=== PATIENT | male | born 1960 | race Two or more races ===

== ENCOUNTER → 2022-12-21 | Outpatient (CLI) | payer BC ==
[2022-12-21 07:12] LABS: Urine Bacteria NONE SEEN /hpf (None Seen); Urine Blood Negative /uL (Negative); Urine Clarity Clear (Clear); Urine Protein, UAD Negative (Negative); Urine Specific Gravity 1.013 (1.001-1.035); Urine Urobilinogen Normal (Negative); Urine WBC <1 /hpf (0 - 3); Urine pH 6.5 (5.0-8.0)
[2022-12-21 07:14] LABS: Urine Color Straw (Yellow)
[2022-12-21 07:32] LABS: Basophils # (auto) 0.1 10 ^3/uL (0-0.2); Eosinophils # (auto) 0.3 10 ^3/uL (0-0.8); Eosinophils % (auto) 3.9 % (0.0-7.0); Hematocrit 46.1 % (41.0-53.0); Hemoglobin 15.9 g/dL (13.5-17.5); Lymphocytes # (auto) 3.2 10 ^3/uL (0.4-5.4); Lymphocytes % (auto) 46.9 % (10.0-50.0); Mean Corpuscular Hemoglobin 30.9 pg (28.0-32.0); Mean Corpuscular Hgb Conc. 34.6 g/dL (32.0-36.0); Mean Corpuscular Volume 89.3 fL (80.0-100.0); Monocytes # (auto) 0.7 10 ^3/uL (0-1.3); Monocytes % (auto) 9.7 % (0.0-12.0); Neutrophils # (auto) 2.6 10 ^3/uL (1.6-8.6); Neutrophils % (auto) 38.5 % (37.0-80.0); Nucleated Red Blood Cells % 0.1 %; Red Blood Cells 5.16 10^6/uL (4.5-5.90); Red Cell Distribution Width 14.7 % (11.8-14.3); White Blood Cell 6.8 10^3/uL (4.4-10.8)
[2022-12-21 07:54] LABS: Alanine Aminotransferase 23 U/L (7-40); Alkaline Phosphatase 41 U/L (46-116); Anion Gap 7 (5-15); BUN/Creatinine Ratio 13.6 (10.0-20.0); Blood Urea Nitrogen 14 mg/dL (9-23); Calcium 9.3 mg/dL (8.5-10.1); Carbon Dioxide 24 mmol/L (20-30); Chloride 110 mmol/L (98-107); Glucose 103 mg/dL (74-106); Potassium 4.2 mmol/L (3.5-5.1); Sodium 141 mmol/L (136-145); Triglycerides 160 mg/dL (< 150)
[2022-12-21 07:55] LABS: Albumin 4.1 g/dL (3.2-4.8); Aspartate Aminotransferase 20 U/L (13-40); LDL Cholesterol 82 mg/dL (< 100)
[2022-12-21 07:57] LABS: Cholesterol 143 mg/dL (< 200); HDL Cholesterol 31 mg/dL (40-59)
[2022-12-21 07:58] LABS: Bilirubin, Total 0.8 mg/dL (0.2-1.0)
[2022-12-21 08:14] LABS: Platelet Estimate Adequate
== END | disposition home or self-care (01) ==
LOC: LAB 06:29
PROVIDERS: ATTEND Internal Medicine
DX: E11.9 Type 2 diabetes mellitus without complications (principal); E78.00 Pure hypercholesterolemia, unspecified
CPT/HCPCS: 36415; 80053; 80061; 81001; 83036; 85025

== ENCOUNTER → 2023-05-15 | Outpatient (CLI) | payer BC ==
[2023-05-15 07:05] LABS: Basophils # (auto) 0 10 ^3/uL (0-0.2); Basophils % (auto) 0.8 % (0.0-2.0); Eosinophils # (auto) 0.2 10 ^3/uL (0-0.8); Eosinophils % (auto) 3.1 % (0.0-7.0); Hematocrit 47.1 % (41.0-53.0); Hemoglobin 15.4 g/dL (13.5-17.5); Lymphocytes # (auto) 2.4 10 ^3/uL (0.4-5.4); Lymphocytes % (auto) 44.8 % (10.0-50.0); Mean Corpuscular Hemoglobin 29.3 pg (28.0-32.0); Mean Corpuscular Hgb Conc. 32.8 g/dL (32.0-36.0); Mean Corpuscular Volume 89.3 fL (80.0-100.0); Monocytes # (auto) 0.6 10 ^3/uL (0-1.3); Monocytes % (auto) 11.2 % (0.0-12.0); Neutrophils # (auto) 2.2 10 ^3/uL (1.6-8.6); Neutrophils % (auto) 40.1 % (37.0-80.0); Nucleated Red Blood Cells % 0.2 %; Red Blood Cells 5.27 10^6/uL (4.5-5.90); Red Cell Distribution Width 14.5 % (11.8-14.3); White Blood Cell 5.4 10^3/uL (4.4-10.8)
[2023-05-15 07:17] LABS: Urine Bacteria NONE SEEN /hpf (None Seen); Urine Blood Negative /uL (Negative); Urine Clarity Clear (Clear); Urine Color Colorless (Yellow); Urine Protein, UAD Negative (Negative); Urine Specific Gravity 1.011 (1.001-1.035); Urine Urobilinogen Normal (Negative); Urine WBC 1 /hpf (0 - 3)
[2023-05-15 07:48] LABS: Alanine Aminotransferase 26 U/L (7-40); Albumin 3.9 g/dL (3.2-4.8); Alkaline Phosphatase 47 U/L (46-116); Anion Gap 6 (5-15); Aspartate Aminotransferase 28 U/L (13-40); Calcium 9.2 mg/dL (8.5-10.1); Carbon Dioxide 23 mmol/L (20-30); Chloride 107 mmol/L (98-107); Glucose 94 mg/dL (74-106); LDL Cholesterol 85 mg/dL (< 100); Potassium 4.1 mmol/L (3.5-5.1); Sodium 136 mmol/L (136-145)
[2023-05-15 07:49] LABS: Bilirubin, Total 0.8 mg/dL (0.2-1.0); Cholesterol 146 mg/dL (< 200); HDL Cholesterol 34 mg/dL (40-59); Triglycerides 120 mg/dL (< 150)
[2023-05-15 07:50] LABS: BUN/Creatinine Ratio 9.9 (10.0-20.0); Blood Urea Nitrogen 11 mg/dL (9-23); Total Protein 6.7 g/dL (5.7-8.2)
[2023-05-16 10:06] LABS: PSA Free 0.74 ng/mL; Prostate Specific Antigen 2.9 ng/mL (0.0-4.0)
== END | disposition home or self-care (01) ==
LOC: LAB 06:27
PROVIDERS: ATTEND Internal Medicine
DX: Z12.11 Encounter for screening for malignant neoplasm of colon (principal); E78.5 Hyperlipidemia, unspecified; R68.89 Other general symptoms and signs; E11.69 Type 2 diabetes mellitus with other specified complication; N42.9 Disorder of prostate, unspecified
CPT/HCPCS: 36415; 80053; 80061; 81001; 82270; 83036; 84154; 85025

== ENCOUNTER → 2023-06-22 | Outpatient (CLI) | payer BC ==
[2023-06-22 07:25] LABS: Basophils # (auto) 0 10 ^3/uL (0-0.2); Basophils % (auto) 0.8 % (0.0-2.0); Eosinophils # (auto) 0.3 10 ^3/uL (0-0.8); Eosinophils % (auto) 3.9 % (0.0-7.0); Hematocrit 47.8 % (41.0-53.0); Hemoglobin 15.7 g/dL (13.5-17.5); Lymphocytes # (auto) 3.1 10 ^3/uL (0.4-5.4); Lymphocytes % (auto) 46.9 % (10.0-50.0); Mean Corpuscular Hemoglobin 28.7 pg (28.0-32.0); Mean Corpuscular Hgb Conc. 32.8 g/dL (32.0-36.0); Mean Corpuscular Volume 87.4 fL (80.0-100.0); Monocytes # (auto) 0.7 10 ^3/uL (0-1.3); Monocytes % (auto) 10.1 % (0.0-12.0); Neutrophils # (auto) 2.5 10 ^3/uL (1.6-8.6); Neutrophils % (auto) 38.3 % (37.0-80.0); Nucleated Red Blood Cells % 0.1 %; Red Blood Cells 5.47 10^6/uL (4.5-5.90); Red Cell Distribution Width 14.8 % (11.8-14.3); White Blood Cell 6.5 10^3/uL (4.4-10.8)
[2023-06-22 08:04] LABS: Alanine Aminotransferase 41 U/L (7-40); Alkaline Phosphatase 48 U/L (46-116); Anion Gap 7 (5-15); Aspartate Aminotransferase 31 U/L (13-40); Blood Urea Nitrogen 13 mg/dL (9-23); Calcium 9.3 mg/dL (8.5-10.1); Carbon Dioxide 27 mmol/L (20-30); Chloride 106 mmol/L (98-107); Glucose 86 mg/dL (74-106); LDL Cholesterol 97 mg/dL (< 100); Potassium 4.1 mmol/L (3.5-5.1); Sodium 140 mmol/L (136-145); Triglycerides 127 mg/dL (< 150)
[2023-06-22 08:05] LABS: Bilirubin, Total 0.8 mg/dL (0.2-1.0); Cholesterol 151 mg/dL (< 200); HDL Cholesterol 34 mg/dL (40-59); Total Protein 6.4 g/dL (5.7-8.2)
[2023-06-23 08:06] LABS: Free Thyroxine Index 2.2 (1.2-4.9); Thyroxine (T4) 7.2 ug/dL (4.5-12.0)
== END | disposition home or self-care (01) ==
LOC: LAB 06:17
PROVIDERS: ATTEND Psychiatry & Neurology Psychiatry
DX: F20.5 Residual schizophrenia (principal)
CPT/HCPCS: 36415; 80053; 80061; 80164; 82306; 82607; 84443; 85025; 86256

== ENCOUNTER → 2023-09-10 | Outpatient (CLI) | payer BC ==
[2023-09-10 07:41] LABS: Basophils # (auto) 0.1 10 ^3/uL (0-0.2); Eosinophils # (auto) 0.5 10 ^3/uL (0-0.8); Eosinophils % (auto) 7.4 % (0.0-7.0); Hematocrit 47.3 % (41.0-53.0); Hemoglobin 15.7 g/dL (13.5-17.5); Lymphocytes % (auto) 42.2 % (10.0-50.0); Mean Corpuscular Hemoglobin 29.4 pg (28.0-32.0); Mean Corpuscular Hgb Conc. 33.2 g/dL (32.0-36.0); Mean Corpuscular Volume 88.4 fL (80.0-100.0); Monocytes # (auto) 0.7 10 ^3/uL (0-1.3); Neutrophils # (auto) 2.8 10 ^3/uL (1.6-8.6); Neutrophils % (auto) 39.4 % (37.0-80.0); Nucleated Red Blood Cells % 0.2 %; Red Blood Cells 5.36 10^6/uL (4.5-5.90); Red Cell Distribution Width 15.1 % (11.8-14.3); White Blood Cell 7.2 10^3/uL (4.4-10.8)
[2023-09-10 07:42] LABS: Urine Bacteria None Seen /hpf (None Seen); Urine Blood Negative /uL (Negative); Urine Clarity Clear (Clear); Urine Color Yellow (Yellow); Urine Mucus FEW (None Seen); Urine Protein, UAD Negative (Negative); Urine Specific Gravity 1.025 (1.001-1.035); Urine Urobilinogen 4 mg/dL (Negative); Urine WBC <1 /hpf (0 - 3)
[2023-09-10 08:01] LABS: Alanine Aminotransferase 38 U/L (7-40); Albumin 3.9 g/dL (3.2-4.8); Alkaline Phosphatase 49 U/L (46-116); Anion Gap 4 (5-15); Aspartate Aminotransferase 27 U/L (13-40); BUN/Creatinine Ratio 9.9 (10.0-20.0); Blood Urea Nitrogen 11 mg/dL (9-23); Calcium 9.5 mg/dL (8.5-10.1); Carbon Dioxide 29 mmol/L (20-30); Chloride 107 mmol/L (98-107); Cholesterol 155 mg/dL (< 200); Glucose 88 mg/dL (74-106); LDL Cholesterol 92 mg/dL (< 100); Potassium 4.2 mmol/L (3.5-5.1); Sodium 140 mmol/L (136-145); Triglycerides 162 mg/dL (< 150)
[2023-09-10 08:02] LABS: Bilirubin, Total 0.9 mg/dL (0.2-1.0); Total Protein 6.7 g/dL (5.7-8.2)
[2023-09-10 08:49] LABS: HDL Cholesterol 33 mg/dL (40-59)
== END | disposition home or self-care (01) ==
LOC: LAB 06:50
PROVIDERS: ATTEND Internal Medicine
DX: E11.9 Type 2 diabetes mellitus without complications (principal); E78.00 Pure hypercholesterolemia, unspecified; R68.89 Other general symptoms and signs
CPT/HCPCS: 36415; 80053; 80061; 81001; 83036; 85025

== ENCOUNTER → 2023-11-29 | Outpatient (CLI) | payer BC ==
[2023-11-29 13:30] LABS: Folate (Folic Acid) 13.98 ng/mL (>5.38)
== END | disposition home or self-care (01) ==
LOC: LAB 12:47
PROVIDERS: ATTEND Internal Medicine
DX: F03.90 Unspecified dementia, unspecified severity, without behavioral disturbance, psychotic disturbance, mood disturbance, and anxiety (principal)
CPT/HCPCS: 36415; 82607; 82746; 84436; 84443

== ENCOUNTER 2023-12-01 06:10 | Inpatient (IN) | payer BC ==
[2023-11-30] MEDS: BUDESONIDE (INHALATION) 180 MCG IH IN SCH (18:20)
[~2023-12-01] VITALS: Ht 177.8 cm; Wt 120.0 kg
[~2023-12-01 06:10] MED LIST: ATOR10TA PO; DIVA500T13 PO; DONE1TAB88 PO; GLIP-110 PO; LORA-655 PO; LOSA-534 PO; METF-370 PO; OMEG-86 PO; OMEP1CAP70 PO
[2023-12-01 06:33] VITALS: PULSE 70; RESP 18; O2SAT 96
[2023-12-01 07:00] LABS: Basophils # (auto) 0 10 ^3/uL (0-0.2); Basophils % (auto) 0.5 % (0.0-2.0); Chloride 106 mmol/L (98-107); Eosinophils # (auto) 0 10 ^3/uL (0-0.8); Eosinophils % (auto) 0.1 % (0.0-7.0); Hematocrit 42.7 % (41.0-53.0); Hemoglobin 14.5 g/dL (13.5-17.5); Lymphocytes # (auto) 0.7 10 ^3/uL (0.4-5.4); Lymphocytes % (auto) 10.5 % (10.0-50.0); Mean Corpuscular Hemoglobin 30.1 pg (28.0-32.0); Mean Corpuscular Volume 88.6 fL (80.0-100.0); Monocytes # (auto) 1.1 10 ^3/uL (0-1.3); Monocytes % (auto) 17.9 % (0.0-12.0); Neutrophils # (auto) 4.5 10 ^3/uL (1.6-8.6); Nucleated Red Blood Cells % 0.1 %; Platelet Count (auto) 130 10^3/uL (140-450); Potassium 3.8 mmol/L (3.5-5.1); Red Blood Cells 4.82 10^6/uL (4.5-5.90); Red Cell Distribution Width 15.8 % (11.8-14.3); Sodium 137 mmol/L (136-145); White Blood Cell 6.3 10^3/uL (4.4-10.8)
[2023-12-01 07:01] LABS: Anion Gap 6 (5-15); Carbon Dioxide 25 mmol/L (20-30)
[2023-12-01 07:02] LABS: Calcium 9.4 mg/dL (8.7-10.4)
[2023-12-01 07:06] LABS: Glucose 90 mg/dL (74-106)
[2023-12-01 07:36] LABS: BUN/Creatinine Ratio 13.1 (10.0-20.0); Blood Urea Nitrogen 14 mg/dL (9-23)
[2023-12-01 07:56] LABS: COVID19 ANTIGEN SOFIA FIA POSITIVE (NEGATIVE)
[2023-12-01] MEDS: AZITHROMYCIN 500MG/ 250ML 250 ML IV ONE (08:30)
[2023-12-01] MEDS: cefTRIAXone 1GM/50ML D5W 50 ML IV ONE (09:02)
[2023-12-01] MEDS: IOHEXOL 350 MG/ML 100ML IJ ONE (09:17)
[2023-12-01 09:27] VITALS: PULSE 100; RESP 22; O2SAT 95
[2023-12-01] MEDS ORDERED: DEXTROSE (50%) 50ML SYRG IV PRN (10:00)
[2023-12-01] MEDS: DexAMETHasone 4 MG TAB PO SCH (10:00)
[2023-12-01] MEDS ORDERED: DOCUSATE SOD 100 MG CAP PO PRN (10:00)
[2023-12-01] MEDS ORDERED: REMDESIVIR PER PHARMACY 0 ML IV SCH (10:00)
[2023-12-01] MEDS: ZINC SULFATE 220mg CAP or TAB PO SCH (10:00)
[2023-12-01] MEDS ORDERED: HYDROcodone-ACET 5/325MG TAB PO PRN (10:00)
[2023-12-01 10:09] VITALS: PULSE 100; RESP 22; O2SAT 95
[2023-12-01 10:14] LABS: Magnesium 1.5 mg/dL (1.6-2.6)
[2023-12-01 10:23] LABS: CRP High Sensitivity 2.77 mg/dL (<1.0)
[2023-12-01] MEDS: ENOXAPARIN SOD 120 MG/0.8 ML SYRINGE SC ONE (10:29)
[2023-12-01 10:53] LABS: Thyroid Stimulating Hormone 1.96 uIU/mL (0.55-4.78)
[2023-12-01] MEDS: HYDROmorphone HCL 2 MG/ML VL/or syr IV PRN (11:17)
[2023-12-01] MEDS: InsuLIN REG 1unit/0.01ml Soln (100units/ml) SC SCH (11:30)
[2023-12-01] MEDS: ACCU-CHEK COMFORT CURVE STRIP VI SCH (11:43)
[2023-12-01] MEDS: REMDESIVIR 200 MG in NS 210ml LOADING DOSE ADULT IV ONE (11:44)
[2023-12-01] MEDS: SODIUM CHLOR 0.9% PF (SALINE LOCK) 10ML VIAL/SYR IV SCH (14:23)
[2023-12-01] MEDS: ACETAMINOPHEN 325 MG TAB PO PRN (17:08)
[2023-12-01] MEDS: ONDANSETRON HCL 4 MG/2 ML VIAL IV PRN (18:00)
[2023-12-01 18:20] VITALS: PULSE 90; RESP 19; O2SAT 93
[2023-12-01 18:27] VITALS: PULSE 92; RESP 18; O2SAT 94
[2023-12-01 20:21] VITALS: PULSE 77; RESP 13; O2SAT 95
[2023-12-01] MEDS: ENOXAPARIN SOD 120 MG/0.8 ML SYRINGE SC SCH (22:00)
[2023-12-02 06:09] LABS: Hematocrit 43.6 % (41.0-53.0); Hemoglobin 14.8 g/dL (13.5-17.5); Mean Corpuscular Hemoglobin 30.6 pg (28.0-32.0); Mean Corpuscular Hgb Conc. 34.1 g/dL (32.0-36.0); Mean Corpuscular Volume 89.7 fL (80.0-100.0); Platelet Count (auto) 107 10^3/uL (140-450); Red Blood Cells 4.85 10^6/uL (4.5-5.90); Red Cell Distribution Width 15.9 % (11.8-14.3)
[2023-12-02 06:15] LABS: Basophils % (manual) 0 (0.0-2.0); Blast Cells 0; Eosinophils % (manual) 0 (0-7); Metamyelocytes % 0; Myelocytes % 0; Promyelocytes % 0
[2023-12-02 06:33] LABS: Alanine Aminotransferase 88 U/L (7-40); Alkaline Phosphatase 43 U/L (46-116); Anion Gap 4 (5-15); BUN/Creatinine Ratio 13.9 (10.0-20.0); Blood Urea Nitrogen 14 mg/dL (9-23); Carbon Dioxide 28 mmol/L (20-30); Chloride 103 mmol/L (98-107); Glucose 89 mg/dL (74-106); Potassium 4.3 mmol/L (3.5-5.1); Sodium 135 mmol/L (136-145)
[2023-12-02 06:34] LABS: Aspartate Aminotransferase 312 U/L (13-40)
[2023-12-02 06:35] LABS: Albumin 3.6 g/dL (3.2-4.8); Bilirubin, Total 0.7 mg/dL (0.2-1.0); Total Protein 6.4 g/dL (5.7-8.2)
[2023-12-02 07:21] VITALS: PULSE 73; RESP 20; O2SAT 95
[2023-12-02] MEDS: ALBUTEROL SULF HFA 90MCG INH 200DOSE IN PRN (07:21)
[2023-12-02 07:23] VITALS: O2SAT 95
[2023-12-02 07:24] VITALS: O2SAT 95
[2023-12-02 07:50] VITALS: PULSE 80; RESP 18; O2SAT 93
[2023-12-02 08:26] LABS: Band Neutrophils % (manual) 5; Lymphocytes % (manual) 22 (10.0-50.0); Monocytes % (manual) 26 (0-12); Reactive Lymphocytes 2
[2023-12-02 08:27] LABS: Anisocytosis Slight; Platelet Estimate Decreased
[2023-12-02] MEDS: cefTRIAXone 1GM/50ML D5W 50 ML IV SCH (09:42)
[2023-12-02] MEDS: AZITHROMYCIN 500MG/ 250ML 250 ML IV SCH (11:18)
[2023-12-02] MEDS: REMDESIVIR 100mg 100 MG in SODIUM CHL 0.9% 230 ML IV SCH (15:54)
[2023-12-02] MEDS ORDERED: RIS1T PO (16:16)
[2023-12-02] MEDS: IOHEXOL 350 MG/ML 100ML IJ ONE (20:46)
[2023-12-02] MEDS ORDERED: risperiDONE 1 MG TAB PO ONE (22:00)
[2023-12-02 22:24] VITALS: O2SAT 97
[2023-12-03] MEDS: risperiDONE 1 MG TAB PO SCH (00:25)
[2023-12-03] MEDS: ENOXAPARIN SOD 40 MG/0.4 ML SYRINGE SC ONE (00:26)
[2023-12-03 07:38] LABS: Basophils # (auto) 0 10 ^3/uL (0-0.2); Basophils % (auto) 0.3 % (0.0-2.0); Eosinophils # (auto) 0 10 ^3/uL (0-0.8); Hematocrit 44.6 % (41.0-53.0); Hemoglobin 15.2 g/dL (13.5-17.5); Lymphocytes # (auto) 2.6 10 ^3/uL (0.4-5.4); Mean Corpuscular Hemoglobin 30.8 pg (28.0-32.0); Mean Corpuscular Hgb Conc. 34.1 g/dL (32.0-36.0); Mean Corpuscular Volume 90.5 fL (80.0-100.0); Monocytes # (auto) 1.6 10 ^3/uL (0-1.3); Monocytes % (auto) 18.8 % (0.0-12.0); Neutrophils # (auto) 4.5 10 ^3/uL (1.6-8.6); Neutrophils % (auto) 50.9 % (37.0-80.0); Platelet Count (auto) 112 10^3/uL (140-450); Red Blood Cells 4.93 10^6/uL (4.5-5.90); White Blood Cell 8.8 10^3/uL (4.4-10.8)
[2023-12-03 07:52] LABS: Alanine Aminotransferase 80 U/L (7-40); Albumin 3.7 g/dL (3.2-4.8); Alkaline Phosphatase 39 U/L (46-116); Anion Gap 4 (5-15); Aspartate Aminotransferase 216 U/L (13-40); BUN/Creatinine Ratio 14.6 (10.0-20.0); Bilirubin, Total 0.6 mg/dL (0.2-1.0); Blood Urea Nitrogen 14 mg/dL (9-23); Calcium 9.1 mg/dL (8.7-10.4); Carbon Dioxide 31 mmol/L (20-30); Chloride 104 mmol/L (98-107); Glucose 102 mg/dL (74-106); Potassium 4.4 mmol/L (3.5-5.1); Sodium 139 mmol/L (136-145); Total Protein 6.4 g/dL (5.7-8.2)
[2023-12-03 07:56] VITALS: PULSE 82; RESP 17; O2SAT 98
[2023-12-03 11:30] VITALS: PULSE 86; RESP 18; O2SAT 98
[2023-12-03 11:37] VITALS: PULSE 87; RESP 18; O2SAT 98
[2023-12-03] MEDS: FUROSEMIDE 20 MG/2 ML VIAL IV ONE (14:45)
[2023-12-03] MEDS ORDERED: RISP2TAB62 PO (15:35)
[2023-12-03 17:00] VITALS: BP 117/70; PULSE 75; RESP 19; O2SAT 94
== END 2023-12-03 17:08 | disposition home or self-care (01) | DRG 871 ==
LOC: ER 06:10 → EDBD 06:10 → EDUNIT# 06:10 → TELE 09:52
PROVIDERS: ADMIT Internal Medicine; ATTEND Emergency Medicine
PROC: XW033E5 Introduction of Remdesivir Anti-infective into Peripheral Vein, Percutaneous Approach, New Technology Group 5 (ICD-10-PCS; principal; 2023-12-01)
DX: A41.89 Other specified sepsis (principal); J12.82 Pneumonia due to coronavirus disease 2019; U07.1 COVID-19; J96.01 Acute respiratory failure with hypoxia; D69.6 Thrombocytopenia, unspecified; E11.9 Type 2 diabetes mellitus without complications; F20.9 Schizophrenia, unspecified; I10 Essential (primary) hypertension; R79.89 Other specified abnormal findings of blood chemistry; R74.01 Elevation of levels of liver transaminase levels; Z86.16 Personal history of COVID-19
CPT/HCPCS: 36415; 71045; 71275; 76705; 80048; 80053; 82306; 82607; 82746; 82962; 83615; 83735; 84436; 84443; 85007; 85025; 85027; 85379; 86141; 87040; 87426; 93005; 94640; 96365; 99291; G0378; J2405

== ENCOUNTER 2023-12-07 08:54 | Emergency (ER) | payer BC ==
[~2023-12-07] VITALS: Ht 167.6 cm; Wt 99.8 kg
[~2023-12-07 08:54] MED LIST changes: +RISP2TAB62 PO
[2023-12-07] MEDS ORDERED: BENZ200C64 PO (09:51)
[2023-12-07] MEDS ORDERED: AZIT500T66 PO (09:51)
[2023-12-07 10:00] VITALS: BP 141/87; PULSE 87; RESP 16; TEMP 98.6; O2SAT 94
== END 2023-12-07 10:03 | disposition home or self-care (01) ==
LOC: ER 08:54
DX: J20.9 Acute bronchitis, unspecified (principal); E11.9 Type 2 diabetes mellitus without complications; I10 Essential (primary) hypertension; F20.9 Schizophrenia, unspecified
CPT/HCPCS: 71046

== ENCOUNTER 2024-01-11 12:06 | Inpatient (IN) | payer BC ==
[~2024-01-11] VITALS: Ht 165.1 cm; Wt 99.7 kg
[~2024-01-11 12:06] MED LIST changes: +AZIT500T66 PO; +BENZ200C64 PO
[2024-01-11 13:43] LABS: Basophils # (auto) 0 10 ^3/uL (0-0.2); Basophils % (auto) 0.3 % (0.0-2.0); Eosinophils # (auto) 0.1 10 ^3/uL (0-0.8); Hematocrit 44.9 % (41.0-53.0); Hemoglobin 15.4 g/dL (13.5-17.5); Lymphocytes # (auto) 1.4 10 ^3/uL (0.4-5.4); Lymphocytes % (auto) 21.9 % (10.0-50.0); Mean Corpuscular Hemoglobin 31.1 pg (28.0-32.0); Mean Corpuscular Hgb Conc. 34.4 g/dL (32.0-36.0); Mean Corpuscular Volume 90.4 fL (80.0-100.0); Monocytes # (auto) 0.5 10 ^3/uL (0-1.3); Neutrophils # (auto) 4.4 10 ^3/uL (1.6-8.6); Neutrophils % (auto) 68.8 % (37.0-80.0); Nucleated Red Blood Cells % 0.1 %; Platelet Count (auto) 156 10^3/uL (140-450); Red Blood Cells 4.96 10^6/uL (4.5-5.90); Red Cell Distribution Width 15.1 % (11.8-14.3); White Blood Cell 6.4 10^3/uL (4.4-10.8)
[2024-01-11 13:48] LABS: Anion Gap 9 (5-15); Carbon Dioxide 23 mmol/L (20-31); Chloride 109 mmol/L (98-107); Potassium 4.4 mmol/L (3.5-5.1); Sodium 141 mmol/L (136-145)
[2024-01-11 13:49] LABS: Calcium 9.1 mg/dL (8.7-10.4)
[2024-01-11 13:54] LABS: Blood Urea Nitrogen 14 mg/dL (9-23); Glucose 88 mg/dL (74-106)
[2024-01-11] MEDS: ENOXAPARIN SOD 100 MG/1 ML SYRINGE SC ONE (16:13)
[2024-01-11 16:18] VITALS: PULSE 155; RESP 24; O2SAT 93
[2024-01-11] MEDS: dilTIAZem 25 MG/5 ML VIAL IV ONE (16:24)
[2024-01-11] MEDS ORDERED: MORPHINE SULFATE INJ 2 MG/ml SYRG IV PRN (18:15)
[2024-01-11] MEDS ORDERED: ONDANSETRON HCL 4 MG/2 ML VIAL IV PRN (18:15)
[2024-01-11] MEDS ORDERED: DEXTROSE (50%) 50ML SYRG IV PRN (18:15)
[2024-01-11] MEDS ORDERED: NITROGLYCERIN 0.4 MG SL TAB SL PRN (18:15)
[2024-01-11] MEDS: DIGOXIN (250MCG/ML) 2 ML AMPULE IV ONE (18:27)
[2024-01-11] MEDS: levoFLOXacin 500MG 100 ML IV ONE (18:27)
[2024-01-11 19:00] LABS: Magnesium 1.6 mg/dL (1.6-2.6)
[2024-01-11 19:50] LABS: Rapid Influenza A Negative (Negative); Rapid Influenza B Negative (Negative)
[2024-01-11 19:51] LABS: COVID19 ANTIGEN SOFIA FIA NEGATIVE (NEGATIVE)
[2024-01-11 20:45] LABS: Lactic Acid w/Reflex 2.1 mmol/L (0.4-2.0)
[2024-01-11] MEDS: AMIODARONE 450mg/250ml AE 250 ML IV SCH (21:10)
[2024-01-11] MEDS: InsuLIN REG 1unit/0.01ml Soln (100units/ml) SC SCH (22:00)
[2024-01-11] MEDS: DONEPEZIL HYDROCHLORIDE 5 MG TAB PO SCH (22:24)
[2024-01-11] MEDS: ATORVASTATIN 20 MG TAB PO SCH (22:25)
[2024-01-11 22:34] VITALS: BP 96/54; PULSE 83; RESP 18; TEMP 98.2; O2SAT 92
[2024-01-11 22:45] VITALS: BP 96/54; PULSE 83; RESP 16; RESP 18; TEMP 98.2; O2SAT 92
[2024-01-12] VITALS (8 sets, daily range): BP systolic 97–126; BP diastolic 50–80; PULSE 54–81; RESP 16–18; TEMP 97.4–98.2; O2SAT 92–96
[2024-01-12] MEDS: ACCU-CHEK COMFORT CURVE STRIP VI SCH (00:14)
[2024-01-12] MEDS: AMIODARONE 450mg/250ml AE 250 ML IV SCH (03:00)
[2024-01-12 08:57] LABS: Basophils # (auto) 0 10 ^3/uL (0-0.2); Basophils % (auto) 0.2 % (0.0-2.0); Eosinophils # (auto) 0.1 10 ^3/uL (0-0.8); Eosinophils % (auto) 2.9 % (0.0-7.0); Hemoglobin 14.6 g/dL (13.5-17.5); Mean Corpuscular Hemoglobin 30.6 pg (28.0-32.0); Mean Corpuscular Hgb Conc. 33.8 g/dL (32.0-36.0); Mean Corpuscular Volume 90.4 fL (80.0-100.0); Monocytes # (auto) 0.7 10 ^3/uL (0-1.3); Monocytes % (auto) 14.7 % (0.0-12.0); Neutrophils # (auto) 2.2 10 ^3/uL (1.6-8.6); Neutrophils % (auto) 43.2 % (37.0-80.0); Nucleated Red Blood Cells % 0.4 %; Platelet Count (auto) 147 10^3/uL (140-450); Red Blood Cells 4.76 10^6/uL (4.5-5.90); Red Cell Distribution Width 15.2 % (11.8-14.3)
[2024-01-12 09:48] LABS: Alanine Aminotransferase 23 U/L (7-40); Albumin 3.7 g/dL (3.2-4.8); Alkaline Phosphatase 46 U/L (46-116); Anion Gap 8 (5-15); Aspartate Aminotransferase 20 U/L (13-40); BUN/Creatinine Ratio 11.1 (10.0-20.0); Bilirubin, Total 0.6 mg/dL (0.2-1.0); Blood Urea Nitrogen 12 mg/dL (9-23); Calcium 8.6 mg/dL (8.7-10.4); Carbon Dioxide 23 mmol/L (20-31); Chloride 109 mmol/L (98-107); Cholesterol 134 mg/dL (< 200); Glucose 110 mg/dL (74-106); HDL Cholesterol 35 mg/dL (40-59); LDL Cholesterol 77 mg/dL (< 100); Magnesium 1.8 mg/dL (1.6-2.6); Potassium 3.7 mmol/L (3.5-5.1); Sodium 140 mmol/L (136-145); Total Protein 6.2 g/dL (5.7-8.2); Triglycerides 139 mg/dL (< 150)
[2024-01-12] MEDS ORDERED: ENOXAPARIN SOD 40 MG/0.4 ML SYRINGE SC SCH (10:00)
[2024-01-12] MEDS ORDERED: RISP2TAB62 PO (11:35)
[2024-01-12] MEDS: LOSARTAN POTASSIUM 50 MG TAB PO SCH (12:31)
[2024-01-12] MEDS: POTASSIUM CHL 20 Meq TABLET PO ONE (12:31)
[2024-01-12] MEDS: METOPROLOL TARTRATE 25 MG TAB PO ONE (12:33)
[2024-01-12] MEDS: AMIODARONE HCL 200 MG TAB PO ONE (12:36)
[2024-01-12] MEDS: ENOXAPARIN SOD 80 MG/0.8ML SYRINGE SC SCH (12:37)
[2024-01-12] MEDS ORDERED: LORazepam 0.5 MG TAB PO PRN (14:45)
[2024-01-12] MEDS: levoFLOXacin 500MG 100 ML IV SCH (17:11)
[2024-01-12 17:33] LABS: Urine Bacteria FEW /hpf (None Seen); Urine Blood TRACE /uL (Negative); Urine Clarity Clear (Clear); Urine Color Light-Yellow (Yellow); Urine Protein, UAD Negative (Negative); Urine Specific Gravity 1.008 (1.001-1.035); Urine Urobilinogen Normal (Negative); Urine WBC 1 /hpf (0 - 3)
[2024-01-12 17:42] LABS: Amphetamine Screen, Urine Neg (NEGATIVE); Barbiturate Scree,Urine Neg (NEGATIVE); Benzodiazephine Screen, Urine Neg (NEGATIVE); Cannabinoid Screen, Urine Neg (NEGATIVE); Cocaine Screen, Urine Neg (NEGATIVE); Opiate Scree,Urine Neg (NEGATIVE); Phencyclidine Screen, Urine Neg (NEGATIVE)
[2024-01-12] MEDS: MAGNESIUM SULFATE 1GM/100ML 100 ML IV ONE (18:25)
[2024-01-12] MEDS: METOPROLOL TARTRATE 25 MG TAB PO SCH (21:59)
[2024-01-12] MEDS: AMIODARONE HCL 200 MG TAB PO SCH (22:02)
[2024-01-13 01:00] VITALS: BP_SYST 113; BP_SYST 141; BP_DIAS 67; BP_DIAS 93; PULSE 62; PULSE 96; RESP 18; RESP 19; TEMP 97.6; TEMP 98.3; O2SAT 100
[2024-01-13 05:00] VITALS: BP 121/54; PULSE 52; RESP 20; TEMP 97.6; O2SAT 94
[2024-01-13 06:12] LABS: Basophils # (auto) 0 10 ^3/uL (0-0.2); Basophils % (auto) 0.4 % (0.0-2.0); Eosinophils # (auto) 0.2 10 ^3/uL (0-0.8); Eosinophils % (auto) 2.5 % (0.0-7.0); Hematocrit 46.5 % (41.0-53.0); Hemoglobin 15.7 g/dL (13.5-17.5); Lymphocytes # (auto) 3.3 10 ^3/uL (0.4-5.4); Lymphocytes % (auto) 46.1 % (10.0-50.0); Mean Corpuscular Hemoglobin 30.8 pg (28.0-32.0); Mean Corpuscular Hgb Conc. 33.7 g/dL (32.0-36.0); Mean Corpuscular Volume 91.4 fL (80.0-100.0); Monocytes % (auto) 13.5 % (0.0-12.0); Neutrophils # (auto) 2.7 10 ^3/uL (1.6-8.6); Neutrophils % (auto) 37.5 % (37.0-80.0); Nucleated Red Blood Cells % 0.1 %; Platelet Count (auto) 165 10^3/uL (140-450); Red Blood Cells 5.09 10^6/uL (4.5-5.90); Red Cell Distribution Width 15.3 % (11.8-14.3); White Blood Cell 7.2 10^3/uL (4.4-10.8)
[2024-01-13 06:35] LABS: Alanine Aminotransferase 24 U/L (7-40); Albumin 4.1 g/dL (3.2-4.8); Alkaline Phosphatase 49 U/L (46-116); Anion Gap 6 (5-15); Aspartate Aminotransferase 23 U/L (13-40); BUN/Creatinine Ratio 12.1 (10.0-20.0); Bilirubin, Total 0.6 mg/dL (0.2-1.0); Blood Urea Nitrogen 13 mg/dL (9-23); Calcium 9.6 mg/dL (8.7-10.4); Carbon Dioxide 28 mmol/L (20-31); Chloride 104 mmol/L (98-107); Glucose 91 mg/dL (74-106); Potassium 4.7 mmol/L (3.5-5.1); Sodium 138 mmol/L (136-145); Total Protein 6.9 g/dL (5.7-8.2)
[2024-01-13 08:00] VITALS: PULSE 52; O2SAT 95
[2024-01-13 09:00] VITALS: BP 139/74; PULSE 61; RESP 19; TEMP 97.7; O2SAT 95
[2024-01-13] MEDS: risperiDONE 1 MG TAB PO SCH (10:01)
[2024-01-13] MEDS ORDERED: LEVO750T40 PO (10:41)
[2024-01-13] MEDS ORDERED: AMIO200T13 PO (10:41)
[2024-01-13] MEDS ORDERED: MET25T PO (10:41)
[2024-01-13] MEDS ORDERED: APIX5TAB PO (11:06)
[2024-01-13 11:07] VITALS: BP 139/74; PULSE 61; RESP 19; TEMP 97.7; O2SAT 95
[2024-01-13 13:00] VITALS: BP 129/82; PULSE 60; RESP 20; TEMP 98; O2SAT 94
[2024-01-13] MEDS ORDERED: APIXABAN 5 MG TAB PO SCH (22:00)
[2024-01-14 08:50] LABS: Hepatitis B Surface Antigen Negative (Negative)
[2024-01-14 09:14] LABS: Hepatitis C Antibody Negative (Negative)
== END 2024-01-13 15:20 | disposition home or self-care (01) | DRG 371 ==
LOC: ER 12:06 → TELE-E-ADS 18:08 → TELE 18:08 → TELE-E-ADS 22:34
PROVIDERS: ADMIT Internal Medicine; ATTEND Ophthalmology
DX: A04.9 Bacterial intestinal infection, unspecified (principal); I21.A1 Myocardial infarction type 2; J15.69 Pneumonia due to other Gram-negative bacteria; J15.9 Unspecified bacterial pneumonia; I48.20 Chronic atrial fibrillation, unspecified; E11.9 Type 2 diabetes mellitus without complications; E78.5 Hyperlipidemia, unspecified; E66.9 Obesity, unspecified; F20.9 Schizophrenia, unspecified; I10 Essential (primary) hypertension; Z68.36 Body mass index [BMI] 36.0-36.9, adult; E83.42 Hypomagnesemia; Z20.822 Contact with and (suspected) exposure to COVID-19; F03.90 Unspecified dementia, unspecified severity, without behavioral disturbance, psychotic disturbance, mood disturbance, and anxiety; Z79.899 Other long term (current) drug therapy; Z79.4 Long term (current) use of insulin; R62.50 Unspecified lack of expected normal physiological development in childhood
CPT/HCPCS: 36415; 71045; 80048; 80053; 80061; 80307; 81001; 82962; 83036; 83605; 83690; 83735; 84443; 84484; 85025; 86803; 87045; 87081; 87340; 87426; 87427; 87493; 87804; 93005; 93306; 99291; G0378; J1815; J1956

== ENCOUNTER 2024-01-30 18:27 | Inpatient (IN) | payer BC ==
[~2024-01-30] VITALS: Ht 167.6 cm; Wt 102.0 kg
[~2024-01-30 18:27] MED LIST changes: +AMIO200T13 PO; +APIX5TAB PO; -AZIT500T66 PO; +LEVO750T40 PO; +MET25T PO
[2024-01-30 20:19] LABS: Basophils # (auto) 0 10 ^3/uL (0-0.2); Basophils % (auto) 0.6 % (0.0-2.0); Eosinophils # (auto) 0.2 10 ^3/uL (0-0.8); Hematocrit 42.8 % (41.0-53.0); Hemoglobin 14.3 g/dL (13.5-17.5); Lymphocytes # (auto) 3.4 10 ^3/uL (0.4-5.4); Lymphocytes % (auto) 44.2 % (10.0-50.0); Mean Corpuscular Hemoglobin 30.4 pg (28.0-32.0); Mean Corpuscular Hgb Conc. 33.4 g/dL (32.0-36.0); Mean Corpuscular Volume 91.1 fL (80.0-100.0); Monocytes # (auto) 0.8 10 ^3/uL (0-1.3); Monocytes % (auto) 10.1 % (0.0-12.0); Neutrophils # (auto) 3.3 10 ^3/uL (1.6-8.6); Neutrophils % (auto) 43.1 % (37.0-80.0); Nucleated Red Blood Cells % 0.1 %; Platelet Count (auto) 170 10^3/uL (140-450); Red Cell Distribution Width 15.2 % (11.8-14.3); White Blood Cell 7.7 10^3/uL (4.4-10.8)
[2024-01-30 20:33] LABS: Alanine Aminotransferase 30 U/L (7-40); Albumin 4.1 g/dL (3.2-4.8); Alkaline Phosphatase 48 U/L (46-116); Anion Gap 7 (5-15); Aspartate Aminotransferase 27 U/L (13-40); BUN/Creatinine Ratio 10.1 (10.0-20.0); Bilirubin, Total 0.4 mg/dL (0.2-1.0); Blood Urea Nitrogen 11 mg/dL (9-23); Calcium 9.3 mg/dL (8.7-10.4); Carbon Dioxide 25 mmol/L (20-31); Chloride 106 mmol/L (98-107); Glucose 75 mg/dL (74-106); Potassium 3.9 mmol/L (3.5-5.1); Sodium 138 mmol/L (136-145); Total Protein 6.5 g/dL (5.7-8.2)
[2024-01-30] MEDS ORDERED: MORPHINE SULFATE INJ 2 MG/ml SYRG IV PRN (21:30)
[2024-01-30] MEDS ORDERED: NITROGLYCERIN 0.4 MG SL TAB SL PRN (21:30)
[2024-01-30] MEDS ORDERED: DEXTROSE (50%) 50ML SYRG IV PRN (21:30)
[2024-01-30] MEDS ORDERED: ONDANSETRON HCL 4 MG/2 ML VIAL IV PRN (21:30)
[2024-01-30] MEDS ORDERED: ACETAMINOPHEN 325 MG TAB PO PRN (21:30)
[2024-01-30] MEDS ORDERED: ALBUTEROL SULF 2.5 MG/0.5ML(0.5%) NEB SOLN NEB PRN (21:30)
[2024-01-30 21:38] VITALS: BP 144/84; PULSE 74; RESP 20; O2SAT 95
[2024-01-30 22:25] VITALS: O2SAT 96
[2024-01-30] MEDS: InsuLIN REG 1unit/0.01ml Soln (100units/ml) SC SCH (22:48)
[2024-01-30] MEDS: ACCU-CHEK COMFORT CURVE STRIP VI SCH (22:57)
[2024-01-30] MEDS: DONEPEZIL HYDROCHLORIDE 5 MG TAB PO SCH (23:11)
[2024-01-30] MEDS: ATORVASTATIN 20 MG TAB PO SCH (23:12)
[2024-01-30] MEDS: AMIODARONE HCL 200 MG TAB PO SCH (23:12)
[2024-01-30] MEDS: APIXABAN 5 MG TAB PO SCH (23:12)
[2024-01-30 23:39] LABS: Urine Bacteria None Seen /hpf (None Seen); Urine WBC None Seen /hpf (0 - 3)
[2024-01-30 23:53] LABS: Urine Blood Negative /uL (Negative); Urine Clarity Clear (Clear); Urine Color Colorless (Yellow); Urine Protein, UAD Negative (Negative); Urine Specific Gravity 1.003 (1.001-1.035); Urine Urobilinogen Normal (Negative); Urine pH 6.5 (5.0-9.0)
[2024-01-31] VITALS (11 sets, daily range): BP systolic 95–150; BP diastolic 52–97; PULSE 55–78; RESP 16–18; TEMP 97.3–98; O2SAT 91–100
[2024-01-31 05:25] LABS: Chloride 109 mmol/L (98-107); Potassium 3.6 mmol/L (3.5-5.1); Sodium 144 mmol/L (136-145)
[2024-01-31 05:26] LABS: Anion Gap 6 (5-15); Calcium 9.1 mg/dL (8.7-10.4); Carbon Dioxide 29 mmol/L (20-31)
[2024-01-31 05:31] LABS: BUN/Creatinine Ratio 9.2 (10.0-20.0); Blood Urea Nitrogen 10 mg/dL (9-23); Glucose 93 mg/dL (74-106)
[2024-01-31 08:55] LABS: Amphetamine Screen, Urine Neg (NEGATIVE); Barbiturate Scree,Urine Neg (NEGATIVE); Benzodiazephine Screen, Urine Neg (NEGATIVE); Cannabinoid Screen, Urine Neg (NEGATIVE); Cocaine Screen, Urine Neg (NEGATIVE); Opiate Scree,Urine Neg (NEGATIVE); Phencyclidine Screen, Urine Neg (NEGATIVE)
[2024-01-31] MEDS: ASPirin 81 mg TAB PO SCH (10:28)
[2024-01-31] MEDS: FUROSEMIDE 40 MG/4 ML VIAL IV ONE (14:20)
[2024-01-31] MEDS: ATORVASTATIN 20 MG TAB PO SCH (21:30)
[2024-01-31] MEDS: LOSARTAN POTASSIUM 50 MG TAB PO SCH (22:14)
[2024-01-31] MEDS: PANTOPRAZOLE 40 MG TAB PO SCH (22:14)
[2024-01-31] MEDS: risperiDONE 1 MG TAB PO SCH (22:14)
[2024-02-01] VITALS (10 sets, daily range): BP systolic 107–145; BP diastolic 59–89; PULSE 57–84; RESP 16–18; TEMP 97.4–98; O2SAT 90–97
[2024-02-01] MEDS ORDERED: FUROSEMIDE 40 MG/4 ML VIAL IV SCH (10:00)
[2024-02-01] MEDS: ASPirin 81 mg TAB PO SCH (10:41)
[2024-02-01] MEDS: EMPAGLIFLOZIN 10 MG TAB PO SCH (10:42)
[2024-02-01 10:46] LABS: Basophils # (auto) 0 10 ^3/uL (0-0.2); Basophils % (auto) 0.7 % (0.0-2.0); Eosinophils # (auto) 0.1 10 ^3/uL (0-0.8); Eosinophils % (auto) 2.1 % (0.0-7.0); Lymphocytes # (auto) 2.3 10 ^3/uL (0.4-5.4); Lymphocytes % (auto) 41.4 % (10.0-50.0); Mean Corpuscular Hemoglobin 30.4 pg (28.0-32.0); Mean Corpuscular Hgb Conc. 33.2 g/dL (32.0-36.0); Mean Corpuscular Volume 91.7 fL (80.0-100.0); Monocytes # (auto) 0.6 10 ^3/uL (0-1.3); Monocytes % (auto) 10.9 % (0.0-12.0); Neutrophils # (auto) 2.5 10 ^3/uL (1.6-8.6); Neutrophils % (auto) 44.9 % (37.0-80.0); Nucleated Red Blood Cells % 0.5 %; Platelet Count (auto) 213 10^3/uL (140-450); Red Blood Cells 4.91 10^6/uL (4.5-5.90); Red Cell Distribution Width 15.4 % (11.8-14.3); White Blood Cell 5.5 10^3/uL (4.4-10.8)
[2024-02-01 11:06] LABS: Alanine Aminotransferase 35 U/L (7-40); Albumin 4.2 g/dL (3.2-4.8); Alkaline Phosphatase 46 U/L (46-116); Anion Gap 8 (5-15); Aspartate Aminotransferase 35 U/L (13-40); BUN/Creatinine Ratio 8.7 (10.0-20.0); Blood Urea Nitrogen 9 mg/dL (9-23); Calcium 9.9 mg/dL (8.7-10.4); Carbon Dioxide 27 mmol/L (20-31); Chloride 108 mmol/L (98-107); Cholesterol 123 mg/dL (< 200); Glucose 86 mg/dL (74-106); HDL Cholesterol 38 mg/dL (40-59); LDL Cholesterol 63 mg/dL (< 100); Magnesium 1.8 mg/dL (1.6-2.6); Potassium 4.2 mmol/L (3.5-5.1); Sodium 143 mmol/L (136-145); Triglycerides 109 mg/dL (< 150)
[2024-02-01 11:07] LABS: Bilirubin, Total 0.5 mg/dL (0.2-1.0); Phosphorus 2.5 mg/dL (2.4-5.1); Total Protein 7.1 g/dL (5.7-8.2)
[2024-02-01 11:29] LABS: INR 1.08 (0.9-1.15); Partial Thromboplastin Time 26.9 SEC (24.5-34.5); Prothrombin Time 11.4 sec (9.3-11.8)
[2024-02-01] MEDS: FUROSEMIDE 40 MG TAB PO SCH (12:23)
== END 2024-02-01 19:25 | disposition home or self-care (01) | DRG 280 ==
LOC: ER 18:27 → TELE 21:22 → TELE-WESTW 21:28
PROVIDERS: ADMIT Internal Medicine; ATTEND Internal Medicine
DX: I11.0 Hypertensive heart disease with heart failure (principal); I50.33 Acute on chronic diastolic (congestive) heart failure; I21.A1 Myocardial infarction type 2; J96.00 Acute respiratory failure, unspecified whether with hypoxia or hypercapnia; D68.59 Other primary thrombophilia; E11.9 Type 2 diabetes mellitus without complications; F20.9 Schizophrenia, unspecified; I48.0 Paroxysmal atrial fibrillation; E78.5 Hyperlipidemia, unspecified; E66.9 Obesity, unspecified; K21.9 Gastro-esophageal reflux disease without esophagitis; G40.909 Epilepsy, unspecified, not intractable, without status epilepticus; F41.9 Anxiety disorder, unspecified; Z68.36 Body mass index [BMI] 36.0-36.9, adult; F03.90 Unspecified dementia, unspecified severity, without behavioral disturbance, psychotic disturbance, mood disturbance, and anxiety; I25.2 Old myocardial infarction; Z79.899 Other long term (current) drug therapy; Z87.01 Personal history of pneumonia (recurrent)
CPT/HCPCS: 36415; 71045; 80048; 80053; 80061; 80307; 81001; 82306; 82607; 82962; 83605; 83735; 83880; 84100; 84443; 84484; 85025; 85610; 85730; 93005; 99291; G0378; J1815

== ENCOUNTER → 2024-02-13 | Outpatient (CLI) | payer BC ==
[2024-02-13 08:07] LABS: Basophils # (auto) 0 10 ^3/uL (0-0.2); Basophils % (auto) 0.8 % (0.0-2.0); Eosinophils # (auto) 0 10 ^3/uL (0-0.8); Eosinophils % (auto) 0.3 % (0.0-7.0); Hematocrit 43.5 % (41.0-53.0); Hemoglobin 14.3 g/dL (13.5-17.5); Lymphocytes # (auto) 1.2 10 ^3/uL (0.4-5.4); Lymphocytes % (auto) 30.6 % (10.0-50.0); Mean Corpuscular Hemoglobin 30.4 pg (28.0-32.0); Mean Corpuscular Volume 92.2 fL (80.0-100.0); Monocytes # (auto) 0.2 10 ^3/uL (0-1.3); Neutrophils # (auto) 2.4 10 ^3/uL (1.6-8.6); Neutrophils % (auto) 62.3 % (37.0-80.0); Nucleated Red Blood Cells % 0.1 %; Platelet Count (auto) 136 10^3/uL (140-450); Red Blood Cells 4.71 10^6/uL (4.5-5.90); Red Cell Distribution Width 15.8 % (11.8-14.3); White Blood Cell 3.8 10^3/uL (4.4-10.8)
[2024-02-13 08:32] LABS: Alanine Aminotransferase 25 U/L (7-40); Alkaline Phosphatase 42 U/L (46-116); Anion Gap 6 (5-15); Aspartate Aminotransferase 17 U/L (13-40); BUN/Creatinine Ratio 12.3 (10.0-20.0); Bilirubin, Total 0.6 mg/dL (0.2-1.0); Blood Urea Nitrogen 15 mg/dL (9-23); Calcium 9.6 mg/dL (8.7-10.4); Carbon Dioxide 27 mmol/L (20-31); Chloride 110 mmol/L (98-107); Cholesterol 155 mg/dL (< 200); Glucose 127 mg/dL (74-106); HDL Cholesterol 43 mg/dL (40-59); LDL Cholesterol 87 mg/dL (< 100); Potassium 4.5 mmol/L (3.5-5.1); Sodium 143 mmol/L (136-145); Total Protein 6.7 g/dL (5.7-8.2); Triglycerides 69 mg/dL (< 150)
== END | disposition home or self-care (01) ==
LOC: LAB 07:48
PROVIDERS: ATTEND Internal Medicine
DX: E78.00 Pure hypercholesterolemia, unspecified (principal); E24.9 Cushing's syndrome, unspecified; R68.89 Other general symptoms and signs
CPT/HCPCS: 36415; 80053; 80061; 82024; 82088; 82533; 85025

== ENCOUNTER 2024-03-24 15:55 | Emergency (ER) | payer BC ==
[~2024-03-24] VITALS: Ht 170.2 cm; Wt 109.0 kg
--- NOTE | 2024-03-24 16:19 | ED.PDOC ---
History of Present Illness HPI Comments 63 y.o male with PMH of intellectual delay, schizophrenia, DM and HTN, presents to the ED via EMS for an evaluation of generalized weakness that started 2 days ago. EMS reports patient was at an adult daycare facility, staff called 911 s/p observing patient ambulate to the left side with his walker. Caregiver initially reported for the past 3 months, patient has grown weak intermittent, worsening with the leaning to the left x 2 days. Upon ED arrival, patient denies any symptoms or pain. Chief Complaint: General Weakness Time Seen by MD: 16:07 Primary Care Provider: UNKNOWN Reviewed Notes: Nurses Notes, Industrial Plant Custodian Notes, Medications, Allergies Allergies: Coded Allergies: NO KNOWN ALLERGIES (Unverified , 12/01/23) Home Meds Active Scripts Apixaban Base (ELIQUIS) 5 Mg Tab, 5 MG PO BID for 60 Days, #120 TAB 0 Refills Prov:VALENCIA GALVIN RESIDENT 01/13/24 Levofloxacin Hemihydrate (LEVOFLOXACIN) 750 Mg Tab, 1 TAB PO DAILY for 7 Days, #7 TAB Prov:VALENCIA GALVIN RESIDENT 01/13/24 Metoprolol Tartrate (Lopressor) 25 Mg Tb, 12.5 MG PO BID for 90 Days, #90 TAB Prov:VALENCIA GALVIN RESIDENT 01/13/24 Amiodarone HCl (Amiodarone HCl) 200 Mg Tab, 200 MG PO Q12HR for 90 Days, #180 TAB Prov:VALENCIA GALVIN RESIDENT 01/13/24 Benzonatate (Benzonatate) 200 Mg Cap, 1 CAP PO TIDP, #30 CAP Prov:RHONDA SIMPSON 12/07/23 Reported Medications Risperidone (Risperidone) 2 Mg Tab, 1 TAB PO QPM, #30 TAB 1 Refill 01/12/24 Risperidone (Risperidone) 2 Mg Tab, 1 TAB PO HS for 30 Days, #30 1 Refill 12/03/23 Omeprazole (Omeprazole Dr) 20 Mg Cap, 1 CAP PO DAILY for 90 Days, #90 12/03/23 Dzbdr-8-Lkab Ethyl Esters (Alsdu-0-Hddq Ethyl Esters) 1 Gm Cap, 2 CAP PO BID for 90 Days, #360 12/03/23 Glipizide (Glipizide Er) 5 Mg Tab, 1 TAB PO DAILY for 90 Days, #90 12/03/23 Donepezil Hydrochloride (DONEPEZIL HCL) 10 Mg Tab, 1 TAB PO HS for 90 Days, #90 12/03/23 Lorazepam (Ativan) 0.5 Mg Tab, 1 TAB PO QAM for 30 Days, #30 12/03/23 Atorvastatin Calcium (Lipitor) 10 Mg Tab, 1 TAB PO DAILY for 90 Days, #90 5 Refills 12/03/23 Losartan Potassium (Losartan Potassium) 50 Mg Tab, 1 TAB PO DAILY for 90 Days, #90 12/03/23 Metformin Hydrochloride (Metformin Hcl) 500 Mg Tab, 1 TAB PO BID for 90 Days, #180 12/03/23 Divalproex Sodium (Divalproex Sodium) 500 Mg Tab, 500 MG PO DAILY for 90 Days, #270 12/02/23 Divalproex Sodium (Divalproex Sodium) 500 Mg Tab, 1000 MG PO HS for 90 Days, #270 12/02/23 Information Source: Emergency Med Personnel Mode of Arrival: EMS Timing: Days (2) Duration: Since onset Past Medical History PAST MEDICAL HISTORY: DM, HTN, Schizophrenia Past Medical History (Other): intellectually delayed Surgical History: Denies all surgeries Family History Family History: Reviewed,noncontributory to illness Social History Smoker: Non-Smoker Alcohol: Denies ETOH Use Drugs: Denies Drug Use 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, Correction Unable to Obtain due to: Other (History of intellectual delayment ) Physical Exam General Appearance: No Apparent Distress HEENT: Normal ENT Inspection, Pharynx Normal, TMs Normal Neck: Full Range of Motion, Non-Tender, Normal, Normal Inspection Respiratory: Chest Non-Tender, Lungs Clear, No Accessory Muscle Use, No Respiratory Distress, Normal Breath Sounds Cardiovascular: No Edema, No JVD, No Murmur, No Gallop, Normal Peripheral Pulses, Regular Rate/Rhythm Breast Exam: Deferred Gastrointestinal: No Organomegaly, Non Tender, No Pulsatile Mass, Normal Bowel Sounds, Soft Genitalia: Deferred Pelvic: Deferred Rectal: Deferred Extremities: No calf tenderness, Normal capillary refill, Normal inspection, Normal range of motion, Non-tender, No pedal edema Musculoskeletal : Apperance: Normal Neurologic: Alert, hackler doll wigs II-XII nml as Tested, No Motor Deficits, No Sensory De ficits, Other (The patient was somewhat mentally delayed) Cerebellar Function: Normal Reflexes: Normal Skin: Dry, Normal Color, Warm Lymphatic: No Adenopathy Was a procedure done? Was a procedure done?: No Differential Dx Considerations may include: Dehydration, Electrolyte imbalance, CVA, TIA, Spinal cord compression, Multiple sclerosis, Guillain-[place] syndrome X-Ray, Labs, Meds, VS Vital Signs Date Time Temp Pulse Resp B/P (MAP) Pulse Ox O2 Delivery O2 Flow Rate FiO2 03/24/24 16:24 55 03/24/24 16:00 98.0 58 16 162/91 (114) 96 Lab Test 03/24/24 17:40 03/24/24 16:40 Range/Units Urine Color Colorless Yellow Urine Clarity Clear Clear Urine pH 6.0 5.0-9.0 Urine Specific [place] 1.005 1.001-1.035 Urine Protein Negative Negative Urine Ketones Negative Negative Urine Blood Trace H Negative /uL Urine Nitrite Negative Negative Urine Bilirubin Negative Negative Urine Urobilinogen Normal Negative mg/dL Urine Leukocyte Esterase Negative Negative /uL Urine RBC 1 0 - 3 /hpf Urine WBC None seen 0 - 3 /hpf Urine Squamous Epithelial Cells None seen <5 /hpf Urine Bacteria None seen None Seen /hpf Urine Sperm Present None Seen /hpf Urine Glucose Normal Normal mg/dL White Blood Count 7.0 4.4-10.8 10^3/uL Red Blood Count 4.72 4.5-5.90 10^6/uL Hemoglobin 14.4 13.5-17.5 g/dL Hematocrit 43.5 41.0-53.0 % Mean Corpuscular Volume 92.1 80.0-100.0 fL Mean Corpuscular Hemoglobin 30.5 28.0-32.0 pg Mean Corpuscular Hemoglobin Concent 33.1 32.0-36.0 g/dL Red Cell Distribution Width 15.5 H 11.8-14.3 % Platelet Count 139 L 140-450 10^3/uL Mean Platelet Volume 8.6 6.9-10.8 fL Neutrophils (%) (Auto) 44.4 37.0-80.0 % Lymphocytes (%) (Auto) 41.1 10.0-50.0 % Monocytes (%) (Auto) 10.1 0.0-12.0 % Eosinophils (%) (Auto) 4.0 0.0-7.0 % Basophils (%) (Auto) 0.4 0.0-2.0 % Neutrophils # (Auto) 3.1 1.6-8.6 10 ^3/uL Lymphocytes # (Auto) 2.9 0.4-5.4 10 ^3/uL Monocytes # (Auto) 0.7 0-1.3 10 ^3/uL Eosinophils # (Auto) 0.3 0-0.8 10 ^3/uL Basophils # (Auto) 0 0-0.2 10 ^3/uL Nucleated Red Blood Cells 0.1 % Sodium Level 139 136-145 mmol/L Potassium Level 3.9 3.5-5.1 mmol/L Chloride Level 105 98-107 mmol/L Carbon Dioxide Level 27 20-31 mmol/L Anion Gap 7 5-15 Blood Urea Nitrogen 13 9-23 mg/dL Creatinine 1.16 0.700-1.30 mg/dL Glomerular Filtration Rate Calc 70 >90 mL/min BUN/Creatinine Ratio 11.2 10.0-20.0 Serum Glucose 87 74-106 mg/dL Calcium Level 9.6 8.7-10.4 mg/dL EXAM: CT HEAD WITHOUT CONTRAST IMPRESSION: 1. Findings which could represent normal pressure hydrocephalus in the correct clinical setting. 2. Left weems radiata region of chronic encephalomalacia. The CBC and chemistry panel are within normal limits The patient was being discharged The patient will follow up with the primary care doctor The patient will return to the emergency department's condition worsens. Images Reviewed?: Images reviewed and evaluated by me Time of 1ST Reevaluation: 16:14 Reevaluation 1ST: Unchanged Patient Education/Counseling: Other (History of intellectual delayment ) Family Education/Counseling: No Family Present Departure 1 Departure Time of Disposition: 20:59 Impression: Primary Impression: Behavioral disorder Disposition: 01 HOME / SELF CARE / HOMELESS Condition: Fair Discharged With: Self Critical Care Note Critical Care Time?: No Stability Stability form required: No I personally scribed for THAI OLIVER MD ([email or web address]) on 03/24/24 at 16:19. Electronically submitted by Caryn Herrera ([facility]). I personally scribed for THAI OLIVER MD (ЕЛЕНАPASEVARISTO) on 03/24/24 at 18:33. Electronically submitted by Caryn Herrera ([email or web address] THAI OLIVER MD Mar 24, 2024 16:19
--- NOTE | 2024-03-24 16:32 | ECG ---
[facility] Test Date: 2024-03-24 Test Time: 16:24:00 Pat Name: OMID REIS Department: ER Room: Gender: M Apple Picking Supervisor: MIRA : 1960 Requested By: THAI OLIVER Order Number: [id number] Reading MD: Measurements Intervals [place] Rate: 55 P: 39 IN: 153 QRS: 75 QRSD: 102 T: 53 QT: 447 QTc: 428 Interpretive Statements Sinus rhythm Left ventricular hypertrophy Please click the below link to view image of tracing.
[2024-03-24 16:58] LABS: Basophils # (auto) 0 10 ^3/uL (0-0.2); Basophils % (auto) 0.4 % (0.0-2.0); Eosinophils # (auto) 0.3 10 ^3/uL (0-0.8); Hematocrit 43.5 % (41.0-53.0); Hemoglobin 14.4 g/dL (13.5-17.5); Lymphocytes # (auto) 2.9 10 ^3/uL (0.4-5.4); Lymphocytes % (auto) 41.1 % (10.0-50.0); Mean Corpuscular Hemoglobin 30.5 pg (28.0-32.0); Mean Corpuscular Hgb Conc. 33.1 g/dL (32.0-36.0); Mean Corpuscular Volume 92.1 fL (80.0-100.0); Monocytes # (auto) 0.7 10 ^3/uL (0-1.3); Monocytes % (auto) 10.1 % (0.0-12.0); Neutrophils # (auto) 3.1 10 ^3/uL (1.6-8.6); Neutrophils % (auto) 44.4 % (37.0-80.0); Nucleated Red Blood Cells % 0.1 %; Platelet Count (auto) 139 10^3/uL (140-450); Red Blood Cells 4.72 10^6/uL (4.5-5.90); Red Cell Distribution Width 15.5 % (11.8-14.3)
[2024-03-24 17:22] LABS: Chloride 105 mmol/L (98-107); Potassium 3.9 mmol/L (3.5-5.1); Sodium 139 mmol/L (136-145)
[2024-03-24 17:23] LABS: Anion Gap 7 (5-15); Calcium 9.6 mg/dL (8.7-10.4); Carbon Dioxide 27 mmol/L (20-31)
[2024-03-24 17:28] LABS: BUN/Creatinine Ratio 11.2 (10.0-20.0); Blood Urea Nitrogen 13 mg/dL (9-23); Glucose 87 mg/dL (74-106)
--- NOTE | 2024-03-24 17:46 | DVH ---
EXAM: CT HEAD WITHOUT CONTRAST INDICATION: weakness TECHNIQUE: CT of the head without intravenous contrast. Radiation Dose Information: CT Dose: CTDI volume is 59.81 mGy. Dose-length product is 1078.21 mGy*cm The dose indicators for CT are the volume Computed Tomography (CT) Dose Index (CTDIvol) and the Dose Length Product (DLP), and are measured in units of mGy and mGy-cm, respectively. These indicators are not patient dose, but values generated from the CT scanner acquisition factors. The report includes radiation exposure data for exposures received during this examination. COMPARISON: None FINDINGS: There is no evidence of acute intracranial hemorrhage. Left weems radiata region of chronic encephal omalacia. There is disproportionate prominence of the lateral and the 3rd ventricles compared to the degree of sulcal and cisternal effacement. There is an acute callosal angle posteriorly. The ferrari-white differentiation is intact. Patchy periventricular and subcortical white matter hypoattenuation is nonspecific but may be related to small vessel ischemic disease. The visualized paranasal sinuses and mastoid air cells are clear. The surrounding soft tissues and osseous structures are unremarkable. IMPRESSION: 1. Findings which could represent normal pressure hydrocephalus in the correct clinical setting. 2. Left weems radiata region of chronic encephalomalacia. HS:Y
[2024-03-24 19:54] LABS: Urine Bacteria None Seen /hpf (None Seen); Urine WBC None Seen /hpf (0 - 3)
[2024-03-24 20:00] LABS: Urine Blood TRACE /uL (Negative); Urine Clarity Clear (Clear); Urine Color Colorless (Yellow); Urine Protein, UAD Negative (Negative); Urine Specific Gravity 1.005 (1.001-1.035); Urine Sperm PRESENT /hpf (None Seen); Urine Urobilinogen Normal (Negative)
[2024-03-24 23:36] VITALS: BP 155/80; PULSE 60; RESP 18; TEMP 97.3; O2SAT 94
== END 2024-03-24 23:41 | disposition home or self-care (01) ==
LOC: ER 15:55 → EDBD 15:55 → ER 23:41
DX: F20.9 Schizophrenia, unspecified (principal); R51.9 Headache, unspecified; E11.9 Type 2 diabetes mellitus without complications; I10 Essential (primary) hypertension; Z79.899 Other long term (current) drug therapy
CPT/HCPCS: 36415; 70450; 80048; 81001; 85025; 93005

== ENCOUNTER 2024-04-26 13:59 | Emergency (ER) | payer BC ==
[~2024-04-26] VITALS: Ht 172.7 cm; Wt 100.0 kg
--- NOTE | 2024-04-26 14:10 | ED.PDOC ---
History of Present Illness HPI Comments 63Y M with PMHx DM, HTN, and schizophrenia presents to ED via EMS for chief complaint fall injury. Per EMS, pt fell from standing height and caretakers called 911. Pt denies LOC. Pt states he landed on his legs but denies all pain. Pt denies hitting his head. Pt is on blood thinners. Per EMS, pt is acting ap propriately with his baseline. No bruises, abrasions, or tenderness upon ED evaluation. Pt normally ambulates with assistance. Pt states he feels well. however, facility staff was concerned about head injury Chief Complaint: Fall Injury Time Seen by MD: 14:00 Primary Care Provider: UNKNOWN Reviewed Notes: Nurses Notes, Soccer Player Notes, Medications, Allergies Allergies: Coded Allergies: NO KNOWN ALLERGIES (Unverified , 12/01/23) Home Meds Active Scripts Apixaban Base (ELIQUIS) 5 Mg Tab, 5 MG PO BID for 60 Days, #120 TAB 0 Refills Prov:VALENCIA GALVIN RESIDENT 01/13/24 Levofloxacin Hemihydrate (LEVOFLOXACIN) 750 Mg Tab, 1 TAB PO DAILY for 7 Days, #7 TAB Prov:VALENCIA GALVIN RESIDENT 01/13/24 Metoprolol Tartrate (Lopressor) 25 Mg Tb, 12.5 MG PO BID for 90 Days, #90 TAB Prov:VALENCIA GALVIN RESIDENT 01/13/24 Amiodarone HCl (Amiodarone HCl) 200 Mg Tab, 200 MG PO Q12HR for 90 Days, #180 TAB Prov:VALENCIA GALVIN RESIDENT 01/13/24 Benzonatate (Benzonatate) 200 Mg Cap, 1 CAP PO TIDP, #30 CAP Prov:RHONDA SIMPSON 12/07/23 Reported Medications Risperidone (Risperidone) 2 Mg Tab, 1 TAB PO QPM, #30 TAB 1 Refill 01/12/24 Risperidone (Risperidone) 2 Mg Tab, 1 TAB PO HS for 30 Days, #30 1 Refill 12/03/23 Omeprazole (Omeprazole Dr) 20 Mg Cap, 1 CAP PO DAILY for 90 Days, #90 12/03/23 Lqobx-2-Gfur Ethyl Esters (Iehvv-1-Sros Ethyl Esters) 1 Gm Cap, 2 CAP PO BID for 90 Days, #360 12/03/23 Glipizide (Glipizide Er) 5 Mg Tab, 1 TAB PO DAILY for 90 Days, #90 12/03/23 Donepezil Hydrochloride (DONEPEZIL HCL) 10 Mg Tab, 1 TAB PO HS for 90 Days, #90 12/03/23 Lorazepam (Ativan) 0.5 Mg Tab, 1 TAB PO QAM for 30 Days, #30 12/03/23 Atorvastatin Calcium (Lipitor) 10 Mg Tab, 1 TAB PO DAILY for 90 Days, #90 5 Refills 12/03/23 Losartan Potassium (Losartan Potassium) 50 Mg Tab, 1 TAB PO DAILY for 90 Days, #90 12/03/23 Metformin Hydrochloride (Metformin Hcl) 500 Mg Tab, 1 TAB PO BID for 90 Days, #180 12/03/23 Divalproex Sodium (Divalproex Sodium) 500 Mg Tab, 500 MG PO DAILY for 90 Days, #270 12/02/23 Divalproex Sodium (Divalproex Sodium) 500 Mg Tab, 1000 MG PO HS for 90 Days, #270 12/02/23 Information Source: Patient, Emergency Med Personnel Mode of Arrival: EMS Severity: None Timing: Minutes Duration: Minutes Prehospital treatment: None Past Medical History PAST MEDICAL HISTORY: DM, HTN, Schizophrenia Surgical History: Denies all surgeries Family History Family History: Reviewed,noncontributory to illness Social History Smoker: Non-Smoker Alcohol: Denies ETOH Use Drugs: Denies Drug Use 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, 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 Constitutional: denies: chills, diaphoresis, fatigue, fever, malaise, sweats, weakness, others EENTM: denies: blurred vision, double vision, ear bleeding, ear discharge, ear drainage, ear pain, ear ringing, eye pain, eye redness, hearing loss, mouth pain, mouth swelling, nasal discharge, nose bleeding, nose congestion, nose pain, photophobia, tearing, throat pain, throat swelling, voice changes, others Respiratory: denies: cough, hemoptysis, orthopnea, SOB at rest, shortness of breath, SOB with excertion, stridor, wheezing, others Cardiovascular: denies: chest pain, dizzy spells, diaphoresis, Dyspnea on exertion, edema, irregular heart beat, left arm pain, lightheadedness, palpit ations, PND, syncope, others Gastrointestinal: denies: abdomen distended, abdominal pain, blood streaked b owels, constipated, diarrhea, dysphagia, difficulty swallowing, hematemesis, melena, nausea, poor appetite, poor fluid intake, rectal bleeding, rectal pain, vomiting, others Genitourinary: denies: burning, dysuria, flank pain, frequency, hematuria, incontinence, penile discharge, penile sore, pain, testicle pain, testicle swelling, urgency, others Neurological: denies: dizziness, fainting, headache, left sided numbness, left sided weakness, numbness, paresthesia, pre-existing deficit, right sided numbness, right sided weakness, seizure, speech problems, tingling, tremors, weakness, others Musculoskeletal: denies: back pain, gout, joint pain, joint swelling, muscle pain, muscle stiffness, neck pain, others Integumetry: denies: bruises, change in color, change in hair/nails, dryness, laceration, lesions, lumps, rash, wounds, others Allergic/Immunocompromised: denies: Difficulty Healing, Frequent Infections, Hives, Itching, others Hematologic/Lymphatic: denies: anemia, blood clots, easy bleeding, easy bruisi ng, swollen glands, others Endocrine: denies: excessive hunger, excessive sweating, excessive thirst, exce ssive urination, flushing, intolerance to cold, intolerance to heat, unexplained weight gain, unexplained weight loss, others Psychiatric: denies: anxiety, bipolar disorder, depression, hopeless, panic disorder, schizophrenia, sleepless, suicidal, others All Other Systems: Reviewed and Negative Physical Exam General Appearance: No Apparent Distress, Normal HEENT: Normal ENT Inspection, Pharynx Normal, TMs Normal Neck: Full Range of Motion, Non-Tender, Normal, Normal Inspection Respiratory: Chest Non-Tender, Lungs Clear, No Accessory Muscle Use, No Respiratory Distress, Normal Breath Sounds Cardiovascular: No Edema, No JVD, No Murmur, No Gallop, Normal Peripheral Pulses, Regular Rate/Rhythm Breast Exam: Deferred Gastrointestinal: No Organomegaly, Non Tender, No Pulsatile Mass, Normal Bowel Sounds, Soft Genitalia: Deferred Pelvic: Deferred Rectal: Deferred Extremities: No calf tenderness, Normal capillary refill, Normal inspection, Normal range of motion, Non-tender, No pedal edema Musculoskeletal : Apperance: Normal Neurologic: Alert, electromechanical technologist II-XII nml as Tested, No Motor Deficits, Normal Affect, Normal Mood, No Sensory Deficits Cerebellar Function: Normal Reflexes: Normal Skin: Dry, Normal Color, Warm Lymphatic: No Adenopathy Was a procedure done? Was a procedure done?: No Differential Dx Considerations may include: intracranial bleed, cerebral contusion, concussion, skull fracture, minor closed head injuries X-Ray, Labs, Meds, VS Vital Signs Date Time Temp Pulse Resp B/P (MAP) Pulse Ox O2 Delivery O2 Flow Rate FiO2 04/26/24 14:33 58 12 156/82 (106) 95 04/26/24 14:02 98.6 58 12 142/81 (101) 95 Time of 1ST Reevaluation: 14:30 Reevaluation 1ST: Unchanged Time of 2ND Reevaluation: 16:17 Reevaluation 2ND: Unchanged (pt remains alert, denies any discomfort) Patient Education/Counseling: Diagnosis, Treatment Family Education/Counseling: No Family Present Additional Information I reviewed the following notes from patient's past medical encounters: [facility] discharge 02/01/2024, 01/13/2024, 12/03/2023; [facility] ER 03/24/2024, 12/07/2023 The following tests were ordered, and results were reviewed by me: None Additional Information was gathered from interviewing the following independent historians: EMS I reviewed and agreed with the following test results read by other providers: None I discussed treatment and results with medical personnel. due to pt's disability, he is not a reliable historian. because, he is on eliquis, and suffered a fall, at 63 years old, per [place] head ct rule, he is excluded from using the scoring to decide on CT. therefore, a ct is ordered to rule out possible severe head injuries, including bleeding ct is unremarkable, with pt's clinical findings, he is stable for discharge Departure 1 Departure Time of Disposition: 16:22 Impression: Primary Impression: Falling Additional Impression: Closed head injury Disposition: HOME / SELF CARE / HOMELESS Condition: Stable Discharged With: Self Critical Care Note Critical Care Time?: Yes (55 min-critical care time only) Critical care comment: Due to concerns for patients condition deteriorating, the care required my highest level of attention and readiness to intervene. I assessed the patient, reviewed the medical records, ordered the appropriate tests and treatments, then reassessed for results and responsiveness. I communicated with medical personnel and consultants and formulated a plan of care. Total critical care time excludes any procedures Stability Stability form required: No Heart Score Heart Score: Heart Score Response (Comments) Value History N/A 0 EKG N/A 0 Age N/A 0 Risk Factors N/A 0 Troponin N/A 0 Total 0 I personally scribed for TREVOR BOWENS MD ([email or web address]) on 04/26/24 at 14:10. Electronically submitted by Jael Ruiz ([email or web address]). TREVOR BOWENS MD Apr 26, 2024 14:10
[2024-04-26 14:33] VITALS: BP 156/82; PULSE 58; RESP 12; O2SAT 95
--- NOTE | 2024-04-26 16:05 | DVH ---
EXAM: CT HEAD WITHOUT CONTRAST HISTORY: fall, on eliquis COMPARISON: CT HEAD WITHOUT CONTRAST on DOS: 03/24/24 TECHNIQUE: Axial images were obtained and reformatted in coronal and sagittal planes. All CT scans at this medical facility are performed using dose modulation techniques as appropriate t o a performed exam including the following: Automated exposure control was utilized; adjustment of th e MA and/or KV according to patient size; and use of iterative reconstruction technique. CT Dose: CTDI volume is 56 mGy. Dose-length product is 899 mGy*cm FINDINGS: Supratentorial Region: No evidence for large acute territorial ischemia. 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 Posterior Fossa: No acute abnormality. Brainstem: Unremarkable. Sellar/Suprasellar Region: Unremarkable. Ventricles, Cisterns, Sulci: Moderate dilatation of the bilateral lateral and 3rd ventricles. Orbits: Unremarkable. Paranasal Sinuses: Unremarkable. Mastoid Air Cells: Unremarkable. Vasculature: Unremarkable. Bones/Soft Tissues: No acute abnormality. Other: None. IMPRESSION: 1. No acute intracranial process. 2. Stable moderate communicating hydrocephalus. 3. 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
== END 2024-04-26 17:00 | disposition home or self-care (01) ==
LOC: EDBD 13:59 → ER 13:59
DX: S00.80XA Unspecified superficial injury of other part of head, initial encounter (principal); E11.9 Type 2 diabetes mellitus without complications; I10 Essential (primary) hypertension; Z79.899 Other long term (current) drug therapy; W18.39XA Other fall on same level, initial encounter; Y93.89 Activity, other specified; Y92.89 Other specified places as the place of occurrence of the external cause; Y99.8 Other external cause status
CPT/HCPCS: 70450

== ENCOUNTER 2024-07-30 18:44 | Inpatient (IN) | payer BC, MEDICAID ==
[~2024-07-30] VITALS: Ht 152.4 cm; Wt 88.1 kg
[~2024-07-30 18:44] MED LIST changes: +BENZ1TAB6 PO; +METO25TA93 PO
[2024-07-30 23:22] VITALS: PULSE 70; RESP 18; O2SAT 96
[2024-07-30 23:40] VITALS: BP 122/78; PULSE 70; RESP 19; TEMP 99.4; O2SAT 96
[2024-07-31] VITALS (17 sets, daily range): BP systolic 112–136; BP diastolic 77–91; PULSE 66–74; RESP 16–19; TEMP 98.3–98.7; O2SAT 91–99
--- NOTE | 2024-07-31 00:56 | DVHHPRES ---
History of Present Illness Resident Creating Document: JOON WEBER RESIDENT History of Present Illness Mr Osorio is a 63-year-old male with past medical history of paroxysmal atrial fibrillation on Eliquis, diabetes mellitus, coronary artery disease, hypertension, developmental delay, schizophrenia, dementia who was transferred from [facility] for the evaluation of altered mental status and elevated troponins. [facility] very was found unconscious by the staff and only responding to painful stimuli. Routinely patient is typically only able to answer his name and is typically aggressive with baseline. Per amaz[facility] risks, patient recently started new med on medication. At [place], patient was saturating at 88% on room air therefore he was requiring 4 L oxygen supplementation. Chest x-ray was completed which showed atelectasis less likely infection, pulmonary vascular congestion. Troponin were elevated 239, later 201. Head CT without contrast showed no evidence of acute intracranial injury. Cerebral atrophy. Hold frontal lobe infarct left side. Findings suggestive of NPH. Upon my examination, patient is responding to calling his name out verbally. Patient is not opening his eyes and appears confused. He is restless in his moving around in bed. Heart sounds are regular. Telemetry shows NSR. History history taking was completed from chart review of records from [place]. Home medications: Atorvastatin, Depakote 500 mg, glipizide 5 mg, lisinopril 20 mg, metformin 500 mg, risperidone 2 mg, valproic acid 250 mg Caregiver Ms. Lamar Yoon ([phone]) Patient seen in the ER. Smoke: No ALCOHOL: none Drugs: None Lives: Shelter Review of Systems Respiratory: Cough Allergies: Coded Allergies: NO KNOWN ALLERGIES (Unverified , 12/01/23) Exam Vital Signs Vital Signs Date Time Temp Pulse Resp B/P (MAP) Pulse Ox O2 Delivery O2 Flow Rate FiO2 07/30/24 23:40 99.4 70 19 122/78 (93 96 99.4 Exam Patient lying in bed, restless and moving around, A&O x0, responding to name but not appropriately General: Afebrile, palor, mucosae are moist Cardiovascular: Regular S1 and S2. No murmurs, gallops or rubs. No JVD elevation. No pedal edema Respiratory: Normal B/L air entry on room air. Clear lung sounds on auscultation Abdomen: Soft, nontender, nondistended, normoactive bowel sounds, no rebound tenderness, no organomegaly, no masses Genitourinary: Deferred MSK/skin: Mobilizes 4 limbs. Skin is dry and warm Neurological: No motor, no sensitive deficits, normal speech. Pupils are isocoric and reactive. Psych/Mental Status: A/Ox3 Assessment/Plan Assessment/Plan Acute hypoxic respiratory failure ? Secondary to probable pneumonia, ?aspiration Acute metabolic encephalopathy NSTEMI likely type 2 Paroxysmal AFib chads Vasc score 2/has bled score of 1 Essential hypertension Diabetes type 2-A1c pending History of CVA Schizophrenia Developmental delay History of seizure disorder Dementia History of meth use per chart review [facility]: Chest x-ray was completed which showed atelectasis less likely infection, pulmonary vascular congestion. Head CT without contrast showed no evidence of acute intracranial injury. Cerebral atrophy. 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 Findings suggestive of NPH. Plan: IV zosyn and IV vancomycin daily, IV fluids At [place]-patient was saturating at 88% on room air therefore he was requiring 4 L oxygen supplementation. Troponin downtrending to 239, 201, 117 EKG shows NSR Continue Eliquis 5 mg b.i.d. Ammonia WNL, follow up with chest x-ray, UA pending, ESR, CRP, carotid duplex NPO SWALLOW EVAL Lovenox 40 mg sc daily Plan discussed with nurse in which all questions have been answered Case discussed with Dr. Fair Plan discussed with: Patient, Other (nurse) My Orders Orders - JOON WEBER RESIDENT Procedure Category Date Status Time Admit ADMIT 07/31/24 Verified 00:55 Nitroglycerin [facility] 07/31/24 Verified Sublingual (Ntrostat 01:00 Morphine Sulfate [facility] 07/31/24 Verified Injection 01:00 Oxygen By Nasal RT 07/31/24 Verified Cannula 00:55 Stat Ekg For Chest [facility] 07/31/24 Verified Pain 00:55 Notify Of Changes [facility] 07/31/24 Verified From Base 00:55 Fabric Worker Foreman For [facility] 07/31/24 Verified 24 Hours 00:55 Emergency Dysrhythmia [facility] 07/31/24 Verified Protocol 00:55 Rhythm Strips Once [facility] 07/31/24 Verified Every Shift 00:55 Date of Service: Jul 30, 2024 Billing Provider: CK FAIR MD Common Visit Codes: [id number] INP/OBS CARE (HIGH) JOON WEBER RESIDENT Jul 31, 2024 00:56 CK FAIR MD Aug 01, 2024 11:40
[2024-07-31] MEDS ORDERED: MORPHINE SULFATE INJ 2 MG/ml SYRG IV PRN (01:00)
[2024-07-31] MEDS ORDERED: NITROGLYCERIN 0.4 MG SL TAB SL PRN (01:00)
--- NOTE | 2024-07-31 01:39 | ECG ---
[facility] Test Date: 2024-07-31 Test Time: 01:37:48 Pat Name: OMID REIS Department: Room: 0294T Gender: M It Instructor: et : 1960 Requested By: JOON WEBER Order Number: [id number] Reading MD: Raheem Bermudez Measurements Intervals [place] Rate: 76 P: 18 TN: 145 QRS: 42 QRSD: 105 T: -11 QT: 382 QTc: 430 Interpretive Statements Sinus rhythm Ventricular premature complex Borderline T abnormalities, diffuse leads Baseline wander in lead(s) V5,V6 Electronically Signed On 08-03-2024 20:03:03 PDT by Raheem Bermudez Please click the below link to view image of tracing.
[2024-07-31 02:17] LABS: Hemoglobin 15.9 g/dL (13.5-17.5); Mean Corpuscular Hemoglobin 30.3 pg (28.0-32.0); Mean Corpuscular Hgb Conc. 33.9 g/dL (32.0-36.0); Mean Corpuscular Volume 89.6 fL (80.0-100.0); Platelet Count (auto) 139 10^3/uL (140-450); Red Blood Cells 5.25 10^6/uL (4.5-5.90); White Blood Cell 8.9 10^3/uL (4.4-10.8)
[2024-07-31 02:24] LABS: Band Neutrophils % (manual) 0; Basophils % (manual) 0 (0.0-2.0); Blast Cells 0; Eosinophils % (manual) 0 (0-7); Metamyelocytes % 0; Myelocytes % 0; Promyelocytes % 0; Reactive Lymphocytes 0
[2024-07-31 02:34] LABS: INR 1.08 (0.9-1.15); Partial Thromboplastin Time 26.3 SEC (24.5-34.5); Prothrombin Time 11.4 sec (9.3-11.8)
[2024-07-31 03:12] LABS: Alanine Aminotransferase 21 U/L (7-40); Albumin 3.6 g/dL (3.2-4.8); Alkaline Phosphatase 53 U/L (46-116); Anion Gap 10 (5-15); Aspartate Aminotransferase 27 U/L (13-40); BUN/Creatinine Ratio 14.3 (10.0-20.0); Bilirubin, Total 0.8 mg/dL (0.2-1.0); Blood Urea Nitrogen 12 mg/dL (9-23); Calcium 9.7 mg/dL (8.7-10.4); Carbon Dioxide 26 mmol/L (20-31); Chloride 101 mmol/L (98-107); Glucose 103 mg/dL (74-106); Magnesium 1.9 mg/dL (1.6-2.6); Potassium 4.4 mmol/L (3.5-5.1); Sodium 137 mmol/L (136-145); Total Protein 6.6 g/dL (5.7-8.2)
[2024-07-31 03:37] LABS: Lymphocytes % (manual) 23 (10.0-50.0); Monocytes % (manual) 17 (0-12); Platelet Estimate Decreased
[2024-07-31] MEDS ORDERED: cefTRIAXone 1GM/50ML D5W 50 ML IV SCH ×2 (04:15→09:00)
[2024-07-31] MEDS ORDERED: ARIP20TA4 PO (04:59)
[2024-07-31] MEDS ORDERED: DONE1TAB88 PO (04:59)
[2024-07-31] MEDS ORDERED: METO25TA5 PO (04:59)
[2024-07-31] MEDS: SODIUM CHLORIDE 0.9% 1,000 ML IV ONE (05:33)
[2024-07-31] MEDS: AZITHROMYCIN 500MG/ 250ML 250 ML IV SCH (05:33)
[2024-07-31 05:53] LABS: T3 Total 1.22 ng/mL (0.60-1.81)
[2024-07-31] MEDS: ALBUTEROL SULF 2.5 MG/0.5ML(0.5%) NEB SOLN NEB SCH (06:11)
[2024-07-31] MEDS: IPRATROPIUM BROM 0.5 MG/2.5ML INH SOL NEB SCH (06:11)
--- NOTE | 2024-07-31 06:39 | DVH ---
EXAM: XR Chest, 1 View CLINICAL INDICATION: cough, hypoxemia TECHNIQUE: Frontal view of the chest. COMPARISON: XY CHEST PORTABLE on DOS: 01/30/24, XY CHEST XRAY 1 VIEW on DOS: 01/11/24, XY CHEST PORT ABLE on DOS: 12/01/23 FINDINGS: LUNGS AND PLEURAL SPACES: Interstitial opacity. No pneumothorax. HEART: Unremarkable. No cardiomegaly. MEDIASTINUM: Unremarkable. Normal mediastinal contour. BONES/JOINTS: Unremarkable. No acute fracture. OTHER FINDINGS: . . . IMPRESSION: Interstitial opacity.
[2024-07-31] MEDS ORDERED: VANCOMYCIN PER PHARMACY 0 MG IV SCH (07:00)
[2024-07-31 07:14] LABS: Erythrocyte Sedimentation Rate 4 mm/hr (0-20)
[2024-07-31] MEDS: PIPERACILLIN-TAZOB 3.375GM 100 ML IV ONE (08:01)
[2024-07-31] MEDS: APIXABAN 5 MG TAB PO SCH (09:03)
[2024-07-31] MEDS: VANCOMYCIN 1.25GM/250ML 250 ML IV ONE (09:03)
[2024-07-31] MEDS: LISINOPRIL 20 MG TAB PO SCH (09:04)
[2024-07-31] MEDS: ERGOCALCIFEROL 50,000 UNIT(1.25MG) CAP PO SCH (09:04)
--- NOTE | 2024-07-31 09:40 | DVHPNRES ---
Progress Note Date Seen: Jul 31, 2024 Resident Creating Document: RAJIV MARINELLI RESIDENT Medical Necessity Reason Pt with a Central, PICC or Fol: No Subjective Review of Systems Mr Osorio is a 63-year-old male with past medical history of paroxysmal atrial fibrillation on Eliquis, diabetes mellitus, coronary artery disease, hypertension, developmental delay, schizophrenia, dementia who was transferred from [facility] for the evaluation of altered mental status and elevated troponins. [facility] lives in [facility] very was found unconscious by the staff and only responding to painful stimuli. Routinely patient is typically only able to answer his name and is typically aggressive with baseline. Per [facility] risks, patient recently started new med on medication. Home medications: Atorvastatin, Depakote 500 mg, glipizide 5 mg, lisinopril 20 mg, metformin 500 mg, risperidone 2 mg, valproic acid 250 mg Caregiver Ms. Lamar Yoon ([phone]) Patient was seen and examined on the bedside. He is alert, oriented times X 1 and on 2 L oxygen saturating 94%. Patient is not responding calling his name out verbally and sleeping. Review of system could not be assessed as patient is alert and oriented x1. Objective vital signs Vital Sign Date Time Temp Pulse Resp B/P (MAP) Pulse Ox O2 Delivery O2 Flow Rate FiO2 07/31/24 06:29 70 16 96 07/31/24 06:11 Nasal Cannula* 2 28 07/31/24 05:00 98.5 131/77 (95) 98.5 Total Intake and Output 07/30/24 07/30/24 07/31/24 15:00 23:00 07:00 Intake Total 0 ml Balance 0 ml medications Current Medications Medications Dose Ordered Sig/David Route Start Time Stop Time Status Last Admin Dose Admin Nitroglycerin 0.4 mg Q5MINP PRN SL 07/31/24 01:00 Morphine Sulfate 2 mg Q30M PRN IV 07/31/24 01:00 Ergocalciferol 50,000 unit Q7D PO 07/31/24 10:00 Apixaban 5 mg BID PO 07/31/24 10:00 Atorvastatin Calcium 40 mg HS PO 07/31/24 22:00 Divalproex Sodium 500 mg BID PO 07/31/24 10:00 Future Hold Lisinopril 20 mg DAILY PO 07/31/24 10:00 Ipratropium [place] 0.5 mg Q6HR NEB 07/31/24 06:00 07/31/24 06:11 0.5 MG Albuterol 2.5 mg Q6HR NEB 07/31/24 06:00 07/31/24 06:11 2.5 MG Piperacillin Sod/ Tazobactam Sod 100 ml @ 25 mls/hr Q8HR IV 07/31/24 14:00 Vancomycin HCl 0 ml @ 0 mls/hr UD IV 07/31/24 07:00 Examination Physical examination: General Appearance: Alert, Oriented X3, Cooperative, No acute distress HEENT: Atraumatic, PERRLA, EOMI, Mucous membrane moist/pink Respiratory: Clear to auscultation, Normal air movement Cardiovascular: Regular rate, Normal S1, Normal S2, No murmurs, no chest wall tenderness Abdominal: Normal bowel sounds, Soft, No tenderness, No hepatospenomegaly, No masses Extremities: No clubbing, No cyanosis, No edema, Normal pulses, No tenderness/swelling Skin: No rashes, No breakdown, No significant lesion Neuro: Normal gait, Normal speech, Strength at 5/5 X4 ext, Normal tone, Sensation intact, Cranial nerves 3-12 NL, Reflexes 2+ Psych/Mental Status: Mental status NL, Mood NL laboratory and microbiology Laboratory Tests 07/31/24 02:00 Test 07/31/24 02:00 Range/Units Serum Glucose 103 74-106 mg/dL Labs and/or images reviewed: Labs reviewed by me, Image(s) reviewed by me Problem List/Assessment/Plan Problem List/Assessment/Plan Assessment and plan: # Acute hypoxic respiratory failure likely due to possible aspiration pneumonia # Acute metabolic encephalopathy likely due to above # Possible subclinical hypothyroidism # Normal pressure hydrocephalus - Head CT without contrast showed no evidence of acute intracranial injury. Cerebral atrophy. 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 Findings suggestive of NPH ( [facility]) - CXR demonstrated interstitial opacity - CRP is high - Patient is on 2 L oxygen saturating 94% - Medneb neb with albuterol and ipratropium q.6 hours - Ordered swallow evaluation by speech therapist - Aspiration precaution - NPO - IV normal saline at 150 mL/hour - BNP is normal - Ammonia is normal , mildly elevated possible subclinical hypothyroidism and ordered free T3 and T4 - IV vancomycin as per pharmacy and IV Zosyn 3.375 g Q 8 hours # Paroxysmal atrial fibrillation with secondary hypercoagulable state # NSTEMI type 2 # Hypertensive heart disease with possible chronic diastolic heart failure # History of CVA - [id number] score 2 and has bleed score 1 - EKG showed normal sinus rhythm and troponin trends were 239>201>117 - Echo on 01/30 demonstrated EF 55% with grade 1 diastolic dysfunction and RVSP 34 mm Hg - Continue lisinopril 20 mg daily, atorvastatin 40 mg at HS and Eliquis 5 mg b.i.d. # History of schizophrenia and developmental delay # History of seizure disorder # History of dementia - Continue divalproex sodium 500 mg b.i.d., aripiprazole 15 mg daily and Donepezil 10 mg p.o. at HS # Type 2 mellitus, hemoglobin A1c 5.3 # Vitamin D deficiency - Vitamin-D 53193 units Q 7D # DVT prophylaxis - Patient is on eloquis. Goal care could not be discussed as patient is not fully oriented Plan discussed with Dr. Skinner Plan discussed with: Patient, Other My Orders My Orders Orders - RAJIV MARINELLI Procedure Category Date Status Time Communication Order ORDERS 07/31/24 Transmitted 08:30 Date of Service: Jul 31, 2024 Billing Provider: TRINIDAD SKINNER DO Common Visit Codes: [id number] INP/OBS CARE(HIGH) RAJIV MARINELLI Jul 31, 2024 09:40 TRINIDAD SKINNER DO Aug 02, 2024 22:39
[2024-07-31] MEDS ORDERED: VALPROIC ACID 250 MG/5 ML ORAL SOLN PO SCH (10:00)
--- NOTE | 2024-07-31 10:06 | DVH ---
PROCEDURE: US CAROTID DUPLX W COLOR DOP 07/31/2024 09:19 AM INDICATION: hx of loc COMPARISON: None TECHNIQUE: Real-time grayscale and color Doppler images of the neck arteries were obtained with spect ral analysis performed. FINDINGS: RIGHT: Minimal soft plaque formation seen at the carotid bulb. Normal spectral waveforms are seen. ICA peak systolic velocity: 59 cm/s ICA end-diastolic velocity: 9 cm/s ICA/CCA ratios: 0.7 LEFT: No significant atherosclerotic plaque identified in the carotid. Normal spectral waveforms are seen. ICA peak systolic velocity: 88 cm/s ICA end-diastolic velocity: 17 cm/s ICA/CCA ratios: 1.2 VERTEBRAL ARTERIES: Normal antegrade flow is seen bilaterally. Normal spectral waveforms. IMPRESSION: 1. No hemodynamically significant carotid artery stenosis identified bilaterally. Reference: Radiology 2003; 229:340-346 Normal ICA PSV is <125 cm/sec and no plaque or intimal thickening is visible sonographically addition al criteria include ICA/CCA PSV ratio <2.0 and ICA EDV <40 cm/sec <50% ICA stenosis ICA PSV is <125 cm/sec and plaque or intimal thickening is visible sonographically additional criteria include ICA/CCA PSV ratio <2.0 and ICA EDV <40 cm/sec 50-69% ICA stenosis ICA PSV is 125-230 cm/sec and plaque is visible sonographically additional criter ia include ICA/CCA PSV ratio of 2.0-4.0 and ICA EDV of 40-100 cm/sec 70% ICA stenosis but less than near occlusion ICA PSV is >230 cm/sec and visible plaque and luminal narrowing are seen at ferrari-scale and color Doppler ultrasound (the higher the Doppler parameters lie above the threshold of 230 cm/sec, the greater the likelihood of severe disease) additional criteria include ICA/CCA PSV ratio >4 and ICA EDV >100 cm/sec
[2024-07-31] MEDS: PIPERACILLIN-TAZOB 3.375GM 100 ML IV SCH (13:10)
[2024-07-31] MEDS: LORazepam 2MG/ML-1ML VIAL IV ONE (16:38)
[2024-07-31 18:39] LABS: Free T4 (Free Thyroxine) 1.79 ng/dL (0.89-1.76)
[2024-07-31] MEDS: VANCOMYCIN 1GM/200ML PM 200 ML IV SCH (20:00)
[2024-07-31] MEDS: ATORVASTATIN 20 MG TAB PO SCH (21:42)
[2024-08-01] VITALS (17 sets, daily range): BP systolic 103–147; BP diastolic 61–85; PULSE 59–92; RESP 18–20; TEMP 97.7–99.2; O2SAT 93–100
[2024-08-01 07:29] LABS: Hematocrit 42.6 % (41.0-53.0); Hemoglobin 14.3 g/dL (13.5-17.5); Mean Corpuscular Hemoglobin 30.3 pg (28.0-32.0); Mean Corpuscular Hgb Conc. 33.7 g/dL (32.0-36.0); Platelet Count (auto) 130 10^3/uL (140-450); Red Blood Cells 4.73 10^6/uL (4.5-5.90); Red Cell Distribution Width 15.3 % (11.8-14.3); White Blood Cell 6.4 10^3/uL (4.4-10.8)
[2024-08-01 07:51] LABS: Band Neutrophils % (manual) 0; Basophils % (manual) 0 (0.0-2.0); Blast Cells 0; Metamyelocytes % 0; Myelocytes % 0; Promyelocytes % 0; Reactive Lymphocytes 0
[2024-08-01] MEDS ORDERED: PPN PER PHARMACY 0 ML IV SCH (08:30)
[2024-08-01 08:50] LABS: Alanine Aminotransferase 21 U/L (7-40); Albumin 3.5 g/dL (3.2-4.8); Alkaline Phosphatase 49 U/L (46-116); Anion Gap 8 (5-15); Aspartate Aminotransferase 23 U/L (13-40); BUN/Creatinine Ratio 14.7 (10.0-20.0); Blood Urea Nitrogen 15 mg/dL (9-23); Calcium 9.1 mg/dL (8.7-10.4); Carbon Dioxide 25 mmol/L (20-31); Chloride 105 mmol/L (98-107); Glucose 87 mg/dL (74-106); Magnesium 1.8 mg/dL (1.6-2.6); Sodium 138 mmol/L (136-145); Total Protein 6.1 g/dL (5.7-8.2); Triglycerides 102 mg/dL (< 150)
[2024-08-01 08:51] LABS: Bilirubin, Total 0.8 mg/dL (0.2-1.0); Phosphorus 4.1 mg/dL (2.4-5.1)
[2024-08-01] MEDS: ENOXAPARIN SOD 100 MG/1 ML SYRINGE SC SCH (09:15)
[2024-08-01 10:41] LABS: Eosinophils % (manual) 2 (0-7); Lymphocytes % (manual) 25 (10.0-50.0); Monocytes % (manual) 13 (0-12); Platelet Estimate Decreased
--- NOTE | 2024-08-01 11:34 | DVHPNRES ---
Progress Note Date Seen: Aug 01, 2024 Resident Creating Document: RAJIV MARINELLI RESIDENT Medical Necessity Reason Pt with a Central, PICC or Fol: No Subjective Review of Systems Patient was seen and examined on the bedside. He is alert, oriented times X 1 and on 2 L oxygen saturating 94%. Patient is not responding calling his name out verbally and sleeping. Review of system could not be assessed as patient is alert and oriented x1. Objective vital signs Vital Sign Date Time Temp Pulse Resp B/P (MAP) Pulse Ox O2 Delivery O2 Flow Rate FiO2 08/01/24 09:14 132/80 08/01/24 08:30 68 19 95 Nasal Cannula* 2 28 08/01/24 05:00 97.7 97.7 Total Intake and Output 07/31/24 07/31/24 08/01/24 15:00 23:00 07:00 Intake Total 350 ml 300 ml 0 ml Balance 350 ml 300 ml 0 ml medications Current Medications Medications Dose Ordered Sig/David Route Start Time Stop Time Status Last Admin Dose Admin Nitroglycerin 0.4 mg Q5MINP PRN SL 07/31/24 01:00 Morphine Sulfate 2 mg Q30M PRN IV 07/31/24 01:00 Ergocalciferol 50,000 unit Q7D PO 07/31/24 10:00 Atorvastatin Calcium 40 mg HS PO 07/31/24 22:00 Divalproex Sodium 500 mg BID PO 07/31/24 10:00 Lisinopril 20 mg DAILY PO 07/31/24 10:00 Ipratropium [place] 0.5 mg Q6HR NEB 07/31/24 06:00 08/01/24 07:49 0.5 MG Albuterol 2.5 mg Q6HR NEB 07/31/24 06:00 08/01/24 07:46 2.5 MG Piperacillin Sod/ Tazobactam Sod 100 ml @ 25 mls/hr Q8HR IV 07/31/24 14:00 08/01/24 06:00 25 MLS/HR Vancomycin HCl 0 ml @ 0 mls/hr UD IV 07/31/24 07:00 Vancomycin HCl 200 ml @ 160 mls/hr Q16H IV 07/31/24 20:00 07/31/24 20:00 160 MLS/HR Enoxaparin Sodium 90 mg Q12HR SC 08/01/24 10:00 08/01/24 09:15 90 MG Amino Acids 0 ml @ 0 mls/hr PER PHARMACY IV 08/01/24 08:30 Sodium Chloride 10 meq/Calcium Gluconate 2.3 meq/ Magnesium Sulfate 4 meq/ Multivitamins 10 ml/Chromium/ Copper/Manganese/ Zinc 1 ml/Fat Emulsion Intravenous 50 ml/ Amino Acids/ Dextrose/Purified Water 1,269.4462 ml @ 53 mls/hr [id number] IV 08/01/24 22:00 08/02/24 21:59 Diagnostic Test (Pha) 1 strip Q6HR 08/02/24 00:00 Insulin Human Regular FOLLOW SLIDING SCALE Q6HR SC 08/02/24 00:00 Dextrose 50 ml UD IV 08/01/24 22:00 Examination Physical examination: General Appearance: Alert, Oriented X1 and on 2L O2 HEENT: Atraumatic, PERRLA, EOMI, Mucous membrane moist/pink Respiratory: Clear to auscultation, Normal air movement Cardiovascular: Regular rate, Normal S1, Normal S2, No murmurs, no chest wall tenderness Abdominal: Normal bowel sounds, Soft, No tenderness, No hepatospenomegaly, No masses Extremities: No clubbing, No cyanosis, No edema, Normal pulses, No tenderness/swelling Skin: No rashes, No breakdown, No significant lesion Neuro: Strength at 5/5 X4 ext, Normal tone, Sensation intact, grossly intact cranial nerves. Psych/Mental Status: Could not be assessed. laboratory and microbiology Laboratory Tests 08/01/24 06:35 Test 08/01/24 06:35 Range/Units Serum Glucose 87 74-106 mg/dL Microbiology Date/Time Source Procedure Growth Status 07/31/24 05:45 Nose MRSA Screen - Final Complete Labs and/or images reviewed: Labs reviewed by me, Image(s) reviewed by me Problem List/Assessment/Plan Problem List/Assessment/Plan Assessment and plan: # Acute hypoxic respiratory failure likely due to possible aspiration pneumonia # Acute metabolic encephalopathy likely due to above # Possible subclinical hypothyroidism # Normal pressure hydrocephalus - Head CT without contrast showed no evidence of acute intracranial injury. Cerebral atrophy. 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 Findings suggestive of NPH ( [facility]) - CXR demonstrated interstitial opacity - CRP is high - Patient is on 2 L oxygen saturating 94% - Medneb neb with albuterol and ipratropium q.6 hours - Patient failed swallow evaluation - IV PPN as per pharmacy - Aspiration precaution - NPO - IV normal saline at 150 mL/hour - BNP is normal - Ammonia is normal , mildly elevated possible subclinical hypothyroidism and ordered free T3 and T4 - IV vancomycin as per pharmacy and IV Zosyn 3.375 g Q 8 hours # Paroxysmal atrial fibrillation with secondary hypercoagulable state # NSTEMI type 2 # Hypertensive heart disease with possible chronic diastolic heart failure # History of CVA - [id number] score 2 and has bleed score 1 - EKG showed normal sinus rhythm and troponin trends were 239>201>117 - Echo on 01/30 demonstrated EF 55% with grade 1 diastolic dysfunction and RVSP 34 mm Hg - Continue lisinopril 20 mg daily, atorvastatin 40 mg at HS and Eliquis 5 mg b.i.d. # History of schizophrenia and developmental delay # History of seizure disorder # History of dementia - Continue divalproex sodium 500 mg b.i.d., aripiprazole 15 mg daily and Donepezil 10 mg p.o. at HS # Type 2 mellitus, hemoglobin A1c 5.3 # Vitamin D deficiency - Vitamin-D 34225 units Q 7D # DVT prophylaxis - Patient is on eloquis. Goal care could not be discussed as patient is not fully oriented Plan discussed with Dr. Skinner Plan discussed with: Patient, Other My Orders My Orders Orders - RAJIV MARINELLI RESIDENT Procedure Category Date Status Time Ppn Per Pharmacy [facility] 08/01/24 In Process 06:27 Enoxaparin Sodium PHA 08/01/24 In Process (Lovenox) 10:00 Ppn Per Pharmacy PHA 08/01/24 In Process 08:30 * Dietary Consult CONS 08/01/24 Transmitted 08:32 Amino Acid PHA 08/01/24 In Process Infusion... W/Sodium 22:00 Glucose Blood PHA 08/02/24 In Process (Accu-Chek Comfort 00:00 Insulin R (Human) PHA 08/02/24 In Process (Insulin R) 00:00 Dextrose 50% Syringe PHA 08/01/24 In Process 22:00 Comprehensive LAB 08/02/24 Verified Metabolic Panel 05:00 Magnesium LAB 08/02/24 Verified 05:00 Phosphorus LAB 08/02/24 Verified 05:00 Ppn Per Pharmacy [facility] 08/01/24 In Process 22:00 Date of Service: Aug 01, 2024 Billing Provider: TRINIDAD SKINNER DO Common Visit Codes: [id number] INP/OBS CARE(HIGH) RAJIV MARINELLI RESIDENT Aug 01, 2024 11:34 TRINIDAD SKINNER DO Aug 02, 2024 22:40
[2024-08-01] MEDS ORDERED: DEXTROSE (50%) 50ML SYRG IV SCH (22:00)
[2024-08-01] MEDS ORDERED: SODIUM CHLORIDE IV NR (22:00)
[2024-08-01] MEDS ORDERED: CALCIUM GLUC IV NR (22:00)
[2024-08-01] MEDS ORDERED: [UNRECOGNIZED DRUG - OTHER] IV NR (22:00)
[2024-08-01] MEDS: [UNRECOGNIZED DRUG - OTHER] IV NR (22:24)
[2024-08-01] MEDS: CALCIUM GLUC IV NR (22:24)
[2024-08-01] MEDS: SODIUM CHLORIDE IV NR (22:24)
[2024-08-02] VITALS (16 sets, daily range): BP systolic 115–135; BP diastolic 64–87; PULSE 62–89; RESP 16–20; TEMP 98–100.8; O2SAT 91–99
[2024-08-02] MEDS: ACCU-CHEK COMFORT CURVE STRIP VI SCH
[2024-08-02] MEDS: InsuLIN REG 1unit/0.01ml Soln (100units/ml) SC SCH
[2024-08-02 08:35] LABS: Alanine Aminotransferase 23 U/L (7-40); Albumin 3.6 g/dL (3.2-4.8); Alkaline Phosphatase 47 U/L (46-116); Anion Gap 10 (5-15); Aspartate Aminotransferase 29 U/L (13-40); BUN/Creatinine Ratio 13.3 (10.0-20.0); Blood Urea Nitrogen 14 mg/dL (9-23); Calcium 9.2 mg/dL (8.7-10.4); Carbon Dioxide 24 mmol/L (20-31); Chloride 107 mmol/L (98-107); Glucose 99 mg/dL (74-106); Magnesium 1.8 mg/dL (1.6-2.6); Phosphorus 3.9 mg/dL (2.4-5.1); Potassium 4.1 mmol/L (3.5-5.1); Sodium 141 mmol/L (136-145); Total Protein 6.1 g/dL (5.7-8.2)
[2024-08-02 09:33] LABS: Basophils # (auto) 0 10 ^3/uL (0-0.2); Basophils % (auto) 0.7 % (0.0-2.0); Eosinophils # (auto) 0.2 10 ^3/uL (0-0.8); Eosinophils % (auto) 3.1 % (0.0-7.0); Hematocrit 40.9 % (41.0-53.0); Hemoglobin 13.7 g/dL (13.5-17.5); Lymphocytes # (auto) 2.2 10 ^3/uL (0.4-5.4); Lymphocytes % (auto) 37.3 % (10.0-50.0); Mean Corpuscular Hemoglobin 30.3 pg (28.0-32.0); Mean Corpuscular Hgb Conc. 33.5 g/dL (32.0-36.0); Mean Corpuscular Volume 90.4 fL (80.0-100.0); Monocytes # (auto) 1.1 10 ^3/uL (0-1.3); Neutrophils # (auto) 2.4 10 ^3/uL (1.6-8.6); Neutrophils % (auto) 40.3 % (37.0-80.0); Nucleated Red Blood Cells % 0.1 %; Platelet Count (auto) 153 10^3/uL (140-450); Red Blood Cells 4.53 10^6/uL (4.5-5.90); Red Cell Distribution Width 15.3 % (11.8-14.3)
[2024-08-02 09:36] LABS: Monocytes % (auto) 18.6 % (0.0-12.0)
--- NOTE | 2024-08-02 14:12 | DVHPNRES ---
Progress Note Date Seen: Aug 02, 2024 Resident Creating Document: RAJIV MARINELLI RESIDENT Medical Necessity Reason Pt with a Central, PICC or Fol: No Subjective Review of Systems Patient was seen and examined on the bedside. He is alert, oriented times X 1 and on 2 L/min oxygen saturating 94%. Patient is responding to calling his name out verbally and aggressive. Objective vital signs Vital Sign Date Time Temp Pulse Resp B/P (MAP) Pulse Ox O2 Delivery O2 Flow Rate FiO2 08/02/24 13:03 77 20 08/02/24 13:01 98 08/02/24 13:00 Nasal Cannula 1.0 08/02/24 13:00 24 08/02/24 12:38 100.8 119/83 (95) 100.8 Total Intake and Output 08/01/24 08/01/24 08/02/24 15:00 23:00 07:00 Intake Total 300 ml 350 ml Balance 300 ml 350 ml medications Current Medications Medications Dose Ordered Sig/David Route Start Time Stop Time Status Last Admin Dose Admin Nitroglycerin 0.4 mg Q5MINP PRN SL 07/31/24 01:00 Morphine Sulfate 2 mg Q30M PRN IV 07/31/24 01:00 Ergocalciferol 50,000 unit Q7D PO 07/31/24 10:00 Atorvastatin Calcium 40 mg HS PO 07/31/24 22:00 Divalproex Sodium 500 mg BID PO 07/31/24 10:00 Lisinopril 20 mg DAILY PO 07/31/24 10:00 Ipratropium [place] 0.5 mg Q6HR NEB 07/31/24 06:00 08/02/24 12:58 0.5 MG Albuterol 2.5 mg Q6HR NEB 07/31/24 06:00 08/02/24 12:59 2.5 MG Piperacillin Sod/ Tazobactam Sod 100 ml @ 25 mls/hr Q8HR IV 07/31/24 14:00 08/02/24 05:27 25 MLS/HR Vancomycin HCl 0 ml @ 0 mls/hr UD IV 07/31/24 07:00 Vancomycin HCl 200 ml @ 160 mls/hr Q16H IV 07/31/24 20:00 08/02/24 04:00 160 MLS/HR Enoxaparin Sodium 90 mg Q12HR SC 08/01/24 10:00 08/02/24 10:11 90 MG Amino Acids 0 ml @ 0 mls/hr PER PHARMACY IV 08/01/24 08:30 Sodium Chloride 10 meq/Calcium Gluconate 2.3 meq/ Magnesium Sulfate 4 meq/ Multivitamins 10 ml/Chromium/ Copper/Manganese/ Zinc 1 ml/Fat Emulsion Intravenous 50 ml/ Amino Acids/ Dextrose/Purified Water 1,269.4462 ml @ 53 mls/hr [id number] IV 08/01/24 22:00 08/02/24 21:59 Cancel Diagnostic Test (Pha) 1 strip Q6HR 08/02/24 00:00 08/02/24 11:55 1 STRIP Insulin Human Regular FOLLOW SLIDING SCALE Q6HR SC 08/02/24 00:00 Dextrose 50 ml UD IV 08/01/24 22:00 Sodium Chloride 10 meq/Calcium Gluconate 2.3 meq/ Magnesium Sulfate 4 meq/ Multivitamins 10 ml/Chromium/ Copper/Manganese/ Zinc 1 ml/Amino Acids/Dextrose/ Purified Water/ Fat Emulsion Intravenous 1,269.4462 ml @ 53 mls/hr [id number] IV 08/01/24 22:00 08/02/24 21:59 08/01/24 22:24 53 MLS/HR Fat Emulsion Intravenous 100 ml/Magnesium Sulfate 12 meq/ Multivitamins 10 ml/Chromium/ Copper/Manganese/ Zinc 1 ml/Amino Acids/Dextrose/ Purified Water 1,564 ml @ 65 mls/hr Q24H4M IV 08/02/24 22:00 08/03/24 21:59 Lorazepam 1 mg Q8H PRN IV 08/02/24 12:45 Examination Physical examination: General Appearance: Alert, Oriented X1 and on 2L/min O2 HEENT: Atraumatic, PERRLA, EOMI, Mucous membrane moist/pink Respiratory: Clear to auscultation, Normal air movement Cardiovascular: Regular rate, Normal S1, Normal S2, No murmurs, no chest wall tenderness Abdominal: Normal bowel sounds, Soft, No tenderness, No hepatosplenomegaly, No masses Extremities: No clubbing, No cyanosis, No edema, Normal pulses, No tenderness/swelling Skin: No rashes, No breakdown, No significant lesion Neuro: Strength at 5/5 X4 ext, Normal tone, Sensation intact, grossly intact cranial nerves. Psych/Mental Status: Could not be assessed. laboratory and microbiology Laboratory Tests 08/02/24 09:06 08/02/24 02:47 Test 08/02/24 02:47 Range/Units Serum Glucose 99 74-106 mg/dL Microbiology Date/Time Source Procedure Growth Status 07/31/24 05:45 Nose MRSA Screen - Final Complete Labs and/or images reviewed: Labs reviewed by me, Image(s) reviewed by me Problem List/Assessment/Plan Problem List/Assessment/Plan Assessment and plan: # Acute hypoxic respiratory failure likely due to possible aspiration pneumonia # Acute metabolic/toxic encephalopathy most likely due to delirium in the setting of dementia # Possible subclinical hypothyroidism # Normal pressure hydrocephalus - Head CT without contrast showed no evidence of acute intracranial injury. Cerebral atrophy. 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 Findings suggestive of NPH ( [facility]) - CXR demonstrated interstitial opacity - CRP is high - Patient is on 2 L oxygen saturating 94% - nebulizers with albuterol and ipratropium q.6 hours - Patient failed swallow evaluation - IV PPN as per pharmacy - Aspiration precaution - NPO - IV normal saline at 150 mL/hour - BNP is normal - Ammonia is normal , mildly elevated possible subclinical hypothyroidism and ordered free T3 and T4 - IV vancomycin as per pharmacy and IV Zosyn 3.375 g Q 8 hours - One-to-one sitter # Paroxysmal atrial fibrillation with secondary hypercoagulable state # NSTEMI type 2 # Hypertensive heart disease with possible chronic diastolic heart failure # History of CVA - [id number] score 2 and has bleed score 1 - EKG showed normal sinus rhythm and troponin trends were 239>201>117 - Echo on 01/30 demonstrated EF 55% with grade 1 diastolic dysfunction and RVSP 34 mm Hg - Continue lisinopril 20 mg daily, atorvastatin 40 mg at HS and therapeutic Lovenox 1 mg/kg body wt 12hrly. # Schizophrenia and developmental delay # Seizures disorder # Dementia - Continue divalproex sodium 500 mg b.i.d., aripiprazole 15 mg daily and Donepezil 10 mg p.o. at HS # Type 2 mellitus, hemoglobin A1c 5.3% # Vitamin D deficiency - Vitamin-D 68647 units Q 7D # DVT prophylaxis - Patient is on therapeutic Lovenox Goal care could not be discussed as patient is not fully oriented Plan discussed with Dr. Russ Plan discussed with: Patient, Other (Nurse) My Orders My Orders Orders - RAJIV MARINELLI RESIDENT Procedure Category Date Status Time * Swallow Request ST 08/02/24 Transmitted 10:53 Amino Acid PHA 08/02/24 In Process Infusion... W/Fat 22:00 Comprehensive LAB 08/03/24 Verified Metabolic Panel 04:00 Phosphorus LAB 08/03/24 Verified 04:00 Magnesium LAB 08/03/24 Verified 04:00 Ppn Per Pharmacy [facility] 08/02/24 In Process 22:00 Dietary Evaluation Review Comments: 1) TPN if NPO > 5 days 2) Advance diet as medically feasible 3) Continue current POC Expected Outcomes/Goals: To meet >75% estimated needs Fu 2-3 days Addendum Addendum Addendum I was physically present for the olivas portions of the service provided to patient by THE RESIDENT. I have reviewed the documentation, discussed the case with resident and agree with the resident's documentation except as noted. Also the patient's clinical case was discussed with the patient's nurse. This medical document was created using an electronic medical record system with computerized dictation system. Although this document has been carefully reviewed, there might still be some phonetic and typographical errors. These areas are purely typographical due to imperfections of the software programs, and do not reflect any compromise in the patient's medical care. Late signature. Date of Service: Aug 02, 2024 Billing Provider: GUY RUSS MD Common Visit Codes: [id number] INP/OBS CARE(HIGH) RAJIV MARINELLI RESIDENT Aug 02, 2024 14:12 GUY RUSS MD Aug 04, 2024 09:39
[2024-08-02] MEDS ORDERED: VANCOMYCIN 750MG KIT 100 ML IV SCH (18:00)
[2024-08-02] MEDS: LORazepam 2MG/ML-1ML VIAL IV PRN (18:03)
[2024-08-02] MEDS: VANCOMYCIN 750MG KIT 100 ML IV SCH (21:43)
[2024-08-02] MEDS: PPN PER PHARMACY IV NR (22:00)
[2024-08-03] VITALS (17 sets, daily range): BP systolic 97–148; BP diastolic 60–88; PULSE 56–93; RESP 16–20; TEMP 97.4–99.9; O2SAT 92–97
[2024-08-03] MEDS: VANCOMYCIN HCL 1000 MG VL ONE (07:44)
[2024-08-03 10:13] LABS: Alanine Aminotransferase 28 U/L (7-40); Albumin 3.4 g/dL (3.2-4.8); Anion Gap 10 (5-15); Aspartate Aminotransferase 29 U/L (13-40); BUN/Creatinine Ratio 18.8 (10.0-20.0); Blood Urea Nitrogen 19 mg/dL (9-23); Carbon Dioxide 24 mmol/L (20-31); Glucose 90 mg/dL (74-106); Magnesium 1.9 mg/dL (1.6-2.6); Potassium 4.2 mmol/L (3.5-5.1); Sodium 142 mmol/L (136-145); Total Protein 5.8 g/dL (5.7-8.2)
[2024-08-03 10:14] LABS: Bilirubin, Total 0.9 mg/dL (0.2-1.0); Phosphorus 3.6 mg/dL (2.4-5.1)
[2024-08-03 10:24] LABS: Alkaline Phosphatase 44 U/L (46-116); Chloride 108 mmol/L (98-107)
--- NOTE | 2024-08-03 12:58 | DVHPN2 ---
Subjective Continues to be confused and agitated Reviewed: Care Plan, H&P, Labs, Medications, Previous Orders, Radiology Changes from previous H/P or p: No Changes Objective Vitals Vital Signs Date Time Temp Pulse Resp B/P (MAP) Pulse Ox O2 Delivery O2 Flow Rate FiO2 08/03/24 08:39 97.4 62 18 127/60 (82) 95 97.4 08/03/24 08:03 Nasal Cannula* 1 24 Intake/Output Intake and Output 08/03/24 06:59 Intake Total 300 ml Balance 300 ml Intake Oral 0 ml IV Total 300 ml # Voids 3 General Appearance: Other (Confused and agitated) HEENT: Atraumatic Lungs: Other (Decreased air entry bilaterally) Cardiovascular: Regular rate, Normal S1, Normal S2 Abdomen: Normal bowel sounds, Soft, No tenderness Neuro: Normal speech, Cranial nerves 3-12 NL, Other (Confused and agitated; moves all extremities; no facial asymmetry) Psych/Mental Status: Other (Confused and agitated) Medications Current Medications Medications Dose Ordered Sig/David Route Start Time Stop Time Status Last Admin Dose Admin Nitroglycerin 0.4 mg Q5MINP PRN SL 07/31/24 01:00 Morphine Sulfate 2 mg Q30M PRN IV 07/31/24 01:00 Ergocalciferol 50,000 unit Q7D PO 07/31/24 10:00 Atorvastatin Calcium 40 mg HS PO 07/31/24 22:00 Divalproex Sodium 500 mg BID PO 07/31/24 10:00 Lisinopril 20 mg DAILY PO 07/31/24 10:00 Ipratropium [place] 0.5 mg Q6HR NEB 07/31/24 06:00 08/03/24 11:51 0.5 MG Albuterol 2.5 mg Q6HR NEB 07/31/24 06:00 08/03/24 11:51 2.5 MG Piperacillin Sod/ Tazobactam Sod 100 ml @ 25 mls/hr Q8HR IV 07/31/24 14:00 08/03/24 06:59 25 MLS/HR Vancomycin HCl 0 ml @ 0 mls/hr UD IV 07/31/24 07:00 Enoxaparin Sodium 90 mg Q12HR SC 08/01/24 10:00 08/03/24 09:24 90 MG Amino Acids 0 ml @ 0 mls/hr PER PHARMACY IV 08/01/24 08:30 Sodium Chloride 10 meq/Calcium Gluconate 2.3 meq/ Magnesium Sulfate 4 meq/ Multivitamins 10 ml/Chromium/ Copper/Manganese/ Zinc 1 ml/Fat Emulsion Intravenous 50 ml/ Amino Acids/ Dextrose/Purified Water 1,269.4462 ml @ 53 mls/hr [id number] IV 08/01/24 22:00 08/02/24 21:59 Cancel Diagnostic Test (Pha) 1 strip Q6HR 08/02/24 00:00 08/03/24 12:17 1 STRIP Insulin Human Regular FOLLOW SLIDING SCALE Q6HR SC 08/02/24 00:00 Dextrose 50 ml UD IV 08/01/24 22:00 Fat Emulsion Intravenous 100 ml/Magnesium Sulfate 12 meq/ Multivitamins 10 ml/Chromium/ Copper/Manganese/ Zinc 1 ml/Amino Acids/Dextrose/ Purified Water 1,564 ml @ 65 mls/hr Q24H4M IV 08/02/24 22:00 08/03/24 21:59 08/03/24 08:27 65 MLS/HR Lorazepam 1 mg Q8H PRN IV 08/02/24 12:45 08/03/24 09:24 1 MG Vancomycin HCl 100 ml @ 100 mls/hr Q12H IV 08/02/24 21:45 08/03/24 08:21 100 MLS/HR Fat Emulsion Intravenous 150 ml/Magnesium Sulfate 16 meq/ Multivitamins 10 ml/Chromium/ Copper/Manganese/ Zinc 1 ml/Amino Acids/Dextrose/ Purified Water 1,765 ml @ 73 mls/hr [id number] IV 08/03/24 22:00 08/04/24 21:59 Laboratory Results Laboratory Tests 08/02/24 09:06 08/03/24 06:44 Chemistry Test 08/03/24 06:44 Albumin 3.4 g/dL (3.2-4.8) Calcium Level 9.0 mg/dL (8.7-10.4) Magnesium Level 1.9 mg/dL (1.6-2.6) Phosphorus Level 3.6 mg/dL (2.4-5.1) Total Protein 5.8 g/dL (5.7-8.2) LFT Test 08/03/24 06:44 Alanine Aminotransferase (ALT) 28 U/L (7-40) Alkaline Phosphatase 44 U/L (46-116) L Aspartate Amino Transferase (AST) 29 U/L (13-40) Total Bilirubin 0.9 mg/dL (0.2-1.0) Microbiology Microbiology Date/Time Source Procedure Growth Status 07/31/24 05:45 Nose MRSA Screen - Final Complete Labs and/or images reviewed: Labs reviewed by me, Image(s) reviewed by me Assessment/Plan Assessment/Plan Covering: Acute metabolic/toxic encephalopathy most likely due to delirium in the setting of dementia Acute hypoxic respiratory failure likely due to possible aspiration pneumonia Suspected sepsis sepsis due to possible aspiration pneumonia Subclinical hypothyroidism Normal pressure hydrocephalus Paroxysmal atrial fibrillation with secondary hypercoagulable state NSTEMI; demand ischemia; type 2 SD Hypertensive heart disease with chronic diastolic heart failure; not in exacerbation History of CVA Schizophrenia with developmental delay Seizures disorder Dementia Diabetes mellitus type 2 Vitamin D deficiency Morbid obesity One-to-one sitter Continue psychiatric medications Continue IV antibiotics Continue anticoagulation Continue statin Continue oxygen therapy as indicated Continue antihypertensive medications and adjust accordingly Continue insulin therapy with hypoglycemia protocol Continue monitoring Late Entry. This medical document was created using an electronic medical record system with computerized dictation system. Although this document has been carefully reviewed, there might still be some phonetic and typographical errors. These areas are purely typographical due to imperfections of the software programs, and do not reflect any compromise in the patient's medical care. Plan discussed with: Other (Nurse) Date of Service: Aug 03, 2024 Billing Provider: GUY RUSS MD Common Visit Codes: [id number] INP/OBS CARE(HIGH) GUY RUSS MD Aug 03, 2024 12:58
[2024-08-03] MEDS: VANCOMYCIN 750MG KIT 100 ML IV SCH (20:59)
[2024-08-03] MEDS: PPN PER PHARMACY IV NR (22:49)
[2024-08-04] VITALS (8 sets, daily range): BP systolic 129–140; BP diastolic 62–87; PULSE 55–79; RESP 16–19; TEMP 97.1–98.8; O2SAT 92–97
[2024-08-04 07:45] LABS: Hematocrit 41.2 % (41.0-53.0); Hemoglobin 13.7 g/dL (13.5-17.5); Mean Corpuscular Hemoglobin 30.2 pg (28.0-32.0); Mean Corpuscular Hgb Conc. 33.2 g/dL (32.0-36.0); Mean Corpuscular Volume 91.1 fL (80.0-100.0); Platelet Count (auto) 171 10^3/uL (140-450); Red Blood Cells 4.53 10^6/uL (4.5-5.90); Red Cell Distribution Width 15.1 % (11.8-14.3); White Blood Cell 6.1 10^3/uL (4.4-10.8)
[2024-08-04 07:52] LABS: Band Neutrophils % (manual) 0; Basophils % (manual) 0 (0.0-2.0); Blast Cells 0; Metamyelocytes % 0; Myelocytes % 0; Promyelocytes % 0; Reactive Lymphocytes 0
[2024-08-04 08:13] LABS: Alanine Aminotransferase 37 U/L (7-40); Albumin 3.3 g/dL (3.2-4.8); Anion Gap 10 (5-15); Aspartate Aminotransferase 36 U/L (13-40); BUN/Creatinine Ratio 20.2 (10.0-20.0); Bilirubin, Total 0.6 mg/dL (0.2-1.0); Blood Urea Nitrogen 19 mg/dL (9-23); Calcium 8.7 mg/dL (8.7-10.4); Carbon Dioxide 24 mmol/L (20-31); Magnesium 2.1 mg/dL (1.6-2.6); Phosphorus 3.7 mg/dL (2.4-5.1); Potassium 4.2 mmol/L (3.5-5.1); Sodium 141 mmol/L (136-145)
[2024-08-04 08:16] LABS: Alkaline Phosphatase 43 U/L (46-116); Chloride 107 mmol/L (98-107); Glucose 111 mg/dL (74-106); Total Protein 5.6 g/dL (5.7-8.2)
[2024-08-04 09:07] LABS: Eosinophils % (manual) 7 (0-7); Lymphocytes % (manual) 35 (10.0-50.0); Monocytes % (manual) 18 (0-12); Platelet Estimate Adequate
--- NOTE | 2024-08-04 10:44 | ECG ---
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
[2024-08-04] MEDS ORDERED: LEVO750T40 PO (13:39)
[2024-08-04] MEDS ORDERED: ERGO1CAP23 PO (13:41)
[2024-08-04] MEDS: VANCOMYCIN 750MG KIT 100 ML IV SCH (16:00)
--- NOTE | 2024-08-04 17:20 | DVHDSRES ---
Discharge Summary Date of Admission Resident Creating Document: RAJIV MARINELLI RESIDENT Jul 30, 2024 at 23:05 Date of Discharge: Aug 04, 2024 Admitting Diagnosis Altered mental status and was found to have pneumonia Wounds: No wound was present. Labs/Diagnostic Data: Laboratory Results Test 08/04/24 11:15 08/04/24 07:26 08/02/24 09:06 08/01/24 06:35 POC Glucose 93 mg/dl (70-106) White Blood Count 6.1 10^3/uL (4.4-10.8) Red Blood Count 4.53 10^6/uL (4.5-5.90) Hemoglobin 13.7 g/dL (13.5-17.5) Hematocrit 41.2 % (41.0-53.0) Mean Corpuscular Volume 91.1 fL (80.0-100.0) Mean Corpuscular Hemoglobin 30.2 pg (28.0-32.0) Mean Corpuscular Hemoglobin Concent 33.2 g/dL (32.0-36.0) Red Cell Distribution Width 15.1 % (11.8-14.3) Platelet Count 171 10^3/uL (140-450) Mean Platelet Volume 6.7 fL (6.9-10.8) Neutrophils (%) (Auto) % (37.0-80.0) Lymphocytes (%) (Auto) % (10.0-50.0) Monocytes (%) (Auto) % (0.0-12.0) Basophils (%) (Auto) % (0.0-2.0) Neutrophils # (Auto) 10 ^3/uL (1.6-8.6) Lymphocytes # (Auto) 10 ^3/uL (0.4-5.4) Monocytes # (Auto) 10 ^3/uL (0-1.3) Differential Total Cells Counted 100.0 (100) Neutrophils % (Manual) 40 (37.0-80.0) Band Neutrophils % (Manual) 0 Lymphocytes % (Manual) 35 (10.0-50.0) Monocytes % (Manual) 18 (0-12) Eosinophils % (Manual) 7 (0-7) Basophils % (Manual) 0 (0.0-2.0) Metamyelocytes % (manual) 0 Myelocytes % (Manual) 0 Promyelocytes % (Manual) 0 Blast Cells % (Manual) 0 Reactive Lymphocytes 0 Platelet Estimate Adequate Sodium Level 141 mmol/L (136-145) Potassium Level 4.2 mmol/L (3.5-5.1) Chloride Level 107 mmol/L (98-107) Carbon Dioxide Level 24 mmol/L (20-31) Anion Gap 10 (5-15) Blood Urea Nitrogen 19 mg/dL (9-23) Creatinine 0.94 mg/dL (0.700-1.30) Glomerular Filtration Rate Calc 91 mL/min (>90) BUN/Creatinine Ratio 20.2 (10.0-20.0) Serum Glucose 111 mg/dL (74-106) Calcium Level 8.7 mg/dL (8.7-10.4) Phosphorus Level 3.7 mg/dL (2.4-5.1) Magnesium Level 2.1 mg/dL (1.6-2.6) Total Bilirubin 0.6 mg/dL (0.2-1.0) Aspartate Amino Transferase (AST) 36 U/L (13-40) Alanine Aminotransferase (ALT) 37 U/L (7-40) Alkaline Phosphatase 43 U/L (46-116) Total Protein 5.6 g/dL (5.7-8.2) Albumin 3.3 g/dL (3.2-4.8) Vancomycin Level Trough 11.6 ug/mL (5-10) Eosinophils (%) (Auto) 3.1 % (0.0-7.0) Eosinophils # (Auto) 0.2 10 ^3/uL (0-0.8) Basophils # (Auto) 0 10 ^3/uL (0-0.2) Nucleated Red Blood Cells 0.1 % Triglycerides Level 102 mg/dL (< 150) Test 07/31/24 05:58 07/31/24 02:00 Erythrocyte Sedimentation Rate 4 mm/hr (0-20) Prothrombin Time 11.4 sec (9.3-11.8) Prothrombin Time INR 1.08 (0.9-1.15) Activated Partial Thromboplast Time 26.3 SEC (24.5-34.5) Hemoglobin A1c 5.3 % A1C (<5.7) Ammonia 29 umol/L (11-32) Troponin I High Sensitivity 117 ng/L (</=54) C-Reactive Protein High Sensitivity 4.01 mg/dL (<1.0) B-Type Natriuretic Peptide 81.49 pg/mL (0-100) Vitamin B12 Level 537 pg/mL (211-911) Vitamin D 25-Hydroxy 23.1 ng/mL (30.0-100) Thyroid Stimulating Hormone (TSH) 6.55 uIU/mL (0.55-4.78) Free Thyroxine (T4) Calculated 1.79 ng/dL (0.89-1.76) Total Triiodothyronine (TT3) 1.22 ng/mL (0.60-1.81) Other Laboratory Tests 08/04/24 07:26 Brief Hx & Hospital Course: Mr Osorio is a 63-year-old male with past medical history of paroxysmal atrial fibrillation on Eliquis, diabetes mellitus, coronary artery disease, hypertension, developmental delay, schizophrenia, dementia who was transferred from [facility] for the evaluation of altered mental status and elevated troponins. [facility] in [facility] very was found unconscious by the staff and only responding to painful stimuli. Routinely patient is typically only able to answer his name and is typically aggressive with baseline. Per [facility], patient recently started new med on medication list. Hospital course: Head CT without contrast showed no evidence of acute intracranial injury. Cerebral atrophy. 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 Findings suggestive of NPH ( [facility]). Chest x-ray demonstrated interstitial opacity, CRP was high. acute hypoxic respiratory failure the patient was put on 2 L oxygen saturation 94%, treated with med neb albuterol and ipratropium q.6 hours, aspiration precaution, NPO, IV vancomycin as per pharmacy and IV Zosyn 3.375 g Q 8 hours. Initially patient failed swallow evaluation and treated with NPO, IV PPN as per pharmacy and later he passed the swallow evaluation and started on pureed diet. Patient was typically aggressive with baseline which was managed with bedside sitter, IV Ativan 1 mg as p.r.n. patient has history of paroxysmal atrial fibrillation with secondary hypercoagulable state which is treated with IV therapeutic Lovenox 1 milligram/kg body weight 12 hourly and resumed home medications. Patient is being discharged to home with levofloxacin 750 mg p.o. daily for 7 days and vitamin-D 08023 units Q 7D for 10 weeks and continue home medications. Patient was advised to follow up with DC clinic in 1 week. Physical examination on the day of discharge: General Appearance: Alert, Oriented X1 and on room air HEENT: Atraumatic, PERRLA, EOMI, Mucous membrane moist/pink Respiratory: Clear to auscultation, Normal air movement Cardiovascular: Regular rate, Normal S1, Normal S2, No murmurs, no chest wall tenderness Abdominal: Normal bowel sounds, Soft, No tenderness, No hepatosplenomegaly, No masses Extremities: No clubbing, No cyanosis, No edema, Normal pulses, No tenderness/swelling Skin: No rashes, No breakdown, No significant lesion Neuro: Strength at 5/5 X4 ext, Normal tone, Sensation intact, grossly intact cranial nerves. Psych/Mental Status: Could not be assessed. Discussed with Dr. Russ Consults/Reason for consult No consultation was done Operations or Procedures EXAM: XR Chest, 1 View CLINICAL INDICATION: cough, hypoxemia TECHNIQUE: Frontal view of the chest. COMPARISON: XY CHEST PORTABLE on DOS: 01/30/24, XY CHEST XRAY 1 VIEW on DOS: 01/11/24, XY CHEST PORTABLE on DOS: 12/01/23 FINDINGS: LUNGS AND PLEURAL SPACES: Interstitial opacity. No pneumothorax. HEART: Unremarkable. No cardiomegaly. MEDIASTINUM: Unremarkable. Normal mediastinal contour. BONES/JOINTS: Unremarkable. No acute fracture. OTHER FINDINGS: . . . IMPRESSION: Interstitial opacity. PROCEDURE: US CAROTID DUPLX W COLOR DOP 07/31/2024 09:19 AM INDICATION: hx of loc COMPARISON: None TECHNIQUE: Real-time grayscale and color Doppler images of the neck arteries were obtained with spectral analysis performed. FINDINGS: RIGHT: Minimal soft plaque formation seen at the carotid bulb. Normal spectral waveforms are seen. ICA peak systolic velocity: 59 cm/s ICA end-diastolic velocity: 9 cm/s ICA/CCA ratios: 0.7 LEFT: No significant atherosclerotic plaque identified in the carotid. Normal spectral waveforms are seen. ICA peak systolic velocity: 88 cm/s ICA end-diastolic velocity: 17 cm/s ICA/CCA ratios: 1.2 VERTEBRAL ARTERIES: Normal antegrade flow is seen bilaterally. Normal spectral waveforms. IMPRESSION: 1. No hemodynamically significant carotid artery stenosis identified bilaterally Condition at Discharge: Guarded Final Diagnosis/Problems List # Acute hypoxic respiratory failure likely due to possible aspiration pneumonia # Acute metabolic encephalopathy most likely due to delirium in the setting of dementia # Possible subclinical hypothyroidism # Normal pressure hydrocephalus # Paroxysmal atrial fibrillation with secondary hypercoagulable state # NSTEMI type 2 secondary to above # Hypertensive heart disease with possible chronic diastolic heart failure # History of CVA # Schizophrenia and developmental delay # Seizures disorder # Dementia # Type 2 mellitus, hemoglobin A1c 5.3% # Vitamin D deficiency Discharge Disposition: Home Discharge Instruct/Medications Diet: Cardiac 2g Na,low cholest Activity: No Restrictions, As Tolerated Follow Up/Referral: Follow up with PCP in 1 week. Medications: Levofloxacin 750 mg po daily for 7 days. Continue home medications. Discharge Statement: "Patient was advised to return to the ER or call 911 if any headaches, dizziness, shortness of breath, chest pain, abdominal pain, bleeding, fevers, or worsening of medical condition. Patient was counseled about treatment plan, medications, possible side effects, patientverbalized understanding. All questions were answered to the best of my ability. This discharge took greater then 30 minutes in planning, reviewing documentation, counseling the patient, and discussing with other team members." ASSESSMENT ASSESSMENT Assessment # Acute hypoxic respiratory failure likely due to possible aspiration pneumonia # Acute metabolic encephalopathy most likely due to delirium in the setting of dementia # Possible subclinical hypothyroidism # Normal pressure hydrocephalus # Paroxysmal atrial fibrillation with secondary hypercoagulable state # NSTEMI type 2 secondary to above # Hypertensive heart disease with possible chronic diastolic heart failure # History of CVA # Schizophrenia and developmental delay # Seizures disorder # Dementia # Type 2 mellitus, hemoglobin A1c 5.3% # Vitamin D deficiency Addendum Addendum Addendum I was physically present for the olivas portions of the service provided to patient by THE RESIDENT. I have reviewed the documentation, discussed the case with resident and agree with the resident's documentation except as noted. Also the patient's clinical case was discussed with the patient's nurse. This medical document was created using an electronic medical record system with computerized dictation system. Although this document has been carefully reviewed, there might still be some phonetic and typographical errors. These areas are purely typographical due to imperfections of the software programs, and do not reflect any compromise in the patient's medical care. Late signature. Date of Service: Aug 04, 2024 Billing Provider: GUY RUSS MD Common Visit Codes: 55650-XIN/OBS DISCH DAY >30min FARDOUS,RAJIV WAN Aug 04, 2024 17:19 GUY RUSS MD Aug 06, 2024 09:01
== END 2024-08-04 17:55 | disposition home or self-care (01) | DRG 91 ==
LOC: WEST WING 23:05 → TELE-WESTW 23:14
PROVIDERS: ADMIT Student in an Organized Health Care Education/Training Program; ATTEND Internal Medicine
DX: G92.8 Other toxic encephalopathy (principal); I21.A1 Myocardial infarction type 2; J96.01 Acute respiratory failure with hypoxia; J69.0 Pneumonitis due to inhalation of food and vomit; G91.2 (Idiopathic) normal pressure hydrocephalus; D68.69 Other thrombophilia; I50.32 Chronic diastolic (congestive) heart failure; I11.0 Hypertensive heart disease with heart failure; I48.0 Paroxysmal atrial fibrillation; R62.50 Unspecified lack of expected normal physiological development in childhood; E11.9 Type 2 diabetes mellitus without complications; F20.9 Schizophrenia, unspecified; G40.909 Epilepsy, unspecified, not intractable, without status epilepticus; F15.90 Other stimulant use, unspecified, uncomplicated; E55.9 Vitamin D deficiency, unspecified; F03.90 Unspecified dementia, unspecified severity, without behavioral disturbance, psychotic disturbance, mood disturbance, and anxiety; E66.01 Morbid (severe) obesity due to excess calories; E03.8 Other specified hypothyroidism; I25.10 Atherosclerotic heart disease of native coronary artery without angina pectoris; Z86.73 Personal history of transient ischemic attack (TIA), and cerebral infarction without residual deficits; Z79.01 Long term (current) use of anticoagulants; Z68.33 Body mass index [BMI] 33.0-33.9, adult
CPT/HCPCS: 36415; 71045; 80053; 80202; 82140; 82306; 82565; 82607; 82962; 83036; 83735; 83880; 84100; 84439; 84443; 84478; 84480; 84484; 85007; 85025; 85027; 85610; 85652; 85730; 86141; 87081; 92507; 92610; 93005; 93886; 94640; 97163; G0378; J2543; J7131

== ENCOUNTER 2024-08-15 11:04 | Inpatient (IN) | payer BC, MEDICAID ==
[~2024-08-15] VITALS: Ht 177.8 cm; Wt 77.3 kg
[~2024-08-15 11:04] MED LIST changes: -AMIO200T13 PO; +ARIP20TA4 PO; -BENZ200C64 PO; +ERGO1CAP23 PO; -GLIP-110 PO; -LORA-655 PO; -LOSA-534 PO; -MET25T PO; -METF-370 PO; -OMEG-86 PO; -OMEP1CAP70 PO; -RISP2TAB62 PO
[2024-08-15 11:55] LABS: Basophils # (auto) 0 10 ^3/uL (0-0.2); Basophils % (auto) 0.5 % (0.0-2.0); Eosinophils # (auto) 0.1 10 ^3/uL (0-0.8); Eosinophils % (auto) 1.6 % (0.0-7.0); Hematocrit 43.8 % (41.0-53.0); Hemoglobin 14.8 g/dL (13.5-17.5); Lymphocytes # (auto) 1.1 10 ^3/uL (0.4-5.4); Mean Corpuscular Hemoglobin 30.7 pg (28.0-32.0); Mean Corpuscular Hgb Conc. 33.7 g/dL (32.0-36.0); Monocytes # (auto) 0.5 10 ^3/uL (0-1.3); Monocytes % (auto) 7.6 % (0.0-12.0); Neutrophils # (auto) 5.1 10 ^3/uL (1.6-8.6); Neutrophils % (auto) 74.3 % (37.0-80.0); Nucleated Red Blood Cells % 0.1 %; Platelet Count (auto) 149 10^3/uL (140-450); Red Blood Cells 4.81 10^6/uL (4.5-5.90); Red Cell Distribution Width 15.6 % (11.8-14.3); White Blood Cell 6.9 10^3/uL (4.4-10.8)
[2024-08-15 12:00] LABS: Potassium 4.4 mmol/L (3.5-5.1)
[2024-08-15 12:01] LABS: Anion Gap 11 (5-15); Carbon Dioxide 25 mmol/L (20-31)
[2024-08-15 12:02] LABS: Calcium 8.9 mg/dL (8.7-10.4); Chloride 110 mmol/L (98-107); Sodium 146 mmol/L (136-145)
[2024-08-15 12:06] LABS: Glucose 98 mg/dL (74-106)
[2024-08-15 12:07] LABS: BUN/Creatinine Ratio 10.3 (10.0-20.0); Blood Urea Nitrogen 9 mg/dL (9-23)
[2024-08-15] MEDS: SODIUM CHLORIDE 0.9% 500 ML IV ONE (12:33)
[2024-08-15 14:32] VITALS: PULSE 68; RESP 22; O2SAT 93
--- NOTE | 2024-08-15 14:41 | ED.PDOC ---
History of Present Illness HPI Comments This is a 63-year-old male who comes in with chief complaint of altered mental status. The patient was seen at the hospital in the past couple of weeks with a similar complaint. At the facility, they are stating that the patient is screaming and somewhat altered. The patient is asked questions but is somewhat confused when he verbalizes anything. The patient denies any chest pain or shortness for breath Chief Complaint: ALOC Time Seen by MD: 11:10 Primary Care Provider: unknown Reviewed Notes: Nurses Notes, Chief Airline Radio Operator Notes, Medications, Allergies (No allergies to medications) Allergies: Coded Allergies: NO KNOWN ALLERGIES (Unverified , 12/01/23) Home Meds Active Scripts Ergocalciferol (VITAMIN D 83317 UNIT) 50,000 [place], [address] UNIT PO weekly for 10 Days, #10 CAP Prov:RAJIV MARINELLI RESIDENT 08/04/24 Levofloxacin Hemihydrate (LEVOFLOXACIN) 750 Mg Tab, 1 TAB PO DAILY for 7 Days, #7 TAB Prov:RAJIV MARINELLI RESIDENT 08/04/24 Apixaban Base (ELIQUIS) 5 Mg Tab, 5 MG PO BID for 60 Days, #120 TAB 0 Refills Prov:VALENCIA GALVIN RESIDENT 01/13/24 Reported Medications Benztropine Mesylate (Benztropine Mesylate) 1 Mg Tab, 1 TAB PO BID for 18 Days, #36 08/01/24 Metoprolol Succinate (Metoprolol Succinate Er) 25 Mg Tab, 12.5 MG PO DAILY for 18 Days, #9 08/01/24 Donepezil Hydrochloride (DONEPEZIL HCL) 10 Mg Tab, 10 MG PO HS for 30 Days, MG 07/31/24 Aripiprazole (Abilify) 20 Mg Tab, 15 MG PO DAILY, TAB 07/31/24 Atorvastatin Calcium (Lipitor) 10 Mg Tab, 1 TAB PO DAILY for 90 Days, #90 5 Refills 12/03/23 Divalproex Sodium (Divalproex Sodium) 500 Mg Tab, 500 MG PO TID for 90 Days, #270 12/02/23 Information Source: Emergency Med Personnel Mode of Arrival: EMS Severity: Moderate Timing: Days Duration: Since onset Prehospital treatment: IVF Associated signs and symptoms Altered mental status with confusion Past Medical History PAST MEDICAL HISTORY: Dementia, DM, High Lipids, HTN, Schizophrenia, Seizures Past Medical History (Other): Tremors Surgical History: Denies all surgeries Family History Family History: Reviewed,noncontributory to illness Social History Smoker: Non-Smoker Alcohol: Denies ETOH Use Drugs: Denies Drug Use 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, Shelter Constitutional: denies: chills, diaphoresis, fatigue, fever, malaise, sweats, weakness, others EENTM: denies: blurred vision, double vision, ear bleeding, ear discharge, ear drainage, ear pain, ear ringing, eye pain, eye redness, hearing loss, mouth pain, mouth swelling, nasal discharge, nose bleeding, nose congestion, nose pain, photophobia, tearing, throat pain, throat swelling, voice changes, others Respiratory: denies: cough, hemoptysis, orthopnea, SOB at rest, shortness of breath, SOB with excertion, stridor, wheezing, others Cardiovascular: denies: chest pain, dizzy spells, diaphoresis, Dyspnea on exertion, edema, irregular heart beat, left arm pain, lightheadedness, palpitations, PND, syncope, others Gastrointestinal: denies: abdomen distended, abdominal pain, blood streaked bowels, constipated, diarrhea, dysphagia, difficulty swallowing, hematemesis, melena, nausea, poor appetite, poor fluid intake, rectal bleeding, rectal pain, vomiting, others Genitourinary: denies: burning, dysuria, flank pain, frequency, hematuria, incontinence, penile discharge, penile sore, pain, testicle pain, testicle swelling, urgency, others Neurological: reports: others (Altered mental status); denies: dizziness, fainting, headache, left sided numbness, left sided weakness, numbness, paresthesia, pre-existing deficit, right sided numbness, right sided weakness, seizure, speech problems, tingling, tremors, weakness Musculoskeletal: denies: back pain, gout, joint pain, joint swelling, muscle pain, muscle stiffness, neck pain, others Integumetry: denies: bruises, change in color, change in hair/nails, dryness, laceration, lesions, lumps, rash, wounds, others Allergic/Immunocompromised: denies: Difficulty Healing, Frequent Infections, Hives, Itching, others Hematologic/Lymphatic: denies: anemia, blood clots, easy bleeding, easy bruising, swollen glands, others Endocrine: denies: excessive hunger, excessive sweating, excessive thirst, excessive urination, flushing, intolerance to cold, intolerance to heat, unexplained weight gain, unexplained weight loss, others Psychiatric: denies: anxiety, bipolar disorder, depression, hopeless, panic disorder, schizophrenia, sleepless, suicidal, others Physical Exam General Appearance: Moderate Distress HEENT: Normal ENT Inspection, Pharynx Normal, TMs Normal Neck: Full Range of Motion, Non-Tender, Normal, Normal Inspection Respiratory: Chest Non-Tender, Lungs Clear, No Accessory Muscle Use, No Respiratory Distress, Normal Breath Sounds Cardiovascular: No Edema, No JVD, No Murmur, No Gallop, Normal Peripheral Pulses, Regular Rate/Rhythm Breast Exam: Deferred Gastrointestinal: No Organomegaly, Non Tender, No Pulsatile Mass, Normal Bowel Sounds, Soft Genitalia: Deferred Pelvic: Deferred Rectal: Deferred Extremities: No calf tenderness, Normal capillary refill, Normal inspection, Normal range of motion, Non-tender, No pedal edema Musculoskeletal : Apperance: Normal Neurologic: Alert, machined parts quality inspector II-XII nml as Tested, No Motor Deficits, No Sensory Deficits, Other (The patient is just screaming and is somewhat nonverbal) Cerebellar Function: Normal Reflexes: Normal Skin: Dry, Normal Color, Warm Lymphatic: No Adenopathy Was a procedure done? Was a procedure done?: No EKG EKG : Pulse Rate (adult): 68 [place]: Normal Cardiac Rhythm: NSR Block: RBBB ST: Nonsp Differential Dx Considerations may include: Autonomic dysfunction, hepatic encephalopathy, electrolyte imbalance, dehydration X-Ray, Labs, Meds, VS Vital Signs Date Time Temp Pulse Resp B/P (MAP) Pulse Ox O2 Delivery O2 Flow Rate FiO2 08/15/24 13:29 97.8 73 25 91 97.8 08/15/24 11:21 98.6 71 20 130/82 (98) 94 98.6 08/15/24 11:10 68 Lab Test 08/15/24 11:55 08/15/24 11:33 Range/Units Ammonia < 10 L 11-32 umol/L Plasma/Serum Blood Alcohol < 3.0 <10 mg/dL White Blood Count 6.9 4.4-10.8 10^3/uL Red Blood Count 4.81 4.5-5.90 10^6/uL Hemoglobin 14.8 13.5-17.5 g/dL Hematocrit 43.8 41.0-53.0 % Mean Corpuscular Volume 91.0 80.0-100.0 fL Mean Corpuscular Hemoglobin 30.7 28.0-32.0 pg Mean Corpuscular Hemoglobin Concent 33.7 32.0-36.0 g/dL Red Cell Distribution Width 15.6 H 11.8-14.3 % Platelet Count 149 140-450 10^3/uL Mean Platelet Volume 8.1 6.9-10.8 fL Neutrophils (%) (Auto) 74.3 37.0-80.0 % Lymphocytes (%) (Auto) 16.0 10.0-50.0 % Monocytes (%) (Auto) 7.6 0.0-12.0 % Eosinophils (%) (Auto) 1.6 0.0-7.0 % Basophils (%) (Auto) 0.5 0.0-2.0 % Neutrophils # (Auto) 5.1 1.6-8.6 10 ^3/uL Lymphocytes # (Auto) 1.1 0.4-5.4 10 ^3/uL Monocytes # (Auto) 0.5 0-1.3 10 ^3/uL Eosinophils # (Auto) 0.1 0-0.8 10 ^3/uL Basophils # (Auto) 0 0-0.2 10 ^3/uL Nucleated Red Blood Cells 0.1 % Sodium Level 146 H 136-145 mmol/L Potassium Level 4.4 3.5-5.1 mmol/L Chloride Level 110 H 98-107 mmol/L Carbon Dioxide Level 25 20-31 mmol/L Anion Gap 11 5-15 Blood Urea Nitrogen 9 9-23 mg/dL Creatinine 0.87 0.700-1.30 mg/dL Glomerular Filtration Rate Calc 96 >90 mL/min BUN/Creatinine Ratio 10.3 10.0-20.0 Serum Glucose 98 74-106 mg/dL Calcium Level 8.9 8.7-10.4 mg/dL Current Medications Medications (Trade) Dose Ordered Sig/David Route Start Time Stop Time Status Last Admin Sodium Chloride 500 ml @ 500 mls/hr Q1H ONCE IV 08/15/24 11:15 08/15/24 12:14 DC 5/9/25 12:33 Ammonia level is negative The alcohol level is negative The CBC and chemistry panel is within normal limits At this time the patient remained somewhat altered. The patient is being admitted with a diagnosis of autonomic dysfunction The patient was also being admitted with a diagnosis of failure to thrive Time of 1ST Reevaluation: 14:36 Reevaluation 1ST: Unchanged Patient Education/Counseling: Diagnosis, Treatment, Prognosis Family Education/Counseling: No Family Present Departure 1 Departure Time of Disposition: 14:36 Impression: Primary Impression: Metabolic encephalopathy Additional Impression: Failure to thrive Qualified Codes: R62.7 - Adult failure to thrive Disposition: 09 ADMITTED INPATIENT Admit to: Tele Condition: Fair Critical Care Note Critical Care Time?: Yes (35 min-critical care time only) Stability Stability form required: Yes Unstable for transfer: Telemetry monitoring (Telemetry monitoring required), ED Physician Assesment (Clinical assesment) Heart Score Heart Score: Heart Score Response (Comments) Value History N/A 0 EKG N/A 0 Age N/A 0 Risk Factors N/A 0 Troponin N/A 0 Total 0 THAI OLIVER MD August 15, 2024 14:41
[2024-08-15 20:00] VITALS: PULSE 67; RESP 22; O2SAT 92
[2024-08-15] MEDS ORDERED: ONDANSETRON HCL 4 MG/2 ML VIAL IV PRN (20:15)
[2024-08-15] MEDS ORDERED: DOCUSATE SOD 100 MG CAP PO PRN (20:15)
[2024-08-15] MEDS ORDERED: HYDROcodone-ACET 5/325MG TAB PO PRN (20:15)
[2024-08-15] MEDS ORDERED: DEXTROSE (50%) 50ML SYRG IV PRN (20:15)
[2024-08-15] MEDS: SODIUM CHLOR 0.9% PF (SALINE LOCK) 10ML VIAL/SYR IV SCH (21:43)
[2024-08-15] MEDS: DONEPEZIL HYDROCHLORIDE 5 MG TAB PO SCH (21:43)
[2024-08-15] MEDS: ATORVASTATIN 20 MG TAB PO SCH (21:44)
[2024-08-15] MEDS: ACETAMINOPHEN 325 MG TAB PO PRN (21:44)
[2024-08-15] MEDS: METOPROLOL TARTRATE 25 MG TAB PO SCH (21:44)
[2024-08-15] MEDS: APIXABAN 5 MG TAB PO SCH (21:52)
[2024-08-15] MEDS: InsuLIN REG 1unit/0.01ml Soln (100units/ml) SC SCH (22:00)
[2024-08-15] MEDS: ACCU-CHEK COMFORT CURVE STRIP VI SCH (22:13)
[2024-08-15] MEDS: LORazepam 2MG/ML-1ML VIAL IV PRN (22:47)
--- NOTE | 2024-08-15 22:49 | DVHHP2 ---
History of Present Illness Reason for Visit: Metabolic encephalopathy History of Present Illness The patient is a 63-year-old male with past medical history of dementia, DM, hypertension, hyperlipidemia, seizures, and schizophrenia who presented to [facility] ED for evaluation of altered mental status. Patient is re siding at half-way, seen at this hospital in the past couple of weeks with similar symptoms screaming and somewhat altered. Patient was seen and evaluated in the ED, laboratory data shows WBC 6.9, platelets 149, sodium 146, potassium 4.4, BUN 9, creatinine 0.87, glucose 98, ammonia < 10, blood pressure 110/77, heart rate 64, temperature 97.8 F, O2 saturation 93% on oxygen. Please see medication orders section in the computer. On my assessment, patient remains altered, no diaphoresis, no shortness of breath, no nausea, no vomiting, no fever, no chills. Patient was admitted for further evaluation and medical management. Past Medical History Dementia, DM, High Lipids, HTN, Schizophrenia, Seizures Tremors Past Surgical History Denies all surgeries Family History Reviewed, noncontributory to the management of this case. Past Social History The patient lives at home, denies smoking, alcohol or illicit drugs abuse. Review of Systems Constitutional: Yes: Weakness; No: Fever, Chills, Sweats, Malaise, Other Eyes: No: Pain, Vision change, Conjunctivae inflammation, Eyelid inflammation, Other, Redness ENT: No: Ear pain, Ear discharge, Nose pain, Nose discharge, Nose congestion, Mouth pain, Mouth swelling, Throat pain, Throat swelling, Other Respiratory: No: Cough, Dry, Shortness of breath, SOB with excertion, Wheezing, Hemoptysis, Pleuritic Pain, Sputum, Wheezing, Other Cardiovascular: No: Chest Pain, Palpitations, Orthopnea, Paroxysmal Noc. Dyspnea, Edema, Lt Headedness, Other Gastrointestinal: No: Nausea, Vomiting, Abdominal Pain, Diarrhea, Constipation, Melena, Hematochezia, Other Genitourinary: No Dysuria, No Frequency, No Incontinence, No Hematuria, No Retention, No Other Musculoskeletal: No: other, neck pain, shoulder pain, arm pain, back pain, hand pain, leg pain, foot pain Skin: No: Rash, Lesions, Jaundice, Bruising, Other Neurological: Other (Altered mental status); No: Weakness, Numbness, Incoordination, Change in speech, Confusion, Seizures Allergies: Coded Allergies: NO KNOWN ALLERGIES (Unverified , 12/01/23) Medications Current Medications Medications Dose Ordered Sig/David Route Start Time Stop Time Status Last Admin Dose Admin Atorvastatin Calcium 10 mg HS PO 08/15/24 22:00 08/15/24 21:44 10 MG Donepezil HCl 10 mg HS PO 08/15/24 22:00 08/15/24 21:43 10 MG Divalproex Sodium 500 mg TID PO 08/15/24 22:00 08/15/24 21:44 500 MG Metoprolol Tartrate 12.5 mg BID PO 08/15/24 22:00 08/15/24 21:52 12.5 MG Apixaban 5 mg BID PO 08/15/24 22:00 08/15/24 21:52 5 MG Diagnostic Test (Pha) 1 strip ACHS 08/15/24 22:00 08/15/24 22:13 1 STRIP Insulin Human Regular ACHS SC 08/15/24 22:00 Dextrose 50 ml UD PRN IV 08/15/24 20:15 Sodium Chloride 10 ml Q8HR IV 08/15/24 22:00 08/15/24 21:43 10 ML Acetaminophen/ Hydrocodone Bitart 1 tab Q4HP PRN PO 08/15/24 20:15 Ondansetron HCl 4 mg Q4HP PRN IV 08/15/24 20:15 Docusate Sodium 100 mg BIDPRN PRN PO 08/15/24 20:15 Acetaminophen 650 mg Q6HP PRN PO 08/15/24 20:15 08/15/24 21:44 650 MG Lorazepam 1 mg Q8HPRN PRN IV 08/15/24 22:30 08/15/24 22:47 1 MG Nitroglycerin 0.4 mg Q5MINP PRN SL 08/15/24 23:00 UNV Morphine Sulfate 2 mg Q30M PRN IV 08/15/24 23:00 UNV Exam Vital Signs Vital Signs Date Time Temp Pulse Resp B/P (MAP) Pulse Ox O2 Delivery O2 Flow Rate FiO2 08/15/24 21:52 67 126/68 08/15/24 19:18 19 08/15/24 14:32 93 Room Air* 0 21 08/15/24 13:29 97.8 97.8 General Appearance: Alert, Cooperative, No acute distress, Other (Oriented x2) HEENT: Atraumatic, PERRLA, EOMI, Mucous membr. moist/pink Respiratory: Clear to auscultation, Normal air movement Cardiovascular: Regular rate, Normal S1, Normal S2, No murmurs Abdominal: Normal bowel sounds, Soft, No tenderness, No hepatospenomegaly, No masses Skin: No rashes, No breakdown, No significant lesion Neuro: Normal tone, Sensation intact, Cranial nerves 3-12 NL, Reflexes 2+, Other (Generalized weakness) Psych/Mental Status: Mood NL, Other (Altered mental status) Labs/Xrays Labs Test 08/15/24 21:55 08/15/24 11:55 08/15/24 11:33 Range/Units POC Glucose 82 70-106 mg/dl Ammonia < 10 L 11-32 umol/L Plasma/Serum Blood Alcohol < 3.0 <10 mg/dL White Blood Count 6.9 4.4-10.8 10^3/uL Red Blood Count 4.81 4.5-5.90 10^6/uL Hemoglobin 14.8 13.5-17.5 g/dL Hematocrit 43.8 41.0-53.0 % Mean Corpuscular Volume 91.0 80.0-100.0 fL Mean Corpuscular Hemoglobin 30.7 28.0-32.0 pg Mean Corpuscular Hemoglobin Concent 33.7 32.0-36.0 g/dL Red Cell Distribution Width 15.6 H 11.8-14.3 % Platelet Count 149 140-450 10^3/uL Mean Platelet Volume 8.1 6.9-10.8 fL Neutrophils (%) (Auto) 74.3 37.0-80.0 % Lymphocytes (%) (Auto) 16.0 10.0-50.0 % Monocytes (%) (Auto) 7.6 0.0-12.0 % Eosinophils (%) (Auto) 1.6 0.0-7.0 % Basophils (%) (Auto) 0.5 0.0-2.0 % Neutrophils # (Auto) 5.1 1.6-8.6 10 ^3/uL Lymphocytes # (Auto) 1.1 0.4-5.4 10 ^3/uL Monocytes # (Auto) 0.5 0-1.3 10 ^3/uL Eosinophils # (Auto) 0.1 0-0.8 10 ^3/uL Basophils # (Auto) 0 0-0.2 10 ^3/uL Nucleated Red Blood Cells 0.1 % Sodium Level 146 H 136-145 mmol/L Potassium Level 4.4 3.5-5.1 mmol/L Chloride Level 110 H 98-107 mmol/L Carbon Dioxide Level 25 20-31 mmol/L Anion Gap 11 5-15 Blood Urea Nitrogen 9 9-23 mg/dL Creatinine 0.87 0.700-1.30 mg/dL Glomerular Filtration Rate Calc 96 >90 mL/min BUN/Creatinine Ratio 10.3 10.0-20.0 Serum Glucose 98 74-106 mg/dL Calcium Level 8.9 8.7-10.4 mg/dL Assessment/Plan Assessment/Plan Metabolic encephalopathy Failure to thrive Adult failure to thrive Altered mental status Plan 1. Admit to telemetry unit 2. Breathing treatment 3. Pain control management 4. Management of fluids and electrolytes 5. Consultation for hospitalist 6. Diagnostic tests chest x-ray 7. DVT prophylaxis on Eliquis 8. Repeat labs CBC, CMP in a.m. 9. Continue with current medical management 10. Treatment plan discussed with patient and RN. Patient is altered mental status. Plan discussed with: Patient, Other (RN) My Orders Orders - RYLAND DOZIER DNP Procedure Category Date Status Time Atorvastatin (Lipitor) PHA 08/15/24 In Process 22:00 Donepezil Tablet PHA 08/15/24 In Process (Aricept Tablet) 22:[address] Tablet PHA 08/15/24 In Process (Depakote "Dr" Tabl 22:00 Metoprolol Tartrate PHA 08/15/24 In Process Tablet (Lopressor Ta 22:00 Apixaban (Eliquis) PHA 08/15/24 In Process 22:00 Glucose Blood PHA 08/15/24 In Process (Accu-Chek Comfort 22:00 Insulin R (Human) PHA 08/15/24 In Process (Insulin R) 22:00 Dextrose 50% Syringe PHA 08/15/24 In Process 20:15 Allergies KELSEA 08/15/24 In Process 20:08 Code Status CODE 08/15/24 Transmitted 20:08 Sodium Chloride Lock PHA 08/15/24 In Process (Saline Lock Ns) 22:00 Oxygen Per Hour RT 08/15/24 Transmitted 20:08 Hydrocodone-Acet PHA 08/15/24 In Process 5/325mg Tab ([place] 20:15 Ondansetron Hcl PHA 08/15/24 In Process (Zofran) 20:15 Docusate Sodium PHA 08/15/24 In Process Capsule (Colace 20:15 Fall Risk Precautions KELSEA 08/15/[address] 20:08 Complete Blood Count LAB 08/16/24 Verified 04:00 Comprehensive LAB 08/16/24 Verified Metabolic Panel 04:00 Cardiac DIET 08/16/24 Transmitted Diet-2gna,Lofat,Lochol Breakfast Condition: Serious KELSEA 08/15/24 In Process 20:08 Acetaminophen Tablet PHA 08/15/24 In Process (Tylenol Tablet) 20:15 Maintain Bed Rest KELSEA 08/15/24 In Process 20:08 Sequential KELSEA 08/15/24 In Process Compression Device Lorazepam 2mg/Ml Inj PHA 08/15/24 In Process (Ativan Inj) 22:30 Admit ADMIT 08/15/24 Transmitted 22:46 Nitroglycerin [facility] 08/15/24 Logged Sublingual (Ntrostat 23:00 Morphine Sulfate PHA 08/15/24 Logged Injection 23:00 Notify Of Changes [facility] 08/15/24 In Process From Base 22:46 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
[2024-08-15] MEDS ORDERED: MORPHINE SULFATE INJ 2 MG/ml SYRG IV PRN (23:00)
[2024-08-15] MEDS ORDERED: NITROGLYCERIN 0.4 MG SL TAB SL PRN (23:00)
[2024-08-16 05:22] LABS: Basophils # (auto) 0 10 ^3/uL (0-0.2); Basophils % (auto) 0.5 % (0.0-2.0); Eosinophils # (auto) 0 10 ^3/uL (0-0.8); Eosinophils % (auto) 0.5 % (0.0-7.0); Hematocrit 46.3 % (41.0-53.0); Hemoglobin 15.4 g/dL (13.5-17.5); Lymphocytes # (auto) 1.4 10 ^3/uL (0.4-5.4); Lymphocytes % (auto) 14.8 % (10.0-50.0); Mean Corpuscular Hemoglobin 30.3 pg (28.0-32.0); Mean Corpuscular Hgb Conc. 33.2 g/dL (32.0-36.0); Mean Corpuscular Volume 91.2 fL (80.0-100.0); Monocytes # (auto) 1.2 10 ^3/uL (0-1.3); Monocytes % (auto) 12.4 % (0.0-12.0); Neutrophils # (auto) 6.9 10 ^3/uL (1.6-8.6); Neutrophils % (auto) 71.8 % (37.0-80.0); Platelet Count (auto) 159 10^3/uL (140-450); Red Blood Cells 5.08 10^6/uL (4.5-5.90); Red Cell Distribution Width 15.2 % (11.8-14.3); White Blood Cell 9.6 10^3/uL (4.4-10.8)
[2024-08-16 05:36] LABS: Alanine Aminotransferase 21 U/L (7-40); Albumin 3.7 g/dL (3.2-4.8); Alkaline Phosphatase 58 U/L (46-116); Anion Gap 9 (5-15); Aspartate Aminotransferase 28 U/L (13-40); BUN/Creatinine Ratio 9.4 (10.0-20.0); Calcium 9.8 mg/dL (8.7-10.4); Carbon Dioxide 26 mmol/L (20-31); Glucose 88 mg/dL (74-106); Potassium 4.5 mmol/L (3.5-5.1); Sodium 142 mmol/L (136-145); Total Protein 6.7 g/dL (5.7-8.2)
[2024-08-16 05:43] LABS: Blood Urea Nitrogen 9 mg/dL (9-23); Chloride 107 mmol/L (98-107)
--- NOTE | 2024-08-16 07:13 | ECG ---
[facility] Test Date: 2024-08-15 Test Time: 11:10:36 Pat Name: OMID REIS Department: ED Room: 0250T Gender: M Public Health Assistant: PABLO : 1960 Requested By: THAI OLIVER Order Number: [id number] Reading MD: Raheem Bermudez Measurements Intervals [place] Rate: 68 P: 52 [place]: 135 QRS: 50 QRSD: 115 T: -1 QT: 400 QTc: 426 Interpretive Statements Sinus rhythm Incomplete right bundle branch block Electronically Signed On 08-20-2024 12:08:00 PDT by Raheem Bermudez Please click the below link to view image of tracing.
[2024-08-16 07:45] VITALS: PULSE 64; RESP 20; O2SAT 93
[2024-08-16] MEDS: SODIUM CHLORIDE 0.9% 1,000 ML IV SCH (13:50)
[2024-08-16 19:14] VITALS: PULSE 55; RESP 18; O2SAT 96
[2024-08-16] MEDS ORDERED: ATOR10TA52 PO (19:33)
[2024-08-16] MEDS ORDERED: LOSA-534 PO (19:33)
[2024-08-16] MEDS ORDERED: OMEP1CAP70 PO (19:33)
[2024-08-16] MEDS ORDERED: MET25T PO (19:33)
[2024-08-16] MEDS ORDERED: DOCU-94 PO (19:33)
[2024-08-16] MEDS ORDERED: OMEG-86 PO (19:33)
[2024-08-16 19:35] VITALS: BP 120/73; PULSE 77; RESP 16; TEMP 98.2; O2SAT 92
[2024-08-16 20:00] VITALS: PULSE 56; PULSE 58; RESP 18; O2SAT 96
[2024-08-16 21:00] VITALS: BP 111/68; PULSE 69; RESP 18; TEMP 98.5; O2SAT 18; O2SAT 94
--- NOTE | 2024-08-16 23:08 | DVHPN2 ---
Subjective The patient is seen and examined at bedside. Remained very sleepy and not answer question Reviewed: Care Plan, H&P, Labs, Medications, Previous Orders, Radiology Changes from previous H/P or p: No Changes Eyes: No Pain, No Vision change, No Conjunctivae inflammation, No Eyelid inflammation, No Other, No Redness ENT: No Ear pain, No Ear discharge, No Nose pain, No Nose discharge, No Nose congestion, No Mouth pain, No Mouth swelling, No Throat pain, No Throat swelling, No Other Cardiovascular: No Chest Pain, No Palpitations, No Orthopnea, No Paroxysmal Noc. Dyspnea, No Edema, No Lt Headedness, No Other Respiratory: No Cough, No Dry, No Shortness of breath, No SOB with excertion, No Wheezing, No Hemoptysis, No Pleuritic Pain, No Sputum, No Other Gastrointestinal: No Nausea, No Vomiting, No Abdominal Pain, No Diarrhea, No Constipation, No Melena, No Hematochezia, No Other Genitourinary: No Dysuria, No Frequency, No Incontinence, No Hematuria, No Retention, No Other Musculoskeletal: No other, No neck pain, No shoulder pain, No arm pain, No back pain, No hand pain, No leg pain, No foot pain Skin: No Rash, No Lesions, No Jaundice, No Bruising, No Other Objective Vitals Vital Signs Date Time Temp Pulse Resp B/P (MAP) Pulse Ox O2 Delivery O2 Flow Rate FiO2 08/16/24 21:00 98.5 69 18 111/68 (82) 18 98.5 08/16/24 20:00 Nasal Cannula* 2 28 Intake/Output Intake and Output 08/16/24 07:00 Intake Total 500 ml Balance 500 ml Intake IV Total 500 ml General Appearance: Alert HEENT: Atraumatic, PERRLA, EOMI, Mucous membr. moist/pink Neck: Supple Lungs: Clear to auscultation, Normal air movement Cardiovascular: Regular rate, Normal S1, Normal S2, No murmurs, Gallops, Rubs Abdomen: Normal bowel sounds, Soft, No tenderness Neuro: Other (Altered mental status, confused) Medications Current Medications Medications Dose Ordered Sig/David Route Start Time Stop Time Status Last Admin Dose Admin Atorvastatin Calcium 10 mg HS PO 08/15/24 22:00 08/15/24 21:44 10 MG Donepezil HCl 10 mg HS PO 08/15/24 22:00 08/15/24 21:43 10 MG Divalproex Sodium 500 mg TID PO 08/15/24 22:00 08/16/24 07:04 500 MG Metoprolol Tartrate 12.5 mg BID PO 08/15/24 22:00 08/15/24 21:52 12.5 MG Apixaban 5 mg BID PO 08/15/24 22:00 08/15/24 21:52 5 MG Diagnostic Test (Pha) 1 strip ACHS 08/15/24 22:00 08/16/24 21:59 1 STRIP Insulin Human Regular ACHS SC 08/15/24 22:00 Dextrose 50 ml UD PRN IV 08/15/24 20:15 Sodium Chloride 10 ml Q8HR IV 08/15/24 22:00 08/16/24 22:08 10 ML Acetaminophen/ Hydrocodone Bitart 1 tab Q4HP PRN PO 08/15/24 20:15 Ondansetron HCl 4 mg Q4HP PRN IV 08/15/24 20:15 Docusate Sodium 100 mg BIDPRN PRN PO 08/15/24 20:15 Acetaminophen 650 mg Q6HP PRN PO 08/15/24 20:15 08/15/24 21:44 650 MG Lorazepam 1 mg Q8HPRN PRN IV 08/15/24 22:30 08/15/24 22:47 1 MG Nitroglycerin 0.4 mg Q5MINP PRN SL 08/15/24 23:00 Morphine Sulfate 2 mg Q30M PRN IV 08/15/24 23:00 Sodium Chloride 1,000 ml @ 80 mls/hr [id number] IV 08/16/24 13:30 08/16/24 13:50 80 MLS/HR Laboratory Results Laboratory Tests 08/16/24 04:54 Chemistry Test 08/16/24 04:54 Albumin 3.7 g/dL (3.2-4.8) Calcium Level 9.8 mg/dL (8.7-10.4) Total Protein 6.7 g/dL (5.7-8.2) LFT Test 08/16/24 04:54 Alanine Aminotransferase (ALT) 21 U/L (7-40) Alkaline Phosphatase 58 U/L (46-116) Aspartate Amino Transferase (AST) 28 U/L (13-40) Total Bilirubin 1.0 mg/dL (0.2-1.0) Labs and/or images reviewed: Labs reviewed by me Assessment/Plan Assessment/Plan Adult failure to thrive Metabolic encephalopathy Plan Continuing current management. We will empirically put the patient on Rocephin 1 g IV q.day I will order a CT scan of the head to rule out acute CVA I will order chest x-ray I will start the patient on IV fluid normal saline at 75 mL/hr We will keep NPO until the patient is more alert awake for swallow evaluation Plan discussed with: Patient My Orders Orders - JENNIFER WELDON MD Procedure Category Date Status Time Sodium Chloride 0.9% PHA 08/16/24 In Process 13:30 Date of Service: August 17, 2024 Billing Provider: JENNIFER WELDON MD Common Visit Codes: [id number] INP/OBS CARE(HIGH) JENNIFER WELDON MD August 16, 2024 23:08
[2024-08-17] VITALS (8 sets, daily range): BP systolic 84–113; BP diastolic 50–61; PULSE 52–74; RESP 17–19; TEMP 98.1–99.5; O2SAT 92–95
--- NOTE | 2024-08-17 09:39 | DVH ---
CT HEAD WITHOUT CONTRAST INDICATION: ALOC EXAM DATE: 08/17/2024 09:03 AM COMPARISON: CT HEAD WITHOUT CONTRAST on DOS: 04/26/24, CT HEAD WITHOUT CONTRAST on DOS: 03/24/24 RADIATION DOSE: CTDIvol: 57 mGy, DLP: 926 mGy*cm PROCEDURE: CT scans of the head were obtained from the vertex to the skull base. Sagittal and coronal reconstructions were provided. All CT scans at this medical facility are performed using dose modulation techniques as appropriate t o a performed exam including the following: Automated exposure control was utilized; adjustment of th e MA and/or KV according to patient size; and use of iterative reconstruction technique. FINDINGS: There is sulcal and ventricular prominence. The brain otherwise shows normal morphology a nd ferrari-white matter differentiation, without intracranial hemorrhage, extra-axial fluid collection, mass effect or acute large vessel infarct. Moderate dilatation of the bilateral lateral and 3rd ventr icles.The basal cisterns are patent. The skull and visible facial bones are intact. The paranasal sin uses, mastoid air cells and middle ear cavities are well-aerated. The soft tissues of the scalp are u nremarkable. IMPRESSION: Essentially unchanged appearance of the head CT compared to prior. No acute intracranial abnormality.
--- NOTE | 2024-08-17 11:43 | DVH ---
XY CHEST PORTABLE, HISTORY: Admission COMPARISON: XY CHEST XRAY 1 VIEW on DOS: 07/31/24, XY CHEST PORTABLE on DOS: 01/30/24, XY CHEST XRAY 1 VIEW on DOS: 01/11/24 XY CHEST XRAY 1 VIEW on DOS: 07/31/24, XY CHEST PORTABLE on DOS: 01/30/24, XY CHEST XRAY 1 VIEW on DOS : 01/11/24 TECHNICAL DATA: 1 view of the chest was obtained. FINDINGS: Lines and tubes: None Cardiomediastinal silhouette: normal Pulmonary vasculature: normal Lung expansion: low Lung airspace: normal Lung interstitium: normal Pleura: normal Pneumothorax: no Bones: Unremarkable Other: no IMPRESSION: No acute intrathoracic abnormality.
[2024-08-17] MEDS: SODIUM CHLORIDE 0.9% 1,000 ML IV ONE (13:45)
--- NOTE | 2024-08-17 23:08 | DVHPN2 ---
Subjective The patient is seen and examined at bedside. Still remained alter mental status Reviewed: Care Plan, H&P, Labs, Medications, Previous Orders Changes from previous H/P or p: No Changes Eyes: No Pain, No Vision change, No Conjunctivae inflammation, No Eyelid inflammation, No Other, No Redness ENT: No Ear pain, No Ear discharge, No Nose pain, No Nose discharge, No Nose congestion, No Mouth pain, No Mouth swelling, No Throat pain, No Throat swelling, No Other Cardiovascular: No Chest Pain, No Palpitations, No Orthopnea, No Paroxysmal Noc. Dyspnea, No Edema, No Lt Headedness, No Other Respiratory: No Cough, No Dry, No Shortness of breath, No SOB with excertion, No Wheezing, No Hemoptysis, No Pleuritic Pain, No Sputum, No Other Gastrointestinal: No Nausea, No Vomiting, No Abdominal Pain, No Diarrhea, No Constipation, No Melena, No Hematochezia, No Other Genitourinary: No Dysuria, No Frequency, No Incontinence, No Hematuria, No Retention, No Other Musculoskeletal: No other, No neck pain, No shoulder pain, No arm pain, No back pain, No hand pain, No leg pain, No foot pain Skin: No Rash, No Lesions, No Jaundice, No Bruising, No Other Objective Vitals Vital Signs Date Time Temp Pulse Resp B/P (MAP) Pulse Ox O2 Delivery O2 Flow Rate FiO2 08/17/24 21:00 99.5 61 18 102/50 (67) 95 99.5 08/17/24 20:00 Nasal Cannula* 2 28 Intake/Output Intake and Output 08/17/24 07:00 Intake Total 1000 ml Balance 1000 ml Intake Oral 0 ml IV Total 1000 ml General Appearance: Alert, No acute distress HEENT: Atraumatic, PERRLA, EOMI, Mucous membr. moist/pink Neck: Supple Cardiovascular: Regular rate, Normal S1, Normal S2, No murmurs, Gallops, Rubs Abdomen: Normal bowel sounds, Soft, No tenderness, No hepatospenomegaly Neuro: Other (Altered mental status) Medications Current Medications Medications Dose Ordered Sig/David Route Start Time Stop Time Status Last Admin Dose Admin Atorvastatin Calcium 10 mg HS PO 08/15/24 22:00 08/15/24 21:44 10 MG Donepezil HCl 10 mg HS PO 08/15/24 22:00 08/15/24 21:43 10 MG Divalproex Sodium 500 mg TID PO 08/15/24 22:00 08/16/24 07:04 500 MG Metoprolol Tartrate 12.5 mg BID PO 08/15/24 22:00 08/15/24 21:52 12.5 MG Apixaban 5 mg BID PO 08/15/24 22:00 08/15/24 21:52 5 MG Diagnostic Test (Pha) 1 strip ACHS 08/15/24 22:00 08/17/24 21:03 1 STRIP Insulin Human Regular ACHS SC 08/15/24 22:00 Dextrose 50 ml UD PRN IV 08/15/24 20:15 Sodium Chloride 10 ml Q8HR IV 08/15/24 22:00 08/17/24 21:02 10 ML Acetaminophen/ Hydrocodone Bitart 1 tab Q4HP PRN PO 08/15/24 20:15 Ondansetron HCl 4 mg Q4HP PRN IV 08/15/24 20:15 Docusate Sodium 100 mg BIDPRN PRN PO 08/15/24 20:15 Acetaminophen 650 mg Q6HP PRN PO 08/15/24 20:15 08/15/24 21:44 650 MG Lorazepam 1 mg Q8HPRN PRN IV 08/15/24 22:30 08/15/24 22:47 1 MG Nitroglycerin 0.4 mg Q5MINP PRN SL 08/15/24 23:00 Morphine Sulfate 2 mg Q30M PRN IV 08/15/24 23:00 Sodium Chloride 1,000 ml @ 80 mls/hr [id number] IV 08/16/24 13:30 08/17/24 15:48 80 MLS/HR Ceftriaxone Sodium 50 ml @ 100 mls/hr DAILY@09 IV 08/18/24 09:00 Laboratory Results Laboratory Tests 08/16/24 04:54 Microbiology Microbiology Date/Time Source Procedure Growth Status 08/16/24 20:00 Nose MRSA Screen - Final Complete Labs and/or images reviewed: Labs reviewed by me Assessment/Plan Assessment/Plan Adult failure to thrive Metabolic encephalopathy Plan Continuing current management. We will empirically put the patient on Rocephin 1 g IV q.day I review CT head showed no acute process. Chest x-ray showed no acute process also. Continuing on IV fluid normal saline at 75 mL/hr. We will keep NPO until the patient is more alert awake for swallow evaluation Consider nutrition support if the patient unable to eat for couple day. This medical document was created using an electronic medical record system with [employer] direct computerized dictation system. Although this document has been carefully reviewed, there may still be some phonetic and typographical errors. These areas are purely typographical due to imperfections of the software programs, and do not reflect any compromise in the patient's medical care. Plan discussed with: Other (RN) My Orders Orders - JENNIFER WELDON MD Procedure Category Date Status Time Ceftriaxone 1gm/50ml PHA 08/18/24 In Process D5w (Rocephin) 09:00 Brain Head Wo Contrast MRI 08/17/24 Logged 14:33 * Neurology Consult CONS 08/17/24 Transmitted 14:33 Date of Service: August 17, 2024 Billing Provider: JENNIFER WELDON MD Common Visit Codes: [id number] INP/OBS CARE(HIGH) JENNIFER WELDON MD August 17, 2024 23:08
[2024-08-18] VITALS (8 sets, daily range): BP systolic 93–144; BP diastolic 48–94; PULSE 45–92; RESP 16–18; TEMP 97.9–99; O2SAT 90–96
[2024-08-18] MEDS: cefTRIAXone 1GM/50ML D5W 50 ML IV SCH (09:41)
[2024-08-18] MEDS ORDERED: D5W 5% 1,000 ML IV SCH (12:30)
[2024-08-18] MEDS: D5W/SOD CHLO 0.9% 1,000 ML IV ONE (14:00)
--- NOTE | 2024-08-18 18:52 | DVHPN2 ---
Subjective still confused and not eating had some hypoglicemia Reviewed: Care Plan, H&P, Labs, Medications, Previous Orders Changes from previous H/P or p: No Changes Eyes: No Pain, No Vision change, No Conjunctivae inflammation, No Eyelid inflammation, No Other, No Redness ENT: No Ear pain, No Ear discharge, No Nose pain, No Nose discharge, No Nose congestion, No Mouth pain, No Mouth swelling, No Throat pain, No Throat swelling, No Other Cardiovascular: No Chest Pain, No Palpitations, No Orthopnea, No Paroxysmal Noc. Dyspnea, No Edema, No Lt Headedness, No Other Respiratory: No Cough, No Dry, No Shortness of breath, No SOB with excertion, No Wheezing, No Hemoptysis, No Pleuritic Pain, No Sputum, No Other Gastrointestinal: No Nausea, No Vomiting, No Abdominal Pain, No Diarrhea, No Constipation, No Melena, No Hematochezia, No Other Genitourinary: No Dysuria, No Frequency, No Incontinence, No Hematuria, No Retention, No Other Musculoskeletal: No other, No neck pain, No shoulder pain, No arm pain, No back pain, No hand pain, No leg pain, No foot pain Skin: No Rash, No Lesions, No Jaundice, No Bruising, No Other Objective Vitals Vital Signs Date Time Temp Pulse Resp B/P (MAP) Pulse Ox O2 Delivery O2 Flow Rate FiO2 08/18/24 17:17 98.1 86 16 92 98.1 08/18/24 12:57 144/94 (111) 08/18/24 08:00 Nasal Cannula* 2 28 Intake/Output Intake and Output 08/18/24 07:00 Intake Total 2720 ml Balance 2720 ml Intake Oral 200 ml IV Total 2520 ml # Voids 3 General Appearance: Other (confused and non verbal) HEENT: Atraumatic, PERRLA, EOMI, Mucous membr. moist/pink Neck: Supple Lungs: Clear to auscultation, Normal air movement Cardiovascular: Regular rate, Normal S1, Normal S2, No murmurs, Gallops, Rubs Abdomen: Normal bowel sounds, Soft, No tenderness, No hepatospenomegaly Neuro: Other (Altered mental status) Medications Current Medications Medications Dose Ordered Sig/David Route Start Time Stop Time Status Last Admin Dose Admin Atorvastatin Calcium 10 mg HS PO 08/15/24 22:00 08/15/24 21:44 10 MG Donepezil HCl 10 mg HS PO 08/15/24 22:00 08/15/24 21:43 10 MG Divalproex Sodium 500 mg TID PO 08/15/24 22:00 08/16/24 07:04 500 MG Metoprolol Tartrate 12.5 mg BID PO 08/15/24 22:00 08/18/24 09:41 12.5 MG Apixaban 5 mg BID PO 08/15/24 22:00 08/18/24 09:42 5 MG Diagnostic Test (Pha) 1 strip ACHS 08/15/24 22:00 08/18/24 17:00 1 STRIP Insulin Human Regular ACHS SC 08/15/24 22:00 Dextrose 50 ml UD PRN IV 08/15/24 20:15 Sodium Chloride 10 ml Q8HR IV 08/15/24 22:00 08/18/24 14:01 10 ML Acetaminophen/ Hydrocodone Bitart 1 tab Q4HP PRN PO 08/15/24 20:15 Ondansetron HCl 4 mg Q4HP PRN IV 08/15/24 20:15 Docusate Sodium 100 mg BIDPRN PRN PO 08/15/24 20:15 Acetaminophen 650 mg Q6HP PRN PO 08/15/24 20:15 08/15/24 21:44 650 MG Lorazepam 1 mg Q8HPRN PRN IV 08/15/24 22:30 08/15/24 22:47 1 MG Nitroglycerin 0.4 mg Q5MINP PRN SL 08/15/24 23:00 Morphine Sulfate 2 mg Q30M PRN IV 08/15/24 23:00 Ceftriaxone Sodium 50 ml @ 100 mls/hr DAILY@09 IV 08/18/24 09:00 08/18/24 09:41 100 MLS/HR Laboratory Results Laboratory Tests 08/16/24 04:54 Microbiology Microbiology Date/Time Source Procedure Growth Status 08/16/24 20:00 Nose MRSA Screen - Final Complete Assessment/Plan Assessment/Plan Adult failure to thrive Metabolic encephalopathy Plan Continuing current management. We will empirically put the patient on Rocephin 1 g IV q.day I review CT head showed no acute process. Chest x-ray showed no acute process also. Continuing on IV fluid normal saline at 75 mL/hr. We will keep NPO until the patient is more alert awake for swallow evaluation Consider nutrition support if the patient unable to eat for couple day. Plan discussed with: Other (nurse) My Orders Orders - ZARA NICHOLS MD Procedure Category Date Status Time D5w/Sod Chlo 0.9% PHA 08/18/24 In Process (D5w Ns 0.9%) 13:30 Date of Service: August 18, 2024 Billing Provider: ZARA NICHOLS MD Common Visit Codes: [id number] INP/OBS CARE(HIGH) ZARA NICHOLS MD August 18, 2024 18:52
--- NOTE | 2024-08-18 21:54 | DVHINCON2 ---
Date of service: August 18, [address] Barrett Reason for Consultation ALOC History of Present Illness Mr. Osorio is a 64 years old gentleman with a history of hypertension, diabetes, dyslipidemia, dementia, schizophrenia, tremors, seizure, mental retardation, the patient was was brought to the [facility] on 08/15[facility]2024 with a chief company of altered mental status. At this time, he is only oriented to himself, the history is obtained from Lamar Yoon, he was his nine years' care provider until May 2024 Lamar Yoon not good historian, she claimed the patient was had history of mental retardation but she was claimed before 05/2024, the patient was did not have memory problems or dementia. At the beginning, she did not confirm a history of stroke, but later she remembered patient was had one-sided weakness but in the hospital, no stroke was found. She does not confirm a history of seizure disorder She was relates she was stopped taking care of him in 05/2024 because he deteriorated, not able to put clothes on, became aggressive On physical examination, I did not see tremors Plasma alcohol, 08/15/2024: Normal CBC, 08/16/2024: Unremarkable CMP, 08/16/2024: Unremarkable TG/HDL/LDL/HDL, 06/13/24: 102/113/66/29 Vitamin B12, 07/31/2024: 537 Folic acid, 11/29/23: 3498 TSH, 07/31/2024: 6.55 FT4, 07/31/24: 1.79 CT head, 04/26/2024, comparison, 03/24/2024: 1. No acute intracranial process. 2. Stable moderate communicating hydrocephalus.3. 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 Past Medical History Hypertension, diabetes, dyslipidemia, dementia, schizophrenia, tremors, seizure Past Surgical History Unobtainable Family History: Patient reports no known family medical history. Family History Unobtainable Social History Smoker: Non-Smoker Alcohol: Denies ETOH Use Drugs: Denies Drug Use Allergies: Coded Allergies: NO KNOWN ALLERGIES (Unverified , 12/01/23) Home Meds Active Scripts Ergocalciferol (VITAMIN D 52509 UNIT) 50,000 [place], [address] UNIT PO weekly for 10 Days, #10 CAP Prov:RAJIV MARINELLI RESIDENT 08/04/24 Levofloxacin Hemihydrate (LEVOFLOXACIN) 750 Mg Tab, 1 TAB PO DAILY for 7 Days, #7 TAB Prov:RAJIV MRAINELLI RESIDENT 08/04/24 Apixaban Base (ELIQUIS) 5 Mg Tab, 5 MG PO BID for 60 Days, #120 TAB 0 Refills Prov:VALENCIA GALVIN RESIDENT 01/13/24 Reported Medications Metoprolol Tartrate (Lopressor) 25 Mg Tb, 0.5 TAB PO BID 08/16/24 Omeprazole (Omeprazole Dr) 20 Mg Cap, 1 CAP PO DAILY 08/16/24 Losartan Potassium (Losartan Potassium) 50 Mg Tab, 1 TAB PO DAILY 08/16/24 Dmjcx-3-Criw Ethyl Esters (Umljh-0-Ljhn Ethyl Esters) 1 Gm Cap, 2 CAP PO BID 08/16/24 Atorvastatin Calcium (ATORVASTATIN CALCIUM) 10 Mg Tab, 1 TAB PO DAILY 08/16/24 Docusate Sodium (Colace) 100 Mg Cap, 1 CAP PO, #30 CAP 08/16/24 Benztropine Mesylate (Benztropine Mesylate) 1 Mg Tab, 1 TAB PO BID for 18 Days, #36 08/01/24 Metoprolol Succinate (Metoprolol Succinate Er) 25 Mg Tab, 12.5 MG PO DAILY for 18 Days, #9 08/01/24 Donepezil Hydrochloride (DONEPEZIL HCL) 10 Mg Tab, 10 MG PO HS for 30 Days, MG 07/31/24 Aripiprazole (Abilify) 20 Mg Tab, 15 MG PO DAILY, TAB 07/31/24 Atorvastatin Calcium (Lipitor) 10 Mg Tab, 1 TAB PO DAILY for 90 Days, #90 5 Refills 12/03/23 Divalproex Sodium (Divalproex Sodium) 500 Mg Tab, 500 MG PO TID for 90 Days, #270 12/02/23 Current Medications Current Medications Medications (Trade) Dose Ordered Sig/David Route PRN Reason Start Time Stop Time Status Last Admin Ceftriaxone Sodium 50 ml @ 100 mls/hr DAILY@09 IV 08/18/24 09:00 08/18/24 09:41 Dextrose 1,000 ml @ 150 mls/hr Q6H40M IV 08/18/24 12:30 08/18/24 13:26 DC Review of Systems Unobtainable Vital Signs Vital Signs Date Time Temp Pulse Resp B/P (MAP) Pulse Ox O2 Delivery O2 Flow Rate FiO2 08/18/24 17:17 98.1 86 16 92 98.1 08/18/24 12:57 144/94 (111) 08/18/24 08:00 Nasal Cannula* 2 28 Physical Exam GENERAL EXAM: General: the patient is well developed and nourished. No acute distress. HEENT: Normocephalic, neck is supple, no carotid bruits. No mass. RESPIRATORY: Normal respiratory effort with symmetrical lung expansion. Lungs clear to auscultation. CARDIOVASCULAR: Regular rate and rhythm with no murmurs. S1, S2. ABDOMEN: Soft, nontender, normal bowel sound Mucosa looks dry NEUROLOGICAL: MENTAL STATUS: Awake, only oriented to himself, not cooperative SPEECH, LANGUAGE, HIGHER CORTICAL FUNCTION: no aphasia or dysathria. CRANIAL NERVES: #2: Visual field maybe fine to confrontation #3,4,6: Pupils are round and reactive. EOMs full and conjugate. #5: Facial sensation intact in all three divisions bilaterally. Mandibular strength intact. #7: Facial muscles symmetrical and strength intact. #8: Hearing grossly normal to voice. #9,10: Deferred #11: Trapezius and sternomastoid strength intact bilaterally. #12: Deferred SENSATION: Sensation to touch and pinprick is ok MOTOR: Normal tone in the upper and lower extremity. Normal muscle bulk. No fasciculations. No abnormal movements or posturing. He moves the arms REFLEXES: Deep tendon reflexes are symmetrical. No pathological reflexes. CEREBELLAR/COORDINATION: Deferred GAIT/STATION: deferred. Labs/Diagnostic Data Labs Test 08/18/24 05:10 08/16/24 04:54 08/15/24 11:55 Range/Units POC Glucose 76 70-106 mg/dl White Blood Count 9.6 # 4.4-10.8 10^3/uL Red Blood Count 5.08 4.5-5.90 10^6/uL Hemoglobin 15.4 13.5-17.5 g/dL Hematocrit 46.3 41.0-53.0 % Mean Corpuscular Volume 91.2 80.0-100.0 fL Mean Corpuscular Hemoglobin 30.3 28.0-32.0 pg Mean Corpuscular Hemoglobin Concent 33.2 32.0-36.0 g/dL Red Cell Distribution Width 15.2 H 11.8-14.3 % Platelet Count 159 140-450 10^3/uL Mean Platelet Volume 8.2 6.9-10.8 fL Neutrophils (%) (Auto) 71.8 37.0-80.0 % Lymphocytes (%) (Auto) 14.8 10.0-50.0 % Monocytes (%) (Auto) 12.4 H 0.0-12.0 % Eosinophils (%) (Auto) 0.5 0.0-7.0 % Basophils (%) (Auto) 0.5 0.0-2.0 % Neutrophils # (Auto) 6.9 1.6-8.6 10 ^3/uL Lymphocytes # (Auto) 1.4 0.4-5.4 10 ^3/uL Monocytes # (Auto) 1.2 0-1.3 10 ^3/uL Eosinophils # (Auto) 0 0-0.8 10 ^3/uL Basophils # (Auto) 0 0-0.2 10 ^3/uL Nucleated Red Blood Cells 0.0 % Sodium Level 142 136-145 mmol/L Potassium Level 4.5 3.5-5.1 mmol/L Chloride Level 107 98-107 mmol/L Carbon Dioxide Level 26 20-31 mmol/L Anion Gap 9 5-15 Blood Urea Nitrogen 9 9-23 mg/dL Creatinine 0.96 0.700-1.30 mg/dL Glomerular Filtration Rate Calc 88 >90 mL/min BUN/Creatinine Ratio 9.4 L 10.0-20.0 Serum Glucose 88 74-106 mg/dL Calcium Level 9.8 8.7-10.4 mg/dL Total Bilirubin 1.0 0.2-1.0 mg/dL Aspartate Amino Transferase (AST) 28 13-40 U/L Alanine Aminotransferase (ALT) 21 7-40 U/L Alkaline Phosphatase 58 46-116 U/L Total Protein 6.7 5.7-8.2 g/dL Albumin 3.7 3.2-4.8 g/dL Ammonia < 10 L 11-32 umol/L Plasma/Serum Blood Alcohol < 3.0 <10 mg/dL Microbiology Date/Time Source Procedure Growth Status 08/16/24 20:00 Nose MRSA Screen - Final Complete Assessment Altered mental status Metabolic encephalopathy ? Status epileptics/subclinical seizure Reports seizure disorder Stroke, evident in CT head Hydrocephalus Rule out infection Mental retardation On Eliquis 5 mg b.i.d. Plan/Recommendation Monitoring Supportive treatment Telemetry UDS EEG Follow-up labs IVF IV antibiotics Depakote 500 mg IV t.i.d. Ativan for seizure breakthrough Haldol 2.5 mg IM Q 8 hours p.r.n. for agitation Eliquis 5 mg b.i.d. Lipitor 10 mg daily Aricept 10 mg daily Given his current mental/neurologic condition, addressing hydrocephalus is not indicated Progress: Poor This medical document was created using an electronic medical record system with [employer] dictation system. Although this document has been carefully reviewed, there may still be some phonetic and typographical errors. These areas are purely typographical due to imperfections of the software programs, and do not reflect any compromise in the patient's medical care. Plan discussed with: Other DE LOPEZ MD August 18, 2024 21:54
[2024-08-18] MEDS ORDERED: LORazepam 2MG/ML-1ML VIAL IV PRN (22:30)
[2024-08-18] MEDS: VALPROATE INJ 500 MG in SODIUM CHL 0.9% 100 ML IV ONE (22:45)
[2024-08-18] MEDS: SODIUM CHLORIDE 0.9% 1,000 ML IV SCH (22:53)
[2024-08-18] MEDS: VALPROATE INJ 500 MG in SODIUM CHL 0.9% 100 ML IV SCH (23:45)
[2024-08-19] VITALS (7 sets, daily range): BP systolic 99–143; BP diastolic 63–91; PULSE 40–93; RESP 18; TEMP 98.1–99.8; O2SAT 92–96
--- NOTE | 2024-08-19 08:38 | DVHCONRES ---
Date Seen: August 19, 2024 Resident Creating Document: ADOLFO NASH Reason for Consultation bradycardia History of Present Illness This is a 64-year-old male patient with past medical history of paroxysmal atrial fibrillation, dementia, diabetes mellitus, hypertension, hyperlipidemia, seizures, schizophrenia, history of methamphetamine use presented complaints of altered level of consciousness and failure to thrive for last 2 weeks. Patient was in long term and he was noticed to be confused and was brought to the ER. Cardiology was consulted for bradycardia. Patient is currently confused and not giving any history. History was taken from daughter at bedside. She mentioned patient had atrial fibrillation that started after COVID-19 infection in 2019. She also mentioned patient had low cortisol level as it was told to them by the primary care physician since patient is not living with the daughter, she is only able to give limited history. Family History: Patient reports no known family medical history. Allergies: Coded Allergies: NO KNOWN ALLERGIES (Unverified , 12/01/23) Home Meds Active Scripts Ergocalciferol (VITAMIN D 55424 UNIT) 50,[place], [address] UNIT PO weekly for 10 Days, #10 CAP Prov:RAJIV MARINELLI RESIDENT 08/04/24 Levofloxacin Hemihydrate (LEVOFLOXACIN) 750 Mg Tab, 1 TAB PO DAILY for 7 Days, #7 TAB Prov:RAJIV MARINELLI RESIDENT 08/04/24 Apixaban Base (ELIQUIS) 5 Mg Tab, 5 MG PO BID for 60 Days, #120 TAB 0 Refills Prov:VALENCIA GALVIN RESIDENT 01/13/24 Reported Medications Metoprolol Tartrate (Lopressor) 25 Mg Tb, 0.5 TAB PO BID 08/16/24 Omeprazole (Omeprazole Dr) 20 Mg Cap, 1 CAP PO DAILY 08/16/24 Losartan Potassium (Losartan Potassium) 50 Mg Tab, 1 TAB PO DAILY 08/16/24 Bozli-3-Cfsp Ethyl Esters (Ywavd-0-Oiuf Ethyl Esters) 1 Gm Cap, 2 CAP PO BID 08/16/24 Atorvastatin Calcium (ATORVASTATIN CALCIUM) 10 Mg Tab, 1 TAB PO DAILY 08/16/24 Docusate Sodium (Colace) 100 Mg Cap, 1 CAP PO, #30 CAP 08/16/24 Benztropine Mesylate (Benztropine Mesylate) 1 Mg Tab, 1 TAB PO BID for 18 Days, #36 08/01/24 Metoprolol Succinate (Metoprolol Succinate Er) 25 Mg Tab, 12.5 MG PO DAILY for 18 Days, #9 08/01/24 Donepezil Hydrochloride (DONEPEZIL HCL) 10 Mg Tab, 10 MG PO HS for 30 Days, MG 07/31/24 Aripiprazole (Abilify) 20 Mg Tab, 15 MG PO DAILY, TAB 07/31/24 Atorvastatin Calcium (Lipitor) 10 Mg Tab, 1 TAB PO DAILY for 90 Days, #90 5 Refills 12/03/23 Divalproex Sodium (Divalproex Sodium) 500 Mg Tab, 500 MG PO TID for 90 Days, #270 12/02/23 Current Medications Current Medications Medications (Trade) Dose Ordered Sig/David Route PRN Reason Start Time Stop Time Status Last Admin Ceftriaxone Sodium 50 ml @ 100 mls/hr DAILY@09 IV 08/18/24 09:00 08/18/24 09:41 Dextrose 1,000 ml @ 150 mls/hr Q6H40M IV 08/18/24 12:30 08/18/24 13:26 DC Valproate Sodium 500 mg/Sodium Chloride 105 ml @ 105 mls/hr TID IV 08/18/24 22:32 08/19/24 06:07 Lorazepam (Ativan Inj) 1 mg Q5MINP PRN IV SEIZURES 08/18/24 22:30 Haloperidol Lactate (Haldol) 2.5 mg Q8HP PRN IM AGITATION 08/18/24 22:30 Sodium Chloride 1,000 ml @ 75 mls/hr [id number] IV 08/18/24 22:30 08/18/24 22:53 Review of Systems Patient is confused and review of system could not be done. Vital Signs Vital Signs Date Time Temp Pulse Resp B/P (MAP) Pulse Ox O2 Delivery O2 Flow Rate FiO2 08/19/24 07:30 Nasal Cannula* 2 28 08/19/24 01:00 98.6 93 18 128/91 (103 93 98.6 Physical Exam General Appearance: Confused HEENT: Atraumatic, PERRLA, EOMI, Mucous membrane moist/pink Respiratory: Clear to auscultation, Normal air movement Cardiovascular: Regular rate, Normal S1, Normal S2, No murmurs, no chest wall tenderness Abdominal: Normal bowel sounds, Soft, No tenderness, No hepatospenomegaly, No masses Extremities: No clubbing, No cyanosis, No edema, Normal pulses, No t enderness/swelling Skin: No rashes, No breakdown, No significant lesion Neuro: Confused Labs/Diagnostic Data Labs Test 08/19/24 06:12 08/16/24 04:54 08/15/24 11:55 Range/Units POC Glucose 69 L 70-106 mg/dl White Blood Count 9.6 # 4.4-10.8 10^3/uL Red Blood Count 5.08 4.5-5.90 10^6/uL Hemoglobin 15.4 13.5-17.5 g/dL Hematocrit 46.3 41.0-53.0 % Mean Corpuscular Volume 91.2 80.0-100.0 fL Mean Corpuscular Hemoglobin 30.3 28.0-32.0 pg Mean Corpuscular Hemoglobin Concent 33.2 32.0-36.0 g/dL Red Cell Distribution Width 15.2 H 11.8-14.3 % Platelet Count 159 140-450 10^3/uL Mean Platelet Volume 8.2 6.9-10.8 fL Neutrophils (%) (Auto) 71.8 37.0-80.0 % Lymphocytes (%) (Auto) 14.8 10.0-50.0 % Monocytes (%) (Auto) 12.4 H 0.0-12.0 % Eosinophils (%) (Auto) 0.5 0.0-7.0 % Basophils (%) (Auto) 0.5 0.0-2.0 % Neutrophils # (Auto) 6.9 1.6-8.6 10 ^3/uL Lymphocytes # (Auto) 1.4 0.4-5.4 10 ^3/uL Monocytes # (Auto) 1.2 0-1.3 10 ^3/uL Eosinophils # (Auto) 0 0-0.8 10 ^3/uL Basophils # (Auto) 0 0-0.2 10 ^3/uL Nucleated Red Blood Cells 0.0 % Sodium Level 142 136-145 mmol/L Potassium Level 4.5 3.5-5.1 mmol/L Chloride Level 107 98-107 mmol/L Carbon Dioxide Level 26 20-31 mmol/L Anion Gap 9 5-15 Blood Urea Nitrogen 9 9-23 mg/dL Creatinine 0.96 0.700-1.30 mg/dL Glomerular Filtration Rate Calc 88 >90 mL/min BUN/Creatinine Ratio 9.4 L 10.0-20.0 Serum Glucose 88 74-106 mg/dL Calcium Level 9.8 8.7-10.4 mg/dL Total Bilirubin 1.0 0.2-1.0 mg/dL Aspartate Amino Transferase (AST) 28 13-40 U/L Alanine Aminotransferase (ALT) 21 7-40 U/L Alkaline Phosphatase 58 46-116 U/L Total Protein 6.7 5.7-8.2 g/dL Albumin 3.7 3.2-4.8 g/dL Ammonia < 10 L 11-32 umol/L Plasma/Serum Blood Alcohol < 3.0 <10 mg/dL Microbiology Date/Time Source Procedure Growth Status 08/16/24 20:00 Nose MRSA Screen - Final Complete Assessment Assessment and Plan #Bradycardia, currently sinus bradycardia, hemodynamically stable - likely due to hypoglycemia and malnutrition, other causes not ruled out yet ?Adrenal insufficiency, ?beta larry use, ?Tachycardia-bradycardia syndome #?adrenal insufficiency #History of Paroxysmal A-fib, was on eliquis, currently sinus clarissa [id number] Score 6 HASBLED 3 points #Hypertension #Hyperlipidemia #History of methamphetamine use disorder #?HFpEF ##ALOC #Failure to thrive Plan -ordered TSH, Cortisol levels -hold beta blockers -correct hypoglycemia per primary team -consider full dose therapeutic lovenox for Afib stroke prevention as pt is currently not able to take PO tablets because of failure to swallow -continue telemetry monitoring, and monitor for hemodynamics Thank you for consulting We will sign off from this case as of now, kindly reconsult again if needed Case discussion with dr Cortez Plan/Recommendation ATTENDING ATTESTATION BRADYCARDIA SECONDARY TO FAILURE TO THRIVE RECOMMEND MEDICAL OPTIMIZATION CHECK CMP, REPLETE ELECTROLYTES PRN LOVENOX BID REFRAIN USE OF BB/CCB OUTPATIENT EVENT MONITOR THANK YOU FOR THIS CONSULTATION WE WILL BE AVAILABLE NEEDED Plan discussed with: Daughter, Other ERICA NASHIL RESIDENT August 19, 2024 08:38 LATOSHA CORETZ MD August 19, 2024 18:52
--- NOTE | 2024-08-19 11:25 | DVHPN2 ---
Progress Note - Dictate Date Seen: August 19, 2024 Medical Necessity Reason Pt with a Central, PICC or Fol: No Subjective Mr. Osorio is a 64 years old gentleman with a history of hypertension, diabetes, dyslipidemia, dementia, schizophrenia, tremors, seizure, mental retardation, the patient was was brought to the [facility] on 08/15/2024 with a chief company of altered mental status. I have seen and examined the patient, I discussed with his nurse and sitter. His nurse had him previously and he reported the patient was mentally the same He still very confused, he may only oriented to himself, not cooperative Plasma alcohol, 08/15/2024: Normal CBC, 08/16/2024: Unremarkable CMP, 08/16/2024: Unremarkable TG/HDL/LDL/HDL, 06/13/24: 102/113/66/29 Vitamin B12, 07/31/2024: 537 Folic acid, 11/29/23: 3498 TSH, 07/31/2024: 6.55 FT4, 07/31/24: 1.79 CT head, 04/26/2024, comparison, 03/24/2024: 1. No acute intracranial process. 2. Stable moderate communicating hydrocephalus.3. 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 CT head, 08/17/2024, comparison: 03/24/2024: Essentially unchanged appearance of the head CT compared to pr vital signs Vital Sign Date Time Temp Pulse Resp B/P (MAP) Pulse Ox O2 Delivery O2 Flow Rate FiO2 08/19/24 10:00 35 143/68 08/19/24 08:29 99.8 18 93 99.8 08/19/24 07:30 Nasal Cannula* 2 28 Total Intake and Output 08/18/24 08/18/24 08/19/24 15:00 23:00 07:00 Intake Total 50 ml 600 ml 0 ml Balance 50 ml 600 ml 0 ml medications Current Medications Medications Dose Ordered Sig/David Route Start Time Stop Time Status Last Admin Dose Admin Atorvastatin Calcium 10 mg HS PO 08/15/24 22:00 08/15/24 21:44 10 MG Donepezil HCl 10 mg HS PO 08/15/24 22:00 08/15/24 21:43 10 MG Metoprolol Tartrate 12.5 mg BID PO 08/15/24 22:00 08/18/24 09:41 12.5 MG Apixaban 5 mg BID PO 08/15/24 22:00 08/18/24 09:42 5 MG Diagnostic Test (Pha) 1 strip ACHS 08/15/24 22:00 08/19/24 06:13 1 STRIP Insulin Human Regular ACHS SC 08/15/24 22:00 Dextrose 50 ml UD PRN IV 08/15/24 20:15 Sodium Chloride 10 ml Q8HR IV 08/15/24 22:00 08/19/24 06:08 10 ML Acetaminophen/ Hydrocodone Bitart 1 tab Q4HP PRN PO 08/15/24 20:15 Ondansetron HCl 4 mg Q4HP PRN IV 08/15/24 20:15 Docusate Sodium 100 mg BIDPRN PRN PO 08/15/24 20:15 Acetaminophen 650 mg Q6HP PRN PO 08/15/24 20:15 08/15/24 21:44 650 MG Nitroglycerin 0.4 mg Q5MINP PRN SL 08/15/24 23:00 Morphine Sulfate 2 mg Q30M PRN IV 08/15/24 23:00 Ceftriaxone Sodium 50 ml @ 100 mls/hr DAILY@09 IV 08/18/24 09:00 08/19/24 10:12 100 MLS/HR Valproate Sodium 500 mg/Sodium Chloride 105 ml @ 105 mls/hr TID IV 08/18/24 22:32 08/19/24 06:07 105 MLS/HR Lorazepam 1 mg Q5MINP PRN IV 08/18/24 22:30 Haloperidol Lactate 2.5 mg Q8HP PRN IM 08/18/24 22:30 Sodium Chloride 1,000 ml @ 75 mls/hr [id number] IV 08/18/24 22:30 08/18/24 22:53 75 MLS/HR objective General: the patient is well developed and nourished. No acute distress. MENTAL STATUS: Subjective SPEECH, LANGUAGE, HIGHER CORTICAL FUNCTION: no aphasia or dysathria. CRANIAL NERVES: Pupils are round and reactive. EOMs full and conjugate. Facial sensation intact in all three divisions bilaterally. Mandibular strength intact. Facial muscles symmetrical and strength intact. SENSATION: Sensation to touch and pinprick is ok MOTOR: Normal tone in the upper and lower extremity. Normal muscle bulk. No fasciculations. No abnormal movements or posturing. He moves the arms REFLEXES: Deep tendon reflexes are symmetrical. No pathological reflexes. CEREBELLAR/COORDINATION: Deferred GAIT/STATION: deferred laboratory and microbiology Laboratory Tests 08/16/24 04:54 Test 08/16/24 04:54 Range/Units Serum Glucose 88 74-106 mg/dL Problem List Altered mental status Metabolic encephalopathy ? Status epileptics/subclinical seizure Reports seizure disorder Stroke, evident in CT head Hydrocephalus Rule out infection Mental retardation On Eliquis 5 mg b.i.d. Assessment/Plan Monitoring Supportive treatment Telemetry UDS EEG Follow-up labs IVF IV antibiotics Depakote 500 mg IV t.i.d. Ativan for seizure breakthrough Haldol 2.5 mg IM Q 8 hours p.r.n. for agitation Eliquis 5 mg b.i.d. Lipitor 10 mg daily Aricept 10 mg daily Given his current mental/neurologic condition, addressing NPH is not change his prognosis This medical document was created using an electronic medical record system with [employer] dictation system. Although this document has been carefully reviewed, there may still be some phonetic and typographical errors. These areas are purely typographical due to imperfections of the software programs, and do not reflect any compromise in the patient's medical care. Prognosis poor Dietary Evaluation Review Comments: 1) If patient remains NPO for > 7 days, consider EN/TPN to meet at least 75% estimated energy needs 2) Refer to speech therapy for swallow study 3) Advance to 60g CCHO cardiac diet when medically feasible, pending MANAGER NICU approval. Encourage optimal PO intake. If <50%, initiate Glucerna bid 4) Collect HbA1c 5) Follow-up with psychiatry, neurology, and cardiology 6) Continue to monitor I&O, labs, and skin integrity Expected Outcomes/Goals: 1) patient to receive nutritional support within 7 days 2) labs to improve 3) diet to advance 4) follow-up in 2-3 days Plan discussed with: Other Total Time (mins): 40 DE LOPEZ MD August 19, 2024 11:25
[2024-08-19] MEDS: D5W 5% 1,000 ML IV SCH (12:59)
--- NOTE | 2024-08-19 16:39 | DVHPN2 ---
Subjective still confused and not eating had some hypoglicemia Reviewed: Care Plan, H&P, Labs, Medications, Previous Orders Changes from previous H/P or p: No Changes Eyes: No Pain, No Vision change, No Conjunctivae inflammation, No Eyelid inflammation, No Other, No Redness ENT: No Ear pain, No Ear discharge, No Nose pain, No Nose discharge, No Nose congestion, No Mouth pain, No Mouth swelling, No Throat pain, No Throat swelling, No Other Cardiovascular: No Chest Pain, No Palpitations, No Orthopnea, No Paroxysmal Noc. Dyspnea, No Edema, No Lt Headedness, No Other Respiratory: No Cough, No Dry, No Shortness of breath, No SOB with excertion, No Wheezing, No Hemoptysis, No Pleuritic Pain, No Sputum, No Other Gastrointestinal: No Nausea, No Vomiting, No Abdominal Pain, No Diarrhea, No Constipation, No Melena, No Hematochezia, No Other Genitourinary: No Dysuria, No Frequency, No Incontinence, No Hematuria, No Retention, No Other Musculoskeletal: No other, No neck pain, No shoulder pain, No arm pain, No back pain, No hand pain, No leg pain, No foot pain Skin: No Rash, No Lesions, No Jaundice, No Bruising, No Other Objective Vitals Vital Signs Date Time Temp Pulse Resp B/P (MAP) Pulse Ox O2 Delivery O2 Flow Rate FiO2 08/19/24 12:50 98.8 45 18 111/69 (83) 96 98.8 08/19/24 07:30 Nasal Cannula* 2 28 Intake/Output Intake and Output 08/19/24 07:00 Intake Total 650 ml Balance 650 ml Intake Oral 0 ml IV Total 650 ml # Voids 9 General Appearance: Other (confused and non verbal) HEENT: Atraumatic, PERRLA, EOMI, Mucous membr. moist/pink Neck: Supple Lungs: Clear to auscultation, Normal air movement Cardiovascular: Regular rate, Normal S1, Normal S2, No murmurs, Gallops, Rubs Abdomen: Normal bowel sounds, Soft, No tenderness, No hepatospenomegaly Neuro: Other (Altered mental status) Medications Current Medications Medications Dose Ordered Sig/David Route Start Time Stop Time Status Last Admin Dose Admin Atorvastatin Calcium 10 mg HS PO 08/15/24 22:00 08/15/24 21:44 10 MG Donepezil HCl 10 mg HS PO 08/15/24 22:00 08/15/24 21:43 10 MG Metoprolol Tartrate 12.5 mg BID PO 08/15/24 22:00 08/18/24 09:41 12.5 MG Apixaban 5 mg BID PO 08/15/24 22:00 08/18/24 09:42 5 MG Diagnostic Test (Pha) 1 strip ACHS 08/15/24 22:00 08/19/24 11:30 1 STRIP Insulin Human Regular ACHS SC 08/15/24 22:00 Dextrose 50 ml UD PRN IV 08/15/24 20:15 Sodium Chloride 10 ml Q8HR IV 08/15/24 22:00 08/19/24 14:08 10 ML Acetaminophen/ Hydrocodone Bitart 1 tab Q4HP PRN PO 08/15/24 20:15 Ondansetron HCl 4 mg Q4HP PRN IV 08/15/24 20:15 Docusate Sodium 100 mg BIDPRN PRN PO 08/15/24 20:15 Acetaminophen 650 mg Q6HP PRN PO 08/15/24 20:15 08/15/24 21:44 650 MG Nitroglycerin 0.4 mg Q5MINP PRN SL 08/15/24 23:00 Morphine Sulfate 2 mg Q30M PRN IV 08/15/24 23:00 Ceftriaxone Sodium 50 ml @ 100 mls/hr DAILY@09 IV 08/18/24 09:00 08/19/24 10:12 100 MLS/HR Valproate Sodium 500 mg/Sodium Chloride 105 ml @ 105 mls/hr TID IV 08/18/24 22:32 08/19/24 16:10 105 MLS/HR Lorazepam 1 mg Q5MINP PRN IV 08/18/24 22:30 Haloperidol Lactate 2.5 mg Q8HP PRN IM 08/18/24 22:30 Dextrose 1,000 ml @ 150 mls/hr Q6H40M IV 08/19/24 12:30 08/19/24 12:59 150 MLS/HR Laboratory Results Laboratory Tests 08/16/24 04:54 HgA1c, TSH Test 08/19/24 15:40 Thyroid Stimulating Hormone (TSH) 2.00 uIU/mL (0.55-4.78) Microbiology Microbiology Date/Time Source Procedure Growth Status 08/16/24 20:00 Nose MRSA Screen - Final Complete Assessment/Plan Assessment/Plan Adult failure to thrive Metabolic encephalopathy Plan Continuing current management. We will empirically put the patient on Rocephin 1 g IV q.day I review CT head showed no acute process. Chest x-ray showed no acute process also. Continuing on IV fluid normal saline at 75 mL/hr. We will keep NPO until the patient is more alert awake for swallow evaluation Consider nutrition support if the patient unable to eat for couple day. Plan discussed with: Other (nurse) My Orders Orders - ZARA NICHOLS MD Procedure Category Date Status Time D5w 5% (Dextrose 5%) PHA 08/19/24 In Process 12:30 Date of Service: August 19, 2024 Billing Provider: ZARA NICHOLS MD Common Visit Codes: [id number] INP/OBS CARE(HIGH) ZARA NICHOLS MD August 19, 2024 16:39
[2024-08-20] VITALS (8 sets, daily range): BP systolic 94–163; BP diastolic 56–90; PULSE 46–75; RESP 16–18; TEMP 97.3–98.6; O2SAT 97–100
--- NOTE | 2024-08-20 10:54 | DVHPN2 ---
Progress Note - Dictate Date Seen: August 20, 2024 Medical Necessity Reason Pt with a Central, PICC or Fol: No Subjective Mr. Osorio is a 64 years old gentleman with a history of hypertension, diabetes, dyslipidemia, dementia, schizophrenia, tremors, seizure, mental retardation, the patient was was brought to the [facility] on 08/15/2024 with a chief company of altered mental status. I have seen and examined the patient, I discussed with his nurse and sitter. He is more respond to his surroundings, he may only oriented to himself, he mumble words, not able to answer questions He moves the arms and the legs, the muscle power in the lower extremity is no less than 1-2/5 Plasma alcohol, 08/15/2024: Normal CBC, 08/16/2024: Unremarkable CMP, 08/16/2024: Unremarkable TG/HDL/LDL/HDL, 06/13/24: 102/113/66/29 Vitamin B12, 07/31/2024: 537 Folic acid, 11/29/23: 3498 TSH, 07/31/2024: 6.55 FT4, 07/31/24: 1.79 CT head, 04/26/2024, comparison, 03/24/2024: 1. No acute intracranial process. 2. Stable moderate communicating hydrocephalus.3. 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 CT head, 08/17/2024, comparison: 03/24/2024: Essentially unchanged appearance of the head CT compared to pr vital signs Vital Sign Date Time Temp Pulse Resp B/P (MAP) Pulse Ox O2 Delivery O2 Flow Rate FiO2 08/20/24 08:46 97.9 49 18 163/80 (107) 97 97.9 08/20/24 08:00 Nasal Cannula* 2 28 Total Intake and Output 08/19/24 08/19/24 08/20/24 15:00 23:00 07:00 Intake Total 1155 ml 605 ml Balance 1155 ml 605 ml medications Current Medications Medications Dose Ordered Sig/David Route Start Time Stop Time Status Last Admin Dose Admin Atorvastatin Calcium 10 mg HS PO 08/15/24 22:00 08/15/24 21:44 10 MG Donepezil HCl 10 mg HS PO 08/15/24 22:00 08/15/24 21:43 10 MG Metoprolol Tartrate 12.5 mg BID PO 08/15/24 22:00 08/18/24 09:41 12.5 MG Apixaban 5 mg BID PO 08/15/24 22:00 08/18/24 09:42 5 MG Diagnostic Test (Pha) 1 strip ACHS 08/15/24 22:00 08/20/24 06:09 1 STRIP Insulin Human Regular ACHS SC 08/15/24 22:00 Dextrose 50 ml UD PRN IV 08/15/24 20:15 Sodium Chloride 10 ml Q8HR IV 08/15/24 22:00 08/20/24 06:09 10 ML Acetaminophen/ Hydrocodone Bitart 1 tab Q4HP PRN PO 08/15/24 20:15 Ondansetron HCl 4 mg Q4HP PRN IV 08/15/24 20:15 Docusate Sodium 100 mg BIDPRN PRN PO 08/15/24 20:15 Acetaminophen 650 mg Q6HP PRN PO 08/15/24 20:15 08/15/24 21:44 650 MG Nitroglycerin 0.4 mg Q5MINP PRN SL 08/15/24 23:00 Morphine Sulfate 2 mg Q30M PRN IV 08/15/24 23:00 Ceftriaxone Sodium 50 ml @ 100 mls/hr DAILY@09 IV 08/18/24 09:00 08/20/24 08:39 100 MLS/HR Valproate Sodium 500 mg/Sodium Chloride 105 ml @ 105 mls/hr TID IV 08/18/24 22:32 08/20/24 06:08 105 MLS/HR Lorazepam 1 mg Q5MINP PRN IV 08/18/24 22:30 Haloperidol Lactate 2.5 mg Q8HP PRN IM 08/18/24 22:30 Dextrose 1,000 ml @ 150 mls/hr Q6H40M IV 08/19/24 12:30 08/19/24 19:10 150 MLS/HR Hydralazine HCl 10 mg Q4HP PRN IV 08/20/24 10:15 objective General: the patient is well developed and nourished. No acute distress. MENTAL STATUS: Subjective SPEECH, LANGUAGE, HIGHER CORTICAL FUNCTION: no aphasia or dysathria. CRANIAL NERVES: Pupils are round and reactive. EOMs full and conjugate. Facial sensation intact in all three divisions bilaterally. Mandibular strength intact. Facial muscles symmetrical and strength intact. SENSATION: Sensation to touch and pinprick is ok MOTOR: Normal tone in the upper and lower extremity. Normal muscle bulk. No fasciculations. No abnormal movements or posturing. Muscle power: Arms: Three-4/5. Legs: No less than 1-2/5 REFLEXES: Deep tendon reflexes are symmetrical. No pathological reflexes. CEREBELLAR/COORDINATION: Deferred GAIT/STATION: deferred laboratory and microbiology Laboratory Tests 08/16/24 04:54 Test 08/16/24 04:54 Range/Units Serum Glucose 88 74-106 mg/dL Problem List Altered mental status Metabolic encephalopathy ? Status epileptics/subclinical seizure Reports seizure disorder Stroke, evident in CT head Hydrocephalus Rule out infection Mental retardation On Eliquis 5 mg b.i.d. Assessment/Plan Monitoring Supportive treatment Telemetry UDS EEG Follow-up labs IVF IV antibiotics Depakote 500 mg IV t.i.d. Ativan for seizure breakthrough Haldol 2.5 mg IM Q 8 hours p.r.n. for agitation Eliquis 5 mg b.i.d. Lipitor 10 mg daily Aricept 10 mg daily Given his current mental/neurologic condition, addressing NPH will not change his prognosis or improve his symptoms This medical document was created using an electronic medical record system with [employer] dictation system. Although this document has been carefully reviewed, there may still be some phonetic and typographical errors. These areas are purely typographical due to imperfections of the software programs, and do not reflect any compromise in the patient's medical care. Prognosis poor Dietary Evaluation Review Comments: 1) If patient remains NPO for > 7 days, consider EN/TPN to meet at least 75% estimated energy needs 2) Refer to speech therapy for swallow study 3) Advance to 60g CCHO cardiac diet when medically feasible, pending DEVELOPMENT DIRECTOR approval. Encourage optimal PO intake. If <50%, initiate Glucerna bid 4) Collect HbA1c 5) Follow-up with psychiatry, neurology, and cardiology 6) Continue to monitor I&O, labs, and skin integrity Expected Outcomes/Goals: 1) patient to receive nutritional support within 7 days 2) labs to improve 3) diet to advance 4) follow-up in 2-3 days Plan discussed with: Other DE LOPEZ MD August 20, 2024 10:54
[2024-08-20] MEDS: hydrALAZINE HCL 20 MG/ML VL IV PRN (11:08)
[2024-08-20] MEDS: HALOPERIDOL LACTATE 5 MG/ML INJ VIAL IM PRN (13:36)
--- NOTE | 2024-08-20 18:44 | DVHPN2 ---
Subjective still confused and not eating had some hypoglicemia Reviewed: Care Plan, H&P, Labs, Medications, Previous Orders Changes from previous H/P or p: No Changes Eyes: No Pain, No Vision change, No Conjunctivae inflammation, No Eyelid inflammation, No Other, No Redness ENT: No Ear pain, No Ear discharge, No Nose pain, No Nose discharge, No Nose congestion, No Mouth pain, No Mouth swelling, No Throat pain, No Throat swelling, No Other Cardiovascular: No Chest Pain, No Palpitations, No Orthopnea, No Paroxysmal Noc. Dyspnea, No Edema, No Lt Headedness, No Other Respiratory: No Cough, No Dry, No Shortness of breath, No SOB with excertion, No Wheezing, No Hemoptysis, No Pleuritic Pain, No Sputum, No Other Gastrointestinal: No Nausea, No Vomiting, No Abdominal Pain, No Diarrhea, No Constipation, No Melena, No Hematochezia, No Other Genitourinary: No Dysuria, No Frequency, No Incontinence, No Hematuria, No Retention, No Other Musculoskeletal: No other, No neck pain, No shoulder pain, No arm pain, No back pain, No hand pain, No leg pain, No foot pain Skin: No Rash, No Lesions, No Jaundice, No Bruising, No Other Objective Vitals Vital Signs Date Time Temp Pulse Resp B/P (MAP) Pulse Ox O2 Delivery O2 Flow Rate FiO2 08/20/24 17:00 98.6 72 18 138/79 (98) 97 98.6 08/20/24 08:00 Nasal Cannula* 2 28 Intake/Output Intake and Output 08/20/24 07:00 Intake Total 1760 ml Balance 1760 ml Intake Oral 0 ml IV Total 1760 ml # Voids 8 General Appearance: Other (confused and non verbal) HEENT: Atraumatic, PERRLA, EOMI, Mucous membr. moist/pink Neck: Supple Lungs: Clear to auscultation, Normal air movement Cardiovascular: Regular rate, Normal S1, Normal S2, No murmurs, Gallops, Rubs Abdomen: Normal bowel sounds, Soft, No tenderness, No hepatospenomegaly Neuro: Other (Altered mental status) Medications Current Medications Medications Dose Ordered Sig/David Route Start Time Stop Time Status Last Admin Dose Admin Atorvastatin Calcium 10 mg HS PO 08/15/24 22:00 08/15/24 21:44 10 MG Donepezil HCl 10 mg HS PO 08/15/24 22:00 08/15/24 21:43 10 MG Metoprolol Tartrate 12.5 mg BID PO 08/15/24 22:00 08/18/24 09:41 12.5 MG Diagnostic Test (Pha) 1 strip ACHS 08/15/24 22:00 08/20/24 17:18 1 STRIP Insulin Human Regular ACHS SC 08/15/24 22:00 Dextrose 50 ml UD PRN IV 08/15/24 20:15 Sodium Chloride 10 ml Q8HR IV 08/15/24 22:00 08/20/24 06:09 10 ML Acetaminophen/ Hydrocodone Bitart 1 tab Q4HP PRN PO 08/15/24 20:15 Ondansetron HCl 4 mg Q4HP PRN IV 08/15/24 20:15 Docusate Sodium 100 mg BIDPRN PRN PO 08/15/24 20:15 Acetaminophen 650 mg Q6HP PRN PO 08/15/24 20:15 08/15/24 21:44 650 MG Nitroglycerin 0.4 mg Q5MINP PRN SL 08/15/24 23:00 Morphine Sulfate 2 mg Q30M PRN IV 08/15/24 23:00 Ceftriaxone Sodium 50 ml @ 100 mls/hr DAILY@09 IV 08/18/24 09:00 08/20/24 08:39 100 MLS/HR Valproate Sodium 500 mg/Sodium Chloride 105 ml @ 105 mls/hr TID IV 08/18/24 22:32 08/20/24 13:47 105 MLS/HR Lorazepam 1 mg Q5MINP PRN IV 08/18/24 22:30 Haloperidol Lactate 2.5 mg Q8HP PRN IM 08/18/24 22:30 08/20/24 13:36 2.5 MG Dextrose 1,000 ml @ 150 mls/hr Q6H40M IV 08/19/24 12:30 08/20/24 18:18 150 MLS/HR Hydralazine HCl 10 mg Q4HP PRN IV 08/20/24 10:15 08/20/24 11:08 10 MG Enoxaparin Sodium 80 mg Q12HR SC 08/20/24 22:00 Laboratory Results Laboratory Tests 08/16/24 04:54 Microbiology Microbiology Date/Time Source Procedure Growth Status 08/16/24 20:00 Nose MRSA Screen - Final Complete Assessment/Plan Assessment/Plan Adult failure to thrive Metabolic encephalopathy Plan Continuing current management. We will empirically put the patient on Rocephin 1 g IV q.day I review CT head showed no acute process. Chest x-ray showed no acute process also. Continuing on IV fluid normal saline at 75 mL/hr. We will keep NPO until the patient is more alert awake for swallow evaluation Consider nutrition support if the patient unable to eat for couple day. Plan discussed with: Other (nurse) My Orders Orders - ZARA NICHOLS MD Procedure Category Date Status Time Hydralazine Injection PHA 08/20/24 In Process (Apresoline Inject 10:15 Enoxaparin Sodium PHA 08/20/24 In Process (Lovenox) 22:00 Date of Service: August 20, 2024 Billing Provider: ZARA NICHOLS MD Common Visit Codes: [id number] INP/OBS CARE(HIGH) ZARA NICHOLS MD August 20, 2024 18:44
[2024-08-20] MEDS: ENOXAPARIN SOD 80 MG/0.8ML SYRINGE SC SCH (22:52)
[2024-08-21] VITALS (10 sets, daily range): BP systolic 93–141; BP diastolic 56–94; PULSE 59–86; RESP 16–22; TEMP 97.8–98; O2SAT 91–100
--- NOTE | 2024-08-21 10:52 | DVHPN2 ---
Progress Note - Dictate Date Seen: August 21, 2024 Medical Necessity Reason Pt with a Central, PICC or Fol: No Subjective Mr. Osorio is a 64 years old gentleman with a history of hypertension, diabetes, dyslipidemia, dementia, schizophrenia, tremors, seizure, mental retardation, the patient was was brought to the [facility] on 08/15/2024 with a chief company of altered mental status. I have seen and examined the patient, I discussed with his nurse and sitter. He is awake, he is responsive to verbal stimuli,he mumbles, but he is not able to answer questions, he moves the arms and legs, with good muscle power He becomes agitated from time to time, and Haldol 2.5 mg does not help much Plasma alcohol, 08/15/2024: Normal CBC, 08/16/2024: Unremarkable CMP, 08/16/2024: Unremarkable TG/HDL/LDL/HDL, 06/13/24: 102/113/66/29 Vitamin B12, 07/31/2024: 537 Folic acid, 11/29/23: 3498 TSH, 07/31/2024: 6.55 FT4, 07/31/24: 1.79 CT head, 04/26/2024, comparison, 03/24/2024: 1. No acute intracranial process. 2. Stable moderate communicating hydrocephalus.3. 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 CT head, 08/17/2024, comparison: 03/24/2024: Essentially unchanged appearance of the head CT compared to pr vital signs Vital Sign Date Time Temp Pulse Resp B/P (MAP) Pulse Ox O2 Delivery O2 Flow Rate FiO2 08/21/24 09:28 59 08/21/24 08:15 17 Nasal Cannula* 2 28 08/21/24 05:00 120/70 (87) 98 08/20/24 21:00 97.9 97.9 Total Intake and Output 08/20/24 08/20/24 08/21/24 15:00 23:00 07:00 Intake Total 480 ml 220 ml 1605 ml Balance 480 ml 220 ml 1605 ml medications Current Medications Medications Dose Ordered Sig/David Route Start Time Stop Time Status Last Admin Dose Admin Atorvastatin Calcium 10 mg HS PO 08/15/24 22:00 08/20/24 22:57 10 MG Donepezil HCl 10 mg HS PO 08/15/24 22:00 08/20/24 22:57 10 MG Metoprolol Tartrate 12.5 mg BID PO 08/15/24 22:00 08/18/24 09:41 12.5 MG Diagnostic Test (Pha) 1 strip ACHS 08/15/24 22:00 08/21/24 06:27 1 STRIP Insulin Human Regular ACHS SC 08/15/24 22:00 08/20/24 22:51 2 UNITS Dextrose 50 ml UD PRN IV 08/15/24 20:15 Sodium Chloride 10 ml Q8HR IV 08/15/24 22:00 08/21/24 06:25 10 ML Acetaminophen/ Hydrocodone Bitart 1 tab Q4HP PRN PO 08/15/24 20:15 Ondansetron HCl 4 mg Q4HP PRN IV 08/15/24 20:15 Docusate Sodium 100 mg BIDPRN PRN PO 08/15/24 20:15 Acetaminophen 650 mg Q6HP PRN PO 08/15/24 20:15 08/15/24 21:44 650 MG Nitroglycerin 0.4 mg Q5MINP PRN SL 08/15/24 23:00 Morphine Sulfate 2 mg Q30M PRN IV 08/15/24 23:00 Ceftriaxone Sodium 50 ml @ 100 mls/hr DAILY@09 IV 08/18/24 09:00 08/21/24 09:20 100 MLS/HR Valproate Sodium 500 mg/Sodium Chloride 105 ml @ 105 mls/hr TID IV 08/18/24 22:32 08/21/24 06:26 105 MLS/HR Lorazepam 1 mg Q5MINP PRN IV 08/18/24 22:30 Haloperidol Lactate 2.5 mg Q8HP PRN IM 08/18/24 22:30 08/21/24 08:10 2.5 MG Dextrose 1,000 ml @ 150 mls/hr Q6H40M IV 08/19/24 12:30 08/21/24 04:36 150 MLS/HR Hydralazine HCl 10 mg Q4HP PRN IV 08/20/24 10:15 08/20/24 11:08 10 MG Enoxaparin Sodium 80 mg Q12HR SC 08/20/24 22:00 08/21/24 09:18 80 MG objective General: the patient is well developed and nourished. No acute distress. MENTAL STATUS: Subjective SPEECH, LANGUAGE, HIGHER CORTICAL FUNCTION: no aphasia or dysathria. CRANIAL NERVES: Pupils are round and reactive. EOMs full and conjugate. Facial sensation intact in all three divisions bilaterally. Mandibular strength intact. Facial muscles symmetrical and strength intact. SENSATION: Sensation to touch and pinprick is ok MOTOR: Normal tone in the upper and lower extremity. Normal muscle bulk. No fasciculations. No abnormal movements or posturing. He moves the arms and legs REFLEXES: Deep tendon reflexes are symmetrical. No pathological reflexes. CEREBELLAR/COORDINATION: Deferred GAIT/STATION: deferred laboratory and microbiology Laboratory Tests 08/16/24 04:54 Test 08/16/24 04:54 Range/Units Serum Glucose 88 74-106 mg/dL Problem List Altered mental status Metabolic encephalopathy ? Status epileptics/subclinical seizure Reports seizure disorder Stroke, evident in CT head Hydrocephalus Rule out infection Mental retardation On Eliquis 5 mg b.i.d. Assessment/Plan Monitoring Supportive treatment Telemetry Follow-up labs IV antibiotics Depakote 500 mg IV t.i.d. Ativan for seizure breakthrough Haldol 5 mg IM Q 8 hours p.r.n. for agitation Eliquis 5 mg b.i.d. Lipitor 10 mg daily Aricept 10 mg daily Given his current mental/neurologic condition, addressing NPH will not change his prognosis or improve his symptoms This medical document was created using an electronic medical record system with [employer] dictation system. Although this document has been carefully reviewed, there may still be some phonetic and typographical errors. These areas are purely typographical due to imperfections of the software programs, and do not reflect any compromise in the patient's medical care. Prognosis poor Dietary Evaluation Review Comments: 1) If patient remains NPO for > 7 days, consider EN/TPN to meet at least 75% estimated energy needs 2) Refer to speech therapy for swallow study 3) Advance to 60g CCHO cardiac diet when medically feasible, pending OXYGEN THERAPY TEACHER approval. Encourage optimal PO intake. If <50%, initiate Glucerna bid 4) Collect HbA1c 5) Follow-up with psychiatry, neurology, and cardiology 6) Continue to monitor I&O, labs, and skin integrity Expected Outcomes/Goals: 1) patient to receive nutritional support within 7 days 2) labs to improve 3) diet to advance 4) follow-up in 2-3 days Plan discussed with: Other DE LOPEZ MD August 21, 2024 10:52
[2024-08-21] MEDS: HALOPERIDOL LACTATE 5 MG/ML INJ VIAL IM PRN (14:05)
--- NOTE | 2024-08-21 18:15 | DVHPN2 ---
Subjective still confused and not eating had some hypoglicemia Reviewed: Care Plan, H&P, Labs, Medications, Previous Orders Changes from previous H/P or p: No Changes Eyes: No Pain, No Vision change, No Conjunctivae inflammation, No Eyelid inflammation, No Other, No Redness ENT: No Ear pain, No Ear discharge, No Nose pain, No Nose discharge, No Nose congestion, No Mouth pain, No Mouth swelling, No Throat pain, No Throat swelling, No Other Cardiovascular: No Chest Pain, No Palpitations, No Orthopnea, No Paroxysmal Noc. Dyspnea, No Edema, No Lt Headedness, No Other Respiratory: No Cough, No Dry, No Shortness of breath, No SOB with excertion, No Wheezing, No Hemoptysis, No Pleuritic Pain, No Sputum, No Other Gastrointestinal: No Nausea, No Vomiting, No Abdominal Pain, No Diarrhea, No Constipation, No Melena, No Hematochezia, No Other Genitourinary: No Dysuria, No Frequency, No Incontinence, No Hematuria, No Retention, No Other Musculoskeletal: No other, No neck pain, No shoulder pain, No arm pain, No back pain, No hand pain, No leg pain, No foot pain Skin: No Rash, No Lesions, No Jaundice, No Bruising, No Other Objective Vitals Vital Signs Date Time Temp Pulse Resp B/P (MAP) Pulse Ox O2 Delivery O2 Flow Rate FiO2 08/21/24 17:00 97.8 84 16 93/56 (68) 95 97.8 08/21/24 08:15 Nasal Cannula* 2 28 Intake/Output Intake and Output 08/21/24 07:00 Intake Total 2305 ml Balance 2305 ml Intake Oral 640 ml IV Total 1665 ml # Voids 10 # Bowel Movements 1 General Appearance: Other (confused and non verbal) HEENT: Atraumatic, PERRLA, EOMI, Mucous membr. moist/pink Neck: Supple Lungs: Clear to auscultation, Normal air movement Cardiovascular: Regular rate, Normal S1, Normal S2, No murmurs, Gallops, Rubs Abdomen: Normal bowel sounds, Soft, No tenderness, No hepatospenomegaly Neuro: Other (Altered mental status) Medications Current Medications Medications Dose Ordered Sig/David Route Start Time Stop Time Status Last Admin Dose Admin Atorvastatin Calcium 10 mg HS PO 08/15/24 22:00 08/20/24 22:57 10 MG Donepezil HCl 10 mg HS PO 08/15/24 22:00 08/20/24 22:57 10 MG Diagnostic Test (Pha) 1 strip ACHS 08/15/24 22:00 08/21/24 18:05 1 STRIP Insulin Human Regular ACHS SC 08/15/24 22:00 08/20/24 22:51 2 UNITS Dextrose 50 ml UD PRN IV 08/15/24 20:15 Sodium Chloride 10 ml Q8HR IV 08/15/24 22:00 08/21/24 14:05 10 ML Acetaminophen/ Hydrocodone Bitart 1 tab Q4HP PRN PO 08/15/24 20:15 Ondansetron HCl 4 mg Q4HP PRN IV 08/15/24 20:15 Docusate Sodium 100 mg BIDPRN PRN PO 08/15/24 20:15 Acetaminophen 650 mg Q6HP PRN PO 08/15/24 20:15 08/15/24 21:44 650 MG Nitroglycerin 0.4 mg Q5MINP PRN SL 08/15/24 23:00 Morphine Sulfate 2 mg Q30M PRN IV 08/15/24 23:00 Ceftriaxone Sodium 50 ml @ 100 mls/hr DAILY@09 IV 08/18/24 09:00 08/21/24 09:20 100 MLS/HR Valproate Sodium 500 mg/Sodium Chloride 105 ml @ 105 mls/hr TID IV 08/18/24 22:32 08/21/24 14:01 105 MLS/HR Lorazepam 1 mg Q5MINP PRN IV 08/18/24 22:30 Dextrose 1,000 ml @ 150 mls/hr Q6H40M IV 08/19/24 12:30 08/21/24 04:36 150 MLS/HR Hydralazine HCl 10 mg Q4HP PRN IV 08/20/24 10:15 08/20/24 11:08 10 MG Enoxaparin Sodium 80 mg Q12HR SC 08/20/24 22:00 08/21/24 09:18 80 MG Haloperidol Lactate 5 mg Q8HP PRN IM 08/21/24 11:00 08/21/24 14:05 5 MG Laboratory Results Laboratory Tests 08/16/24 04:54 Microbiology Microbiology Date/Time Source Procedure Growth Status 08/16/24 20:00 Nose MRSA Screen - Final Complete Assessment/Plan Assessment/Plan Adult failure to thrive Metabolic encephalopathy Plan Continuing current management. We will empirically put the patient on Rocephin 1 g IV q.day I review CT head showed no acute process. Chest x-ray showed no acute process also. Continuing on IV fluid normal saline at 75 mL/hr. We will keep NPO until the patient is more alert awake for swallow evaluation Consider nutrition support if the patient unable to eat for couple day. Plan discussed with: Other (nurse) Date of Service: August 21, 2024 Billing Provider: ZARA NICHOLS MD Common Visit Codes: [id number] INP/OBS CARE(HIGH) ZARA NICHOLS MD August 21, 2024 18:15
[2024-08-22] VITALS (8 sets, daily range): BP systolic 111–136; BP diastolic 63–89; PULSE 62–110; RESP 17–20; TEMP 97.8–98.7; O2SAT 92–99
--- NOTE | 2024-08-22 17:15 | DVHPN2 ---
Subjective still confused and not eating had some hypoglicemia Reviewed: Care Plan, H&P, Labs, Medications, Previous Orders Changes from previous H/P or p: No Changes Eyes: No Pain, No Vision change, No Conjunctivae inflammation, No Eyelid inflammation, No Other, No Redness ENT: No Ear pain, No Ear discharge, No Nose pain, No Nose discharge, No Nose congestion, No Mouth pain, No Mouth swelling, No Throat pain, No Throat swelling, No Other Cardiovascular: No Chest Pain, No Palpitations, No Orthopnea, No Paroxysmal Noc. Dyspnea, No Edema, No Lt Headedness, No Other Respiratory: No Cough, No Dry, No Shortness of breath, No SOB with excertion, No Wheezing, No Hemoptysis, No Pleuritic Pain, No Sputum, No Other Gastrointestinal: No Nausea, No Vomiting, No Abdominal Pain, No Diarrhea, No Constipation, No Melena, No Hematochezia, No Other Genitourinary: No Dysuria, No Frequency, No Incontinence, No Hematuria, No Retention, No Other Musculoskeletal: No other, No neck pain, No shoulder pain, No arm pain, No back pain, No hand pain, No leg pain, No foot pain Skin: No Rash, No Lesions, No Jaundice, No Bruising, No Other Objective Vitals Vital Signs Date Time Temp Pulse Resp B/P (MAP) Pulse Ox O2 Delivery O2 Flow Rate FiO2 08/22/24 16:34 98.3 72 18 125/73 (90) 96 98.3 08/22/24 08:00 Nasal Cannula* 2 28 Intake/Output Intake and Output 08/22/24 07:00 Intake Total 1555 ml Output Total 5 ml Balance 1550 ml Intake Oral 240 ml IV Total 1315 ml Output Emesis 5 ml # Voids 5 General Appearance: Other (confused and non verbal) HEENT: Atraumatic, PERRLA, EOMI, Mucous membr. moist/pink Neck: Supple Lungs: Clear to auscultation, Normal air movement Cardiovascular: Regular rate, Normal S1, Normal S2, No murmurs, Gallops, Rubs Abdomen: Normal bowel sounds, Soft, No tenderness, No hepatospenomegaly Neuro: Other (Altered mental status) Medications Current Medications Medications Dose Ordered Sig/David Route Start Time Stop Time Status Last Admin Dose Admin Atorvastatin Calcium 10 mg HS PO 08/15/24 22:00 08/21/24 21:49 10 MG Donepezil HCl 10 mg HS PO 08/15/24 22:00 08/21/24 21:48 10 MG Diagnostic Test (Pha) 1 strip ACHS 08/15/24 22:00 08/22/24 11:30 1 STRIP Insulin Human Regular ACHS SC 08/15/24 22:00 08/20/24 22:51 2 UNITS Dextrose 50 ml UD PRN IV 08/15/24 20:15 Sodium Chloride 10 ml Q8HR IV 08/15/24 22:00 08/22/24 14:00 10 ML Acetaminophen/ Hydrocodone Bitart 1 tab Q4HP PRN PO 08/15/24 20:15 Ondansetron HCl 4 mg Q4HP PRN IV 08/15/24 20:15 Docusate Sodium 100 mg BIDPRN PRN PO 08/15/24 20:15 Acetaminophen 650 mg Q6HP PRN PO 08/15/24 20:15 08/15/24 21:44 650 MG Nitroglycerin 0.4 mg Q5MINP PRN SL 08/15/24 23:00 Morphine Sulfate 2 mg Q30M PRN IV 08/15/24 23:00 Ceftriaxone Sodium 50 ml @ 100 mls/hr DAILY@09 IV 08/18/24 09:00 08/21/24 09:20 100 MLS/HR Valproate Sodium 500 mg/Sodium Chloride 105 ml @ 105 mls/hr TID IV 08/18/24 22:32 08/22/24 05:31 105 MLS/HR Lorazepam 1 mg Q5MINP PRN IV 08/18/24 22:30 Dextrose 1,000 ml @ 150 mls/hr Q6H40M IV 08/19/24 12:30 08/22/24 03:12 150 MLS/HR Hydralazine HCl 10 mg Q4HP PRN IV 08/20/24 10:15 08/20/24 11:08 10 MG Enoxaparin Sodium 80 mg Q12HR SC 08/20/24 22:00 08/21/24 22:16 80 MG Haloperidol Lactate 5 mg Q8HP PRN IM 08/21/24 11:00 08/22/24 08:33 5 MG Laboratory Results Laboratory Tests 08/16/24 04:54 Microbiology Microbiology Date/Time Source Procedure Growth Status 08/16/24 20:00 Nose MRSA Screen - Final Complete Assessment/Plan Assessment/Plan Adult failure to thrive Metabolic encephalopathy Plan Continuing current management. We will empirically put the patient on Rocephin 1 g IV q.day I review CT head showed no acute process. Chest x-ray showed no acute process also. Continuing on IV fluid normal saline at 75 mL/hr. We will keep NPO until the patient is more alert awake for swallow evaluation Consider nutrition support if the patient unable to eat for couple day. Plan discussed with: Patient, Other (nurse) Date of Service: August 22, 2024 Billing Provider: ZARA NICHOLS MD Common Visit Codes: [id number] INP/OBS CARE(HIGH) ZARA NICHOLS MD August 22, 2024 17:15
--- NOTE | 2024-08-22 20:21 | DVHPN2 ---
Progress Note - Dictate Date Seen: August 22, 2024 Medical Necessity Reason Pt with a Central, PICC or Fol: No Subjective Mr. Osorio is a 64 years old gentleman with a history of hypertension, diabetes, dyslipidemia, dementia, schizophrenia, tremors, seizure, mental retardation, the patient was was brought to the [facility] on 08/15/2024 with a chief company of altered mental status. I have seen and examined the patient, I discussed with his nurse and sitter. He is awake, keeps mumbling in the bed, moving the arms and legs According to his nurse and sitter, he has been very difficulty, agitated all day long today, the Haldol 5 mg intramuscular only helped for 1-2 hours Plasma alcohol, 08/15/2024: Normal CBC, 08/16/2024: Unremarkable CMP, 08/16/2024: Unremarkable TG/HDL/LDL/HDL, 06/13/24: 102/113/66/29 Vitamin B12, 07/31/2024: 537 Folic acid, 11/29/23: 3498 TSH, 07/31/2024: 6.55 FT4, 07/31/24: 1.79 CT head, 04/26/2024, comparison, 03/24/2024: 1. No acute intracranial process. 2. Stable moderate communicating hydrocephalus.3. 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 CT head, 08/17/2024, comparison: 03/24/2024: Essentially unchanged appearance of the head CT compared to pr vital signs Vital Sign Date Time Temp Pulse Resp B/P (MAP) Pulse Ox O2 Delivery O2 Flow Rate FiO2 08/22/24 16:34 98.3 72 18 125/73 (90) 96 98.3 08/22/24 08:00 Nasal Cannula* 2 28 Total Intake and Output 08/21/24 08/21/24 08/22/24 15:00 23:00 07:00 Intake Total 105 ml 225 ml 1225 ml Output Total 5 ml Balance 105 ml 225 ml 1220 ml medications Current Medications Medications Dose Ordered Sig/David Route Start Time Stop Time Status Last Admin Dose Admin Atorvastatin Calcium 10 mg HS PO 08/15/24 22:00 08/21/24 21:49 10 MG Donepezil HCl 10 mg HS PO 08/15/24 22:00 08/21/24 21:48 10 MG Diagnostic Test (Pha) 1 strip ACHS 08/15/24 22:00 08/22/24 17:00 1 STRIP Insulin Human Regular ACHS SC 08/15/24 22:00 08/20/24 22:51 2 UNITS Dextrose 50 ml UD PRN IV 08/15/24 20:15 Sodium Chloride 10 ml Q8HR IV 08/15/24 22:00 08/22/24 14:00 10 ML Acetaminophen/ Hydrocodone Bitart 1 tab Q4HP PRN PO 08/15/24 20:15 Ondansetron HCl 4 mg Q4HP PRN IV 08/15/24 20:15 Docusate Sodium 100 mg BIDPRN PRN PO 08/15/24 20:15 Acetaminophen 650 mg Q6HP PRN PO 08/15/24 20:15 08/15/24 21:44 650 MG Nitroglycerin 0.4 mg Q5MINP PRN SL 08/15/24 23:00 Morphine Sulfate 2 mg Q30M PRN IV 08/15/24 23:00 Ceftriaxone Sodium 50 ml @ 100 mls/hr DAILY@09 IV 08/18/24 09:00 08/21/24 09:20 100 MLS/HR Valproate Sodium 500 mg/Sodium Chloride 105 ml @ 105 mls/hr TID IV 08/18/24 22:32 08/22/24 05:31 105 MLS/HR Lorazepam 1 mg Q5MINP PRN IV 08/18/24 22:30 Dextrose 1,000 ml @ 150 mls/hr Q6H40M IV 08/19/24 12:30 08/22/24 16:00 150 MLS/HR Hydralazine HCl 10 mg Q4HP PRN IV 08/20/24 10:15 08/20/24 11:08 10 MG Enoxaparin Sodium 80 mg Q12HR SC 08/20/24 22:00 08/21/24 22:16 80 MG Haloperidol Lactate 5 mg Q8HP PRN IM 08/21/24 11:00 08/22/24 08:33 5 MG objective General: the patient is well developed and nourished. No acute distress. MENTAL STATUS: Subjective SPEECH, LANGUAGE, HIGHER CORTICAL FUNCTION: no aphasia or dysathria. CRANIAL NERVES: Pupils are round and reactive. EOMs full and conjugate. Facial sensation intact in all three divisions bilaterally. Mandibular strength intact. Facial muscles symmetrical and strength intact. SENSATION: Sensation to touch and pinprick is ok MOTOR: Normal tone in the upper and lower extremity. Normal muscle bulk. No fasciculations. No abnormal movements or posturing. He moves the arms and legs REFLEXES: Deep tendon reflexes are symmetrical. No pathological reflexes. CEREBELLAR/COORDINATION: Deferred GAIT/STATION: deferred laboratory and microbiology Laboratory Tests 08/16/24 04:54 Test 08/16/24 04:54 Range/Units Serum Glucose 88 74-106 mg/dL Problem List Altered mental status Metabolic encephalopathy ? Status epileptics/subclinical seizure Reports seizure disorder Stroke, evident in CT head Hydrocephalus Rule out infection Mental retardation On Eliquis 5 mg b.i.d. Assessment/Plan Monitoring Supportive treatment Telemetry Follow-up labs IV antibiotics Depakote 500 mg IV t.i.d. Ativan for seizure breakthrough Remeron 30 mg p.o. q.h.s., okay to increase to 45 mg Q HS Haldol 5 mg IM Q 8 hours p.r.n. for agitation Eliquis 5 mg b.i.d. Lipitor 10 mg daily Aricept 10 mg daily Given his current mental/neurologic condition, addressing NPH will not change his prognosis or improve his symptoms This medical document was created using an electronic medical record system with [employer] dictation system. Although this document has been carefully reviewed, there may still be some phonetic and typographical errors. These areas are purely typographical due to imperfections of the software programs, and do not reflect any compromise in the patient's medical care. Prognosis poor Dietary Evaluation Review Comments: 1) If patient remains NPO for > 7 days, consider EN/TPN to meet at least 75% estimated energy needs 2) Refer to speech therapy for swallow study 3) Advance to 60g CCHO cardiac diet when medically feasible, pending ADULT EDUCATION TEACHER approval. Encourage optimal PO intake. If <50%, initiate Glucerna bid 4) Collect HbA1c 5) Follow-up with psychiatry, neurology, and cardiology 6) Continue to monitor I&O, labs, and skin integrity Expected Outcomes/Goals: 1) patient to receive nutritional support within 7 days 2) labs to improve 3) diet to advance 4) follow-up in 2-3 days Plan discussed with: DE Baltazar MD August 22, 2024 20:21
[2024-08-22] MEDS: MIRTAZAPINE 30 MG TAB PO SCH (21:39)
[2024-08-23 05:00] VITALS: BP 140/81; PULSE 70; RESP 19; TEMP 98; O2SAT 93
[2024-08-23 08:00] VITALS: PULSE 72; RESP 18; O2SAT 96
[2024-08-23 13:15] VITALS: BP 103/50; PULSE 52; RESP 18; TEMP 98.3; O2SAT 92
[2024-08-23 13:46] LABS: Basophils # (auto) 0 10 ^3/uL (0-0.2); Basophils % (auto) 0.6 % (0.0-2.0); Eosinophils # (auto) 0.2 10 ^3/uL (0-0.8); Hematocrit 41.8 % (41.0-53.0); Hemoglobin 14.1 g/dL (13.5-17.5); Lymphocytes # (auto) 2.4 10 ^3/uL (0.4-5.4); Lymphocytes % (auto) 40.1 % (10.0-50.0); Mean Corpuscular Hemoglobin 30.4 pg (28.0-32.0); Mean Corpuscular Hgb Conc. 33.6 g/dL (32.0-36.0); Mean Corpuscular Volume 90.4 fL (80.0-100.0); Monocytes # (auto) 0.9 10 ^3/uL (0-1.3); Monocytes % (auto) 15.1 % (0.0-12.0); Neutrophils # (auto) 2.5 10 ^3/uL (1.6-8.6); Neutrophils % (auto) 41.2 % (37.0-80.0); Nucleated Red Blood Cells % 0.3 %; Platelet Count (auto) 188 10^3/uL (140-450); Red Blood Cells 4.62 10^6/uL (4.5-5.90); Red Cell Distribution Width 15.2 % (11.8-14.3); White Blood Cell 6.1 10^3/uL (4.4-10.8)
[2024-08-23 14:09] LABS: Alanine Aminotransferase 38 U/L (7-40); Albumin 3.3 g/dL (3.2-4.8); Alkaline Phosphatase 53 U/L (46-116); Anion Gap 9 (5-15); Aspartate Aminotransferase 50 U/L (13-40); BUN/Creatinine Ratio 7.1 (10.0-20.0); Blood Urea Nitrogen 7 mg/dL (9-23); Calcium 9.5 mg/dL (8.7-10.4); Carbon Dioxide 26 mmol/L (20-31); Chloride 113 mmol/L (98-107); Glucose 69 mg/dL (74-106); Potassium 3.9 mmol/L (3.5-5.1); Sodium 148 mmol/L (136-145)
[2024-08-23 14:10] LABS: Bilirubin, Total 0.5 mg/dL (0.2-1.0)
--- NOTE | 2024-08-23 16:01 | DVHPN2 ---
Subjective still confused and not eating had some hypoglicemia Reviewed: Care Plan, H&P, Labs, Medications, Previous Orders Changes from previous H/P or p: No Changes Eyes: No Pain, No Vision change, No Conjunctivae inflammation, No Eyelid inflammation, No Other, No Redness ENT: No Ear pain, No Ear discharge, No Nose pain, No Nose discharge, No Nose congestion, No Mouth pain, No Mouth swelling, No Throat pain, No Throat swelling, No Other Cardiovascular: No Chest Pain, No Palpitations, No Orthopnea, No Paroxysmal Noc. Dyspnea, No Edema, No Lt Headedness, No Other Respiratory: No Cough, No Dry, No Shortness of breath, No SOB with excertion, No Wheezing, No Hemoptysis, No Pleuritic Pain, No Sputum, No Other Gastrointestinal: No Nausea, No Vomiting, No Abdominal Pain, No Diarrhea, No Constipation, No Melena, No Hematochezia, No Other Genitourinary: No Dysuria, No Frequency, No Incontinence, No Hematuria, No Retention, No Other Musculoskeletal: No other, No neck pain, No shoulder pain, No arm pain, No back pain, No hand pain, No leg pain, No foot pain Skin: No Rash, No Lesions, No Jaundice, No Bruising, No Other Objective Vitals Vital Signs Date Time Temp Pulse Resp B/P (MAP) Pulse Ox O2 Delivery O2 Flow Rate FiO2 08/23/24 13:15 98.3 52 18 103/50 (67) 92 98.3 08/22/24 20:00 Nasal Cannula* 2 28 Intake/Output Intake and Output 08/23/24 07:00 Intake Total 960 ml Balance 960 ml Intake Oral 300 ml IV Total 660 ml # Voids 7 General Appearance: Other (confused and non verbal) HEENT: Atraumatic, PERRLA, EOMI, Mucous membr. moist/pink Neck: Supple Lungs: Clear to auscultation, Normal air movement Cardiovascular: Regular rate, Normal S1, Normal S2, No murmurs, Gallops, Rubs Abdomen: Normal bowel sounds, Soft, No tenderness, No hepatospenomegaly Neuro: Other (Altered mental status) Medications Current Medications Medications Dose Ordered Sig/David Route Start Time Stop Time Status Last Admin Dose Admin Atorvastatin Calcium 10 mg HS PO 08/15/24 22:00 08/22/24 21:29 10 MG Donepezil HCl 10 mg HS PO 08/15/24 22:00 08/22/24 21:29 10 MG Diagnostic Test (Pha) 1 strip ACHS 08/15/24 22:00 08/23/24 11:30 1 STRIP Insulin Human Regular ACHS SC 08/15/24 22:00 08/20/24 22:51 2 UNITS Dextrose 50 ml UD PRN IV 08/15/24 20:15 Sodium Chloride 10 ml Q8HR IV 08/15/24 22:00 08/23/24 06:06 10 ML Acetaminophen/ Hydrocodone Bitart 1 tab Q4HP PRN PO 08/15/24 20:15 Ondansetron HCl 4 mg Q4HP PRN IV 08/15/24 20:15 Docusate Sodium 100 mg BIDPRN PRN PO 08/15/24 20:15 Acetaminophen 650 mg Q6HP PRN PO 08/15/24 20:15 08/15/24 21:44 650 MG Nitroglycerin 0.4 mg Q5MINP PRN SL 08/15/24 23:00 Morphine Sulfate 2 mg Q30M PRN IV 08/15/24 23:00 Ceftriaxone Sodium 50 ml @ 100 mls/hr DAILY@09 IV 08/18/24 09:00 08/23/24 10:22 100 MLS/HR Valproate Sodium 500 mg/Sodium Chloride 105 ml @ 105 mls/hr TID IV 08/18/24 22:32 08/23/24 06:03 105 MLS/HR Lorazepam 1 mg Q5MINP PRN IV 08/18/24 22:30 Dextrose 1,000 ml @ 150 mls/hr Q6H40M IV 08/19/24 12:30 08/23/24 10:23 150 MLS/HR Hydralazine HCl 10 mg Q4HP PRN IV 08/20/24 10:15 08/20/24 11:08 10 MG Enoxaparin Sodium 80 mg Q12HR SC 08/20/24 22:00 08/23/24 10:23 80 MG Haloperidol Lactate 5 mg Q8HP PRN IM 08/21/24 11:00 08/23/24 10:24 5 MG Mirtazapine 30 mg HS PO 08/22/24 22:00 08/22/24 21:39 30 MG Laboratory Results Laboratory Tests 08/23/24 13:23 Chemistry Test 08/23/24 13:23 Albumin 3.3 g/dL (3.2-4.8) Calcium Level 9.5 mg/dL (8.7-10.4) Total Protein 6.0 g/dL (5.7-8.2) LFT Test 08/23/24 13:23 Alanine Aminotransferase (ALT) 38 U/L (7-40) Alkaline Phosphatase 53 U/L (46-116) Aspartate Amino Transferase (AST) 50 U/L (13-40) H Total Bilirubin 0.5 mg/dL (0.2-1.0) Microbiology Microbiology Date/Time Source Procedure Growth Status 08/16/24 20:00 Nose MRSA Screen - Final Complete Assessment/Plan Assessment/Plan Adult failure to thrive Metabolic encephalopathy Plan Continuing current management. We will empirically put the patient on Rocephin 1 g IV q.day I review CT head showed no acute process. Chest x-ray showed no acute process also. Continuing on IV fluid normal saline at 75 mL/hr. We will keep NPO until the patient is more alert awake for swallow evaluation Consider nutrition support if the patient unable to eat for couple day. Plan discussed with: Other (nurse) My Orders Orders - ZARA NICHOLS MD Procedure Category Date Status Time Electrocardigram EKG 08/23/24 Logged 13:14 Electrocardigram EKG 08/23/24 Logged 13:14 Date of Service: August 23, 2024 Billing Provider: ZARA NICHOLS MD Common Visit Codes: [id number] INP/OBS CARE(HIGH) ZARA NICHOLS MD August 23, 2024 16:01
[2024-08-23 17:18] VITALS: BP 136/83; PULSE 72; RESP 18; TEMP 99.2; O2SAT 97
[2024-08-23 20:00] VITALS: RESP 18
[2024-08-23 21:00] VITALS: BP 120/72; PULSE 63; RESP 18; O2SAT 94
[2024-08-24 08:57] VITALS: BP 172/98; RESP 20
[2024-08-24 13:00] VITALS: BP 152/110; RESP 20
--- NOTE | 2024-08-24 13:58 | DVHPN2 ---
Subjective still confused and not eating had some hypoglicemia Reviewed: Care Plan, H&P, Labs, Medications, Previous Orders Changes from previous H/P or p: No Changes Eyes: No Pain, No Vision change, No Conjunctivae inflammation, No Eyelid inflammation, No Other, No Redness ENT: No Ear pain, No Ear discharge, No Nose pain, No Nose discharge, No Nose congestion, No Mouth pain, No Mouth swelling, No Throat pain, No Throat swelling, No Other Cardiovascular: No Chest Pain, No Palpitations, No Orthopnea, No Paroxysmal Noc. Dyspnea, No Edema, No Lt Headedness, No Other Respiratory: No Cough, No Dry, No Shortness of breath, No SOB with excertion, No Wheezing, No Hemoptysis, No Pleuritic Pain, No Sputum, No Other Gastrointestinal: No Nausea, No Vomiting, No Abdominal Pain, No Diarrhea, No Constipation, No Melena, No Hematochezia, No Other Genitourinary: No Dysuria, No Frequency, No Incontinence, No Hematuria, No Retention, No Other Musculoskeletal: No other, No neck pain, No shoulder pain, No arm pain, No back pain, No hand pain, No leg pain, No foot pain Skin: No Rash, No Lesions, No Jaundice, No Bruising, No Other Objective Vitals Vital Signs Date Time Temp Pulse Resp B/P (MAP) Pulse Ox O2 Delivery O2 Flow Rate FiO2 08/24/24 13:00 20 152/110 (124) 08/24/24 08:00 Room Air* 0 21 08/23/24 21:00 63 94 08/23/24 17:18 99.2 99.2 Intake/Output Intake and Output 08/24/24 07:00 Intake Total 1965 ml Balance 1965 ml Intake Oral 100 ml IV Total 1865 ml # Voids 7 General Appearance: Other (confused and non verbal) HEENT: Atraumatic, PERRLA, EOMI, Mucous membr. moist/pink Neck: Supple Lungs: Clear to auscultation, Normal air movement Cardiovascular: Regular rate, Normal S1, Normal S2, No murmurs, Gallops, Rubs Abdomen: Normal bowel sounds, Soft, No tenderness, No hepatospenomegaly Neuro: Other (Altered mental status) Medications Current Medications Medications Dose Ordered Sig/David Route Start Time Stop Time Status Last Admin Dose Admin Atorvastatin Calcium 10 mg HS PO 08/15/24 22:00 08/23/24 21:56 10 MG Donepezil HCl 10 mg HS PO 08/15/24 22:00 08/23/24 21:56 10 MG Diagnostic Test (Pha) 1 strip ACHS 08/15/24 22:00 08/24/24 11:07 1 STRIP Insulin Human Regular ACHS SC 08/15/24 22:00 08/20/24 22:51 2 UNITS Dextrose 50 ml UD PRN IV 08/15/24 20:15 Sodium Chloride 10 ml Q8HR IV 08/15/24 22:00 08/24/24 06:59 10 ML Acetaminophen/ Hydrocodone Bitart 1 tab Q4HP PRN PO 08/15/24 20:15 Ondansetron HCl 4 mg Q4HP PRN IV 08/15/24 20:15 Docusate Sodium 100 mg BIDPRN PRN PO 08/15/24 20:15 Acetaminophen 650 mg Q6HP PRN PO 08/15/24 20:15 08/15/24 21:44 650 MG Nitroglycerin 0.4 mg Q5MINP PRN SL 08/15/24 23:00 Morphine Sulfate 2 mg Q30M PRN IV 08/15/24 23:00 Ceftriaxone Sodium 50 ml @ 100 mls/hr DAILY@09 IV 08/18/24 09:00 08/23/24 10:22 100 MLS/HR Valproate Sodium 500 mg/Sodium Chloride 105 ml @ 105 mls/hr TID IV 08/18/24 22:32 08/24/24 06:52 105 MLS/HR Lorazepam 1 mg Q5MINP PRN IV 08/18/24 22:30 Dextrose 1,000 ml @ 150 mls/hr Q6H40M IV 08/19/24 12:30 08/23/24 16:30 150 MLS/HR Hydralazine HCl 10 mg Q4HP PRN IV 08/20/24 10:15 08/20/24 11:08 10 MG Enoxaparin Sodium 80 mg Q12HR SC 08/20/24 22:00 08/24/24 11:06 80 MG Haloperidol Lactate 5 mg Q8HP PRN IM 08/21/24 11:00 08/24/24 07:50 5 MG Mirtazapine 30 mg HS PO 08/22/24 22:00 08/23/24 21:56 30 MG Laboratory Results Laboratory Tests 08/23/24 13:23 Microbiology Microbiology Date/Time Source Procedure Growth Status 08/16/24 20:00 Nose MRSA Screen - Final Complete Assessment/Plan Assessment/Plan Adult failure to thrive Metabolic encephalopathy Subclinical seizures Plan Continuing current management. We will empirically put the patient on Rocephin 1 g IV q.day I review CT head showed no acute process. Chest x-ray showed no acute process also. Continuing on IV fluid normal saline at 75 mL/hr. Neurology on consult and being treated for subclinical seizures We will keep NPO until the patient is more alert awake for swallow evaluation Consider nutrition support if the patient unable to eat for couple day. Plan discussed with: Other (nurse) Date of Service: August 24, 2024 Billing Provider: ZARA NICHOLS MD Common Visit Codes: [id number] INP/OBS CARE(HIGH) ZARA NICHOLS MD August 24, 2024 13:58
[2024-08-24] MEDS: diphenhdrAMINE HCL 50 MG/1 ML VL IM PRN (15:42)
[2024-08-24 17:00] VITALS: BP_SYST 127; BP_SYST 162; BP_DIAS 71; BP_DIAS 93; PULSE 62; RESP 18; RESP 20; TEMP 97.8; O2SAT 97
[2024-08-24 21:00] VITALS: BP 136/96; PULSE 88; RESP 20; TEMP 97.2; O2SAT 93
[2024-08-25 01:00] VITALS: BP 149/79; PULSE 71; RESP 19; TEMP 96.3; O2SAT 96
[2024-08-25 05:00] VITALS: BP 176/73; PULSE 59; RESP 19; TEMP 96.6; O2SAT 97
[2024-08-25 09:00] VITALS: BP 120/61; PULSE 50; RESP 15; TEMP 98; O2SAT 96
--- NOTE | 2024-08-25 12:13 | DVHPN2 ---
Subjective Very confused and disoriented and yelling with agitation Trying to get out of bed Reviewed: Care Plan, H&P, Labs, Medications, Previous Orders Changes from previous H/P or p: Changes Eyes: No Pain, No Vision change, No Conjunctivae inflammation, No Eyelid inflammation, No Other, No Redness ENT: No Ear pain, No Ear discharge, No Nose pain, No Nose discharge, No Nose congestion, No Mouth pain, No Mouth swelling, No Throat pain, No Throat swelling, No Other Cardiovascular: No Chest Pain, No Palpitations, No Orthopnea, No Paroxysmal Noc. Dyspnea, No Edema, No Lt Headedness, No Other Respiratory: No Cough, No Dry, No Shortness of breath, No SOB with excertion, No Wheezing, No Hemoptysis, No Pleuritic Pain, No Sputum, No Other Gastrointestinal: No Nausea, No Vomiting, No Abdominal Pain, No Diarrhea, No Constipation, No Melena, No Hematochezia, No Other Genitourinary: No Dysuria, No Frequency, No Incontinence, No Hematuria, No Retention, No Other Musculoskeletal: No other, No neck pain, No shoulder pain, No arm pain, No back pain, No hand pain, No leg pain, No foot pain Skin: No Rash, No Lesions, No Jaundice, No Bruising, No Other Objective Vitals Vital Signs Date Time Temp Pulse Resp B/P (MAP) Pulse Ox O2 Delivery O2 Flow Rate FiO2 08/25/24 08:00 Room Air* 0 21 08/25/24 05:00 96.6 59 19 176/73 (107) 97 96.6 Intake/Output Intake and Output 08/25/24 07:00 Intake Total 220 ml Output Total 100 ml Balance 120 ml Intake Oral 10 ml IV Total 210 ml Output Urine Total 100 ml Stool Total 0 ml # Voids 3 # Bowel Movements 1 General Appearance: Other (confused and non verbal) HEENT: Atraumatic, PERRLA, EOMI, Mucous membr. moist/pink Neck: Supple Lungs: Clear to auscultation, Normal air movement Cardiovascular: Regular rate, Normal S1, Normal S2, No murmurs, Gallops, Rubs Abdomen: Normal bowel sounds, Soft, No tenderness, No hepatospenomegaly Neuro: Other (Altered mental status) Medications Current Medications Medications Dose Ordered Sig/David Route Start Time Stop Time Status Last Admin Dose Admin Atorvastatin Calcium 10 mg HS PO 5/9/25 22:00 08/24/24 23:19 10 MG Donepezil HCl 10 mg HS PO 08/15/24 22:00 08/24/24 23:20 10 MG Diagnostic Test (Pha) 1 strip ACHS 08/15/24 22:00 08/25/24 05:57 1 STRIP Insulin Human Regular ACHS SC 08/15/24 22:00 08/20/24 22:51 2 UNITS Dextrose 50 ml UD PRN IV 08/15/24 20:15 Sodium Chloride 10 ml Q8HR IV 08/15/24 22:00 08/25/24 05:51 10 ML Ondansetron HCl 4 mg Q4HP PRN IV 08/15/24 20:15 Docusate Sodium 100 mg BIDPRN PRN PO 08/15/24 20:15 Acetaminophen 650 mg Q6HP PRN PO 08/15/24 20:15 08/15/24 21:44 650 MG Nitroglycerin 0.4 mg Q5MINP PRN SL 08/15/24 23:00 Ceftriaxone Sodium 50 ml @ 100 mls/hr DAILY@09 IV 08/18/24 09:00 08/25/24 11:24 100 MLS/HR Valproate Sodium 500 mg/Sodium Chloride 105 ml @ 105 mls/hr TID IV 08/18/24 22:32 08/25/24 05:51 105 MLS/HR Lorazepam 1 mg Q5MINP PRN IV 08/18/24 22:30 Dextrose 1,000 ml @ 150 mls/hr Q6H40M IV 08/19/24 12:30 08/25/24 11:25 150 MLS/HR Hydralazine HCl 10 mg Q4HP PRN IV 08/20/24 10:15 08/20/24 11:08 10 MG Enoxaparin Sodium 80 mg Q12HR SC 08/20/24 22:00 08/25/24 11:24 80 MG Haloperidol Lactate 5 mg Q8HP PRN IM 08/21/24 11:00 08/24/24 16:40 5 MG Mirtazapine 30 mg HS PO 08/22/24 22:00 08/24/24 23:20 30 MG Diphenhydramine HCl 25 mg Q8HP PRN IM 08/24/24 15:15 08/24/24 15:42 25 MG Laboratory Results Laboratory Tests 08/23/24 13:23 Microbiology Microbiology Date/Time Source Procedure Growth Status 08/16/24 20:00 Nose MRSA Screen - Final Complete Assessment/Plan Assessment/Plan Metabolic encephalopathy Underlying dementia Failure to thrive Seizures Paroxysmal atrial fibrillation Mixed hyperlipidemia Type 2 diabetic Hypertension History of schizophrenia Plan Rocephin IV empirically for possible underlying UTI IV fluids Valproic acid Eliquis Haloperidol p.r.n. Donepezil Discontinue Lovenox Mirtazapine at bedtime Add Seroquel 25 mg twice a day Plan discussed with: Patient My Orders Orders - MAHIN SCHMITT MD Procedure Category Date Status Time Apixaban (Eliquis) PHA 08/25/24 Logged 22:00 Quetiapine Fumarate PHA 08/25/24 Verified Tablet (Seroquel Tab 22:00 Quetiapine Fumarate PHA 08/25/24 Verified Tablet (Seroquel Tab 12:15 Date of Service: August 25, 2024 Billing Provider: MAHIN SCHMITT MD Common Visit Codes: [id number] INP/OBS CARE(HIGH) MAHIN SCHMITT MD August 25, 2024 12:13
[2024-08-25] MEDS: D5W 5% 1,000 ML IV SCH (12:15)
[2024-08-25] MEDS: QUEtiapine FUMARATE 25 MG TAB PO ONE (14:23)
[2024-08-25 17:00] VITALS: BP 121/81; PULSE 67; RESP 17; TEMP 97.6; O2SAT 97
[2024-08-25 20:00] VITALS: PULSE 83
[2024-08-25 21:00] VITALS: BP 108/61; PULSE 65; RESP 17; TEMP 98.2; O2SAT 92
[2024-08-25] MEDS: APIXABAN 5 MG TAB PO SCH (21:31)
[2024-08-25] MEDS: QUEtiapine FUMARATE 25 MG TAB PO SCH (21:31)
[2024-08-26 05:00] VITALS: BP 122/61; PULSE 55; RESP 17; TEMP 97.6; O2SAT 96
[2024-08-26 06:54] LABS: Basophils # (auto) 0 10 ^3/uL (0-0.2); Basophils % (auto) 0.7 % (0.0-2.0); Eosinophils # (auto) 0.2 10 ^3/uL (0-0.8); Eosinophils % (auto) 3.3 % (0.0-7.0); Hematocrit 43.5 % (41.0-53.0); Hemoglobin 14.4 g/dL (13.5-17.5); Lymphocytes # (auto) 2.2 10 ^3/uL (0.4-5.4); Lymphocytes % (auto) 45.8 % (10.0-50.0); Monocytes # (auto) 0.7 10 ^3/uL (0-1.3); Monocytes % (auto) 15.2 % (0.0-12.0); Neutrophils # (auto) 1.6 10 ^3/uL (1.6-8.6); Nucleated Red Blood Cells % 0.1 %; Platelet Count (auto) 154 10^3/uL (140-450); Red Blood Cells 4.78 10^6/uL (4.5-5.90); Red Cell Distribution Width 15.3 % (11.8-14.3); White Blood Cell 4.7 10^3/uL (4.4-10.8)
[2024-08-26 07:13] LABS: Alanine Aminotransferase 34 U/L (7-40); Alkaline Phosphatase 48 U/L (46-116); Anion Gap 9 (5-15); BUN/Creatinine Ratio 7.5 (10.0-20.0); Bilirubin, Total 0.4 mg/dL (0.2-1.0); Carbon Dioxide 28 mmol/L (20-31); Potassium 4.3 mmol/L (3.5-5.1); Total Protein 5.9 g/dL (5.7-8.2)
[2024-08-26 07:14] LABS: Albumin 3.1 g/dL (3.2-4.8); Aspartate Aminotransferase 46 U/L (13-40); Blood Urea Nitrogen 8 mg/dL (9-23); Calcium 8.6 mg/dL (8.7-10.4); Chloride 109 mmol/L (98-107); Glucose 112 mg/dL (74-106); Sodium 146 mmol/L (136-145)
--- NOTE | 2024-08-26 09:01 | ECG ---
[facility] Test Date: 2024-08-21 Test Time: 16:39:47 Pat Name: OMID REIS Department: Room: 0250T A Gender: M Form Setter/Driver: DANGELO : 1960 Requested By: ZARA NICHOLS Order Number: [id number] Reading MD: Measurements Intervals [place] Rate: 45 P: 30 NV: 126 QRS: 15 QRSD: 95 T: -3 QT: 514 QTc: 445 Interpretive Statements Sinus bradycardia Borderline T abnormalities, diffuse leads Please click the below link to view image of tracing.
--- NOTE | 2024-08-26 09:01 | ECG ---
[facility] Test Date: 2024-08-21 Test Time: 16:40:55 Pat Name: OMID REIS Department: Room: 0250T A Gender: M Um Specialist: DANGELO : 1960 Requested By: ZARA NICHOLS Order Number: [id number] Reading MD: Measurements Intervals [place] Rate: 45 P: 35 AK: 132 QRS: 15 QRSD: 99 T: 0 QT: 511 QTc: 443 Interpretive Statements Sinus bradycardia Borderline T abnormalities, diffuse leads Please click the below link to view image of tracing.
--- NOTE | 2024-08-26 12:15 | DVHPN2 ---
Subjective Still confused and agitated Reviewed: Care Plan, H&P, Labs, Medications, Previous Orders Changes from previous H/P or p: Changes Eyes: No Pain, No Vision change, No Conjunctivae inflammation, No Eyelid inflammation, No Other, No Redness ENT: No Ear pain, No Ear discharge, No Nose pain, No Nose discharge, No Nose congestion, No Mouth pain, No Mouth swelling, No Throat pain, No Throat swelling, No Other Cardiovascular: No Chest Pain, No Palpitations, No Orthopnea, No Paroxysmal Noc. Dyspnea, No Edema, No Lt Headedness, No Other Respiratory: No Cough, No Dry, No Shortness of breath, No SOB with excertion, No Wheezing, No Hemoptysis, No Pleuritic Pain, No Sputum, No Other Gastrointestinal: No Nausea, No Vomiting, No Abdominal Pain, No Diarrhea, No Constipation, No Melena, No Hematochezia, No Other Genitourinary: No Dysuria, No Frequency, No Incontinence, No Hematuria, No Retention, No Other Musculoskeletal: No other, No neck pain, No shoulder pain, No arm pain, No back pain, No hand pain, No leg pain, No foot pain Skin: No Rash, No Lesions, No Jaundice, No Bruising, No Other Objective Vitals Vital Signs Date Time Temp Pulse Resp B/P (MAP) Pulse Ox O2 Delivery O2 Flow Rate FiO2 08/26/24 08:00 Room Air* 0 21 08/26/24 05:00 97.6 55 17 122/61 (81) 96 97.6 Intake/Output Intake and Output 08/26/24 07:00 Intake Total 735 ml Balance 735 ml Intake Oral 475 ml IV Total 260 ml # Voids 5 General Appearance: Other (confused and non verbal) HEENT: Atraumatic, PERRLA, EOMI, Mucous membr. moist/pink Neck: Supple Lungs: Clear to auscultation, Normal air movement Cardiovascular: Regular rate, Normal S1, Normal S2, No murmurs, Gallops, Rubs Abdomen: Normal bowel sounds, Soft, No tenderness, No hepatospenomegaly Neuro: Other (Altered mental status) Medications Current Medications Medications Dose Ordered Sig/David Route Start Time Stop Time Status Last Admin Dose Admin Atorvastatin Calcium 10 mg HS PO 08/15/24 22:00 08/25/24 21:31 10 MG Donepezil HCl 10 mg HS PO 08/15/24 22:00 08/25/24 21:31 10 MG Diagnostic Test (Pha) 1 strip ACHS 08/15/24 22:00 08/26/24 05:37 1 STRIP Insulin Human Regular ACHS SC 08/15/24 22:00 08/20/24 22:51 2 UNITS Dextrose 50 ml UD PRN IV 08/15/24 20:15 Sodium Chloride 10 ml Q8HR IV 08/15/24 22:00 08/26/24 05:24 10 ML Ondansetron HCl 4 mg Q4HP PRN IV 08/15/24 20:15 Docusate Sodium 100 mg BIDPRN PRN PO 08/15/24 20:15 Acetaminophen 650 mg Q6HP PRN PO 08/15/24 20:15 08/15/24 21:44 650 MG Nitroglycerin 0.4 mg Q5MINP PRN SL 08/15/24 23:00 Ceftriaxone Sodium 50 ml @ 100 mls/hr DAILY@09 IV 08/18/24 09:00 08/25/24 11:24 100 MLS/HR Valproate Sodium 500 mg/Sodium Chloride 105 ml @ 105 mls/hr TID IV 08/18/24 22:32 08/26/24 05:23 105 MLS/HR Lorazepam 1 mg Q5MINP PRN IV 08/18/24 22:30 Hydralazine HCl 10 mg Q4HP PRN IV 08/20/24 10:15 08/20/24 11:08 10 MG Haloperidol Lactate 5 mg Q8HP PRN IM 08/21/24 11:00 08/25/24 12:15 5 MG Mirtazapine 30 mg HS PO 08/22/24 22:00 08/25/24 21:31 30 MG Diphenhydramine HCl 25 mg Q8HP PRN IM 08/24/24 15:15 08/26/24 08:52 25 MG Apixaban 5 mg BID PO 08/25/24 22:00 08/26/24 10:36 5 MG Quetiapine Fumarate 25 mg BID PO 08/25/24 22:00 08/26/24 10:35 25 MG Dextrose 1,000 ml @ 60 mls/hr [id number] IV 08/25/24 12:15 08/26/24 05:40 60 MLS/HR Laboratory Results Laboratory Tests 08/26/24 05:50 Chemistry Test 08/26/24 05:50 Albumin 3.1 g/dL (3.2-4.8) L Calcium Level 8.6 mg/dL (8.7-10.4) L Magnesium Level 2.0 mg/dL (1.6-2.6) Total Protein 5.9 g/dL (5.7-8.2) LFT Test 08/26/24 05:50 Alanine Aminotransferase (ALT) 34 U/L (7-40) Alkaline Phosphatase 48 U/L (46-116) Aspartate Amino Transferase (AST) 46 U/L (13-40) H Total Bilirubin 0.4 mg/dL (0.2-1.0) Microbiology Microbiology Date/Time Source Procedure Growth Status 08/16/24 20:00 Nose MRSA Screen - Final Complete Assessment/Plan Assessment/Plan Metabolic encephalopathy Underlying dementia Failure to thrive Seizures Paroxysmal atrial fibrillation Mixed hyperlipidemia Type 2 diabetic Hypertension History of schizophrenia Plan Rocephin IV empirically for possible underlying UTI IV fluids Valproic acid Eliquis Haloperidol p.r.n. Donepezil Discontinue Lovenox Mirtazapine at bedtime Add Seroquel 25 mg twice a day 08/26/2024: Continue current management Continue Seroquel 25 mg twice a day and Haldol as needed Sitter at the bedside for safety Discharge planning once the patient is calm and stable on p.o. medications Plan discussed with: Patient Date of Service: August 26, 2024 Billing Provider: MAHIN SCHMITT MD Common Visit Codes: [id number] INP/OBS CARE(HIGH) MAHIN SCHMITT MD August 26, 2024 12:14
[2024-08-26 13:00] VITALS: BP 110/60; PULSE 57; RESP 18; TEMP 98; O2SAT 94
[2024-08-26] MEDS: VALPROIC ACID 250 MG/5 ML ORAL SOLN PO ONE (15:36)
[2024-08-26 17:00] VITALS: BP 121/80; PULSE 68; RESP 19; TEMP 98; O2SAT 96
[2024-08-26 21:00] VITALS: BP 138/94; PULSE 83; RESP 19; TEMP 98.8; O2SAT 96
[2024-08-26] MEDS: VALPROIC ACID 250 MG/5 ML ORAL SOLN PO SCH (21:32)
[2024-08-27] VITALS (7 sets, daily range): BP systolic 106–147; BP diastolic 46–88; PULSE 42–85; RESP 18–20; TEMP 97.5–98; O2SAT 92–99
[2024-08-27 09:22] LABS: Potassium 4.6 mmol/L (3.5-5.1)
[2024-08-27 09:23] LABS: Anion Gap 6 (5-15); Calcium 8.8 mg/dL (8.7-10.4); Carbon Dioxide 28 mmol/L (20-31)
[2024-08-27 09:28] LABS: BUN/Creatinine Ratio 5.9 (10.0-20.0); Glucose 86 mg/dL (74-106)
[2024-08-27 09:32] LABS: Blood Urea Nitrogen 6 mg/dL (9-23); Chloride 112 mmol/L (98-107); Sodium 146 mmol/L (136-145)
--- NOTE | 2024-08-27 21:15 | DVHPN2 ---
Subjective Calmer today Reviewed: Care Plan, H&P, Labs, Medications, Previous Orders Changes from previous H/P or p: Changes Eyes: No Pain, No Vision change, No Conjunctivae inflammation, No Eyelid inflammation, No Other, No Redness ENT: No Ear pain, No Ear discharge, No Nose pain, No Nose discharge, No Nose congestion, No Mouth pain, No Mouth swelling, No Throat pain, No Throat swelling, No Other Cardiovascular: No Chest Pain, No Palpitations, No Orthopnea, No Paroxysmal Noc. Dyspnea, No Edema, No Lt Headedness, No Other Respiratory: No Cough, No Dry, No Shortness of breath, No SOB with excertion, No Wheezing, No Hemoptysis, No Pleuritic Pain, No Sputum, No Other Gastrointestinal: No Nausea, No Vomiting, No Abdominal Pain, No Diarrhea, No Constipation, No Melena, No Hematochezia, No Other Genitourinary: No Dysuria, No Frequency, No Incontinence, No Hematuria, No Retention, No Other Musculoskeletal: No other, No neck pain, No shoulder pain, No arm pain, No back pain, No hand pain, No leg pain, No foot pain Skin: No Rash, No Lesions, No Jaundice, No Bruising, No Other Objective Vitals Vital Signs Date Time Temp Pulse Resp B/P (MAP) Pulse Ox O2 Delivery O2 Flow Rate FiO2 08/27/24 19:49 Room Air* 0 21 08/27/24 17:27 97.7 81 18 135/85 (102) 92 97.7 Intake/Output Intake and Output 08/27/24 07:00 Intake Total 800 ml Balance 800 ml Intake Oral 800 ml # Voids 8 General Appearance: Other (confused and non verbal) HEENT: Atraumatic, PERRLA, EOMI, Mucous membr. moist/pink Neck: Supple Lungs: Clear to auscultation, Normal air movement Cardiovascular: Regular rate, Normal S1, Normal S2, No murmurs, Gallops, Rubs Abdomen: Normal bowel sounds, Soft, No tenderness, No hepatospenomegaly Neuro: Other (Altered mental status) Medications Current Medications Medications Dose Ordered Sig/David Route Start Time Stop Time Status Last Admin Dose Admin Atorvastatin Calcium 10 mg HS PO 08/15/24 22:00 08/27/24 21:07 10 MG Donepezil HCl 10 mg HS PO 08/15/24 22:00 08/27/24 21:08 10 MG Diagnostic Test (Pha) 1 strip ACHS 08/15/24 22:00 08/27/24 21:05 1 STRIP Insulin Human Regular ACHS SC 08/15/24 22:00 08/20/24 22:51 2 UNITS Dextrose 50 ml UD PRN IV 08/15/24 20:15 Sodium Chloride 10 ml Q8HR IV 08/15/24 22:00 08/27/24 16:31 10 ML Ondansetron HCl 4 mg Q4HP PRN IV 08/15/24 20:15 Docusate Sodium 100 mg BIDPRN PRN PO 08/15/24 20:15 Acetaminophen 650 mg Q6HP PRN PO 08/15/24 20:15 08/15/24 21:44 650 MG Nitroglycerin 0.4 mg Q5MINP PRN SL 08/15/24 23:00 Lorazepam 1 mg Q5MINP PRN IV 08/18/24 22:30 Hydralazine HCl 10 mg Q4HP PRN IV 08/20/24 10:15 08/20/24 11:08 10 MG Haloperidol Lactate 5 mg Q8HP PRN IM 08/21/24 11:00 08/26/24 13:26 5 MG Mirtazapine 30 mg HS PO 08/22/24 22:00 08/27/24 21:07 30 MG Diphenhydramine HCl 25 mg Q8HP PRN IM 08/24/24 15:15 08/26/24 08:52 25 MG Apixaban 5 mg BID PO 08/25/24 22:00 08/27/24 21:09 5 MG Quetiapine Fumarate 25 mg BID PO 08/25/24 22:00 08/27/24 21:09 25 MG Valproate Sodium 500 mg BID PO 08/26/24 22:00 08/27/24 21:07 500 MG Laboratory Results Laboratory Tests 08/26/24 05:50 08/27/24 09:03 Chemistry Test 08/27/24 09:03 Calcium Level 8.8 mg/dL (8.7-10.4) Microbiology Microbiology Date/Time Source Procedure Growth Status 08/16/24 20:00 Nose MRSA Screen - Final Complete Assessment/Plan Assessment/Plan Metabolic encephalopathy Underlying dementia Failure to thrive Seizures Paroxysmal atrial fibrillation Mixed hyperlipidemia Type 2 diabetic Hypertension History of schizophrenia Plan Rocephin IV empirically for possible underlying UTI IV fluids Valproic acid Eliquis Haloperidol p.r.n. Donepezil Discontinue Lovenox Mirtazapine at bedtime Add Seroquel 25 mg twice a day 08/26/2024: Continue current management Continue Seroquel 25 mg twice a day and Haldol as needed Sitter at the bedside for safety Discharge planning once the patient is calm and stable on p.o. medications 08/27/24: Continue Seroquel DC Haldol DC planning for tomorrow Plan discussed with: Patient Date of Service: August 27, 2024 Billing Provider: MAHIN SCHMITT MD Common Visit Codes: [id number] INP/OBS CARE(HIGH) MAHIN SCHMITT MD August 27, 2024 21:15
[2024-08-28 05:00] VITALS: BP 146/71; PULSE 56; RESP 19; TEMP 97.9; O2SAT 94
[2024-08-28 09:00] VITALS: BP 144/92; PULSE 68; RESP 18; TEMP 98.1; O2SAT 97
--- NOTE | 2024-08-28 09:41 | DVHDS2 ---
Discharge Summary Date of Admission August 15, 2024 at 22:46 Date of Discharge: August 28, 2024 Labs/Diagnostic Data: Laboratory Results Test 08/27/24 20:46 08/27/24 09:03 08/26/24 05:50 08/20/24 08:39 POC Glucose 81 mg/dl (70-106) Sodium Level 146 mmol/L (136-145) Potassium Level 4.6 mmol/L (3.5-5.1) Chloride Level 112 mmol/L (98-107) Carbon Dioxide Level 28 mmol/L (20-31) Anion Gap 6 (5-15) Blood Urea Nitrogen 6 mg/dL (9-23) Creatinine 1.02 mg/dL (0.700-1.30) Glomerular Filtration Rate Calc 82 mL/min (>90) BUN/Creatinine Ratio 5.9 (10.0-20.0) Serum Glucose 86 mg/dL (74-106) Calcium Level 8.8 mg/dL (8.7-10.4) White Blood Count 4.7 10^3/uL (4.4-10.8) Red Blood Count 4.78 10^6/uL (4.5-5.90) Hemoglobin 14.4 g/dL (13.5-17.5) Hematocrit 43.5 % (41.0-53.0) Mean Corpuscular Volume 91.0 fL (80.0-100.0) Mean Corpuscular Hemoglobin 30.0 pg (28.0-32.0) Mean Corpuscular Hemoglobin Concent 33.0 g/dL (32.0-36.0) Red Cell Distribution Width 15.3 % (11.8-14.3) Platelet Count 154 10^3/uL (140-450) Mean Platelet Volume 7.7 fL (6.9-10.8) Neutrophils (%) (Auto) 35.0 % (37.0-80.0) Lymphocytes (%) (Auto) 45.8 % (10.0-50.0) Monocytes (%) (Auto) 15.2 % (0.0-12.0) Eosinophils (%) (Auto) 3.3 % (0.0-7.0) Basophils (%) (Auto) 0.7 % (0.0-2.0) Neutrophils # (Auto) 1.6 10 ^3/uL (1.6-8.6) Lymphocytes # (Auto) 2.2 10 ^3/uL (0.4-5.4) Monocytes # (Auto) 0.7 10 ^3/uL (0-1.3) Eosinophils # (Auto) 0.2 10 ^3/uL (0-0.8) Basophils # (Auto) 0 10 ^3/uL (0-0.2) Nucleated Red Blood Cells 0.1 % Magnesium Level 2.0 mg/dL (1.6-2.6) Total Bilirubin 0.4 mg/dL (0.2-1.0) Aspartate Amino Transferase (AST) 46 U/L (13-40) Alanine Aminotransferase (ALT) 34 U/L (7-40) Alkaline Phosphatase 48 U/L (46-116) Total Protein 5.9 g/dL (5.7-8.2) Albumin 3.1 g/dL (3.2-4.8) Cortisol AM Sample 16.76 ug/dL (5.27-22.45) Test 08/19/24 15:40 08/15/24 11:55 Thyroid Stimulating Hormone (TSH) 2.00 uIU/mL (0.55-4.78) Cortisol PM Sample 9.64 ug/dL (3.44-16.76) Ammonia < 10 umol/L (11-32) Plasma/Serum Blood Alcohol < 3.0 mg/dL (<10) Other Laboratory Tests 08/27/24 09:03 08/26/24 05:50 Brief Hx & Hospital Course: Final diagnoses: Metabolic encephalopathy Underlying dementia Failure to thrive Seizures Paroxysmal atrial fibrillation Mixed hyperlipidemia Type 2 diabetic Hypertension History of schizophrenia 64-year-old male who was admitted for agitation and altered level of consciousness He was treated with IM Haldol He was given his home medications again He has a sitter at bedside for safety He continued to be agitated and trying to get out of bed so he was given IM Haldol and then he was also given Seroquel which controlled his behavior better At home he takes Abilify and Depakote which was also continued Overall he is stable now for discharge He came in resume the home medications as before Condition at Discharge: Stable Final Diagnosis/Problems List Metabolic encephalopathy Underlying dementia Failure to thrive Seizures Paroxysmal atrial fibrillation Mixed hyperlipidemia Type 2 diabetic Hypertension History of schizophrenia Discharge Disposition: Home SNF Discharge Will this Physician continue t: No Discharge Instruct/Medications Diet: Cardiac 2g Na,low cholest Activity: No Restrictions, As Tolerated Follow Up/Referral: PCP [facility] Medications: Same home meds Discharge Statement: "Patient was advised to return to the ER or call 911 if any headaches, dizziness, shortness of breath, chest pain, abdominal pain, bleeding, fevers, or worsening of medical condition. Patient was counseled about treatment plan, medications, possible side effects, patientverbalized understanding. All questions were answered to the best of my ability. This discharge took greater then 30 minutes in planning, reviewing documentation, counseling the patient, and discussing with other team members." ASSESSMENT ASSESSMENT Assessment Metabolic encephalopathy Underlying dementia Failure to thrive Seizures Paroxysmal atrial fibrillation Mixed hyperlipidemia Type 2 diabetic Hypertension History of schizophrenia Date of Service: August 28, 2024 Billing Provider: MAHIN SCHMITT MD Common Visit Codes: [id number] DISCH DAY >30min MAHIN SCHMITT MD August 28, 2024 09:41
[2024-08-28 13:00] VITALS: BP 156/85; PULSE 102; RESP 20; TEMP 98; O2SAT 95
[2024-08-28 16:46] VITALS: BP 154/66; PULSE 91; RESP 20; TEMP 98.1; O2SAT 96
[2024-08-28 17:18] VITALS: BP 154/66; PULSE 91; RESP 20; TEMP 98.1; O2SAT 96
== END 2024-08-29 01:12 | disposition home or self-care (01) | DRG 640 ==
LOC: EDBD 11:04 → ER 11:04 → OVERFLOW 22:46 → TELE-EAST 08-16 18:49
PROVIDERS: ADMIT Internal Medicine Geriatric Medicine; ATTEND Internal Medicine Geriatric Medicine
DX: R62.7 Adult failure to thrive (principal); G93.41 Metabolic encephalopathy; G40.909 Epilepsy, unspecified, not intractable, without status epilepticus; E11.9 Type 2 diabetes mellitus without complications; I10 Essential (primary) hypertension; F79 Unspecified intellectual disabilities; I48.0 Paroxysmal atrial fibrillation; F03.90 Unspecified dementia, unspecified severity, without behavioral disturbance, psychotic disturbance, mood disturbance, and anxiety; E78.2 Mixed hyperlipidemia; F20.9 Schizophrenia, unspecified; Z79.01 Long term (current) use of anticoagulants; Z79.899 Other long term (current) drug therapy
CPT/HCPCS: 36415; 70450; 71045; 80048; 80053; 80320; 82140; 82533; 82962; 83735; 84443; 85025; 87081; 92610; 93005; 96361; 96374; 99291; G0378; J1815; J7042

== ENCOUNTER 2024-10-14 18:12 | Inpatient (IN) | payer BC, MEDICAID ==
[2024-10-14] VITALS (7 sets, daily range): BP systolic 72–124; BP diastolic 34–75; PULSE 77–109; RESP 18–24; TEMP 99; O2SAT 99–100
[~2024-10-14] VITALS: Ht 177.8 cm; Wt 73.5 kg
[~2024-10-14 18:12] MED LIST changes: +DOCU-94 PO; -LEVO750T40 PO; +LOSA-534 PO; +OMEG-86 PO; +OMEP1CAP70 PO
[2024-10-14] MEDS: SUCCINYLCHOLINE CHLORIDE 20 MG/ML 10ML VIAL IV ONE ×2 (18:18→18:21)
[2024-10-14] MEDS: ETOMIDATE (2MG/ML) 20ML VIAL IV ONE ×2 (18:18→18:21)
[2024-10-14] MEDS: MIDAZOLAM DRIP 50 mg/50mL 50 ML IV SCH (18:30)
[2024-10-14] MEDS ORDERED: VANCOMYCIN PER PHARMACY 0 MG IV SCH (18:30)
[2024-10-14] MEDS: fentaNYL Drip 2500mCg/250mlNS 250 ML IV SCH (18:30)
[2024-10-14] MEDS: MIDAZOLAM DRIP 50 mg/50mL 50 ML IV ONE (18:40)
[2024-10-14] MEDS: fentaNYL Drip 2500mCg/250mlNS 250 ML IV ONE (18:40)
[2024-10-14] MEDS: NOREPINEPHRINE 8 MG/250ML KIT 250 ML IV ONE (18:40)
[2024-10-14] MEDS: SODIUM CHLORIDE 0.9% 1,000 ML IV ONE ×3 (18:40→22:52)
[2024-10-14 18:45] LABS: Hematocrit 39.9 % (41.0-53.0); Hemoglobin 13.2 g/dL (13.5-17.5); Mean Corpuscular Hemoglobin 30.0 pg (28.0-32.0); Mean Corpuscular Volume 90.6 fL (80.0-100.0); Nucleated Red Blood Cells % 0.2 %
[2024-10-14 18:52] LABS: Chloride 103 mmol/L (98-107)
[2024-10-14 18:53] LABS: Anion Gap 8 (5-15); Carbon Dioxide 24 mmol/L (20-31)
[2024-10-14 18:54] LABS: Calcium 9.0 mg/dL (8.7-10.4)
[2024-10-14 18:59] LABS: BUN/Creatinine Ratio 16.7 (10.0-20.0); Blood Urea Nitrogen 15 mg/dL (9-23)
[2024-10-14 19:35] LABS: Urine Protein, UAD TRACE (Negative); Urine WBC Clumps PRESENT /hpf (None Seen)
[2024-10-14 19:40] LABS: Sodium 135 mmol/L (136-145)
[2024-10-14 19:42] LABS: Glucose 122 mg/dL (74-106)
[2024-10-14 19:45] LABS: Lactic Acid w/Reflex 2.7 mmol/L (0.4-2.0); Potassium 5.8 mmol/L (3.5-5.1)
--- NOTE | 2024-10-14 19:45 | DVH ---
CHEST RADIOGRAPH Indication: POST INTUBATION AND CENTRAL LINE PLACEMENT Technique: Single frontal view of the chest was obtained Comparison: XY CHEST PORTABLE on DOS: 08/17/24, XY CHEST XRAY 1 VIEW on DOS: 07/31/24, XY CHEST PORTABL E on DOS: 01/30/24 FINDINGS: Lines and Tubes: Endotracheal tube terminates about 2.3 cm above the mya. Enteric tube is in satis factory position. Right IJ approach central venous catheter is in satisfactory position. Lungs: Bronchovascular crowding due to low lung volumes with mild interstitial prominence. Mild elev ation of the right hemidiaphragm. Pleura: No effusion. No pneumothorax. Cardiomediastinal contours: Unremarkable Bones: No acute osseous abnormality. IMPRESSION: Endotracheal tube, enteric tube and right IJ approach central venous catheter in satisfactory positio n. Bronchovascular crowding due to low lung volumes with possible mild pulmonary vascular congestion. U nderlying infectious process can not be excluded.
[2024-10-14] MEDS: ACETAMINOPHEN 650 MG RECT SUPP PR ONE (19:57)
--- NOTE | 2024-10-14 20:02 | DVH ---
CT HEAD WITHOUT CONTRAST INDICATION: PROTOCOL R/O BRAIN DAMAGE EXAM DATE: 10/14/2024 07:39 PM COMPARISON: CT HEAD WITHOUT CONTRAST on DOS: 08/17/24, CT HEAD WITHOUT CONTRAST on DOS: 04/26/24, CT HE AD WITHOUT CONTRAST on DOS: 03/24/24 RADIATION DOSE: CTDIvol: 61.6 mGy, DLP: 1090.4 mGy*cm PROCEDURE: CT scans of the head were obtained from the vertex to the skull base. Sagittal and coronal reconstructions were provided. All CT scans at this medical facility are performed using dose modulation techniques as appropriate t o a performed exam including the following: Automated exposure control was utilized; adjustment of th e MA and/or KV according to patient size; and use of iterative reconstruction technique. FINDINGS: No significant interval change. Redemonstration of ventriculomegaly with cystic region adjacent to th e left lateral ventricle. No acute territorial infarct, intracranial hemorrhage, or mass effect. Patchy periventricular and subcortical white matter hypoattenuation is nonspecific but may be related to small vessel ischemic disease. The orbits are normal. Small fluid in the left mastoid air cells. Moderate mucosal thickening within the ethmoid air cells. The osseous structures are unremarkable. IMPRESSION: 1. No significant interval change. Unchanged hydrocephalus, further clinical correlation is suggeste d. If clinically indicated, MRI may be beneficial in further evaluation.
[2024-10-14] MEDS: PIPERACILLIN-TAZOB 3.375GM 100 ML IV ONE (20:14)
[2024-10-14] MEDS: ALBUTEROL SULF 2.5 MG/0.5ML(0.5%) NEB SOLN ONE (20:15)
[2024-10-14] MEDS: ALBUTEROL SULF 2.5 MG/0.5ML(0.5%) NEB SOLN NEB ONE (20:15)
[2024-10-14] MEDS: DEXTROSE (50%) 50ML SYRG IV ONE (20:21)
[2024-10-14] MEDS: CALCIUM GLUC 1,000mg/50ml-NS 50 ML IV ONE (20:21)
[2024-10-14 20:25] LABS: Base Excess -4.0 mmol/L (-2.0-3.0)
[2024-10-14] MEDS: InsuLIN REG 1unit/0.01ml Soln (100units/ml) IV ONE (20:27)
[2024-10-14] MEDS: VANCOMYCIN 1.25GM/250ML 250 ML IV ONE (20:34)
--- NOTE | 2024-10-14 21:07 | ED.PDOC ---
History of Present Illness HPI Comments Patient is a 64-year-old male with a past medical history of hypertension, atrial fibrillation, previous GA, epilepsy, diabetes, dementia, anemia was [facility] after having shortness of breaths since the morning. EMS reported that on arrival patient had increased work of breathing and looked pale with reportedly having bilateral basal rhonchi on auscultation and was saturating 82% on room air. Patient was given breathing treatments with continued to be having respiratory distress with respiratory rate 35-40. On arrival to the ED patient had increased work of breathing, altered mental status, temperature of 101.9 F, tachycardia and tachypneic with a respiratory rate around 35 following which he was intubated for airway protection and was put on mechanical ventilation. Chief Complaint: Shortness of Breath Time Seen by MD: 18:25 Primary Care Provider: unknown Allergies: Coded Allergies: NO KNOWN ALLERGIES (Unverified , 12/01/23) Home Meds Active Scripts Ergocalciferol (VITAMIN D 30733 UNIT) 50,[address] [place], [address] UNIT PO weekly for 10 Days, #10 CAP Prov:RAJIV MARINELLI RESIDENT 08/04/24 Apixaban Base (ELIQUIS) 5 Mg Tab, 5 MG PO BID for 60 Days, #120 TAB 0 Refills Prov:VALENCIA GALVIN RESIDENT 01/13/24 Reported Medications Omeprazole (Omeprazole Dr) 20 Mg Cap, 1 CAP PO DAILY 08/16/24 Losartan Potassium (Losartan Potassium) 50 Mg Tab, 1 TAB PO DAILY 08/16/24 Buzbv-8-Azvt Ethyl Esters (Qvpaq-1-Yhmp Ethyl Esters) 1 Gm Cap, 2 CAP PO BID 08/16/24 Docusate Sodium (Colace) 100 Mg Cap, 1 CAP PO, #30 CAP 08/16/24 Benztropine Mesylate (Benztropine Mesylate) 1 Mg Tab, 1 TAB PO BID for 18 Days, #36 08/01/24 Metoprolol Succinate (Metoprolol Succinate Er) 25 Mg Tab, 12.5 MG PO DAILY for 18 Days, #9 08/01/24 Donepezil Hydrochloride (DONEPEZIL HCL) 10 Mg Tab, 10 MG PO HS for 30 Days, MG 07/31/24 Aripiprazole (Abilify) 20 Mg Tab, 15 MG PO DAILY, TAB 07/31/24 Atorvastatin Calcium (Lipitor) 10 Mg Tab, 1 TAB PO DAILY for 90 Days, #90 5 Refills 12/03/23 Divalproex Sodium (Divalproex Sodium) 500 Mg Tab, 500 MG PO TID for 90 Days, #270 12/02/23 Mode of Arrival: EMS Past Medical History PAST MEDICAL HISTORY: Dementia, DM, High Lipids, HTN, Schizophrenia, Seizures Surgical History: Denies all surgeries Family History Family History: Reviewed,noncontributory to illness Social History Smoker: Non-Smoker Alcohol: Denies ETOH Use Drugs: Denies Drug Use 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, Half-Way Constitutional: reports: fever EENTM: reports: others (Not known) Respiratory: reports: SOB at rest Cardiovascular: reports: others (Altered mental status) Gastrointestinal: reports: others (Altered mental status) Genitourinary: reports: others (Altered mental status) Neurological: reports: others (Altered mental status) Musculoskeletal: reports: others (Altered mental status) Integumetry: reports: others (Altered mental status) Allergic/Immunocompromised: reports: others (Altered mental status) Endocrine: reports: others Psychiatric: reports: others Physical Exam General Appearance: Severe Distress HEENT: NOT DONE Neck: Full Range of Motion, Non-Tender, Normal, Normal Inspection Respiratory: Accessory Muscle Use, Decreased Breath Sounds, Respiratory Distress Cardiovascular: No Edema, No JVD, No Murmur, No Gallop, Normal Peripheral Pulses, Regular Rate/Rhythm Breast Exam: Deferred Gastrointestinal: NOT DONE Genitalia: Deferred Pelvic: Deferred Rectal: Deferred Extremities: No calf tenderness, Normal capillary refill, Normal inspection, Normal range of motion, Non-tender, No pedal edema Neurologic: Other (Altered mental status) Cerebellar Function: Unable to Test Reflexes: Normal Skin: Dry, Normal Color, Warm Peripheral Pulses: 2+ carotid (R), 2+ carotid (L), 2+ femoral (R), 2+ femoral (L), 2+ dorsalis pedis (R), 2+ dorsalis pedis (L), 2+ Radial (R), 2+ Radial (L) Lymphatic: No Adenopathy Was a procedure done? 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) Indication: Hypotension, CVP monitoring, Volume resuscitation, Suspected infection Room prepared for procedure: Yes Mud Car Worker performed hand hygien: Yes Maximal sterile barrier precau: Mask/Eye shield, Sterile gown, Cap, Sterlie gloves, Large sterlie drape Skin Preparation: Chlorhexidine gluconate, Providine iodine Skin preparation completely dr: Yes Insertion site: Right, Internal jugular Central line catheter type: [id number] dialysis Number of lumens: 3 Central line exchanged over a: No Antiseptic ointment applied to: Yes Post Assessment: Chest X-Ray, Proper placement UTO Consent Yes Intubation Indication: Respiratory Insufficiency, Altered Mental Status, Airway Protection Prep: Preoxygenation Pretreated with: Sedation (Etomidate) Medicated with: Succinylcholine Intubation Approach: Orotracheal UTO Consent Yes Notes 8.0 ET Tube secured at 24 cm to lip. +color change +lung sounds bilaterally, even chest rise and fall Confirmed with the x-ray EKG EKG : Pulse Rate (adult): 105 Cardiac Rhythm: ST Block: None Hypertrophy: None ST: Normal Differential Dx Considerations may include: Septic shock likely due to aspiration pneumonia, UTI, seizure disorder, bacteremia X-Ray, Labs, Meds, VS Vital Signs Date Time Temp Pulse Resp B/P (MAP) Pulse Ox O2 Delivery O2 Flow Rate FiO2 10/14/24 19:57 103.5 10/14/24 19:00 106 26 111/66 (81) 100 10/14/24 18:57 Mechanical Ventilator+ 80 80 10/14/24 18:55 104 26 108/67 (81) 100 10/14/24 18:45 104 30 111/68 (82) 100 10/14/24 18:30 111 30 124/75 (91) 100 10/14/24 18:30 124/75 10/14/24 18:30 124/75 10/14/24 18:23 112 10/14/24 18:20 109 18 124/75 (91) 100 80 10/14/24 18:19 115 35 112/73 (86) 100 10/14/24 18:16 101.9 116 32 112/73 (86) 99 101.9 Lab Test 10/14/24 20:07 10/14/24 20:04 10/14/24 18:35 10/14/24 18:26 Range/Units Lactic Acid Level 1.8 2.7 *H 0.4-2.0 mmol/L Blood Gas Specimen Type Arterial Blood Gas Sample Site Left radial Blood Gas Patient Temperature 37.0 Arterial Blood Date Drawn [id number] Arterial Blood pH 7.416 7.350-7.450 Arterial Blood Partial Pressure CO2 31.1 L 35.0-48.0 mmHg Arterial Blood Partial Pressure O2 134.3 H 83.0-108.0 mmHg Arterial Blood HCO3 19.5 L 21.0-28.0 mmol/L Arterial Blood Oxygen Saturation 98.6 H 94.0-98.0 % Arterial Blood Base Excess -4.0 L -2.0-3.0 mmol/L Arterial Blood Oxyhemoglobin 97.5 94.0-98.0 % Arterial Blood Carboxyhemoglobin 0.4 L 0.5-1.5 % Arterial Blood Methemoglobin 0.7 0.0-1.5 % Brady Test Yes Blood Gas Total Hemoglobin 12.70 L 13.5-17.5 g/dL Blood Gas Set Respiration Rate 18.0 Blood Gas Modality Vent - ac FiO2 % 80.0 Blood Gas Tidal Volume 500.0 Blood Gas PEEP or CPAP 5.0 POC Glucose 102 70-106 mg/dl Urine Color Yellow Yellow Urine Clarity Ex.turbid Clear Urine pH 5.5 5.0-9.0 Urine Specific [place] 1.026 1.001-1.035 Urine Protein Trace H Negative Urine Ketones Negative Negative Urine Blood 2+ H Negative /uL Urine Nitrite Negative Negative Urine Bilirubin Negative Negative Urine Urobilinogen 6 Negative mg/dL Urine Leukocyte Esterase Negative Negative /uL Urine RBC 480 0 - 3 /hpf Urine WBC Clumps Present None Seen /hpf Urine Microscopic WBC 89 H 0-3 /HPF Urine Squamous Epithelial Cells None seen <5 /hpf Urine Bacteria None seen None Seen /hpf Urine Mucus Few None Seen Urine Glucose Normal Normal mg/dL White Blood Count 3.9 L 4.4-10.8 10^3/uL Red Blood Count 4.40 L 4.5-5.90 10^6/uL Hemoglobin 13.2 L 13.5-17.5 g/dL Hematocrit 39.9 L 41.0-53.0 % Mean Corpuscular Volume 90.6 80.0-100.0 fL Mean Corpuscular Hemoglobin 30.0 28.0-32.0 pg Mean Corpuscular Hemoglobin Concent 33.1 32.0-36.0 g/dL Red Cell Distribution Width 14.9 H 11.8-14.3 % Platelet Count 249 140-450 10^3/uL Mean Platelet Volume 6.9 6.9-10.8 fL Neutrophils (%) (Auto) 66.0 37.0-80.0 % Lymphocytes (%) (Auto) 22.0 10.0-50.0 % Monocytes (%) (Auto) 11.5 0.0-12.0 % Eosinophils (%) (Auto) 0.2 0.0-7.0 % Basophils (%) (Auto) 0.3 0.0-2.0 % Neutrophils # (Auto) 2.6 1.6-8.6 10 ^3/uL Lymphocytes # (Auto) 0.9 0.4-5.4 10 ^3/uL Monocytes # (Auto) 0.4 0-1.3 10 ^3/uL Eosinophils # (Auto) 0 0-0.8 10 ^3/uL Basophils # (Auto) 0 0-0.2 10 ^3/uL Nucleated Red Blood Cells 0.2 % Sodium Level 135 L 136-145 mmol/L Potassium Level 5.8 *H 3.5-5.1 mmol/L Chloride Level 103 98-107 mmol/L Carbon Dioxide Level 24 20-31 mmol/L Anion Gap 8 5-15 Blood Urea Nitrogen 15 9-23 mg/dL Creatinine 0.90 0.700-1.30 mg/dL Glomerular Filtration Rate Calc 95 >90 mL/min BUN/Creatinine Ratio 16.7 10.0-20.0 Serum Glucose 122 H 74-106 mg/dL Calcium Level 9.0 8.7-10.4 mg/dL Current Medications Medications (Trade) Dose Ordered Sig/David Route Start Time Stop Time Status Last Admin Sodium Chloride 1,000 ml @ 1,000 mls/hr Q1H ONCE IV 10/14/24 18:30 10/14/24 19:29 DC 10/14/24 18:40 Piperacillin Sod/ Tazobactam Sod 100 ml @ 100 mls/hr ONCE ONCE IV 10/14/24 18:30 10/14/24 19:29 DC 10/14/24 20:14 Acetaminophen (Tylenol Suppository) 1,000 mg ONCE ONCE AR 10/14/24 18:45 10/14/24 18:46 DC 10/14/24 19:57 Midazolam HCl 50 ml @ 1 mls/hr Q24H IV 10/14/24 18:45 10/14/24 18:30 Fentanyl Citrate 250 ml @ 2.5 mls/hr Q24H IV 10/14/24 18:45 10/14/24 18:30 Etomidate 20 mg ONCE ONCE IV 10/14/24 18:45 10/14/24 18:46 DC 10/14/24 18:21 Succinylcholine Chloride (Quelicin) 100 mg ONCE ONCE IV 10/14/24 18:45 10/14/24 18:46 DC 10/14/24 18:21 Sodium Chloride 1,000 ml @ 500 mls/hr Q2H ONCE IV 10/14/24 19:45 10/14/24 21:44 10/14/24 19:45 Insulin Human Regular (InsuLIN R) 10 units ONCE ONCE IV 10/14/24 20:00 10/14/24 20:13 DC 10/14/24 20:27 Dextrose 50 ml ONCE ONCE IV 10/14/24 20:00 10/14/24 20:13 DC 10/14/24 20:21 Albuterol (Ventolin Medneb) 20 mg ONCE ONCE NEB 10/14/24 20:00 10/14/24 20:13 DC 10/14/24 20:15 Calcium Gluconate/ Sodium Chloride 50 ml @ 120 mls/hr ONCE ONCE IV 10/14/24 20:00 10/14/24 20:24 DC 10/14/24 20:21 Vancomycin HCl 250 ml @ 200 mls/hr ONCE ONCE IV 10/14/24 20:15 10/14/24 21:29 10/14/24 20:34 Patient is 64-year-old male came from [facility] of having shortness of breath since the morning and EMS were called and patient was seen to be in respiratory distress with increased work of breathing and increased respiratory rate. On arrival to the ED patient was altered and had increased work of breathing, temperature was 101.9 F had to be intubated to protect the airway and put on mechanical ventilation. Blood cultures, sputum cultures, urine cultures were ordered, lactic acid was elevated and patient was likely in septic shock started on IV antibiotics with the vancomycin and Zosyn and given IV fluids. Patient was hyperkalemic at 5.8, ECG was done no acute T-wave or AR segment changes were seen, emergent hyperkalemia protocol including insulin, calcium gluconate and albuterol were given. Patient will be admitted further for ICU level of care. Time of 1ST Reevaluation: 20:32 Reevaluation 1ST: Unchanged Patient Education/Counseling: Pt Unresponsive Family Education/Counseling: No Family Present SEPSIS Sepsis Screen Date sepsis recognized/suspect: Oct 14, 2024 Time Sepsis recognized/suspect: 1829 Recent Procedure: No On Antibiotic Therapy: No Respiratory Rate >20: Yes Heart Rate >90: No Temp<36 C (96.8 F) or >38.3 C: No SBP <90 or MAP <65 mmHG: No New Acute Mental Status Change: No Is the patient on CPAP, BIPAP,: Yes Physician Orders Blood Culture (10/14/24 18:23) Urine Bacterial Culture (10/14/24 18:23) Abg W/ Co-Ox (10/14/24 19:23) Heplock Iv (10/14/24 ) Vancomycin Per Pharmacy (10/14/24 18:30) Respiratory Culture W/ Gs (10/14/24 18:28) Electrocardigram (10/14/24 18:30) Advertising Teacher (10/14/24 ) Pulse Oximetry (10/14/24 ) Blood Pressure (10/14/24 ) Hsu Catheters (10/14/24 ) Ngt/Ogt (10/14/24 ) Midazolam Drip 50 Mg/50ml (Versed Drip 5 (10/14/24 18:45) Fentanyl Drip 2500mcg/250mlns (10/14/24 18:45) Rass Sedation Scale Q1HR (10/14/24 18:37) Norepinephrine 8 Mg/250ml Kit (Levophed) (10/14/24 18:45) Communication Order (10/14/24 18:37) Ventilator Orders (10/14/24 19:04) Chest Portable (10/14/24 19:07) Sodium Chloride 0.9% (10/14/24 19:45) Head Without Contrast (10/14/24 19:42) Vancomycin 1.25gm/250ml (10/14/24 20:15) Vital Signs Date Time Temp Pulse Resp B/P (MAP) Pulse Ox O2 Delivery O2 Flow Rate FiO2 10/14/24 19:57 103.5 10/14/24 19:00 106 26 111/66 (81) 100 10/14/24 18:57 Mechanical Ventilator+ 80 80 10/14/24 18:55 104 26 108/67 (81) 100 10/14/24 18:45 104 30 111/68 (82) 100 10/14/24 18:30 111 30 124/75 (91) 100 10/14/24 18:30 124/75 10/14/24 18:30 124/75 10/14/24 18:23 112 10/14/24 18:20 109 18 124/75 (91) 100 80 10/14/24 18:19 115 35 112/73 (86) 100 10/14/24 18:16 101.9 116 32 112/73 (86) 99 101.9 Laboratory Tests Test 10/14/24 18:26 10/14/24 20:07 Lactic Acid Level 2.7 mmol/L (0.4-2.0) *H 1.8 mmol/L (0.4-2.0) White Blood Count 3.9 10^3/uL (4.4-10.8) L Medications Medications Dose Ordered Sig/David Route Start Time Stop Time Status Last Admin Dose Admin Acetaminophen 1,000 mg ONCE ONCE AR 10/14/24 18:45 10/14/24 18:46 DC 10/14/24 19:57 Albuterol 20 mg ONCE ONCE NEB 10/14/24 20:00 10/14/24 20:13 DC 10/14/24 20:15 Calcium Gluconate/ Sodium Chloride 50 ml @ 120 mls/hr ONCE ONCE IV 10/14/24 20:00 10/14/24 20:24 DC 10/14/24 20:21 Dextrose 50 ml ONCE ONCE IV 10/14/24 20:00 10/14/24 20:13 DC 10/14/24 20:21 Etomidate 20 mg ONCE ONCE IV 10/14/24 18:45 10/14/24 18:46 DC 10/14/24 18:21 Fentanyl Citrate 250 ml @ 2.5 mls/hr Q24H IV 10/14/24 18:45 10/14/24 18:30 Insulin Human Regular 10 units ONCE ONCE IV 10/14/24 20:00 10/14/24 20:13 DC 10/14/24 20:27 Midazolam HCl 50 ml @ 1 mls/hr Q24H IV 10/14/24 18:45 10/14/24 18:30 Piperacillin Sod/ Tazobactam Sod 100 ml @ 100 mls/hr ONCE ONCE IV 10/14/24 18:30 10/14/24 19:29 DC 10/14/24 20:14 Sodium Chloride 1,000 ml @ 500 mls/hr Q2H ONCE IV 10/14/24 19:45 10/14/24 21:44 10/14/24 19:45 Sodium Chloride 1,000 ml @ 1,000 mls/hr Q1H ONCE IV 10/14/24 18:30 10/14/24 19:29 DC 10/14/24 18:40 Succinylcholine Chloride 100 mg ONCE ONCE IV 10/14/24 18:45 10/14/24 18:46 DC 10/14/24 18:21 Vancomycin HCl 250 ml @ 200 mls/hr ONCE ONCE IV 10/14/24 20:15 10/14/24 21:29 10/14/24 20:34 Departure 1 Departure Time of Disposition: 21:02 Impression: Primary Impression: Septic shock Additional Impressions: Aspiration pneumonia UTI (urinary tract infection) Acute metabolic encephalopathy Acute hypoxic respiratory failure Hyperkalemia Disposition: ADMITTED INPATIENT Admit to: ICU Condition: Critical Critical Care Note Critical Care Time?: Yes (90 min-critical care time only) Critical care comment: Mechanical ventilation Central line placement Septic shock with IV fluids and IV antibiotics Stability Stability form required: No Heart Score Heart Score: Heart Score Response (Comments) Value History N/A 0 EKG N/A 0 Age N/A 0 Risk Factors N/A 0 Troponin N/A 0 Total 0 [place] BLAS RESIDENT Oct 14, 2024 21:07
[2024-10-14] MEDS: NOREPINEPHRINE 8 MG/250ML KIT 250 ML IV SCH (21:34)
[2024-10-14] MEDS ORDERED: ALBUTEROL SULF 2.5 MG/0.5ML(0.5%) NEB SOLN NEB PRN (22:30)
[2024-10-14] MEDS ORDERED: ACETAMINOPHEN 325 MG TAB PO PRN (22:30)
[2024-10-14] MEDS ORDERED: ONDANSETRON HCL 4 MG/2 ML VIAL IV PRN (22:30)
[2024-10-14] MEDS ORDERED: NITROGLYCERIN 0.4 MG SL TAB SL PRN (22:30)
[2024-10-14] MEDS ORDERED: MORPHINE SULFATE INJ 2 MG/ml SYRG IV PRN (22:30)
--- NOTE | 2024-10-14 22:37 | DVHHP2 ---
History of Present Illness Reason for Visit: Respiratory distress History of Present Illness 64-year-old male initially presented from a [facility] facility with complaints of shortness for breath. On arrival patient was tachypneic with a fever and altered mental status. Patient was emergently intubated for airway protection. 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 Allergies: Coded Allergies: NO KNOWN ALLERGIES (Unverified , 12/01/23) Medications Current Medications Medications Dose Ordered Sig/David Route Start Time Stop Time Status Last Admin Dose Admin Vancomycin HCl 0 ml @ 0 mls/hr UD IV 10/14/24 18:30 Midazolam HCl 50 ml @ 1 mls/hr Q24H IV 10/14/24 18:45 10/14/24 18:30 5 MLS/HR Fentanyl Citrate 250 ml @ 2.5 mls/hr Q24H IV 10/14/24 18:45 10/14/24 18:30 2.5 MLS/HR Norepinephrine Bitartrate 250 ml @ 3.75 mls/hr Q24H IV 10/14/24 18:45 10/14/24 21:34 3.75 MLS/HR Piperacillin Sod/ Tazobactam Sod 100 ml @ 25 mls/hr Q8HR IV 10/15/24 06:00 UNV Pantoprazole Sodium 40 mg DAILY IV 10/15/24 10:00 UNV Ondansetron HCl 4 mg Q4HP PRN IV 10/14/24 22:30 UNV Acetaminophen 650 mg Q6HP PRN PO 10/14/24 22:30 UNV Nitroglycerin 0.4 mg Q5MINP PRN SL 10/14/24 22:30 UNV Morphine Sulfate 2 mg Q30M PRN IV 10/14/24 22:30 UNV Exam Vital Signs Vital Signs Date Time Temp Pulse Resp B/P (MAP) Pulse Ox O2 Delivery O2 Flow Rate FiO2 10/14/24 22:00 100.8 83 19 92/60 (71) 100 100.8 10/14/24 21:23 60 10/14/24 19:30 Mechanical Ventilator+ Exam Gen: 64-year-old male in mild distress Skin: Warm, dry, normal color and texture, no rash. HEENT: Normocephalic atraumatic, mucous membranes moist and pink. Neck: Cervical and supraclavicular nodes normal without enlargement, trachea is midline, thyroid gland is normal without masses. Pulmonary: Clear to auscultation and percussion bilaterally. Cardiac: Regular rate and rhythm. No murmur Abdomen: Soft, nontender, nondistended, bowel sounds present all 4 quadrants, no guarding, no rigidity, no organomegaly. Extremities: No cyanosis, clubbing, no edema Neuro: Cranial nerves II through XII grossly intact, normal affect and speech, no focal motor deficits. Labs/Xrays ORDERING PHYSICIAN: DALLAS BLAS PROCEDURE(s): CXRP - CHEST PORTABLE REASON: POST INTUBATION AND CENTRAL LINE PLACEMENT ORDER NUMBER(s): [id number], ACCESSION NUMBER(s): [id number] CHEST RADIOGRAPH Indication: POST INTUBATION AND CENTRAL LINE PLACEMENT Technique: Single frontal view of the chest was obtained Comparison: XY CHEST PORTABLE on DOS: 08/17/24, XY CHEST XRAY 1 VIEW on DOS: 07/31/24, XY CHEST PORTABLE on DOS: 01/30/24 FINDINGS: Lines and Tubes: Endotracheal tube terminates about 2.3 cm above the mya. Enteric tube is in satisfactory position. Right IJ approach central venous catheter is in satisfactory position. Lungs: Bronchovascular crowding due to low lung volumes with mild interstitial prominence. Mild elevation of the right hemidiaphragm. Pleura: No effusion. No pneumothorax. Cardiomediastinal contours: Unremarkable Bones: No acute osseous abnormality. IMPRESSION: Endotracheal tube, enteric tube and right IJ approach central venous catheter in satisfactory position. Bronchovascular crowding due to low lung volumes with possible mild pulmonary vascular congestion. Underlying infectious process can not be excluded. RING PHYSICIAN: DALLAS BLAS PROCEDURE(s): HWOCT - HEAD WITHOUT CONTRAST REASON: PROTOCOL R/O BRAIN DAMAGE ORDER NUMBER(s): [id number], ACCESSION NUMBER(s): [id number] CT HEAD WITHOUT CONTRAST INDICATION: PROTOCOL R/O BRAIN DAMAGE EXAM DATE: 10/14/2024 07:39 PM COMPARISON: CT HEAD WITHOUT CONTRAST on DOS: 08/17/24, CT HEAD WITHOUT CONTRAST on DOS: 04/26/24, CT HEAD WITHOUT CONTRAST on DOS: 03/24/24 RADIATION DOSE: CTDIvol: 61.6 mGy, DLP: 1090.4 mGy*cm PROCEDURE: CT scans of the head were obtained from the vertex to the skull base. Sagittal and coronal reconstructions were provided. All CT scans at this medical facility are performed using dose modulation techniques as appropriate to a performed exam including the following: Automated exposure control was utilized; adjustment of the MA and/or KV according to patient size; and use of iterative reconstruction technique. FINDINGS: No significant interval change. Redemonstration of ventriculomegaly with cystic region adjacent to the left lateral ventricle. No acute territorial infarct, intracranial hemorrhage, or mass effect. Patchy periventricular and subcortical white matter hypoattenuation is nonspecific but may be related to small vessel ischemic disease. The orbits are normal. Small fluid in the left mastoid air cells. Moderate mucosal thickening within the ethmoid air cells. The osseous structures are unremarkable. IMPRESSION: 1. No significant interval change. Unchanged hydrocephalus, further clinical correlation is suggested. If clinically indicated, MRI may be beneficial in further evaluation. Labs Test 10/14/24 20:07 10/14/24 20:04 10/14/24 18:35 10/14/24 18:26 Range/Units Lactic Acid Level 1.8 0.4-2.0 mmol/L Blood Gas Specimen Type Arterial Blood Gas Sample Site Left radial Blood Gas Patient Temperature 37.0 Arterial Blood Date Drawn [id number] Arterial Blood pH 7.416 7.350-7.450 Arterial Blood Partial Pressure CO2 31.1 L 35.0-48.0 mmHg Arterial Blood Partial Pressure O2 134.3 H 83.0-108.0 mmHg Arterial Blood HCO3 19.5 L 21.0-28.0 mmol/L Arterial Blood Oxygen Saturation 98.6 H 94.0-98.0 % Arterial Blood Base Excess -4.0 L -2.0-3.0 mmol/L Arterial Blood Oxyhemoglobin 97.5 94.0-98.0 % Arterial Blood Carboxyhemoglobin 0.4 L 0.5-1.5 % Arterial Blood Methemoglobin 0.7 0.0-1.5 % Brady Test Yes Blood Gas Total Hemoglobin 12.70 L 13.5-17.5 g/dL Blood Gas Set Respiration Rate 18.0 Blood Gas Modality Vent - ac FiO2 % 80.0 Blood Gas Tidal Volume 500.0 Blood Gas PEEP or CPAP 5.0 POC Glucose 102 70-106 mg/dl Urine Color Yellow Yellow Urine Clarity Ex.turbid Clear Urine pH 5.5 5.0-9.0 Urine Specific [place] 1.026 1.001-1.035 Urine Protein Trace H Negative Urine Ketones Negative Negative Urine Blood 2+ H Negative /uL Urine Nitrite Negative Negative Urine Bilirubin Negative Negative Urine Urobilinogen 6 Negative mg/dL Urine Leukocyte Esterase Negative Negative /uL Urine RBC 480 0 - 3 /hpf Urine WBC Clumps Present None Seen /hpf Urine Microscopic WBC 89 H 0-3 /HPF Urine Squamous Epithelial Cells None seen <5 /hpf Urine Bacteria None seen None Seen /hpf Urine Mucus Few None Seen Urine Glucose Normal Normal mg/dL White Blood Count 3.9 L 4.4-10.8 10^3/uL Red Blood Count 4.40 L 4.5-5.90 10^6/uL Hemoglobin 13.2 L 13.5-17.5 g/dL Hematocrit 39.9 L 41.0-53.0 % Mean Corpuscular Volume 90.6 80.0-100.0 fL Mean Corpuscular Hemoglobin 30.0 28.0-32.0 pg Mean Corpuscular Hemoglobin Concent 33.1 32.0-36.0 g/dL Red Cell Distribution Width 14.9 H 11.8-14.3 % Platelet Count 249 140-450 10^3/uL Mean Platelet Volume 6.9 6.9-10.8 fL Neutrophils (%) (Auto) 66.0 37.0-80.0 % Lymphocytes (%) (Auto) 22.0 10.0-50.0 % Monocytes (%) (Auto) 11.5 0.0-12.0 % Eosinophils (%) (Auto) 0.2 0.0-7.0 % Basophils (%) (Auto) 0.3 0.0-2.0 % Neutrophils # (Auto) 2.6 1.6-8.6 10 ^3/uL Lymphocytes # (Auto) 0.9 0.4-5.4 10 ^3/uL Monocytes # (Auto) 0.4 0-1.3 10 ^3/uL Eosinophils # (Auto) 0 0-0.8 10 ^3/uL Basophils # (Auto) 0 0-0.2 10 ^3/uL Nucleated Red Blood Cells 0.2 % Sodium Level 135 L 136-145 mmol/L Potassium Level 5.8 *H 3.5-5.1 mmol/L Chloride Level 103 98-107 mmol/L Carbon Dioxide Level 24 20-31 mmol/L Anion Gap 8 5-15 Blood Urea Nitrogen 15 9-23 mg/dL Creatinine 0.90 0.700-1.30 mg/dL Glomerular Filtration Rate Calc 95 >90 mL/min BUN/Creatinine Ratio 16.7 10.0-20.0 Serum Glucose 122 H 74-106 mg/dL Calcium Level 9.0 8.7-10.4 mg/dL Assessment/Plan Assessment/Plan Assessment Acute hypoxic respiratory failure Possible pneumonia Septic shock Hypokalemia Plan Admit the patient to ICU to the hospitalist Zosyn/vancomycin Maintenance IV fluids Continue treatment per orders. Total critical care time excluding procedures performed this 50 minutes. Plan discussed with: Patient My Orders Orders - MIHAI BUTLER AGACNP Procedure Category Date Status Time Zosyn Extended PHA 10/15/24 Transmitted Infusion 06:00 NS PHA 10/14/24 Transmitted 22:30 Pantoprazole PHA 10/15/24 Transmitted (Protonix) 10:00 Albuterol Medneb PHA 10/14/24 Transmitted (Ventolin Medneb) 22:30 Admit ADMIT 10/14/24 Transmitted 22:23 Ondansetron Hcl PHA 10/14/24 Transmitted (Zofran) 22:30 Complete Blood Count LAB 10/15/24 Verified 04:00 Comprehensive LAB 10/15/24 Verified Metabolic Panel 04:00 Npo (Nothing By DIET 10/15/24 Transmitted Mouth) Diet Breakfast Condition: Unstable KELSEA 10/14/24 Transmitted 22:23 Acetaminophen Tablet PHA 10/14/24 Transmitted (Tylenol Tablet) 22:30 Bedrest With Bathroom KELSEA 10/14/24 Transmitted Privileg 22:23 Nitroglycerin PHA 10/14/24 Transmitted Sublingual (Ntrostat 22:30 Morphine Sulfate PHA 10/14/24 Transmitted Injection 22:30 Stat Ekg For Chest [facility] 10/14/24 Transmitted Pain 22:23 Notify Md Of Changes [facility] 10/14/24 Transmitted From Base 22:23 Roll Changer For [facility] 10/14/24 Transmitted 24 Hours 22:23 Emergency Dysrhythmia [facility] 10/14/24 Transmitted Protocol 22:23 Rhythm Strips Once [facility] 10/14/24 Transmitted Every Shift 22:23 Oxygen By Nasal 10/14/24 Transmitted Cannula 22:23 Date of Service: Oct 14, 2024 Billing Provider: MIHAI BUTLER Common Visit Codes: [id number] CARE 30-74 MIN MIHAI BUTLER Oct 14, 2024 22:37
[2024-10-15] VITALS (107 sets, daily range): BP systolic 85–125; BP diastolic 51–77; PULSE 56–92; RESP 16–20; TEMP 96.4–99.5; O2SAT 96–100
[2024-10-15 03:32] LABS: Hematocrit 33.2 % (41.0-53.0); Hemoglobin 11.3 g/dL (13.5-17.5); Mean Corpuscular Hemoglobin 30.6 pg (28.0-32.0); Mean Corpuscular Volume 89.8 fL (80.0-100.0); Nucleated Red Blood Cells % 0.0 %
[2024-10-15 03:46] LABS: Anion Gap 8 (5-15); BUN/Creatinine Ratio 17.9 (10.0-20.0); Blood Urea Nitrogen 14 mg/dL (9-23); Carbon Dioxide 23 mmol/L (20-31); Chloride 107 mmol/L (98-107); Potassium 3.8 mmol/L (3.5-5.1); Sodium 138 mmol/L (136-145)
[2024-10-15 03:47] LABS: Bilirubin, Total 0.6 mg/dL (0.2-1.0)
[2024-10-15 03:53] LABS: Alanine Aminotransferase 49 U/L (7-40); Albumin 2.6 g/dL (3.2-4.8); Alkaline Phosphatase 41 U/L (46-116); Calcium 8.1 mg/dL (8.7-10.4); Glucose 124 mg/dL (74-106); Total Protein 5.5 g/dL (5.7-8.2)
--- NOTE | 2024-10-15 05:47 | ECG ---
[facility] Test Date: 2024-10-14 Test Time: 19:58:29 Pat Name: OMID REIS Department: ED Room: [address] [place] [address] A Gender: M Preforms Laminator: IFEANYI : 1960 Requested By: DALLAS SANJJ Order Number: [id number] Reading MD: Raheem Bermudez Measurements Intervals [place] Rate: 99 P: 79 PA: 121 QRS: 74 QRSD: 100 T: 65 QT: 351 QTc: 451 Interpretive Statements Sinus rhythm Electronically Signed On 10-16-2024 19:03:59 PDT by Raheem Bermudez Please click the below link to view image of tracing.
[2024-10-15] MEDS: PIPERACILLIN-TAZOB 3.375GM 100 ML IV SCH (06:07)
[2024-10-15 07:13] LABS: Base Excess -0.8 mmol/L (-2.0-3.0)
[2024-10-15] MEDS: PANTOPRAZOLE 40 MG/10 ML VIAL INJ IV SCH (09:10)
[2024-10-15] MEDS: IPRATROPIUM BROM 0.5 MG/2.5ML INH SOL NEB PRN (12:25)
[2024-10-15] MEDS: LEVALBUTEROL HCL 1.25 MG/3 ML NEB NEB SCH (12:26)
[2024-10-15] MEDS: SODIUM CHLORIDE 0.9% 1,000 ML IV SCH (13:09)
--- NOTE | 2024-10-15 14:37 | DVHPNRES ---
Progress Note Date Seen: Oct 15, 2024 Resident Creating Document: ELAINE ALFREDO RESIDENT Medical Necessity Reason Pt with a Central, PICC or Fol: Yes The following are medically ne: Central Line, Hsu Catheter Subjective Review of Systems Patient is a 64-year-old male with past medical history of CAD, paroxysmal AFib on Eliquis, hypertension, developmental delay, schizophrenia, baseline dementia, normal pressure hydrocephalus, history of CVA, history of seizures, dyslipidemia, who comes in due to shortness of breath. Per pt's contact at the [facility] facility, he spat out his medications and was noted to have cyanotic fingertips, spo02 was noted to be in the 30's% which is what prompted this visit to the hospital, was also noted to have a fever of 99.3 earlier on 10/14/24. According to the ER and admitting notes, patient was brought to the hospital due to increasing shortness of breath with a respiratory rate in the 40s associated with pallor. Patient was noted to have an oxygen saturation of 82% with a fever of 101 and was being bagged on arrival. Patient was subsequently intubated and put on a mechanical ventilator. Past Hospitalization: Discharged from the [facility] on 08/28/2024 after being treated for altered level of consciousness Patient seen and examined at bedside. Review of systems could not be completed as patient is sedated and mechanically ventilated. Objective vital signs Vital Sign Date Time Temp Pulse Resp B/P (MAP) Pulse Ox O2 Delivery O2 Flow Rate FiO2 10/15/24 14:00 18 99 Mechanical Ventilator+ 30 30 10/15/24 14:00 69 10/15/24 14:00 99.0 109/65 (80) 210.2 Total Intake and Output 10/14/24 10/14/24 10/15/24 15:00 23:00 07:00 Intake Total 2478.75 ml 995.00 ml Output Total 2550 ml Balance 2478.75 ml -1555.00 ml medications Current Medications Medications Dose Ordered Sig/David Route Start Time Stop Time Status Last Admin Dose Admin Vancomycin HCl 0 ml @ 0 mls/hr UD IV 10/14/24 18:30 Midazolam HCl 50 ml @ 1 mls/hr Q24H IV 10/14/24 18:45 10/15/24 08:09 5 MLS/HR Fentanyl Citrate 250 ml @ 2.5 mls/hr Q24H IV 10/14/24 18:45 10/14/24 18:30 2.5 MLS/HR Norepinephrine Bitartrate 250 ml @ 3.75 mls/hr Q24H IV 10/14/24 18:45 10/14/24 21:34 3.75 MLS/HR Piperacillin Sod/ Tazobactam Sod 100 ml @ 25 mls/hr Q8HR IV 10/15/24 06:00 10/15/24 13:30 25 MLS/HR Pantoprazole Sodium 40 mg DAILY IV 10/15/24 10:00 10/15/24 09:10 40 MG Ondansetron HCl 4 mg Q4HP PRN IV 10/14/24 22:30 Acetaminophen 650 mg Q6HP PRN PO 10/14/24 22:30 Levalbuterol HCl 1.25 mg Q6HR NEB 10/15/24 12:00 10/15/24 12:26 1.25 MG Ipratropium [place] 0.5 mg Q6HPRN PRN NEB 10/15/24 10:30 10/15/24 12:25 0.5 MG Enoxaparin Sodium 80 mg Q12HR SC 10/15/24 22:00 Sodium Chloride 1,000 ml @ 75 mls/hr [id number] IV 10/15/24 13:00 10/15/24 13:09 75 MLS/HR Examination General Appearance: Sedated and intubated, pupils 3 mm minimally reactive Neck Exam: Normal inspection. Non-tender. Normal alignment Pulmonary/Respiratory: Chest non-tender. Coarse bilateral breath sounds Cardiovascular/Chest: Regular rate and rhythm. No murmurs. No JVD. Peripheral Pulses: 2+ Radial (R). 2+ Radial (L). 2+ Pedal (R). 2+ Pedal (L) Abdominal Exam: Normal bowel sounds. Soft. normal abdomen, no visible veins, Nontender. No hepatospenomegaly. No masses Ankle Exam: Negative ankle edema Lower extremities: Right ankle and heel wound noted. Left heel blanchable redness. laboratory and microbiology Laboratory Tests 10/15/24 03:00 Test 10/15/24 03:00 Range/Units Serum Glucose 124 H 74-106 mg/dL Microbiology Date/Time Source Procedure Growth Status 10/14/24 18:35 Voided Urine Urine Culture - Preliminary Resulted Labs and/or images reviewed: Labs reviewed by me, Image(s) reviewed by me Problem List/Assessment/Plan Problem List/Assessment/Plan Neurology # acute on chronic metabolic encephalopathy # dementia, unspecified type # schizophrenia # normal pressure hydrocephalus - head CT: No significant interval change. Unchanged hydrocephalus, further clinical correlation is suggested. If clinically indicated, MRI may be beneficial in further evaluation. - resumed home medication depakote # Sedated - Versed 5 milligrams/hour - fentanyl 50 micrograms/hours Cardiovascular # septic shock due to pneumonia/uti # coronary artery disease # paroxysmal AFib, CHADS-VASc 5 # hypercoagulable state secondary to above # essential hypertension - Levophed 6 micrograms/hour - IV vancomycin, IV meropenem - therapeutic Lovenox 80 mg subcutaneous b.i.d. Respiratory # Ventilator -intubated 10/14/2024 -on [facility] vent : VCAC Mode RR18, VT 500, FiO2 30, PEEP 5 # Acute hypoxic respiratory failure # aspiration pneumonia - CXR: Bronchovascular crowding due to low lung volumes with possible mild pulmonary vascular congestion. Underlying infectious process can not be excluded. - Levophed 6 micrograms/hour - IV vancomycin, IV meropenem GI # transaminitis # Peptic ulcer prophylaxis -Pantoprazole 40 mg IV daily - monitor /Nephrology # acute complicated UTI # hyperkalemia, now resolved # Hsu catheter - IV meropenem - monitor Infectious disease # aspiration pneumonia # acute complicated UTI # sepsis due to above - IV vancomycin, IV meropenem - Hsu placed on 10/14/2024 - strict aspiration precautions Hem/onc # anemia likely of chronic disease # initial leukopenia - monitor Endocrine # protein calorie malnutrition Nutrition - Jevity 1.2 TF @ 60cc/hr DVT prophylaxis - on therapeutic Lovenox 80 mg sc b.i.d. Lines - right IJ placed on 10/14/2024 - left 20 gauge placed on 10/14/2024 Drips during [facility] ventilation Versed 5 milligrams/hour Levophed 6 micrograms/hour Fentanyl 50 micrograms/hour Critical care time 83 minutes excluding procedure. Full CODE STATUS. Spoke with patient's board and care facility's actuary manager, Ms Mathis for 13 mins. All questions were answered and concerns were addressed. Plan discussed with Dr. Barros Plan discussed with: Other (RN, caregiver) My Orders My Orders Orders - ELAINE ALFREDO RESIDENT Procedure Category Date Status Time Levalbuterol Hcl PHA 10/15/24 In Process (Xopenex Medneb) 12:00 Ipratropium Medneb PHA 10/15/24 In Process (Atrovent Medneb) 10:30 Ng/Orogastric Tube To KELSEA 10/15/24 In Process LIS 10:34 Enoxaparin Sodium PHA 10/15/24 In Process (Lovenox) 22:00 Sodium Chloride 0.9% PHA 10/15/24 In Process 13:00 Covid19 Antigen Carlyn LAB 10/15/24 In Process Rapid Influenza A&B LAB 10/15/24 In Process 13:00 Dietary Evaluation Review Comments: 1) TF Jevity 1.2Cal @ 70ml/hr. Start @ 20ml/hr, increase 10ml/hr Q4H until goal is reached. TF at goal volum provides 100% energy & protein needs (2016 kcal, 93gm protein, 1356ml free water) 2) Water flush 110ml Q4H if allowed, adjust PRN 3) TPN if NPO > 7 days Expected Outcomes/Goals: To meet at least 75% estimated needs within 7 days FU 2-3 days Date of Service: Oct 15, 2024 Billing Provider: MIHAI BARROS MD Common Visit Codes: [id number] CARE 30-74 MIN, [id number] CARE-EACH +30MIN ELAINE ALFREDO Oct 15, 2024 14:37 MIHAI BARROS MD Oct 16, 2024 11:58
[2024-10-15 14:43] LABS: COVID19 ANTIGEN SOFIA FIA NEGATIVE (NEGATIVE)
[2024-10-15] MEDS: VANCOMYCIN 1GM/200ML PM 200 ML IV SCH (20:29)
[2024-10-15] MEDS: MUPIROCIN 2% OINT 15gm or 22gm FOR MRSA NARES TOP SCH (20:29)
[2024-10-15] MEDS: MEROPENEM 1GM IVPB 50 ML IV SCH (20:31)
[2024-10-15] MEDS: ENOXAPARIN SOD 80 MG/0.8ML SYRINGE SC SCH (20:32)
[2024-10-15] MEDS: Jevity 1.2 Cal/Fiber 1 Liter GT SCH (20:52)
[2024-10-15] MEDS ORDERED: PATIENTS OWN MEDICATION (Divalproex Sodium 500 MG) PO SCH (22:00)
[2024-10-15] MEDS ORDERED: MUPIROCIN 2% OINT 15gm or 22gm FOR MRSA NARES EACHNOSTRI SCH (22:00)
[2024-10-16] VITALS (107 sets, daily range): BP systolic 86–138; BP diastolic 45–76; PULSE 52–98; RESP 11–18; TEMP 98.4–99.3; O2SAT 94–100
[2024-10-16 03:59] LABS: Hematocrit 33.7 % (41.0-53.0); Hemoglobin 11.3 g/dL (13.5-17.5); Mean Corpuscular Hemoglobin 30.2 pg (28.0-32.0); Mean Corpuscular Volume 90.4 fL (80.0-100.0); Nucleated Red Blood Cells % 0.0 %
[2024-10-16 04:21] LABS: Alanine Aminotransferase 35 U/L (7-40); Anion Gap 9 (5-15); BUN/Creatinine Ratio 15.5 (10.0-20.0); Bilirubin, Total 0.3 mg/dL (0.2-1.0); Blood Urea Nitrogen 9 mg/dL (9-23); Calcium 9.0 mg/dL (8.7-10.4); Carbon Dioxide 24 mmol/L (20-31); Glucose 97 mg/dL (74-106); Potassium 4.2 mmol/L (3.5-5.1); Sodium 143 mmol/L (136-145)
[2024-10-16 04:31] LABS: Albumin 2.5 g/dL (3.2-4.8); Alkaline Phosphatase 45 U/L (46-116); Chloride 110 mmol/L (98-107); Total Protein 5.5 g/dL (5.7-8.2)
[2024-10-16] MEDS: VALPROIC ACID 250 MG/5 ML ORAL SOLN GT SCH (05:42)
--- NOTE | 2024-10-16 05:42 | DVH ---
CHEST RADIOGRAPH Indication: eval for aspiration pna Technique: Single frontal view of the chest was obtained COMPARISON: XY CHEST PORTABLE on DOS: 10/14/24, XY CHEST PORTABLE on DOS: 08/17/24, XY CHEST XRAY 1 VIEW on DOS: 07/31/24, XY CHEST PORTABLE on DOS: 01/30/24, XY CHEST XRAY 1 VIEW on DOS: 01/11/24 FINDINGS: Lines and Tubes: Endotracheal tube, enteric catheter and right central venous catheter in satisfactor y position. Lungs: Increased left lower lobe airspace disease. Pleura: No effusion. No pneumothorax. Cardiomediastinal contours: Cardiomegaly Bones: Unremarkable IMPRESSION: Increased left lower lobe airspace disease. Lower lung volumes.
[2024-10-16 08:12] LABS: Base Excess -1.5 mmol/L (-2.0-3.0)
--- NOTE | 2024-10-16 12:06 | ECG ---
[facility] Test Date: 2024-10-14 Test Time: 18:23:47 Pat Name: OMID REIS Department: ED Room: [address] [place] [address] A Gender: M Still Operator: quan : 1960 Requested By: DALLAS SANJJ Order Number: [id number] Reading MD: Raheem Bermudez Measurements Intervals [place] Rate: 112 P: 53 NV: 126 QRS: 84 QRSD: 89 T: 38 QT: 299 QTc: 408 Interpretive Statements Sinus tachycardia Borderline right axis deviation Electronically Signed On 10-16-2024 19:03:54 PDT by Raheem Bermudez Please click the below link to view image of tracing.
--- NOTE | 2024-10-16 18:27 | DVHPNRES ---
Progress Note Date Seen: Oct 16, 2024 Resident Creating Document: ELAINE ALFREDO RESIDENT Medical Necessity Reason Pt with a Central, PICC or Fol: Yes The following are medically ne: Central Line, Hsu Catheter Subjective Review of Systems Patient is a 64-year-old male with past medical history of CAD, paroxysmal AFib on Eliquis, hypertension, developmental delay, schizophrenia, baseline dementia, normal pressure hydrocephalus, history of CVA, history of seizures, dyslipidemia, who comes in due to shortness of breath. Per pt's contact at the [facility], he spat out his medications and was noted to have cyanotic fingertips, [id number] was noted to be in the 30's% which is what prompted this visit to the hospital, was also noted to have a fever of 99.3 earlier on 10/14/24. According to the ER and admitting notes, patient was brought to the hospital due to increasing shortness of breath with a respiratory rate in the 40s associated with pallor. Patient was noted to have an oxygen saturation of 82% with a fever of 101 and was being bagged on arrival. Patient was subsequently intubated and put on a mechanical ventilator. Past Hospitalization: Discharged from the [facility] on 08/28/2024 after being treated for altered level of consciousness Patient seen and examined at bedside. Review of systems could not be completed as patient is sedated and mechanically ventilated. 10/16/2024: Patient seen and examined at bedside. Detailed discussions were held with patient's [facility] administrator Ms. Luna, patient's sister Ms. Zavaleta ([phone]), voicemail was also left for patient's current social science professor Ms. Mattie Lemon at [phone]. Increased tube feedings to 40 cc/hour. Discontinued IV fluids. Objective vital signs Vital Sign Date Time Temp Pulse Resp B/P (MAP) Pulse Ox O2 Delivery O2 Flow Rate FiO2 10/16/24 18:15 58 18 120/71 (87) 100 30 10/16/24 18:15 98.4 209.1 10/16/24 18:00 Mechanical Ventilator+ Total Intake and Output 10/15/24 10/15/24 10/16/24 15:00 23:00 07:00 Intake Total 751.00 ml 1071.00 ml 864.00 ml Output Total 475 ml 475 ml Balance 751.00 ml 596.00 ml 389.00 ml medications Current Medications Medications Dose Ordered Sig/David Route Start Time Stop Time Status Last Admin Dose Admin Vancomycin HCl 0 ml @ 0 mls/hr UD IV 10/14/24 18:30 Midazolam HCl 50 ml @ 1 mls/hr Q24H IV 10/14/24 18:45 10/16/24 13:49 5 MLS/HR Fentanyl Citrate 250 ml @ 2.5 mls/hr Q24H IV 10/14/24 18:45 10/16/24 17:23 5 MLS/HR Norepinephrine Bitartrate 250 ml @ 3.75 mls/hr Q24H IV 10/14/24 18:45 10/16/24 17:22 7.5 MLS/HR Pantoprazole Sodium 40 mg DAILY IV 10/15/24 10:00 10/16/24 09:35 40 MG Ondansetron HCl 4 mg Q4HP PRN IV 10/14/24 22:30 Acetaminophen 650 mg Q6HP PRN PO 10/14/24 22:30 Levalbuterol HCl 1.25 mg Q6HR NEB 10/15/24 12:00 10/16/24 18:10 1.25 MG Ipratropium [place] 0.5 mg Q6HPRN PRN NEB 10/15/24 10:30 10/16/24 11:41 0.5 MG Enoxaparin Sodium 80 mg Q12HR SC 10/15/24 22:00 10/16/24 09:35 80 MG Mupirocin 1 applic BID EACHNOSTRI 10/15/24 22:00 10/20/24 21:59 UNV Meropenem 50 ml @ 17 mls/hr Q8HR IV 10/15/24 22:00 10/16/24 13:45 17 MLS/HR Mupirocin 1 applic BID TOP 10/15/24 22:00 10/20/24 21:59 10/16/24 09:40 1 APPLIC Vancomycin HCl 200 ml @ 160 mls/hr Q12H IV 10/15/24 20:00 10/16/24 08:19 160 MLS/HR Enteral Nutritional Formula 1,000 ml 60ML/HR GT 10/15/24 20:15 10/15/24 20:52 1,000 ML Valproate Sodium 500 mg TID GT 10/16/24 06:00 10/16/24 13:45 500 MG Examination General Appearance: Sedated and intubated, pupils 3 mm minimally reactive Neck Exam: Normal inspection. Non-tender. Normal alignment Pulmonary/Respiratory: Chest non-tender. Coarse bilateral breath sounds Cardiovascular/Chest: Regular rate and rhythm. No murmurs. No JVD. Peripheral Pulses: 2+ Radial (R). 2+ Radial (L). 2+ Pedal (R). 2+ Pedal (L) Abdominal Exam: Normal bowel sounds. Soft. normal abdomen, no visible veins, Nontender. No hepatospenomegaly. No masses Ankle Exam: Negative ankle edema Lower extremities: Right ankle and heel wound noted. Left heel blanchable redness. laboratory and microbiology Laboratory Tests 10/16/24 03:00 Test 10/16/24 03:00 Range/Units Serum Glucose 97 74-106 mg/dL Microbiology Date/Time Source Procedure Growth Status 10/15/24 02:59 Nose MRSA Screen - Final Methicillin Resistant S.aureus Complete 10/14/24 18:35 Voided Urine Urine Culture - Preliminary Resulted 10/14/24 18:32 Blood Blood Culture - Preliminary NO GROWTH AFTER 24 HOURS OF INCUBATION. Resulted Labs and/or images reviewed: Labs reviewed by me, Image(s) reviewed by me Problem List/Assessment/Plan Problem List/Assessment/Plan Neurology # acute on chronic metabolic encephalopathy # dementia, unspecified type # schizophrenia # normal pressure hydrocephalus - head CT: No significant interval change. Unchanged hydrocephalus, further clinical correlation is suggested. If clinically indicated, MRI may be beneficial in further evaluation. - resumed home medication depakote # Sedated - Versed 5 milligrams/hour - fentanyl 50 micrograms/hours Cardiovascular # septic shock due to pneumonia vs UTI # coronary artery disease # paroxysmal AFib, CHADS-VASc 5 # hypercoagulable state secondary to above # essential hypertension - Levophed 6 micrograms/hour - IV vancomycin, IV meropenem - therapeutic Lovenox 80 mg subcutaneous b.i.d. Respiratory # Ventilator -intubated 10/14/2024 -on [facility] vent : VCAC Mode RR18, VT 500, FiO2 30, PEEP 5 # Acute hypoxic respiratory failure # aspiration pneumonia - CXR: Bronchovascular crowding due to low lung volumes with possible mild pulmonary vascular congestion. Underlying infectious process can not be excluded. - Levophed 6 micrograms/hour - IV vancomycin, IV meropenem GI # transaminitis # Peptic ulcer prophylaxis -Pantoprazole 40 mg IV daily - monitor /Nephrology # acute complicated UTI # hyperkalemia, now resolved # Hsu catheter 10/14/24 - IV meropenem - monitor Infectious disease # aspiration pneumonia # acute complicated UTI # sepsis due to above - IV vancomycin, IV meropenem - Hsu placed on 10/14/2024 - strict aspiration precautions Hem/onc # anemia likely of chronic disease # initial leukopenia - monitor Endocrine # protein calorie malnutrition Nutrition - Jevity 1.2 TF @ 60cc/hr DVT prophylaxis - on therapeutic Lovenox 80 mg sc b.i.d. Lines - right IJ placed on 10/14/2024 - left 20 gauge placed on 10/14/2024 Drips during mech ventilation Versed 5 milligrams/hour Levophed 6 micrograms/hour Fentanyl 50 micrograms/hour Critical care time 81 minutes excluding procedures. Full CODE STATUS. Spoke with patient's board and care facility's network operations manager, Ms Smallcristofer for 13 mins. Also spoke with patient's sister Ms. Zavaleta and voicemail was left for patient's social science professor Ms. Lemon. All questions were answered and concerns were addressed. Plan discussed with Dr. Burton Plan discussed with: Other (Board and care test administrator, sister, RN) My Orders My Orders Orders - ELAINE ALFREDO RESIDENT Procedure Category Date Status Time Nutritional PHA 10/15/24 In Process Supplements (Jevity 20:15 Chest Portable XY 10/16/24 Resulted 04:00 Abg W/ Co-Ox RT 10/16/24 Logged 04:00 Communication Order ORDERS 10/16/24 Transmitted 12:16 Complete Blood Count LAB 10/17/24 Verified 04:00 Basic Metabolic Panel LAB 10/17/24 Verified 04:00 Dietary Evaluation Review Comments: 1) TF Jevity 1.2Cal @ 70ml/hr. Start @ 20ml/hr, increase 10ml/hr Q4H until goal is reached. TF at goal volum provides 100% energy & protein needs (2016 kcal, 93gm protein, 1356ml free water) 2) Water flush 110ml Q4H if allowed, adjust PRN 3) TPN if NPO > 7 days Expected Outcomes/Goals: To meet at least 75% estimated needs within 7 days FU 2-3 days Date of Service: Oct 16, 2024 Billing Provider: MIHAI BURTON MD Common Visit Codes: 26719-[id number] CARE 30-74 MIN, 51704-[id number] CARE-EACH +30MIN ELAINE ALFREDO Oct 16, 2024 18:27 MIHAI BURTON MD Oct 19, 2024 11:12
[2024-10-17] VITALS (110 sets, daily range): BP systolic 87–144; BP diastolic 43–68; PULSE 52–90; RESP 14–19; TEMP 98.4–99.7; O2SAT 91–100
[2024-10-17 02:58] LABS: Hematocrit 31.7 % (41.0-53.0); Hemoglobin 10.2 g/dL (13.5-17.5); Mean Corpuscular Hemoglobin 29.6 pg (28.0-32.0); Mean Corpuscular Volume 92.0 fL (80.0-100.0); Nucleated Red Blood Cells % 0.0 %; Potassium 4.1 mmol/L (3.5-5.1); Sodium 144 mmol/L (136-145)
[2024-10-17 02:59] LABS: Anion Gap 7 (5-15); Carbon Dioxide 26 mmol/L (20-31)
[2024-10-17 03:04] LABS: BUN/Creatinine Ratio 12.2 (10.0-20.0); Glucose 88 mg/dL (74-106)
[2024-10-17 03:22] LABS: Blood Urea Nitrogen 6 mg/dL (9-23); Calcium 8.2 mg/dL (8.7-10.4); Chloride 111 mmol/L (98-107)
--- NOTE | 2024-10-17 05:54 | DVH ---
CHEST RADIOGRAPH Indication: pna Technique: Single frontal view of the chest was obtained COMPARISON: XY CHEST PORTABLE on DOS: 10/16/24, XY CHEST PORTABLE on DOS: 10/14/24, XY CHEST PORTABLE on DOS: 08/17/24, XY CHEST XRAY 1 VIEW on DOS: 07/31/24, XY CHEST PORTABLE on DOS: 01/30/24 FINDINGS: Lines and Tubes: Endotracheal tube, enteric catheter and right central venous catheter in satisfactor y position Lungs: Multifocal airspace disease Pleura: No effusion. No pneumothorax. Cardiomediastinal contours: Cardiomegaly Bones: Unremarkable IMPRESSION: Lines and tubes in satisfactory position. No significant interval change.
[2024-10-17 06:25] LABS: Base Excess 1.1 mmol/L (-2.0-3.0)
--- NOTE | 2024-10-17 14:20 | DVHPNRES ---
Progress Note Date Seen: Oct 17, 2024 Resident Creating Document: ELAINE ALFREDO RESIDENT Medical Necessity Reason Pt with a Central, PICC or Fol: Yes The following are medically ne: Central Line, Hsu Catheter Subjective Review of Systems Patient is a 64-year-old male with past medical history of CAD, paroxysmal AFib on Eliquis, hypertension, developmental delay, schizophrenia, baseline dementia, normal pressure hydrocephalus, history of CVA, history of seizures, dyslipidemia, who comes in due to shortness of breath. Per pt's contact at the [facility], he spat out his medications and was noted to have cyanotic fingertips, spo02 was noted to be in the 30's% which is what prompted this visit to the hospital, was also noted to have a fever of 99.3 earlier on 10/14/24. According to the ER and admitting notes, patient was brought to the hospital due to increasing shortness of breath with a respiratory rate in the 40s associated with pallor. Patient was noted to have an oxygen saturation of 82% with a fever of 101 and was being bagged on arrival. Patient was subsequently intubated and put on a mechanical ventilator. Past Hospitalization: Discharged from the [facility] on 08/28/2024 after being treated for altered level of consciousness Patient seen and examined at bedside. Review of systems could not be completed as patient is sedated and mechanically ventilated. 10/16/2024: Patient seen and examined at bedside. Detailed discussions were held with patient's [facility] administrator Ms. Luna, patient's sister Ms. Zavaleta ([phone]), voicemail was also left for patient's current older adult social work specialist Ms. Mattie Lemon at [phone]. Increased tube feedings to 40 cc/hour. Discontinued IV fluids. 10/17/2024: Patient seen and examined at bedside. On 2 mcg of Levophed, 50 of fentanyl and 5 of Versed. Chest x-ray showed no significant interval change. Call older adult social work specialist Ms. Mattie Lemon again at [phone], left a message with duty scenic arts supervisor to have her call me back as she is not in the office until 3:00 p.m.. Objective vital signs Vital Sign Date Time Temp Pulse Resp B/P (MAP) Pulse Ox O2 Delivery O2 Flow Rate FiO2 10/17/24 13:37 61 18 103/54 (70) 98 30 10/17/24 13:00 98.6 209.5 10/17/24 12:00 Mechanical Ventilator+ Total Intake and Output 10/16/24 10/16/24 10/17/24 15:00 23:00 07:00 Intake Total 492.25 ml 685.5 ml 516.00 ml Output Total 425 ml 500 ml Balance 492.25 ml 260.5 ml 16.00 ml medications Current Medications Medications Dose Ordered Sig/David Route Start Time Stop Time Status Last Admin Dose Admin Vancomycin HCl 0 ml @ 0 mls/hr UD IV 10/14/24 18:30 Midazolam HCl 50 ml @ 1 mls/hr Q24H IV 10/14/24 18:45 10/17/24 11:13 5 MLS/HR Fentanyl Citrate 250 ml @ 2.5 mls/hr Q24H IV 10/14/24 18:45 10/16/24 17:23 5 MLS/HR Norepinephrine Bitartrate 250 ml @ 3.75 mls/hr Q24H IV 10/14/24 18:45 10/16/24 17:22 7.5 MLS/HR Pantoprazole Sodium 40 mg DAILY IV 10/15/24 10:00 10/17/24 09:00 40 MG Ondansetron HCl 4 mg Q4HP PRN IV 10/14/24 22:30 Acetaminophen 650 mg Q6HP PRN PO 10/14/24 22:30 Levalbuterol HCl 1.25 mg Q6HR NEB 10/15/24 12:00 10/17/24 11:46 1.25 MG Ipratropium [place] 0.5 mg Q6HPRN PRN NEB 10/15/24 10:30 10/17/24 11:46 0.5 MG Enoxaparin Sodium 80 mg Q12HR SC 10/15/24 22:00 10/17/24 09:00 80 MG Mupirocin 1 applic BID EACHNOSTRI 10/15/24 22:00 10/20/24 21:59 UNV Meropenem 50 ml @ 17 mls/hr Q8HR IV 10/15/24 22:00 10/17/24 13:40 17 MLS/HR Mupirocin 1 applic BID TOP 10/15/24 22:00 10/20/24 21:59 10/17/24 09:01 1 APPLIC Vancomycin HCl 200 ml @ 160 mls/hr Q12H IV 10/15/24 20:00 10/17/24 09:00 160 MLS/HR Enteral Nutritional Formula 1,000 ml 60ML/HR GT 10/15/24 20:15 10/15/24 20:52 1,000 ML Valproate Sodium 500 mg TID GT 10/16/24 06:00 10/17/24 13:40 500 MG Examination General Appearance: Sedated and intubated, pupils 3 mm minimally reactive Neck Exam: Normal inspection. Non-tender. Normal alignment Pulmonary/Respiratory: Chest non-tender. Coarse bilateral breath sounds Cardiovascular/Chest: Regular rate and rhythm. No murmurs. No JVD. Peripheral Pulses: 2+ Radial (R). 2+ Radial (L). 2+ Pedal (R). 2+ Pedal (L) Abdominal Exam: Normal bowel sounds. Soft. normal abdomen, no visible veins, Nontender. No hepatospenomegaly. No masses Ankle Exam: Negative ankle edema Lower extremities: Right ankle and heel wound noted. Left heel blanchable redness. laboratory and microbiology Laboratory Tests 10/17/24 02:32 Test 10/17/24 02:32 Range/Units Serum Glucose 88 74-106 mg/dL Microbiology Date/Time Source Procedure Growth Status 10/15/24 02:59 Nose MRSA Screen - Final Methicillin Resistant S.aureus Complete 10/14/24 18:35 Voided Urine Urine Culture - Final Complete 10/14/24 18:32 Blood Blood Culture - Preliminary NO GROWTH AFTER 48 HOURS OF INCUBATION. Resulted Labs and/or images reviewed: Labs reviewed by me, Image(s) reviewed by me Problem List/Assessment/Plan Problem List/Assessment/Plan Neurology # acute on chronic metabolic encephalopathy # dementia, unspecified type # schizophrenia # normal pressure hydrocephalus - head CT: No significant interval change. Unchanged hydrocephalus, further clinical correlation is suggested. If clinically indicated, MRI may be beneficial in further evaluation. - resumed home medication depakote # Sedated - Versed 5 milligrams/hour - fentanyl 50 micrograms/hours Cardiovascular # septic shock due to pneumonia vs UTI # coronary artery disease # paroxysmal AFib, CHADS-VASc 5 # hypercoagulable state secondary to above # essential hypertension - Levophed 6 micrograms/hour - IV vancomycin, IV meropenem - therapeutic Lovenox 80 mg subcutaneous b.i.d. Respiratory # Ventilator -intubated 10/14/2024 -on [facility] vent : VCAC Mode RR18, VT 500, FiO2 30, PEEP 5 # Acute hypoxic respiratory failure # aspiration pneumonia - CXR: Bronchovascular crowding due to low lung volumes with possible mild pulmonary vascular congestion. Underlying infectious process can not be excluded. - Levophed 6 micrograms/hour - IV vancomycin, IV meropenem GI # transaminitis # Peptic ulcer prophylaxis -Pantoprazole 40 mg IV daily - monitor /Nephrology # acute complicated UTI # hyperkalemia, now resolved # Hsu catheter 10/14/24 - IV meropenem - monitor Infectious disease # aspiration pneumonia # acute complicated UTI # sepsis due to above - IV vancomycin, IV meropenem - Hsu placed on 10/14/2024 - strict aspiration precautions Hem/onc # anemia likely of chronic disease # initial leukopenia - monitor Endocrine # protein calorie malnutrition Nutrition - Jevity 1.2 TF @ 60cc/hr DVT prophylaxis - on therapeutic Lovenox 80 mg sc b.i.d. Lines - right IJ placed on 10/14/2024 - left 20 gauge placed on 10/14/2024 Drips during [facility] ventilation Versed 5 milligrams/hour Levophed 6 micrograms/hour Fentanyl 50 micrograms/hour Critical care time 83 minutes excluding procedure. Full CODE STATUS. Spoke with patient's board and care facility's talent management manager, Ms Mathis for 13 mins. Also spoke with patient's sister Ms. Zavaleta and voicemail was left for patient's older adult social work specialist Ms. Lemon. All questions were answered and concerns were addressed. Plan discussed with Dr. Burton Plan discussed with: Other (RN) My Orders My Orders Orders - ELAINE ALFREDO RESIDENT Procedure Category Date Status Time Chest Portable XY 10/17/24 Resulted 04:00 Abg W/ Co-Ox RT 10/17/24 Logged 04:00 Dietary Evaluation Review Comments: 1) TF Jevity 1.2Cal @ 70ml/hr. Start @ 20ml/hr, increase 10ml/hr Q4H until goal is reached. TF at goal volum provides 100% energy & protein needs (2016 kcal, 93gm protein, 1356ml free water) 2) Water flush 110ml Q4H if allowed, adjust PRN 3) TPN if NPO > 7 days Expected Outcomes/Goals: To meet at least 75% estimated needs within 7 days FU 2-3 days ELAINE ALFREDO RESIDENT Oct 17, 2024 14:20
[2024-10-17] MEDS: VANCOMYCIN 1GM/200ML PM 200 ML IV SCH (18:29)
[2024-10-18] VITALS (108 sets, daily range): BP systolic 83–137; BP diastolic 46–83; PULSE 48–112; RESP 16–22; TEMP 97.2–99.9; O2SAT 74–100
[2024-10-18 03:50] LABS: Hematocrit 32.7 % (41.0-53.0); Hemoglobin 11.0 g/dL (13.5-17.5); Mean Corpuscular Hemoglobin 30.4 pg (28.0-32.0); Mean Corpuscular Volume 90.5 fL (80.0-100.0)
[2024-10-18 04:02] LABS: Alanine Aminotransferase 22 U/L (7-40); Anion Gap 7 (5-15); BUN/Creatinine Ratio 11.4 (10.0-20.0); Carbon Dioxide 28 mmol/L (20-31); Potassium 3.7 mmol/L (3.5-5.1); Sodium 144 mmol/L (136-145)
[2024-10-18 04:06] LABS: Albumin 2.3 g/dL (3.2-4.8); Alkaline Phosphatase 44 U/L (46-116); Bilirubin, Total 0.3 mg/dL (0.2-1.0); Blood Urea Nitrogen 5 mg/dL (9-23); Calcium 8.7 mg/dL (8.7-10.4); Chloride 109 mmol/L (98-107); Glucose 123 mg/dL (74-106); Total Protein 5.2 g/dL (5.7-8.2)
[2024-10-18 04:31] LABS: Total Cells Counted 100.0 (100)
--- NOTE | 2024-10-18 06:02 | DVH ---
CHEST RADIOGRAPH Indication: pna Technique: Single frontal view of the chest was obtained COMPARISON: XY CHEST PORTABLE on DOS: 10/17/24, XY CHEST PORTABLE on DOS: 10/16/24, XY CHEST PORTABLE o n DOS: 10/14/24, XY CHEST PORTABLE on DOS: 08/17/24, XY CHEST XRAY 1 VIEW on DOS: 07/31/24 FINDINGS: Lines and Tubes: Unchanged. Lungs: Stable appearing multifocal bilateral pulmonary airspace disease and bibasilar infiltrate and/ or atelectasis. Small bilateral pleural effusions are unchanged. No pneumothorax. Cardiomediastinal contours: Unremarkable Bones: Unremarkable IMPRESSION: 1. Stable appearing multifocal bilateral pulmonary airspace disease, bibasilar infiltrate and/or atel ectasis and small bilateral pleural effusions. 2. Lines and tubes unchanged.
[2024-10-18 07:26] LABS: Base Excess -1.1 mmol/L (-2.0-3.0)
--- NOTE | 2024-10-18 09:44 | DVHPN2 ---
Subjective Review of Systems Patient is a 64-year-old male with past medical history of CAD, paroxysmal AFib on Eliquis, hypertension, developmental delay, schizophrenia, baseline dementia, normal pressure hydrocephalus, history of CVA, history of seizures, dyslipidemia, who comes in due to shortness of breath. Per pt's contact at the [facility] facility, he spat out his medications and was noted to have cyanotic fingertips, spo02 was noted to be in the 30's% which is what prompted this visit to the hospital, was also noted to have a fever of 99.3 earlier on 10/14/24. According to the ER and admitting notes, patient was brought to the hospital due to increasing shortness of breath with a respiratory rate in the 40s associated with pallor. Patient was noted to have an oxygen saturation of 82% with a fever of 101 and was being bagged on arrival. Patient was subsequently intubated and put on a mechanical ventilator. Past Hospitalization: Discharged from the [facility] on 08/28/2024 after being treated for altered level of consciousness Patient seen and examined at bedside. Review of systems could not be completed as patient is sedated and mechanically ventilated. 10/16/2024: Patient seen and examined at bedside. Detailed discussions were held with patient's [facility] administrator Jas Jeremy, patient's sister Ms. Zavaleta ([phone]), voicemail was also left for patient's current social service manager Ms. Mattie Lemon at [phone]. Increased tube feedings to 40 cc/hour. Discontinued IV fluids. 10/17/2024: Patient seen and examined at bedside. On 2 mcg of Levophed, 50 of fentanyl and 5 of Versed. Chest x-ray showed no significant interval change. Call social service manager Ms. Mattie Lemon again at [phone], left a message with duty supervisor billposting to have her call me back as she is not in the office until 3:00 p.m.. 10/18/24--64-year-old male history of hypertension AFib CVA,. Here from senior living was found to be hypoxic cyanotic. Patient was intubated. Here for UTI, aspiration pneumonia. On broad-spectrum antibiotics vancomycin meropenem.. Currently on Versed 5 Levophed to fentanyl 50. Vitals stable. Ventilated a.c. 20/500/80%/5.0.. Getting Jevity feeds we will add free water flushes 200 q.8, no apparent in the indication for fluid restriction. Appears euvolemic. Urine output adequate, some mild pitting edema in ankles, otherwise unchanged exam from prior. Otherwise continue primary team's management. Reviewed: H&P Changes from previous H/P or p: No Changes General: Per HPI Objective Vitals Vital Signs Date Time Temp Pulse Resp B/P (MAP) Pulse Ox O2 Delivery O2 Flow Rate FiO2 10/18/24 07:29 62 18 97/55 (69) 98 30 10/18/24 07:15 98.2 208.8 10/18/24 06:00 Mechanical Ventilator+ Intake/Output Intake and Output 10/18/24 07:00 Intake Total 1888.25 ml Output Total 1100 ml Balance 788.25 ml Intake Oral 210 ml IV Total 883.25 ml Tube Feeding 795 ml Output Urine Total 1100 ml Exam General Appearance: Sedated and intubated, pupils 3 mm minimally reactive Neck Exam: Normal inspection. Non-tender. Normal alignment Pulmonary/Respiratory: Chest non-tender. Coarse bilateral breath sounds Cardiovascular/Chest: Regular rate and rhythm. No murmurs. No JVD. Peripheral Pulses: 2+ Radial (R). 2+ Radial (L). 2+ Pedal (R). 2+ Pedal (L) Abdominal Exam: Normal bowel sounds. Soft. normal abdomen, no visible veins, Nontender. No hepatospenomegaly. No masses Ankle Exam: Negative ankle edema Lower extremities: Right ankle and heel wound noted. Left heel blanchable redness. Medications Current Medications Medications Dose Ordered Sig/David Route Start Time Stop Time Status Last Admin Dose Admin Vancomycin HCl 0 ml @ 0 mls/hr UD IV 10/14/24 18:30 Midazolam HCl 50 ml @ 1 mls/hr Q24H IV 10/14/24 18:45 10/18/24 03:50 5 MLS/HR Fentanyl Citrate 250 ml @ 2.5 mls/hr Q24H IV 10/14/24 18:45 10/17/24 17:06 5 MLS/HR Norepinephrine Bitartrate 250 ml @ 3.75 mls/hr Q24H IV 10/14/24 18:45 10/17/24 17:06 7.5 MLS/HR Pantoprazole Sodium 40 mg DAILY IV 10/15/24 10:00 10/18/24 09:35 40 MG Ondansetron HCl 4 mg Q4HP PRN IV 10/14/24 22:30 Acetaminophen 650 mg Q6HP PRN PO 10/14/24 22:30 Levalbuterol HCl 1.25 mg Q6HR NEB 10/15/24 12:00 10/18/24 06:11 1.25 MG Ipratropium [place] 0.5 mg Q6HPRN PRN NEB 10/15/24 10:30 10/18/24 06:11 0.5 MG Enoxaparin Sodium 80 mg Q12HR SC 10/15/24 22:00 10/18/24 09:35 80 MG Mupirocin 1 applic BID EACHNOSTRI 10/15/24 22:00 10/20/24 21:59 UNV Meropenem 50 ml @ 17 mls/hr Q8HR IV 10/15/24 22:00 10/18/24 05:33 17 MLS/HR Mupirocin 1 applic BID TOP 10/15/24 22:00 10/20/24 21:59 10/18/24 09:35 1 APPLIC Enteral Nutritional Formula 1,000 ml 60ML/HR GT 10/15/24 20:15 10/15/24 20:52 1,000 ML Valproate Sodium 500 mg TID GT 10/16/24 06:00 10/18/24 05:33 500 MG Vancomycin HCl 200 ml @ 160 mls/hr Q10H IV 10/17/24 19:00 10/18/24 05:35 160 MLS/HR Purified Water 200 ml Q8HR GT 10/18/24 14:00 UNV Laboratory Results Laboratory Tests 10/18/24 03:29 Chemistry Test 10/18/24 03:29 Albumin 2.3 g/dL (3.2-4.8) L Calcium Level 8.7 mg/dL (8.7-10.4) Total Protein 5.2 g/dL (5.7-8.2) L LFT Test 10/18/24 03:29 Alanine Aminotransferase (ALT) 22 U/L (7-40) Alkaline Phosphatase 44 U/L (46-116) L Aspartate Amino Transferase (AST) 29 U/L (13-40) Total Bilirubin 0.3 mg/dL (0.2-1.0) Urinalysis Test 10/14/24 18:35 Urine Color Yellow (Yellow) Urine Clarity Ex.turbid (Clear) Urine pH 5.5 (5.0-9.0) Urine Specific [place] 1.026 (1.001-1.035) Urine Protein Trace (Negative) H Urine Ketones Negative (Negative) Urine Blood 2+ /uL (Negative) H Urine Nitrite Negative (Negative) Urine Bilirubin Negative (Negative) Urine Urobilinogen 6 mg/dL (Negative) Urine Leukocyte Esterase Negative /uL (Negative) Urine RBC 480 /hpf (0 - 3) Urine WBC Clumps Present /hpf (None Seen) Urine Microscopic WBC 89 /HPF (0-3) H Urine Squamous Epithelial Cells None seen /hpf (<5) Urine Bacteria None seen /hpf (None Seen) Urine Mucus Few (None Seen) Urine Glucose Normal mg/dL (Normal) Blood Gas Results Test 10/18/24 07:17 Arterial Blood pH 7.400 (7.350-7.450) FiO2 % 30.0 Microbiology Microbiology Date/Time Source Procedure Growth Status 10/15/24 02:59 Nose MRSA Screen - Final Methicillin Resistant S.aureus Complete 10/14/24 18:35 Voided Urine Urine Culture - Final Complete 10/14/24 18:32 Blood Blood Culture - Preliminary NO GROWTH AFTER 72 HOURS OF INCUBATION. Resulted Labs and/or images reviewed: Labs reviewed by me, Image(s) reviewed by me Assessment/Plan Assessment/Plan Neurology # acute on chronic metabolic encephalopathy # dementia, unspecified type # schizophrenia # normal pressure hydrocephalus - head CT: No significant interval change. Unchanged hydrocephalus, further clinical correlation is suggested. If clinically indicated, MRI may be beneficial in further evaluation. - resumed home medication depakote # Sedated - Versed 5 milligrams/hour - fentanyl 50 micrograms/hours Cardiovascular # septic shock due to pneumonia vs UTI # coronary artery disease # paroxysmal AFib, CHADS-VASc 5 # hypercoagulable state secondary to above # essential hypertension - Levophed 6 micrograms/hour - IV vancomycin, IV meropenem - therapeutic Lovenox 80 mg subcutaneous b.i.d. Respiratory # Ventilator -intubated 10/14/2024 -on [facility] vent : VCAC Mode RR18, VT 500, FiO2 30, PEEP 5 # Acute hypoxic respiratory failure # aspiration pneumonia - CXR: Bronchovascular crowding due to low lung volumes with possible mild pulmonary vascular congestion. Underlying infectious process can not be excluded. - Levophed 6 micrograms/hour - IV vancomycin, IV meropenem GI # transaminitis # Peptic ulcer prophylaxis -Pantoprazole 40 mg IV daily - monitor /Nephrology # acute complicated UTI # hyperkalemia, now resolved # Hsu catheter 10/14/24 - IV meropenem - monitor Infectious disease # aspiration pneumonia # acute complicated UTI # sepsis due to above - IV vancomycin, IV meropenem - Hsu placed on 10/14/2024 - strict aspiration precautions Hem/onc # anemia likely of chronic disease # initial leukopenia - monitor Endocrine # protein calorie malnutrition Nutrition - Jevity 1.2 TF @ 60cc/hr DVT prophylaxis - on therapeutic Lovenox 80 mg sc b.i.d. Lines - right IJ placed on 10/14/2024 - left 20 gauge placed on 10/14/2024 Plan discussed with: Patient My Orders Orders - SHY LOPEZ MD Procedure Category Date Status Time Free Water PHA 10/18/24 Logged 14:00 Date of Service: Oct 18, 2024 Billing Provider: SHY LOPEZ MD Common Visit Codes: [id number] CARE 30-74 MIN SHY LOPEZ MD Oct 18, 2024 09:44
[2024-10-18] MEDS: FUROSEMIDE 20 MG/2 ML VIAL IV ONE (11:54)
--- NOTE | 2024-10-18 12:27 | DVHPN2 ---
Progress Note - Dictate Date Seen: Oct 18, 2024 Medical Necessity Reason Pt with a Central, PICC or Fol: Yes The following are medically ne: Central Line, Hsu Catheter vital signs Vital Sign Date Time Temp Pulse Resp B/P (MAP) Pulse Ox O2 Delivery O2 Flow Rate FiO2 10/18/24 12:14 30 10/18/24 12:14 18 98 Mechanical Ventilator+ 10/18/24 12:14 50 10/18/24 12:06 125/72 (89) 10/18/24 09:45 97.3 207.1 Total Intake and Output 10/17/24 10/17/24 10/18/24 15:00 23:00 07:00 Intake Total 402.50 ml 809.50 ml 867.00 ml Output Total 450 ml 650 ml Balance 402.50 ml 359.50 ml 217.00 ml medications Current Medications Medications Dose Ordered Sig/David Route Start Time Stop Time Status Last Admin Dose Admin Vancomycin HCl 0 ml @ 0 mls/hr UD IV 10/14/24 18:30 Midazolam HCl 50 ml @ 1 mls/hr Q24H IV 10/14/24 18:45 10/18/24 03:50 5 MLS/HR Fentanyl Citrate 250 ml @ 2.5 mls/hr Q24H IV 10/14/24 18:45 10/17/24 17:06 5 MLS/HR Norepinephrine Bitartrate 250 ml @ 3.75 mls/hr Q24H IV 10/14/24 18:45 10/17/24 17:06 7.5 MLS/HR Pantoprazole Sodium 40 mg DAILY IV 10/15/24 10:00 10/18/24 09:35 40 MG Ondansetron HCl 4 mg Q4HP PRN IV 10/14/24 22:30 Acetaminophen 650 mg Q6HP PRN PO 10/14/24 22:30 Levalbuterol HCl 1.25 mg Q6HR NEB 10/15/24 12:00 10/18/24 12:06 1.25 MG Ipratropium [place] 0.5 mg Q6HPRN PRN NEB 10/15/24 10:30 10/18/24 12:06 0.5 MG Enoxaparin Sodium 80 mg Q12HR SC 10/15/24 22:00 10/18/24 09:35 80 MG Mupirocin 1 applic BID EACHNOSTRI 10/15/24 22:00 10/20/24 21:59 UNV Meropenem 50 ml @ 17 mls/hr Q8HR IV 10/15/24 22:00 10/18/24 05:33 17 MLS/HR Mupirocin 1 applic BID TOP 10/15/24 22:00 10/20/24 21:59 10/18/24 09:35 1 APPLIC Enteral Nutritional Formula 1,000 ml 60ML/HR GT 10/15/24 20:15 10/15/24 20:52 1,000 ML Valproate Sodium 500 mg TID GT 10/16/24 06:00 10/18/24 05:33 500 MG Vancomycin HCl 200 ml @ 160 mls/hr Q10H IV 10/17/24 19:00 10/18/24 05:35 160 MLS/HR Purified Water 200 ml Q8HR GT 10/18/24 14:00 laboratory and microbiology Laboratory Tests 10/18/24 03:29 Test 10/18/24 03:29 Range/Units Serum Glucose 123 H 74-106 mg/dL Assessment/Plan Pantograph Operator rounds Impression Acute hypoxemic respiratory failure Pneumonia Atelectasis Congestion Patient seen and examined Events On mechanical ventilation S/p intubation PEEP 5, FiO2 30% Off sedation, not waking up Labs and imaging reviewed Chest x-ray shows congestion and prominent pulmonary vessels suggestive of pulmonary hypertension ABG reviewed Management Vent support Titrate to maintain sats 90% or above Sedation holiday daily If patient follows commands, proceed to weaning trial Pressure support 10/11, extubate when ready Continue antibiotics F/u cultures Bronchodilators Monitor renal function Monitor electrolytes Supplement as needed Pressors as needed for hemodynamic support To maintain a mean arterial pressure of 65 mmHg DVT prophylaxis Critical care time 35 minutes Dietary Evaluation Review Comments: 1) TF Jevity 1.2Cal @ 70ml/hr. Start @ 20ml/hr, increase 10ml/hr Q4H until goal is reached. TF at goal volum provides 100% energy & protein needs (2016 kcal, 93gm protein, 1356ml free water) 2) Water flush 110ml Q4H if allowed, adjust PRN 3) TPN if NPO > 7 days Expected Outcomes/Goals: To meet at least 75% estimated needs within 7 days FU 2-3 days Plan discussed with: Other (Rn) GRIGORIYAN,ARAM MD Oct 18, 2024 12:27
[2024-10-18] MEDS: FREE WATER GT SCH (14:47)
[2024-10-19] VITALS (105 sets, daily range): BP systolic 86–152; BP diastolic 52–100; PULSE 43–112; RESP 12–22; TEMP 97.3–99.3; O2SAT 87–100
[2024-10-19 04:00] LABS: Hematocrit 33.0 % (41.0-53.0); Hemoglobin 11.1 g/dL (13.5-17.5); Mean Corpuscular Hemoglobin 30.3 pg (28.0-32.0); Mean Corpuscular Volume 90.0 fL (80.0-100.0); Nucleated Red Blood Cells % 0.0 %
[2024-10-19 04:46] LABS: Alanine Aminotransferase 24 U/L (7-40); Anion Gap 7 (5-15); BUN/Creatinine Ratio 17.1 (10.0-20.0); Carbon Dioxide 28 mmol/L (20-31); Chloride 107 mmol/L (98-107); Potassium 4.3 mmol/L (3.5-5.1); Sodium 142 mmol/L (136-145)
[2024-10-19 04:47] LABS: Albumin 2.4 g/dL (3.2-4.8); Alkaline Phosphatase 45 U/L (46-116); Blood Urea Nitrogen 7 mg/dL (9-23); Calcium 8.2 mg/dL (8.7-10.4); Glucose 120 mg/dL (74-106); Total Protein 5.5 g/dL (5.7-8.2)
[2024-10-19 04:48] LABS: Bilirubin, Total 0.2 mg/dL (0.2-1.0)
[2024-10-19 07:53] LABS: Base Excess 1.7 mmol/L (-2.0-3.0)
--- NOTE | 2024-10-19 09:13 | DVHPN2 ---
Subjective Review of Systems Patient is a 64-year-old male with past medical history of CAD, paroxysmal AFib on Eliquis, hypertension, developmental delay, schizophrenia, baseline dementia, normal pressure hydrocephalus, history of CVA, history of seizures, dyslipidemia, who comes in due to shortness of breath. Per pt's contact at the [facility] facility, he spat out his medications and was noted to have cyanotic fingertips, spo02 was noted to be in the 30's% which is what prompted this visit to the hospital, was also noted to have a fever of 99.3 earlier on 10/14/24. According to the ER and admitting notes, patient was brought to the hospital due to increasing shortness of breath with a respiratory rate in the 40s associated with pallor. Patient was noted to have an oxygen saturation of 82% with a fever of 101 and was being bagged on arrival. Patient was subsequently intubated and put on a mechanical ventilator. Past Hospitalization: Discharged from the [facility] on 08/28/2024 after being treated for altered level of consciousness Patient seen and examined at bedside. Review of systems could not be completed as patient is sedated and mechanically ventilated. 10/16/2024: Patient seen and examined at bedside. Detailed discussions were held with patient's [facility] administrator Jas Jeremy, patient's sister Ms. Zavaleta ([phone]), voicemail was also left for patient's current social media marketing specialist Ms. Mattie Lemon at [phone]. Increased tube feedings to 40 cc/hour. Discontinued IV fluids. 10/17/2024: Patient seen and examined at bedside. On 2 mcg of Levophed, 50 of fentanyl and 5 of Versed. Chest x-ray showed no significant interval change. Call social media marketing specialist Ms. Mattie Lemon again at [phone], left a message with duty sorority supervisor to have her call me back as she is not in the office until 3:00 p.m.. 10/18/24--64-year-old male history of hypertension AFib CVA,. Here from group home was found to be hypoxic cyanotic. Patient was intubated. Here for UTI, aspiration pneumonia. On broad-spectrum antibiotics vancomycin meropenem.. Currently on Versed 5 Levophed to fentanyl 50. Vitals stable. Ventilated a.c. 20/500/80%/5.0.. Getting Jevity feeds we will add free water flushes 200 q.8, no apparent in the indication for fluid restriction. Appears euvolemic. Urine output adequate, some mild pitting edema in ankles, otherwise unchanged exam from prior. Otherwise continue primary team's management. 10/19/2024-plan for sedation vacation and CPAP trial NAD/SBT. Patient is off of Versed fentanyl. Also off Levophed. Vitals stable, maps more than 70 heart rate between 90 and 100. Not yet started CPAP trial. Currently on ventilated settings 18/5 100/30%/5.0. Patient appears comfortable has strong gag reflex and cough reflex. Urine output is adequate. We will continue trial today and continue IV antibiotics as per primary team plan. We are adding lactulose, no bowel movements. This has diminishes breath sounds right lower lung. -update : in PM , patient is becoming hypotensive bradycardic. We will start dopamine drip. If dopamine controlled heart rate more than 60 and still hypotensive we will use Levophed. EKG done. sepsis remains likely cause of shock, bradycardia will need exploring with possible echo tomorrow and/or cardiology eval, defer to primary team. Reviewed: H&P Changes from previous H/P or p: No Changes General: Per HPI Objective Vitals Vital Signs Date Time Temp Pulse Resp B/P (MAP) Pulse Ox O2 Delivery O2 Flow Rate FiO2 10/19/24 09:00 99.3 99 22 126/80 (95) 98 210.7 10/19/24 08:00 30 10/19/24 07:30 Mechanical Ventilator+ Intake/Output Intake and Output 10/19/24 07:00 Intake Total 1784.75 ml Output Total 2450 ml Balance -665.25 ml Intake Oral 400 ml IV Total 696.75 ml Tube Feeding 488 ml Other 200 ml Output Urine Total 2450 ml Exam General Appearance: Sedated and intubated, pupils 3 mm minimally reactive Neck Exam: Normal inspection. Non-tender. Normal alignment Pulmonary/Respiratory: Chest non-tender. Coarse bilateral breath sounds Cardiovascular/Chest: Regular rate and rhythm. No murmurs. No JVD. Peripheral Pulses: 2+ Radial (R). 2+ Radial (L). 2+ Pedal (R). 2+ Pedal (L) Abdominal Exam: Normal bowel sounds. Soft. normal abdomen, no visible veins, Nontender. No hepatospenomegaly. No masses Ankle Exam: Negative ankle edema Lower extremities: Right ankle and heel wound noted. Left heel blanchable redness. Medications Current Medications Medications Dose Ordered Sig/David Route Start Time Stop Time Status Last Admin Dose Admin Vancomycin HCl 0 ml @ 0 mls/hr UD IV 10/14/24 18:30 Midazolam HCl 50 ml @ 1 mls/hr Q24H IV 10/14/24 18:45 10/18/24 03:50 5 MLS/HR Fentanyl Citrate 250 ml @ 2.5 mls/hr Q24H IV 10/14/24 18:45 10/17/24 17:06 5 MLS/HR Norepinephrine Bitartrate 250 ml @ 3.75 mls/hr Q24H IV 10/14/24 18:45 10/17/24 17:06 7.5 MLS/HR Pantoprazole Sodium 40 mg DAILY IV 10/15/24 10:00 10/19/24 08:31 40 MG Ondansetron HCl 4 mg Q4HP PRN IV 10/14/24 22:30 Acetaminophen 650 mg Q6HP PRN PO 10/14/24 22:30 Levalbuterol HCl 1.25 mg Q6HR NEB 10/15/24 12:00 10/19/24 06:38 1.25 MG Ipratropium [place] 0.5 mg Q6HPRN PRN NEB 10/15/24 10:30 10/19/24 00:19 0.5 MG Enoxaparin Sodium 80 mg Q12HR SC 10/15/24 22:00 10/19/24 08:31 80 MG Mupirocin 1 applic BID EACHNOSTRI 10/15/24 22:00 10/20/24 21:59 UNV Meropenem 50 ml @ 17 mls/hr Q8HR IV 10/15/24 22:00 10/19/24 05:30 17 MLS/HR Mupirocin 1 applic BID TOP 10/15/24 22:00 10/20/24 21:59 10/19/24 08:31 1 APPLIC Enteral Nutritional Formula 1,000 ml 60ML/HR GT 10/15/24 20:15 10/15/24 20:52 1,000 ML Valproate Sodium 500 mg TID GT 10/16/24 06:00 10/19/24 05:31 500 MG Vancomycin HCl 200 ml @ 160 mls/hr Q10H IV 10/17/24 19:00 10/19/24 00:58 160 MLS/HR Purified Water 200 ml Q8HR GT 10/18/24 14:00 10/19/24 05:31 200 ML Lactulose 30 ml DAILY PO 10/20/24 10:00 UNV Laboratory Results Laboratory Tests 10/19/24 03:35 10/19/24 04:00 Chemistry Test 10/19/24 04:00 Albumin 2.4 g/dL (3.2-4.8) L Calcium Level 8.2 mg/dL (8.7-10.4) L Total Protein 5.5 g/dL (5.7-8.2) L LFT Test 10/19/24 04:00 Alanine Aminotransferase (ALT) 24 U/L (7-40) Alkaline Phosphatase 45 U/L (46-116) L Aspartate Amino Transferase (AST) 27 U/L (13-40) Total Bilirubin 0.2 mg/dL (0.2-1.0) Urinalysis Test 10/14/24 18:35 Urine Color Yellow (Yellow) Urine Clarity Ex.turbid (Clear) Urine pH 5.5 (5.0-9.0) Urine Specific [place] 1.026 (1.001-1.035) Urine Protein Trace (Negative) H Urine Ketones Negative (Negative) Urine Blood 2+ /uL (Negative) H Urine Nitrite Negative (Negative) Urine Bilirubin Negative (Negative) Urine Urobilinogen 6 mg/dL (Negative) Urine Leukocyte Esterase Negative /uL (Negative) Urine RBC 480 /hpf (0 - 3) Urine WBC Clumps Present /hpf (None Seen) Urine Microscopic WBC 89 /HPF (0-3) H Urine Squamous Epithelial Cells None seen /hpf (<5) Urine Bacteria None seen /hpf (None Seen) Urine Mucus Few (None Seen) Urine Glucose Normal mg/dL (Normal) Blood Gas Results Test 10/19/24 07:48 Arterial Blood pH 7.447 (7.350-7.450) FiO2 % 30.0 Microbiology Microbiology Date/Time Source Procedure Growth Status 10/17/24 04:15 Sputum Endotracheal Wash Gram Stain Pending Resulted 10/17/24 04:15 Sputum Endotracheal Wash Respiratory Culture - Preliminary Resulted 10/15/24 02:59 Nose MRSA Screen - Final Methicillin Resistant S.aureus Complete 10/14/24 18:35 Voided Urine Urine Culture - Final Complete 10/14/24 18:32 Blood Blood Culture - Preliminary NO GROWTH AFTER 72 HOURS OF INCUBATION. Resulted Labs and/or images reviewed: Labs reviewed by me, Image(s) reviewed by me Assessment/Plan Assessment/Plan Neurology # acute on chronic metabolic encephalopathy # dementia, unspecified type # schizophrenia # normal pressure hydrocephalus - head CT: No significant interval change. Unchanged hydrocephalus, further clinical correlation is suggested. If clinically indicated, MRI may be beneficial in further evaluation. - resumed home medication depakote # Sedated - Versed 5 milligrams/hour - fentanyl 50 micrograms/hours Cardiovascular # septic shock due to pneumonia vs UTI # coronary artery disease # paroxysmal AFib, CHADS-VASc 5 # hypercoagulable state secondary to above # essential hypertension - Levophed 6 micrograms/hour - IV vancomycin, IV meropenem - therapeutic Lovenox 80 mg subcutaneous b.i.d. Respiratory # Ventilator -intubated 10/14/2024 -on [facility] vent : VCAC Mode RR18, VT 500, FiO2 30, PEEP 5 # Acute hypoxic respiratory failure # aspiration pneumonia - CXR: Bronchovascular crowding due to low lung volumes with possible mild pulmonary vascular congestion. Underlying infectious process can not be excluded. - Levophed 6 micrograms/hour - IV vancomycin, IV meropenem GI # transaminitis # Peptic ulcer prophylaxis -Pantoprazole 40 mg IV daily - monitor /Nephrology # acute complicated UTI # hyperkalemia, now resolved # Hsu catheter 10/14/24 - IV meropenem - monitor Infectious disease # aspiration pneumonia # acute complicated UTI # sepsis due to above - IV vancomycin, IV meropenem - Hsu placed on 10/14/2024 - strict aspiration precautions Hem/onc # anemia likely of chronic disease # initial leukopenia - monitor Endocrine # protein calorie malnutrition Nutrition - Jevity 1.2 TF @ 60cc/hr DVT prophylaxis - on therapeutic Lovenox 80 mg sc b.i.d. Lines - right IJ placed on 10/14/2024 - left 20 gauge placed on 10/14/2024 Plan discussed with: Patient My Orders Orders - SHY LOPEZ MD Procedure Category Date Status Time Free Water PHA 10/18/24 In Process 14:00 Cpap/Sed Vacation Med ORDERS 10/18/24 Transmitted Weaning 18:31 Cpap Trial For Am ORDERS 10/19/24 Transmitted 07:48 Dexmedetomidine Hcl PHA 10/19/24 In Process In D5w (Precedex) 09:15 Lactulose Oral PHA 10/20/24 Logged 10:00 Date of Service: Oct 19, 2024 Billing Provider: SHY LOPEZ MD Common Visit Codes: [id number] CARE 30-74 MIN SHY LOPEZ MD Oct 19, 2024 09:13
--- NOTE | 2024-10-19 09:15 | DVH ---
XY CHEST PORTABLE, HISTORY: INTUBATED COMPARISON: XY CHEST PORTABLE on DOS: 10/18/24, XY CHEST PORTABLE on DOS: 10/17/24, XY CHEST PORTABLE o n DOS: 10/16/24 XY CHEST PORTABLE on DOS: 10/18/24, XY CHEST PORTABLE on DOS: 10/17/24, XY CHEST PORTABLE on DOS: TECHNICAL DATA: 1 view of the chest was obtained. FINDINGS: Lines and tubes: There is stable position of the lines and tubes. Cardiomediastinal silhouette: Enlarged Pulmonary vasculature: Prominent Lung expansion: Low Lung airspace: Similar bibasalar consolidation. Lung interstitium: normal Pleura: normal Pneumothorax: no Bones: Unremarkable Other: no IMPRESSION: Similar lines in tubes. Similar lung aeration with bibasilar consolidation.
[2024-10-19] MEDS: DEXMEDETOMIDINE HCL IN D5W 100 ML IV SCH (09:43)
--- NOTE | 2024-10-19 13:21 | DVHPN2 ---
Progress Note - Dictate Date Seen: Oct 19, 2024 Medical Necessity Reason Pt with a Central, PICC or Fol: Yes The following are medically ne: Central Line, Hsu Catheter vital signs Vital Sign Date Time Temp Pulse Resp B/P (MAP) Pulse Ox O2 Delivery O2 Flow Rate FiO2 10/19/24 11:54 18 100 Mechanical Ventilator+ 30 30 10/19/24 11:45 99.0 63 89/57 (68) 210.2 Total Intake and Output 10/18/24 10/18/24 10/19/24 15:00 23:00 07:00 Intake Total 403.00 ml 431.75 ml 967 ml Output Total 1600 ml 850 ml Balance 403.00 ml -1168.25 ml 117 ml medications Current Medications Medications Dose Ordered Sig/David Route Start Time Stop Time Status Last Admin Dose Admin Vancomycin HCl 0 ml @ 0 mls/hr UD IV 10/14/24 18:30 Midazolam HCl 50 ml @ 1 mls/hr Q24H IV 10/14/24 18:45 10/18/24 03:50 5 MLS/HR Fentanyl Citrate 250 ml @ 2.5 mls/hr Q24H IV 10/14/24 18:45 10/17/24 17:06 5 MLS/HR Norepinephrine Bitartrate 250 ml @ 3.75 mls/hr Q24H IV 10/14/24 18:45 10/17/24 17:06 7.5 MLS/HR Pantoprazole Sodium 40 mg DAILY IV 10/15/24 10:00 10/19/24 08:31 40 MG Ondansetron HCl 4 mg Q4HP PRN IV 10/14/24 22:30 Acetaminophen 650 mg Q6HP PRN PO 10/14/24 22:30 Levalbuterol HCl 1.25 mg Q6HR NEB 10/15/24 12:00 10/19/24 11:41 1.25 MG Ipratropium [place] 0.5 mg Q6HPRN PRN NEB 10/15/24 10:30 10/19/24 00:19 0.5 MG Enoxaparin Sodium 80 mg Q12HR SC 10/15/24 22:00 10/19/24 08:31 80 MG Mupirocin 1 applic BID EACHNOSTRI 10/15/24 22:00 10/20/24 21:59 UNV Meropenem 50 ml @ 17 mls/hr Q8HR IV 10/15/24 22:00 10/19/24 05:30 17 MLS/HR Mupirocin 1 applic BID TOP 10/15/24 22:00 10/20/24 21:59 10/19/24 08:31 1 APPLIC Enteral Nutritional Formula 1,000 ml 60ML/HR GT 10/15/24 20:15 10/15/24 20:52 1,000 ML Valproate Sodium 500 mg TID GT 10/16/24 06:00 10/19/24 05:31 500 MG Vancomycin HCl 200 ml @ 160 mls/hr Q10H IV 10/17/24 19:00 10/19/24 10:14 160 MLS/HR Purified Water 200 ml Q8HR GT 10/18/24 14:00 10/19/24 05:31 200 ML Lactulose 30 ml DAILY PO 10/20/24 10:00 laboratory and microbiology Laboratory Tests 10/19/24 04:00 10/19/24 03:35 Test 10/19/24 04:00 Range/Units Serum Glucose 120 H 74-106 mg/dL Assessment/Plan Systems Software Specialist rounds Impression Acute hypoxemic respiratory failure Pneumonia Atelectasis Congestion Patient seen and examined in ICU Events On mechanical ventilation S/p intubation PEEP 5, FiO2 30% Patient beginning to wake up Copious secretions reported Bronchoscopy was performed at the bedside See separate note for procedure in detail Labs and imaging reviewed ABG reviewed Management Vent support Titrate to maintain sats 90% or above Sedation holiday daily If patient follows commands, proceed to weaning trial Pressure support 10/11, extubate when ready Continue antibiotics F/u cultures Bronchodilators Monitor renal function Monitor electrolytes Supplement as needed Pressors as needed for hemodynamic support To maintain a mean arterial pressure of 65 mmHg DVT prophylaxis Critical care time 35 minutes Dietary Evaluation Review Comments: 1) TF Jevity 1.2Cal @ 70ml/hr. Start @ 20ml/hr, increase 10ml/hr Q4H until goal is reached. TF at goal volum provides 100% energy & protein needs (2016 kcal, 93gm protein, 1356ml free water) 2) Water flush 110ml Q4H if allowed, adjust PRN 3) TPN if NPO > 7 days Expected Outcomes/Goals: To meet at least 75% estimated needs within 7 days FU 2-3 days Plan discussed with: Other (Rn) ARAM BAE MD Oct 19, 2024 13:21
--- NOTE | 2024-10-19 13:27 | DVHNC2 ---
Procedure - Procedure- Bronchoscopy and bronchial washings Indication- Mucus Procedure in detail Emergency consent with two physicians was obtained and the patient was placed on 100% FiO2. Olympus bronchoscope was used and passed through the endotracheal tube, tracheobronchial tree was examined. There were nonpurulent secretions in the airways bilaterally that were loosened up with approximately 50 cc of normal saline and thoroughly suctioned into a separate specimen container. There were no endobronchial lesions however, mucosa appeared inflamed and easily friable. After the procedure, the scope was removed. Patient tolerated the procedure well. ARAM BAE MD Oct 19, 2024 13:27
[2024-10-19] MEDS: DOPamine 1600MCG/ML D5W 250 ML IV SCH (18:15)
[2024-10-19] MEDS: NOREPINEPHRINE 8 MG/250ML KIT 250 ML IV SCH (18:26)
[2024-10-20] VITALS (109 sets, daily range): BP systolic 90–132; BP diastolic 49–93; PULSE 55–106; RESP 10–28; TEMP 98.2–99.7; O2SAT 96–100
[2024-10-20 04:24] LABS: Hematocrit 33.3 % (41.0-53.0); Hemoglobin 11.2 g/dL (13.5-17.5); Mean Corpuscular Hemoglobin 30.0 pg (28.0-32.0); Mean Corpuscular Volume 89.1 fL (80.0-100.0); Nucleated Red Blood Cells % 0.1 %
[2024-10-20 04:33] LABS: Alanine Aminotransferase 20 U/L (7-40); Anion Gap 6 (5-15); BUN/Creatinine Ratio 19.4 (10.0-20.0); Chloride 103 mmol/L (98-107); Glucose 94 mg/dL (74-106); Sodium 140 mmol/L (136-145); Total Protein 5.7 g/dL (5.7-8.2)
--- NOTE | 2024-10-20 04:35 | DVH ---
CHEST RADIOGRAPH Indication: Intubated Technique: Single frontal view of the chest was obtained Comparison: XY CHEST PORTABLE on DOS: 10/19/24. FINDINGS: Lines and Tubes: Endotracheal tube terminates 6.6 cm above the mya. Right central venous catheter terminates in the superior vena cava. Enteric tube terminates in the stomach. Lungs: Bibasilar opacities. Pleura: No effusion. No pneumothorax. Cardiomediastinal contours: Unremarkable Bones: No acute osseous abnormality. IMPRESSION: 1. Appropriate position of the support lines and tubes. 2. Bibasilar opacities.
[2024-10-20 04:40] LABS: Albumin 2.4 g/dL (3.2-4.8); Alkaline Phosphatase 46 U/L (46-116); Bilirubin, Total 0.2 mg/dL (0.2-1.0); Blood Urea Nitrogen 7 mg/dL (9-23); Calcium 8.2 mg/dL (8.7-10.4); Carbon Dioxide 31 mmol/L (20-31); Potassium 3.4 mmol/L (3.5-5.1)
[2024-10-20] MEDS: POTASSIUM CHL 20MEQ/100ML 100 ML IV ONE ×2 (06:25→09:30)
[2024-10-20 07:17] LABS: Base Excess 5.2 mmol/L (-2.0-3.0)
[2024-10-20] MEDS: LACTULOSE 20Gm/30ML SOLN PO SCH (08:46)
[2024-10-20] MEDS: VANCOMYCIN 1GM/200ML PM 200 ML IV SCH (08:46)
[2024-10-20] MEDS: MAGNESIUM SULFATE 1GM/100ML 100 ML IV ONE (15:56)
--- NOTE | 2024-10-20 17:23 | DVHPNRES ---
Progress Note Date Seen: Oct 20, 2024 Resident Creating Document: ELAINE ALFREDO RESIDENT Medical Necessity Reason Pt with a Central, PICC or Fol: Yes The following are medically ne: Central Line, Hsu Catheter Subjective Review of Systems Patient is a 64-year-old male with past medical history of CAD, paroxysmal AFib on Eliquis, hypertension, developmental delay, schizophrenia, baseline dementia, normal pressure hydrocephalus, history of CVA, history of seizures, dyslipidemia, who comes in due to shortness of breath. Per pt's contact at the [facility], he spat out his medications and was noted to have cyanotic fingertips, spo02 was noted to be in the 30's% which is what prompted this visit to the hospital, was also noted to have a fever of 99.3 earlier on 10/14/24. According to the ER and admitting notes, patient was brought to the hospital due to increasing shortness of breath with a respiratory rate in the 40s associated with pallor. Patient was noted to have an oxygen saturation of 82% with a fever of 101 and was being bagged on arrival. Patient was subsequently intubated and put on a mechanical ventilator. Past Hospitalization: Discharged from the [facility] [place] on 08/28/2024 after being treated for altered level of consciousness Patient seen and examined at bedside. Review of systems could not be completed as patient is sedated and mechanically ventilated. 10/16/2024: Patient seen and examined at bedside. Detailed discussions were held with patient's [facility] administrator Ms. Luna, patient's sister Ms. Zavaleta ([phone]), voicemail was also left for patient's current social studies department chair Ms. Mattie Lemon at [phone]. Increased tube feedings to 40 cc/hour. Discontinued IV fluids. 10/17/2024: Patient seen and examined at bedside. On 2 mcg of Levophed, 50 of fentanyl and 5 of Versed. Chest x-ray showed no significant interval change. Call social studies department chair Ms. Mattie Lemon again at [phone], left a message with [employer] supervisor to have her call me back as she is not in the office until 3:00 p.m.. 10/18/24--64-year-old male history of hypertension AFib CVA,. Here from group home was found to be hypoxic cyanotic. Patient was intubated. Here for UTI, aspiration pneumonia. On broad-spectrum antibiotics vancomycin meropenem.. Currently on Versed 5 Levophed to fentanyl 50. Vitals stable. Ventilated a.c. 20/500/80%/5.0.. Getting Jevity feeds we will add free water flushes 200 q.8, no apparent in the indication for fluid restriction. Appears euvolemic. Urine output adequate, some mild pitting edema in ankles, otherwise unchanged exam from prior. Otherwise continue primary team's management. 10/19/2024-plan for sedation vacation and CPAP trial NAD/SBT. Patient is off of Versed fentanyl. Also off Levophed. Vitals stable, maps more than 70 heart rate between 90 and 100. Not yet started CPAP trial. Currently on ventilated settings 18/5 100/30%/5.0. Patient appears comfortable has strong gag reflex and cough reflex. Urine output is adequate. We will continue trial today and continue IV antibiotics as per primary team plan. We are adding lactulose, no bowel movements. This has diminishes breath sounds right lower lung. -update : in PM , patient is becoming hypotensive bradycardic. We will start dopamine drip. If dopamine controlled heart rate more than 60 and still hypotensive we will use Levophed. EKG done. sepsis remains likely cause of shock, bradycardia will need exploring with possible echo tomorrow and/or cardiology eval, defer to primary team. 10/20/24: CPAP trail with NIF -8. off of pressors. PICC line consult, cpap trial in the AM Objective vital signs Vital Sign Date Time Temp Pulse Resp B/P (MAP) Pulse Ox O2 Delivery O2 Flow Rate FiO2 10/20/24 16:45 66 18 114/75 (88) 100 10/20/24 16:09 Mechanical Ventilator+ 30 30 10/20/24 16:00 99.0 99.0 Total Intake and Output 10/19/24 10/19/24 10/20/24 15:00 23:00 07:00 Intake Total 274.450 ml 707.225 ml 737.038 ml Output Total 450 ml 825 ml Balance 274.450 ml 257.225 ml -87.962 ml medications Current Medications Medications Dose Ordered Sig/David Route Start Time Stop Time Status Last Admin Dose Admin Vancomycin HCl 0 ml @ 0 mls/hr UD IV 10/14/24 18:30 Midazolam HCl 50 ml @ 1 mls/hr Q24H IV 10/14/24 18:45 10/18/24 03:50 5 MLS/HR Fentanyl Citrate 250 ml @ 2.5 mls/hr Q24H IV 10/14/24 18:45 10/20/24 16:03 10 MLS/HR Pantoprazole Sodium 40 mg DAILY IV 10/15/24 10:00 10/20/24 08:46 40 MG Acetaminophen 650 mg Q6HP PRN PO 10/14/24 22:30 Levalbuterol HCl 1.25 mg Q6HR NEB 10/15/24 12:00 10/20/24 11:50 1.25 MG Ipratropium [place] 0.5 mg Q6HPRN PRN NEB 10/15/24 10:30 10/19/24 00:19 0.5 MG Enoxaparin Sodium 80 mg Q12HR SC 10/15/24 22:00 10/20/24 08:47 80 MG Mupirocin 1 applic BID EACHNOSTRI 10/15/24 22:00 10/20/24 21:59 UNV Meropenem 50 ml @ 17 mls/hr Q8HR IV 10/15/24 22:00 10/20/24 14:28 17 MLS/HR Mupirocin 1 applic BID TOP 10/15/24 22:00 10/20/24 21:59 10/20/24 08:47 1 APPLIC Enteral Nutritional Formula 1,000 ml 60ML/HR GT 10/15/24 20:15 10/15/24 20:52 1,000 ML Valproate Sodium 500 mg TID GT 10/16/24 06:00 10/20/24 16:47 500 MG Purified Water 200 ml Q8HR GT 10/18/24 14:00 10/20/24 14:26 200 ML Lactulose 30 ml DAILY PO 10/20/24 10:00 10/20/24 08:46 30 ML Norepinephrine Bitartrate 250 ml @ 3.75 mls/hr Q24H IV 10/19/24 18:15 10/19/24 18:26 1.875 MLS/HR Dopamine HCl/ Dextrose 250 ml @ 15.281 mls/ hr [id number] IV 10/19/24 18:15 Vancomycin HCl 200 ml @ 160 mls/hr Q10H IV 10/20/24 09:00 10/20/24 08:46 160 MLS/HR Examination General Appearance: Sedated and intubated, pupils 3 mm minimally reactive Neck Exam: Normal inspection. Non-tender. Normal alignment Pulmonary/Respiratory: Chest non-tender. Coarse bilateral breath sounds Cardiovascular/Chest: Regular rate and rhythm. No murmurs. No JVD. Peripheral Pulses: 2+ Radial (R). 2+ Radial (L). 2+ Pedal (R). 2+ Pedal (L) Abdominal Exam: Normal bowel sounds. Soft. normal abdomen, no visible veins, Nontender. No hepatospenomegaly. No masses Ankle Exam: Negative ankle edema Lower extremities: Right ankle and heel wound noted. Left heel blanchable redness. L buttock maceration laboratory and microbiology Laboratory Tests 10/20/24 03:00 Test 10/20/24 03:00 Range/Units Serum Glucose 94 74-106 mg/dL Microbiology Date/Time Source Procedure Growth Status 10/19/24 11:01 Bronchial Washings Gram Stain - Final Resulted 10/19/24 11:01 Bronchial Washings Respiratory Culture - Preliminary Resulted 10/15/24 02:59 Nose MRSA Screen - Final Methicillin Resistant S.aureus Complete 10/14/24 18:35 Voided Urine Urine Culture - Final Complete 10/14/24 18:32 Blood Blood Culture - Final NO GROWTH AFTER 5 DAYS OF INCUBATION. Complete Labs and/or images reviewed: Labs reviewed by me, Image(s) reviewed by me Problem List/Assessment/Plan Problem List/Assessment/Plan Neurology # acute on chronic metabolic encephalopathy # dementia, unspecified type # schizophrenia # normal pressure hydrocephalus - head CT: No significant interval change. Unchanged hydrocephalus, further clinical correlation is suggested. If clinically indicated, MRI may be beneficial in further evaluation. - resumed home medication depakote # Sedated - Versed 5 milligrams/hour - fentanyl 50 micrograms/hours Cardiovascular # septic shock due to pneumonia vs UTI # coronary artery disease # paroxysmal AFib, CHADS-VASc 5 # hypercoagulable state secondary to above # essential hypertension - Levophed 6 micrograms/hour - IV vancomycin, IV meropenem - therapeutic Lovenox 80 mg subcutaneous b.i.d. Respiratory # Ventilator -intubated 10/14/2024 -on [facility] vent : VCAC Mode RR18, VT 500, FiO2 30, PEEP 5 # Acute hypoxic respiratory failure # aspiration pneumonia - CXR: Bronchovascular crowding due to low lung volumes with possible mild pulmonary vascular congestion. Underlying infectious process can not be excluded. - Levophed 6 micrograms/hour - IV vancomycin, IV meropenem GI # transaminitis # Peptic ulcer prophylaxis -Pantoprazole 40 mg IV daily - monitor /Nephrology # acute complicated UTI # hyperkalemia, now resolved # Hsu catheter 10/14/24 - IV meropenem - monitor Infectious disease # aspiration pneumonia # acute complicated UTI # sepsis due to above - IV vancomycin, IV meropenem - Hsu placed on 10/14/2024 - strict aspiration precautions Hem/onc # anemia likely of chronic disease # initial leukopenia - monitor Endocrine # protein calorie malnutrition Nutrition - Jevity 1.2 TF @ 60cc/hr DVT prophylaxis - on therapeutic Lovenox 80 mg sc b.i.d. Lines - right IJ placed on 10/14/2024 - left 20 gauge placed on 10/14/2024 Drips during [facility] ventilation Versed 5 milligrams/hour Levophed 6 micrograms/hour Fentanyl 50 micrograms/hour Critical care time 83 minutes excluding procedure. Full CODE STATUS. Spoke with patient's board and care facility's performance manager, Ms Mathis for 13 mins. Also spoke with patient's sister Ms. Zavaleta and voicemail was left for patient's social studies department chair Jas Lemon. All questions were answered and concerns were addressed. Plan discussed with Dr. Burton Plan discussed with: Other (RN) My Orders My Orders Orders - ELAINE ALFREDO RESIDENT Procedure Category Date Status Time * Picc Line Consult CONS 10/20/24 Transmitted 16:40 Dietary Evaluation Review Comments: 1) TF Jevity 1.2Cal @ 70ml/hr. Start @ 20ml/hr, increase 10ml/hr Q4H until goal is reached. TF at goal volum provides 100% energy & protein needs (2016 kcal, 93gm protein, 1356ml free water) 2) Water flush 110ml Q4H if allowed, adjust PRN 3) TPN if NPO > 7 days Expected Outcomes/Goals: To meet at least 75% estimated needs within 7 days FU 2-3 days Date of Service: Oct 20, 2024 Billing Provider: MIHAI BURTON MD Common Visit Codes: 43461-[id number] CARE 30-74 MIN, 84509-[id number] CARE-EACH +30MIN ELAINE ALFREDO RESIDENT Oct 20, 2024 17:23 MIHAI BURTON MD Oct 21, 2024 15:17
[2024-10-21] VITALS (108 sets, daily range): BP systolic 80–193; BP diastolic 46–131; PULSE 51–129; RESP 10–34; TEMP 98.6–101.3; O2SAT 81–100
[2024-10-21 03:28] LABS: Chloride 104 mmol/L (98-107); Potassium 3.6 mmol/L (3.5-5.1); Sodium 137 mmol/L (136-145)
[2024-10-21 03:29] LABS: Anion Gap 3 (5-15); Carbon Dioxide 30 mmol/L (20-31)
[2024-10-21 03:34] LABS: BUN/Creatinine Ratio 16.2 (10.0-20.0); Glucose 91 mg/dL (74-106)
[2024-10-21 03:37] LABS: Blood Urea Nitrogen 6 mg/dL (9-23); Calcium 7.9 mg/dL (8.7-10.4)
[2024-10-21 03:41] LABS: Hematocrit 31.7 % (41.0-53.0); Hemoglobin 10.7 g/dL (13.5-17.5); Mean Corpuscular Hemoglobin 30.2 pg (28.0-32.0); Mean Corpuscular Volume 89.2 fL (80.0-100.0); Nucleated Red Blood Cells % 0.1 %
[2024-10-21 03:54] LABS: INR 1.06 (0.9-1.15); Prothrombin Time 11.2 sec (9.3-11.8)
--- NOTE | 2024-10-21 05:03 | DVH ---
CHEST RADIOGRAPH Indication: pna Technique: Single frontal view of the chest was obtained COMPARISON: XY CHEST PORTABLE on DOS: 10/20/24, XY CHEST PORTABLE on DOS: 10/19/24, XY CHEST PORTABLE o n DOS: 10/18/24, XY CHEST PORTABLE on DOS: 10/17/24, XY CHEST PORTABLE on DOS: 10/16/24 FINDINGS: Lines and Tubes: Unchanged. Lungs: Minimal left basilar atelectasis. No focal consolidation. Pleura: No effusion. No pneumothorax. Cardiomediastinal contours: Unremarkable Bones: Unremarkable IMPRESSION: 1. No acute disease. Minimal left basilar atelectasis. 2. Lines and tubes unchanged.
[2024-10-21 06:34] LABS: Base Excess 4.4 mmol/L (-2.0-3.0)
--- NOTE | 2024-10-21 07:28 | ECG ---
[facility] Test Date: 2024-10-19 Test Time: 18:01:39 Pat Name: OMID REIS Department: icu Room: [address] [place] [address] A Gender: M Cd Reactor Operator: sarai : 1960 Requested By: SHY MORAN Order Number: [id number] Reading MD: Raheem Bermudez Measurements Intervals [place] Rate: 44 P: 48 HI: 131 QRS: 38 QRSD: 97 T: 76 QT: 488 QTc: 418 Interpretive Statements Sinus bradycardia Abnormal R-wave progression, early transition Nonspecific T abnormalities, lateral leads Electronically Signed On 10-23-2024 16:09:14 PDT by Raheem Bermudez Please click the below link to view image of tracing.
--- NOTE | 2024-10-21 07:28 | ECG ---
[facility] Test Date: 2024-10-19 Test Time: 18:02:25 Pat Name: OMID REIS Department: icu Room: [address] [place] [address] A Gender: M Coke Inspector: sarai : 1960 Requested By: SHY MORAN Order Number: [id number] Reading MD: Raheem Bermudez Measurements Intervals [place] Rate: 46 P: 44 MS: 134 QRS: 38 QRSD: 97 T: 71 QT: 480 QTc: 420 Interpretive Statements Sinus bradycardia Abnormal R-wave progression, early transition Electronically Signed On 10-23-2024 16:09:22 PDT by Raheem Bermudez Please click the below link to view image of tracing.
[2024-10-21] MEDS: LIDOCAINE 1% (LOCAL ANESTH.) PF 5ml SDV ID ONE (09:18)
[2024-10-21 10:22] LABS: Base Excess 2.4 mmol/L (-2.0-3.0)
[2024-10-21] MEDS: NOREPINEPHRINE 8 MG/250ML KIT 250 ML IV SCH (15:15)
--- NOTE | 2024-10-21 17:53 | DVHPNRES ---
Progress Note Date Seen: Oct 21, 2024 Resident Creating Document: ELAINE ALFREDO RESIDENT Medical Necessity Reason Pt with a Central, PICC or Fol: Yes The following are medically ne: Central Line, Hsu Catheter Subjective Review of Systems Patient is a 64-year-old male with past medical history of CAD, paroxysmal AFib on Eliquis, hypertension, developmental delay, schizophrenia, baseline dementia, normal pressure hydrocephalus, history of CVA, history of seizures, dyslipidemia, who comes in due to shortness of breath. Per pt's contact at the [facility], he spat out his medications and was noted to have cyanotic fingertips, spo02 was noted to be in the 30's% which is what prompted this visit to the hospital, was also noted to have a fever of 99.3 earlier on 10/14/24. According to the ER and admitting notes, patient was brought to the hospital due to increasing shortness of breath with a respiratory rate in the 40s associated with pallor. Patient was noted to have an oxygen saturation of 82% with a fever of 101 and was being bagged on arrival. Patient was subsequently intubated and put on a mechanical ventilator. Past Hospitalization: Discharged from the [facility] on 08/28/2024 after being treated for altered level of consciousness Patient seen and examined at bedside. Review of systems could not be completed as patient is sedated and mechanically ventilated. 10/16/2024: Patient seen and examined at bedside. Detailed discussions were held with [facility]'s [facility] Ms. Luna, patient's sister Ms. Zavaleta ([phone]), voicemail was also left for patient's current social sciences research scientist Ms. Mattie Lemon at [phone]. Increased tube feedings to 40 cc/hour. Discontinued IV fluids. 10/17/2024: Patient seen and examined at bedside. On 2 mcg of Levophed, 50 of fentanyl and 5 of Versed. Chest x-ray showed no significant interval change. Call social sciences research scientist Ms. Mattie Lemon again at [phone], left a message with duty mains and service supervisor to have her call me back as she is not in the office until 3:00 p.m.. 10/18/24--64-year-old male history of hypertension AFib CVA,. [facility] was found to be hypoxic cyanotic. Patient was intubated. Here for UTI, aspiration pneumonia. On broad-spectrum antibiotics vancomycin meropenem.. Currently on Versed 5 Levophed to fentanyl 50. Vitals stable. Ventilated a.c. 20/500/80%/5.0.. Getting Jevity feeds we will add free water flushes 200 q.8, no apparent in the indication for fluid restriction. Appears euvolemic. Urine output adequate, some mild pitting edema in ankles, otherwise unchanged exam from prior. Otherwise continue primary team's management. 10/19/2024-plan for sedation vacation and CPAP trial NAD/SBT. Patient is off of Versed fentanyl. Also off Levophed. Vitals stable, maps more than 70 heart rate between 90 and 100. Not yet started CPAP trial. Currently on ventilated settings 18/5 100/30%/5.0. Patient appears comfortable has strong gag reflex and cough reflex. Urine output is adequate. We will continue trial today and continue IV antibiotics as per primary team plan. We are adding lactulose, no bowel movements. This has diminishes breath sounds right lower lung. -update : in PM , patient is becoming hypotensive bradycardic. We will start dopamine drip. If dopamine controlled heart rate more than 60 and still hypotensive we will use Levophed. EKG done. sepsis remains likely cause of shock, bradycardia will need exploring with possible echo tomorrow and/or cardiology eval, defer to primary team. 10/20/24: CPAP trail with NIF -8. off of pressors. PICC line consult, cpap trial in the AM 10/21/24: Status post extubation today, currently on Levophed at 1 microgram/min. Attempted to place NG tube x3, unsuccessful. Objective vital signs Vital Sign Date Time Temp Pulse Resp B/P (MAP) Pulse Ox O2 Delivery O2 Flow Rate FiO2 10/21/24 16:15 101.3 94 19 101/65 (77) 93 101.3 10/21/24 16:00 Nasal Cannula* 5 40 Total Intake and Output 10/20/24 10/20/24 10/21/24 15:00 23:00 07:00 Intake Total 345.304 ml 625.114 ml 964.263 ml Output Total 650 ml 820 ml Balance 345.304 ml -24.886 ml 144.263 ml medications Current Medications Medications Dose Ordered Sig/David Route Start Time Stop Time Status Last Admin Dose Admin Vancomycin HCl 0 ml @ 0 mls/hr UD IV 10/14/24 18:30 Pantoprazole Sodium 40 mg DAILY IV 10/15/24 10:00 10/21/24 09:52 40 MG Acetaminophen 650 mg Q6HP PRN PO 10/14/24 22:30 Levalbuterol HCl 1.25 mg Q6HR NEB 10/15/24 12:00 10/21/24 11:06 1.25 MG Ipratropium [place] 0.5 mg Q6HPRN PRN NEB 10/15/24 10:30 10/21/24 11:06 0.5 MG Enoxaparin Sodium 80 mg Q12HR SC 10/15/24 22:00 10/21/24 09:53 80 MG Mupirocin 1 applic BID EACHNOSTRI 10/15/24 22:00 10/20/24 21:59 UNV Meropenem 50 ml @ 17 mls/hr Q8HR IV 10/15/24 22:00 10/21/24 13:51 17 MLS/HR Enteral Nutritional Formula 1,000 ml 60ML/HR GT 10/15/24 20:15 10/15/24 20:52 1,000 ML Valproate Sodium 500 mg TID GT 10/16/24 06:00 10/21/24 05:22 500 MG Purified Water 200 ml Q8HR GT 10/18/24 14:00 10/21/24 05:23 200 ML Lactulose 30 ml DAILY PO 10/20/24 10:00 10/20/24 08:46 30 ML Dopamine HCl/ Dextrose 250 ml @ 15.281 mls/ hr [id number] IV 10/19/24 18:15 Sodium Chloride 10 ml QSHIFT@10,22 IV 10/21/24 22:00 Norepinephrine Bitartrate 250 ml @ 3.75 mls/hr Q24H IV 10/21/24 15:15 10/21/24 15:15 1.875 MLS/HR Vancomycin HCl 200 ml @ 160 mls/hr Q12H IV 10/22/24 03:00 Examination General Appearance: Sedated and intubated, pupils 3 mm minimally reactive Neck Exam: Normal inspection. Non-tender. Normal alignment Pulmonary/Respiratory: Chest non-tender. Coarse bilateral breath sounds Cardiovascular/Chest: Regular rate and rhythm. No murmurs. No JVD. Peripheral Pulses: 2+ Radial (R). 2+ Radial (L). 2+ Pedal (R). 2+ Pedal (L) Abdominal Exam: Normal bowel sounds. Soft. normal abdomen, no visible veins, Nontender. No hepatospenomegaly. No masses Ankle Exam: Negative ankle edema Lower extremities: Right ankle and heel wound noted. Left heel blanchable redness. L buttock maceration laboratory and microbiology Laboratory Tests 10/21/24 14:30 10/21/24 02:54 Test 10/21/24 02:54 Range/Units Serum Glucose 91 74-106 mg/dL Microbiology Date/Time Source Procedure Growth Status 10/19/24 11:01 Bronchial Washings Gram Stain - Final Complete 10/19/24 11:01 Respiratory Culture - Final Methicillin Resistant S.aureus Klebsiella pneumoniae - ESBL Complete 10/15/24 02:59 Nose MRSA Screen - Final Methicillin Resistant S.aureus Complete 10/14/24 18:35 Voided Urine Urine Culture - Final Complete 10/14/24 18:32 Blood Blood Culture - Final NO GROWTH AFTER 5 DAYS OF INCUBATION. Complete Labs and/or images reviewed: Labs reviewed by me, Image(s) reviewed by me Problem List/Assessment/Plan Problem List/Assessment/Plan Neurology # acute on chronic metabolic encephalopathy # dementia, unspecified type # schizophrenia # normal pressure hydrocephalus - head CT: No significant interval change. Unchanged hydrocephalus, further clinical correlation is suggested. If clinically indicated, MRI may be beneficial in further evaluation. - resumed home medication depakote Cardiovascular # septic shock due to pneumonia vs UTI # coronary artery disease # paroxysmal AFib, CHADS-VASc 5 # hypercoagulable state secondary to above # essential hypertension - Levophed 6 micrograms/hour - IV vancomycin, IV meropenem - therapeutic Lovenox 80 mg subcutaneous b.i.d. Respiratory # Ventilator -intubated 10/14/2024 -on [facility] vent : VCAC Mode RR18, VT 500, FiO2 30, PEEP 5 # Acute hypoxic respiratory failure # aspiration pneumonia, culture growing MRSA and Klebsiella - CXR: Bronchovascular crowding due to low lung volumes with possible mild pulmonary vascular congestion. Underlying infectious process can not be excluded. - Levophed 6 micrograms/hour - IV vancomycin, IV meropenem GI # transaminitis # Peptic ulcer prophylaxis -Pantoprazole 40 mg IV daily - monitor /Nephrology # acute complicated UTI # hyperkalemia, now resolved # Hsu catheter 10/14/24 - IV meropenem - monitor Infectious disease # aspiration pneumonia, culture growing MRSA and Klebsiella # acute complicated UTI # sepsis due to above - IV vancomycin, IV meropenem - Hsu placed on 10/14/2024 - strict aspiration precautions Hem/onc # anemia likely of chronic disease # initial leukopenia - monitor Endocrine # protein calorie malnutrition Nutrition - Jevity 1.2 TF @ 60cc/hr DVT prophylaxis - on therapeutic Lovenox 80 mg sc b.i.d. Lines - right IJ placed on 10/14/2024 - left 20 gauge placed on 10/14/2024 S/p extubation, requested swallow evaluation. Critical care time 84 minutes excluding procedure and including cpap trial Full CODE STATUS. Spoke with patient's board and care facility's manager department, Ms Mathis for 13 mins. Also spoke with patient's sister Ms. Zavaleta and voicemail was left for patient's social sciences research scientist Jas Lemon. All questions were answered and concerns were addressed. Plan discussed with Dr. Burton Plan discussed with: Other (RN) My Orders My Orders Orders - ELAINE ALFREDO RESIDENT Procedure Category Date Status Time Abg W/ Co-Ox RT 10/21/24 Logged 04:00 Change Dressing Prn KELSEA 10/21/24 In Process 10:11 Sodium Chloride Lock PHA 10/21/24 In Process (Saline Lock Ns) 22:00 Do Not Use Picc For [facility] 10/21/24 In Process Blood Cult 10:11 May Draw Blood From [facility] 10/21/24 In Process Picc 10:11 Ok To Use Picc KELSEA 10/21/24 In Process 10:11 Change Picc Dressing KELSEA 10/21/24 In Process Q7 Days 10:11 Us Guided Vascular US 10/21/24 Taken Access 10:11 Extubate KELSEA 10/21/24 In Process 11:15 Wound Culture W/ Gs KYUNG 10/21/24 In Process 14:01 Norepinephrine 8 PHA 10/21/24 In Process Mg/250ml Kit 15:15 * Swallow Request ST 10/21/24 Transmitted 16:34 Dietary Evaluation Review Comments: 1) TF Jevity 1.2Cal @ 70ml/hr. Start @ 20ml/hr, increase 10ml/hr Q4H until goal is reached. TF at goal volum provides 100% energy & protein needs (2016 kcal, 93gm protein, 1356ml free water) 2) Water flush 110ml Q4H if allowed, adjust PRN 3) TPN if NPO > 7 days Expected Outcomes/Goals: To meet at least 75% estimated needs within 7 days FU 2-3 days Date of Service: Oct 21, 2024 Billing Provider: MIHAI BURTON MD Common Visit Codes: 96707-[id number] CARE 30-74 MIN, [id number] CARE-EACH +30MIN ELAINE ALFREDO Oct 21, 2024 17:53 MIHAI BURTON MD Oct 22, 2024 14:12
[2024-10-21] MEDS: SODIUM CHLOR 0.9% PF (SALINE LOCK) 10ML VIAL/SYR IV SCH (23:06)
[2024-10-22] VITALS (67 sets, daily range): BP systolic 117–176; BP diastolic 42–124; PULSE 93–125; RESP 12–44; TEMP 98.2–100.3; O2SAT 85–100
[2024-10-22] MEDS: HALOPERIDOL LACTATE 5 MG/ML INJ VIAL IM ONE (00:21)
[2024-10-22] MEDS: VALPROATE INJ 500 MG in SODIUM CHL 0.9% 100 ML IV SCH (00:22)
[2024-10-22] MEDS ORDERED: LABETALOL HCL 20 MG/4 ML VL IV PRN (01:45)
[2024-10-22] MEDS: VANCOMYCIN 1GM/200ML PM 200 ML IV SCH (03:16)
[2024-10-22 04:01] LABS: Hematocrit 31.6 % (41.0-53.0); Hemoglobin 10.7 g/dL (13.5-17.5); Mean Corpuscular Hemoglobin 30.1 pg (28.0-32.0); Mean Corpuscular Volume 88.5 fL (80.0-100.0); Nucleated Red Blood Cells % 0.1 %
[2024-10-22 04:16] LABS: Chloride 106 mmol/L (98-107); Sodium 138 mmol/L (136-145)
[2024-10-22 04:18] LABS: Anion Gap 11 (5-15); Carbon Dioxide 21 mmol/L (20-31)
[2024-10-22 04:19] LABS: Calcium 8.3 mg/dL (8.7-10.4); Potassium 2.9 mmol/L (3.5-5.1)
[2024-10-22 04:23] LABS: BUN/Creatinine Ratio 14.3 (10.0-20.0)
[2024-10-22 04:27] LABS: Blood Urea Nitrogen 8 mg/dL (9-23); Glucose 62 mg/dL (74-106)
[2024-10-22] MEDS: MAGNESIUM SULFATE 1GM/100ML 100 ML IV ONE ×2 (06:26→13:32)
[2024-10-22] MEDS: POTASSIUM CHL 20MEQ/100ML 100 ML IV SCH ×2 (06:27→13:16)
[2024-10-22] MEDS: LORazepam 2MG/ML-1ML VIAL IM ONE (08:41)
[2024-10-22] MEDS: D5W/SOD CHLO 0.9% 1,000 ML IV SCH (10:00)
[2024-10-22] MEDS: MORPHINE SULFATE INJ 2 MG/ml SYRG IV ONE (11:46)
[2024-10-22] MEDS: POTASSIUM CHL 20MEQ/100ML 200 ML IV ONE (12:45)
[2024-10-22] MEDS ORDERED: TPN PER PHARMACY 0 ML IV SCH (14:15)
[2024-10-22] MEDS: ACETAMINOPHEN 650 MG RECT SUPP PR PRN (15:06)
[2024-10-22] MEDS: MORPHINE SULFATE INJ 2 MG/ml SYRG IV PRN (15:06)
[2024-10-22] MEDS ORDERED: POTASSIUM PHOSPHATE 22 MEQ in SODIUM CHL 0.9% 100 ML IV ONE (15:30)
--- NOTE | 2024-10-22 16:20 | DVH ---
Exam: US US GUIDED VASCULAR ACCESS Clinical History: PICC LINE INSERTION Comparison: None Findings: Targeted sonographic evaluation of the arm vein was obtained utilizing grayscale and color Doppler im aging. IMPRESSION: Sonographic assistance for peripherally inserted central line placement. Please refer to procedural r eport for detailed findings.
[2024-10-22] MEDS: SODIUM PHOSPHATES 20 MEQ in SODIUM CHL 0.9% 100 ML IV ONE (16:24)
--- NOTE | 2024-10-22 17:00 | DVH ---
EXAM: XY CHEST PORTABLE TECHNIQUE: Single frontal chest radiograph CLINICAL HISTORY: PNEUMONIA COMPARISON: XY CHEST PORTABLE on DOS: 10/21/24, XY CHEST PORTABLE on DOS: 10/20/24, XY CHEST PORTABLE o n DOS: 10/19/24 Findings/Impression: Frontal chest radiograph demonstrates no acute osseous or superficial soft tissue abnormalities. Right upper extremity PICC terminates near the superior cavoatrial junction. The trachea is midline. The cardiac silhouette and mediastinum are within normal limits. Bilateral mid to lower lung field patchy airspace opacities, worse from prior. No pneumothorax or pleural effusions.
--- NOTE | 2024-10-22 17:03 | DVHPNRES ---
Progress Note Date Seen: Oct 22, 2024 Resident Creating Document: ELAINE ALFREDO RESIDENT Medical Necessity Reason Pt with a Central, PICC or Fol: Yes The following are medically ne: Central Line, Hsu Catheter Subjective Review of Systems Patient is a 64-year-old male with past medical history of CAD, paroxysmal AFib on Eliquis, hypertension, developmental delay, schizophrenia, baseline dementia, normal pressure hydrocephalus, history of CVA, history of seizures, dyslipidemia, who comes in due to shortness of breath. [facility] contact [facility], he spat out his medications and was noted to have cyanotic fingertips, spo02 was noted to be in the 30's% which is what prompted this visit to the hospital, was also noted to have a fever of 99.3 earlier on 10/14/24. According to the ER and admitting notes, patient was brought to the hospital due to increasing shortness of breath with a respiratory rate in the 40s associated with pallor. Patient was noted to have an oxygen saturation of 82% with a fever of 101 and was being bagged on arrival. Patient was subsequently intubated and put on a mechanical ventilator. Past Hospitalization: Discharged from the [facility] on 08/28/2024 after being treated for altered level of consciousness Patient seen and examined at bedside. Review of systems could not be completed as patient is sedated and mechanically ventilated. 10/16/2024: Patient seen and examined at bedside. Detailed discussions were held with [facility] Ms. Luna, patient's sister Ms. Zavaleta ([phone]), voicemail was also left for patient's current social services technician Ms. Mattie Lemon at [phone]. Increased tube feedings to 40 cc/hour. Discontinued IV fluids. 10/17/2024: Patient seen and examined at bedside. On 2 mcg of Levophed, 50 of fentanyl and 5 of Versed. Chest x-ray showed no significant interval change. Call social services technician Ms. Mattie Lemon again at [phone], left a message with duty senior manufacturing supervisor to have her call me back as she is not in the office until 3:00 p.m.. 10/18/24--64-year-old male history of hypertension AFib CVA,. [facility] was found to be hypoxic cyanotic. Patient was intubated. Here for UTI, aspiration pneumonia. On broad-spectrum antibiotics vancomycin meropenem.. Currently on Versed 5 Levophed to fentanyl 50. Vitals stable. Ventilated a.c. 20/500/80%/5.0.. Getting Jevity feeds we will add free water flushes 200 q.8, no apparent in the indication for fluid restriction. Appears euvolemic. Urine output adequate, some mild pitting edema in ankles, otherwise unchanged exam from prior. Otherwise continue primary team's management. 10/19/2024-plan for sedation vacation and CPAP trial NAD/SBT. Patient is off of Versed fentanyl. Also off Levophed. Vitals stable, maps more than 70 heart rate between 90 and 100. Not yet started CPAP trial. Currently on ventilated settings 18/5 100/30%/5.0. Patient appears comfortable has strong gag reflex and cough reflex. Urine output is adequate. We will continue trial today and continue IV antibiotics as per primary team plan. We are adding lactulose, no bowel movements. This has diminishes breath sounds right lower lung. -update : in PM , patient is becoming hypotensive bradycardic. We will start dopamine drip. If dopamine controlled heart rate more than 60 and still hypotensive we will use Levophed. EKG done. sepsis remains likely cause of shock, bradycardia will need exploring with possible echo tomorrow and/or cardiology eval, defer to primary team. 10/20/24: CPAP trail with NIF -8. off of pressors. PICC line consult, cpap trial in the AM 10/21/24: Status post extubation today, currently on Levophed at 1 microgram/min. Attempted to place NG tube x3, unsuccessful. 10/22/24: overnight hypokalemic at 2.9, repleted with repeat at 3.1, gave another 40meq. repleted magnesium. started TPN, pending swallow eval. Objective vital signs Vital Sign Date Time Temp Pulse Resp B/P (MAP) Pulse Ox O2 Delivery O2 Flow Rate FiO2 10/22/24 16:30 98 23 143/80 (101) 99 10/22/24 16:06 98.2 10/22/24 15:54 Nasal Cannula* 5 40 Total Intake and Output 710/21/24 10/22/24 15:00 23:00 07:00 Intake Total 74.815 ml 190.125 ml 645 ml Output Total 1500 ml 850 ml Balance 74.815 ml -1309.875 ml -205 ml medications Current Medications Medications Dose Ordered Sig/David Route Start Time Stop Time Status Last Admin Dose Admin Vancomycin HCl 0 ml @ 0 mls/hr UD IV 10/14/24 18:30 Pantoprazole Sodium 40 mg DAILY IV 10/15/24 10:00 10/22/24 08:11 40 MG Levalbuterol HCl 1.25 mg Q6HR NEB 10/15/24 12:00 10/22/24 13:48 1.25 MG Ipratropium [place] 0.5 mg Q6HPRN PRN NEB 10/15/24 10:30 10/22/24 05:53 0.5 MG Mupirocin 1 applic BID EACHNOSTRI 10/15/24 22:00 10/20/24 21:59 UNV Meropenem 50 ml @ 17 mls/hr Q8HR IV 10/15/24 22:00 10/22/24 11:46 17 MLS/HR Enteral Nutritional Formula 1,000 ml 60ML/HR GT 10/15/24 20:15 10/15/24 20:52 1,000 ML Purified Water 200 ml Q8HR GT 10/18/24 14:00 Hold 10/21/24 05:23 200 ML Lactulose 30 ml DAILY PO 10/20/24 10:00 10/20/24 08:46 30 ML Sodium Chloride 10 ml QSHIFT@10,22 IV 10/21/24 22:00 10/22/24 08:12 10 ML Vancomycin HCl 200 ml @ 160 mls/hr Q12H IV 10/22/24 03:00 10/22/24 13:33 160 MLS/HR Valproate Sodium 500 mg/Sodium Chloride 105 ml @ 105 mls/hr TID IV 10/22/24 00:00 10/22/24 11:47 105 MLS/HR Dextrose/Sodium Chloride 1,000 ml @ 50 mls/hr Q20H IV 10/22/24 09:45 10/22/24 10:00 50 MLS/HR Potassium Chloride 100 ml @ 50 mls/hr Q2H IV 10/22/24 11:15 10/22/24 17:14 10/22/24 13:41 50 MLS/HR Acetaminophen 650 mg Q6HP PRN OR 10/22/24 13:15 10/22/24 15:06 650 MG Amino Acids 0 ml @ 0 mls/hr PER PHARMACY IV 10/22/24 14:15 Morphine Sulfate 1 mg Q4HP PRN IV 10/22/24 14:15 10/22/24 15:06 1 MG Haloperidol Lactate 2.5 mg Q8HP PRN IM 10/22/24 14:15 Amino Acids/ Electrolytes/ Dextrose 1,000 ml @ 41 mls/hr DAILY@2200 IV 10/22/24 22:00 10/23/24 21:59 Diagnostic Test (Pha) 1 strip Q6HR 10/23/24 00:00 Insulin Human Regular FOLLOW SLIDING SCALE Q6HR SC 10/23/24 00:00 Dextrose 50 ml UD IV 10/22/24 22:00 Examination General Appearance: Sedated and intubated, pupils 3 mm minimally reactive Neck Exam: Normal inspection. Non-tender. Normal alignment Pulmonary/Respiratory: Chest non-tender. Coarse bilateral breath sounds Cardiovascular/Chest: Regular rate and rhythm. No murmurs. No JVD. Peripheral Pulses: 2+ Radial (R). 2+ Radial (L). 2+ Pedal (R). 2+ Pedal (L) Abdominal Exam: Normal bowel sounds. Soft. normal abdomen, no visible veins, Nontender. No hepatospenomegaly. No masses Ankle Exam: Negative ankle edema Lower extremities: Right ankle and heel wound noted. Left heel blanchable redness. L buttock maceration laboratory and microbiology Laboratory Tests 10/22/24 10:22 10/22/24 03:35 Test 10/22/24 03:35 Range/Units Serum Glucose 62 L 74-106 mg/dL Microbiology Date/Time Source Procedure Growth Status 10/21/24 14:10 Catheter Site Gram Stain Pending Resulted 10/21/24 14:10 Catheter Site Wound Culture - Preliminary Resulted 10/19/24 11:01 Bronchial Washings Gram Stain - Final Complete 10/19/24 11:01 Respiratory Culture - Final Methicillin Resistant S.aureus Klebsiella pneumoniae - ESBL Complete 10/14/24 18:35 Voided Urine Urine Culture - Final Complete 10/14/24 18:32 Blood Blood Culture - Final NO GROWTH AFTER 5 DAYS OF INCUBATION. Complete Labs and/or images reviewed: Labs reviewed by me, Image(s) reviewed by me Problem List/Assessment/Plan Problem List/Assessment/Plan Neurology # acute on chronic metabolic encephalopathy # dementia, unspecified type # schizophrenia # normal pressure hydrocephalus - head CT: No significant interval change. Unchanged hydrocephalus, further clinical correlation is suggested. If clinically indicated, MRI may be beneficial in further evaluation. - resumed home medication depakote - IM haldol 2.5mg q8 prn - pain control with IV morphine 1mg q4prn Cardiovascular # septic shock due to pneumonia vs UTI # coronary artery disease # paroxysmal AFib, CHADS-VASc 5 # hypercoagulable state secondary to above # essential hypertension - off Levophed 10/22/24 - IV vancomycin, IV meropenem - Holding lovenox as hematuria noted 10/22/24 Respiratory # Ventilator - intubated 10/14/2024 - extubated 10/21/24 # Acute hypoxic respiratory failure # aspiration pneumonia, culture growing MRSA and Klebsiella - CXR: Bronchovascular crowding due to low lung volumes with possible mild pulmonary vascular congestion. Underlying infectious process can not be excluded. - IV vancomycin, IV meropenem GI # transaminitis # Peptic ulcer prophylaxis - Pantoprazole 40 mg IV daily - monitor /Nephrology # acute complicated UTI # hyperkalemia, now resolved # hypokalemia, repleted # Hsu catheter 10/14/24 - IV meropenem - monitor Infectious disease # aspiration pneumonia, culture growing MRSA and Klebsiella # acute complicated UTI # sepsis due to above - IV vancomycin, IV meropenem - Hsu placed on 10/14/2024 - strict aspiration precautions Hem/onc # anemia likely of chronic disease # initial leukopenia - monitor Endocrine # protein calorie malnutrition Nutrition - TPN Lines - right IJ placed on 10/14/2024 - left 20 gauge placed on 10/14/2024 S/p extubation 10/21/24, requested swallow evaluation. Critical care time 83 minutes excluding procedure. Full CODE STATUS. Spoke with patient's board and care facility's natural science manager, Ms Mathis. Also spoke with patient's sister Ms. Zavaleta and voicemail was left for patient's social services technician Ms. Lemon. All questions were answered and concerns were addressed. Plan discussed with Dr. Burton Plan discussed with: Other My Orders My Orders Orders - ELAINE ALFREDO RESIDENT Procedure Category Date Status Time D5w/Sod Chlo 0.9% PHA 10/22/24 In Process (D5w Ns 0.9%) 09:45 Potassium Chl PHA 10/22/24 In Process 20meq/100ml 11:15 Acetaminophen PHA 10/22/24 In Process Suppository (Tylenol 13:15 Dietary Evaluation Review Comments: 1) TF Jevity 1.2Cal @ 70ml/hr. Start @ 20ml/hr, increase 10ml/hr Q4H until goal is reached. TF at goal volum provides 100% energy & protein needs (2016 kcal, 93gm protein, 1356ml free water) 2) Water flush 110ml Q4H if allowed, adjust PRN 3) TPN if NPO > 7 days Expected Outcomes/Goals: To meet at least 75% estimated needs within 7 days FU 2-3 days Date of Service: Oct 23, 2024 Billing Provider: MIHAI BURTON MD Common Visit Codes: 08482-[id number] CARE 30-74 MIN, 48120-[id number] CARE-EACH +30MIN ELAINE ALFREDO Oct 22, 2024 17:03 MIHAI BURTON MD Oct 23, 2024 10:42
[2024-10-22] MEDS ORDERED: POTASSIUM CHL 20MEQ/100ML 100 ML IV SCH (19:15)
[2024-10-22] MEDS: AMINO ACID INFUSION IN D10W 1,000 ML IV SCH (21:14)
[2024-10-22] MEDS ORDERED: DEXTROSE (50%) 50ML SYRG IV SCH (22:00)
[2024-10-22] MEDS: ACCU-CHEK COMFORT CURVE STRIP VI SCH (23:10)
[2024-10-22] MEDS: InsuLIN REG 1unit/0.01ml Soln (100units/ml) SC SCH (23:14)
[2024-10-23] VITALS (60 sets, daily range): BP systolic 107–163; BP diastolic 64–103; PULSE 88–123; RESP 11–30; TEMP 98.7–100.8; O2SAT 87–100
[2024-10-23 02:18] LABS: Hematocrit 30.4 % (41.0-53.0); Hemoglobin 9.9 g/dL (13.5-17.5); Mean Corpuscular Hemoglobin 29.0 pg (28.0-32.0); Mean Corpuscular Volume 89.4 fL (80.0-100.0); Nucleated Red Blood Cells % 0.0 %
[2024-10-23 02:45] LABS: Alanine Aminotransferase 19 U/L (7-40); Anion Gap 7 (5-15); BUN/Creatinine Ratio 14.9 (10.0-20.0); Glucose 100 mg/dL (74-106); Magnesium 1.8 mg/dL (1.6-2.6); Sodium 140 mmol/L (136-145); Triglycerides 83 mg/dL (< 150)
[2024-10-23 02:46] LABS: Bilirubin, Total 0.5 mg/dL (0.2-1.0)
[2024-10-23 03:23] LABS: Albumin 2.5 g/dL (3.2-4.8); Alkaline Phosphatase 41 U/L (46-116); Blood Urea Nitrogen 7 mg/dL (9-23); Calcium 8.1 mg/dL (8.7-10.4); Carbon Dioxide 20 mmol/L (20-31); Chloride 113 mmol/L (98-107); Potassium 3.2 mmol/L (3.5-5.1); Total Protein 5.6 g/dL (5.7-8.2)
[2024-10-23] MEDS: POTASSIUM CHL 20MEQ/100ML 100 ML IV SCH (05:52)
--- NOTE | 2024-10-23 12:54 | DVHPNRES ---
Progress Note Date Seen: Oct 23, 2024 Resident Creating Document: ELAINE ALFREDO RESIDENT Medical Necessity Reason Pt with a Central, PICC or Fol: Yes The following are medically ne: Central Line, Hsu Catheter Subjective Review of Systems Patient is a 64-year-old male with past medical history of CAD, paroxysmal AFib on Eliquis, hypertension, developmental delay, schizophrenia, baseline dementia, normal pressure hydrocephalus, history of CVA, history of seizures, dyslipidemia, who comes in due to shortness of breath. Per pt's contact at the [email or web address]], he spat out his medications and was noted to have cyanotic fingertips, spo02 was noted to be in the 30's% which is what prompted this visit to the hospital, was also noted to have a fever of 99.3 earlier on 10/14/24. According to the ER and admitting notes, patient was brought to the hospital due to increasing shortness of breath with a respiratory rate in the 40s associated with pallor. Patient was noted to have an oxygen saturation of 82% with a fever of 101 and was being bagged on arrival. Patient was subsequently intubated and put on a mechanical ventilator. Past Hospitalization: Discharged from the [facility] on 08/28/2024 after being treated for altered level of consciousness Patient seen and examined at bedside. Review of systems could not be completed as patient is sedated and mechanically ventilated. 10/16/2024: Patient seen and examined at bedside. Detailed discussions were held with patient's [facility] administrator Ms. Luna, patient's sister Ms. Zavaleta ([phone]), voicemail was also left for patient's current social media designer Ms. Mattie Lemon at [phone]. Increased tube feedings to 40 cc/hour. Discontinued IV fluids. 10/17/2024: Patient seen and examined at bedside. On 2 mcg of Levophed, 50 of fentanyl and 5 of Versed. Chest x-ray showed no significant interval change. Call social media designer Ms. Mattie Lemon again at [phone], left a message with duty supervisor slitting and shipping to have her call me back as she is not in the office until 3:00 p.m.. 10/18/24--64-year-old male history of hypertension AFib CVA,. Here from correction was found to be hypoxic cyanotic. Patient was intubated. Here for UTI, aspiration pneumonia. On broad-spectrum antibiotics vancomycin meropenem.. Currently on Versed 5 Levophed to fentanyl 50. Vitals stable. Ventilated a.c. 20/500/80%/5.0.. Getting Jevity feeds we will add free water flushes 200 q.8, no apparent in the indication for fluid restriction. Appears euvolemic. Urine output adequate, some mild pitting edema in ankles, otherwise unchanged exam from prior. Otherwise continue primary team's management. 10/19/2024-plan for sedation vacation and CPAP trial NAD/SBT. Patient is off of Versed fentanyl. Also off Levophed. Vitals stable, maps more than 70 heart rate between 90 and 100. Not yet started CPAP trial. Currently on ventilated settings 18/5 100/30%/5.0. Patient appears comfortable has strong gag reflex and cough reflex. Urine output is adequate. We will continue trial today and continue IV antibiotics as per primary team plan. We are adding lactulose, no bowel movements. This has diminishes breath sounds right lower lung. -update : in PM , patient is becoming hypotensive bradycardic. We will start dopamine drip. If dopamine controlled heart rate more than 60 and still hypotensive we will use Levophed. EKG done. sepsis remains likely cause of shock, bradycardia will need exploring with possible echo tomorrow and/or cardiology eval, defer to primary team. 10/20/24: CPAP trail with NIF -8. off of pressors. PICC line consult, cpap trial in the AM 10/21/24: Status post extubation today, currently on Levophed at 1 microgram/min. Attempted to place NG tube x3, unsuccessful. 10/22/24: overnight hypokalemic at 2.9, repleted with repeat at 3.1, gave another 40meq. repleted magnesium. started TPN, pending swallow eval. 10/23/24: Patient seen and examined at bedside, improved from prior. On 3 L O2 via NC. Downgraded to ANTONELLA. With a voicemail for case picker for meeting between decision makers on Sunday, called patient's sister Ms. Zavaleta, she expressed that she would like to attend the meeting on Sunday telephonically. Objective vital signs Vital Sign Date Time Temp Pulse Resp B/P (MAP) Pulse Ox O2 Delivery O2 Flow Rate FiO2 10/23/24 11:55 96 10/23/24 11:51 27 97 Nasal Cannula* 3 32 10/23/24 11:30 98.7 140/77 (98) 98.7 Total Intake and Output 10/22/24 10/22/24 10/23/24 15:00 23:00 07:00 Intake Total 921 ml 673.50 ml 1084 ml Output Total 550 ml 675 ml Balance 921 ml 123.50 ml 409 ml medications Current Medications Medications Dose Ordered Sig/David Route Start Time Stop Time Status Last Admin Dose Admin Vancomycin HCl 0 ml @ 0 mls/hr UD IV 10/14/24 18:30 Pantoprazole Sodium 40 mg DAILY IV 10/15/24 10:00 10/23/24 07:43 40 MG Levalbuterol HCl 1.25 mg Q6HR NEB 10/15/24 12:00 10/23/24 11:24 1.25 MG Ipratropium [place] 0.5 mg Q6HPRN PRN NEB 10/15/24 10:30 10/23/24 11:24 0.5 MG Mupirocin 1 applic BID EACHNOSTRI 10/15/24 22:00 10/20/24 21:59 UNV Meropenem 50 ml @ 17 mls/hr Q8HR IV 10/15/24 22:00 10/23/24 05:51 17 MLS/HR Purified Water 200 ml Q8HR GT 10/18/24 14:00 Hold 10/21/24 05:23 200 ML Lactulose 30 ml DAILY PO 10/20/24 10:00 10/20/24 08:46 30 ML Sodium Chloride 10 ml QSHIFT@10,22 IV 10/21/24 22:00 10/23/24 07:43 10 ML Vancomycin HCl 200 ml @ 160 mls/hr Q12H IV 10/22/24 03:00 10/23/24 02:51 160 MLS/HR Valproate Sodium 500 mg/Sodium Chloride 105 ml @ 105 mls/hr TID IV 10/22/24 00:00 10/23/24 05:51 105 MLS/HR Acetaminophen 650 mg Q6HP PRN MN 10/22/24 13:15 10/23/24 03:19 650 MG Amino Acids 0 ml @ 0 mls/hr PER PHARMACY IV 10/22/24 14:15 Morphine Sulfate 1 mg Q4HP PRN IV 10/22/24 14:15 10/22/24 21:16 1 MG Haloperidol Lactate 2.5 mg Q8HP PRN IM 10/22/24 14:15 Amino Acids/ Electrolytes/ Dextrose 1,000 ml @ 41 mls/hr DAILY@2200 IV 10/22/24 22:00 10/23/24 21:59 10/22/24 21:14 41 MLS/HR Diagnostic Test (Pha) 1 strip Q6HR 10/23/24 00:00 10/23/24 11:57 1 STRIP Insulin Human Regular FOLLOW SLIDING SCALE Q6HR SC 10/23/24 00:00 Dextrose 50 ml UD IV 10/22/24 22:00 Fat Emulsion Intravenous 50 ml/ Potassium Acetate 60 meq/Potassium Phosphate 10 meq/ Calcium Gluconate 2.3 meq/Magnesium Sulfate 16 meq/ Multivitamins 10 ml/Chromium/ Copper/Manganese/ Zinc 1 ml/Amino Acids/Dextrose/ Purified Water 1,102.2189 ml @ 46 mls/hr [id number] IV 10/23/24 22:00 10/24/24 21:59 Examination General Appearance: Sedated and intubated, pupils 3 mm minimally reactive Neck Exam: Normal inspection. Non-tender. Normal alignment Pulmonary/Respiratory: Chest non-tender. Coarse bilateral breath sounds Cardiovascular/Chest: Regular rate and rhythm. No murmurs. No JVD. Peripheral Pulses: 2+ Radial (R). 2+ Radial (L). 2+ Pedal (R). 2+ Pedal (L) Abdominal Exam: Normal bowel sounds. Soft. normal abdomen, no visible veins, Nontender. No hepatospenomegaly. No masses Ankle Exam: Negative ankle edema Lower extremities: Right ankle and heel wound noted. Left heel blanchable redness. L buttock maceration laboratory and microbiology Laboratory Tests 10/23/24 01:50 Test 10/23/24 01:50 Range/Units Serum Glucose 100 74-106 mg/dL Microbiology Date/Time Source Procedure Growth Status 10/21/24 14:10 Catheter Site Wound Culture - Preliminary Resulted 10/19/24 11:01 Bronchial Washings Gram Stain - Final Complete 10/19/24 11:01 Respiratory Culture - Final Methicillin Resistant S.aureus Klebsiella pneumoniae - ESBL Complete 10/14/24 18:35 Voided Urine Urine Culture - Final Complete 10/14/24 18:32 Blood Blood Culture - Final NO GROWTH AFTER 5 DAYS OF INCUBATION. Complete Labs and/or images reviewed: Labs reviewed by me, Image(s) reviewed by me Problem List/Assessment/Plan Problem List/Assessment/Plan Neurology # acute on chronic metabolic encephalopathy # dementia, unspecified type # schizophrenia # normal pressure hydrocephalus - head CT: No significant interval change. Unchanged hydrocephalus, further clinical correlation is suggested. If clinically indicated, MRI may be beneficial in further evaluation. - resumed home medication depakote - IM haldol 2.5mg q8 prn - pain control with IV morphine 1mg q4prn Cardiovascular # septic shock due to pneumonia vs UTI # coronary artery disease # paroxysmal AFib, CHADS-VASc 5 # hypercoagulable state secondary to above # essential hypertension - off Levophed 10/22/24 - IV vancomycin, IV meropenem - Holding lovenox as hematuria noted 10/22/24 Respiratory # Ventilator - intubated 10/14/2024 - extubated 10/21/24 # Acute hypoxic respiratory failure # aspiration pneumonia, culture growing MRSA and Klebsiella - CXR: Bronchovascular crowding due to low lung volumes with possible mild pulmonary vascular congestion. Underlying infectious process can not be excluded. - IV vancomycin, IV meropenem GI # transaminitis # Peptic ulcer prophylaxis - Pantoprazole 40 mg IV daily - monitor /Nephrology # acute complicated UTI # hyperkalemia, now resolved # hypokalemia, repleted # Hsu catheter 10/14/24 - IV meropenem - monitor Infectious disease # aspiration pneumonia, culture growing MRSA and Klebsiella # acute complicated UTI # sepsis due to above - IV vancomycin, IV meropenem - Hsu placed on 10/14/2024 - strict aspiration precautions Hem/onc # anemia likely of chronic disease # initial leukopenia - monitor Endocrine # protein calorie malnutrition Nutrition - TPN Lines - right IJ placed on 10/14/2024 - left 20 gauge placed on 10/14/2024 S/p extubation 10/21/24, requested swallow evaluation. Downgraded to SHEA you on 10/23/2024 Critical care time 83 minutes excluding procedure. Full CODE STATUS. Called patient's sister Ms. Zavaleta to set up a meeting amongst decision makers on Sunday, left a voicemail for patient's case picker Ion for the meeting to be arranged on Sunday, we will reach out again tomorrow. Plan discussed with Dr. Burton Plan discussed with: Other (sister, RN) My Orders My Orders Orders - ELAINE ALFREDO Procedure Category Date Status Time Acetaminophen PHA 10/22/24 In Process Suppository (Tylenol 13:15 Dietary Evaluation Review Comments: 1) TF Jevity 1.2Cal @ 70ml/hr. Start @ 20ml/hr, increase 10ml/hr Q4H until goal is reached. TF at goal volum provides 100% energy & protein needs (2016 kcal, 93gm protein, 1356ml free water) 2) Water flush 110ml Q4H if allowed, adjust PRN 3) TPN if NPO > 7 days Expected Outcomes/Goals: To meet at least 75% estimated needs within 7 days FU 2-3 days Date of Service: Oct 23, 2024 Billing Provider: MIHAI BURTON MD Common Visit Codes: 34096-CHRWUPLJ CARE 30-74 MIN, 79824-[id number] CARE-EACH +30MIN ELAINE ALFREDO Oct 23, 2024 12:54 MIHAI BURTON MD Oct 25, 2024 10:53
[2024-10-23] MEDS: TPN PER PHARMACY IV NR (21:29)
[2024-10-24] VITALS (45 sets, daily range): BP systolic 121–164; BP diastolic 54–130; PULSE 80–117; RESP 14–35; TEMP 98.6–100.1; O2SAT 88–100
[2024-10-24 03:57] LABS: Alanine Aminotransferase 14 U/L (7-40); Anion Gap 6 (5-15); BUN/Creatinine Ratio 17.8 (10.0-20.0); Carbon Dioxide 24 mmol/L (20-31); Magnesium 1.9 mg/dL (1.6-2.6); Sodium 142 mmol/L (136-145)
[2024-10-24 03:58] LABS: Bilirubin, Total 0.5 mg/dL (0.2-1.0)
[2024-10-24 04:13] LABS: Albumin 2.5 g/dL (3.2-4.8); Alkaline Phosphatase 40 U/L (46-116); Blood Urea Nitrogen 8 mg/dL (9-23); Calcium 7.9 mg/dL (8.7-10.4); Chloride 112 mmol/L (98-107); Glucose 108 mg/dL (74-106); Potassium 3.5 mmol/L (3.5-5.1); Total Protein 5.7 g/dL (5.7-8.2)
[2024-10-24 04:17] LABS: Hematocrit 29.7 % (41.0-53.0); Hemoglobin 9.6 g/dL (13.5-17.5); Mean Corpuscular Hemoglobin 29.1 pg (28.0-32.0); Mean Corpuscular Volume 89.9 fL (80.0-100.0); Nucleated Red Blood Cells % 0.1 %
--- NOTE | 2024-10-24 11:27 | DVHPNRES ---
Progress Note Date Seen: Oct 24, 2024 Resident Creating Document: ELAINE ALFREDO RESIDENT Medical Necessity Reason Pt with a Central, PICC or Fol: Yes The following are medically ne: Central Line, Hsu Catheter Subjective Review of Systems Patient is a 64-year-old male with past medical history of CAD, paroxysmal AFib on Eliquis, hypertension, developmental delay, schizophrenia, baseline dementia, normal pressure hydrocephalus, history of CVA, history of seizures, dyslipidemia, who comes in due to shortness of breath. Per pt's contact at the [facility], he spat out his medications and was noted to have cyanotic fingertips, spo02 was noted to be in the 30's% which is what prompted this visit to the hospital, was also noted to have a fever of 99.3 earlier on 10/14/24. According to the ER and admitting notes, patient was brought to the hospital due to increasing shortness of breath with a respiratory rate in the 40s associated with pallor. Patient was noted to have an oxygen saturation of 82% with a fever of 101 and was being bagged on arrival. Patient was subsequently intubated and put on a mechanical ventilator. Past Hospitalization: Discharged from the [facility] on 08/28/2024 after being treated for altered level of consciousness Patient seen and examined at bedside. Review of systems could not be completed as patient is sedated and mechanically ventilated. 10/16/2024: Patient seen and examined at bedside. Detailed discussions were held with patient's [facility] administrator Ms. Luna, patient's sister Ms. Zavaleta ([phone]), voicemail was also left for patient's current social service manager Ms. Mattie Lemon at [phone]. Increased tube feedings to 40 cc/hour. Discontinued IV fluids. 10/17/2024: Patient seen and examined at bedside. On 2 mcg of Levophed, 50 of fentanyl and 5 of Versed. Chest x-ray showed no significant interval change. Call social service manager Ms. Mattie Lemon again at [phone], left a message with duty tariff supervisor to have her call me back as she is not in the office until 3:00 p.m.. 10/18/24--64-year-old male history of hypertension AFib CVA,. Here from longterm was found to be hypoxic cyanotic. Patient was intubated. Here for UTI, aspiration pneumonia. On broad-spectrum antibiotics vancomycin meropenem.. Currently on Versed 5 Levophed to fentanyl 50. Vitals stable. Ventilated a.c. 20/500/80%/5.0.. Getting Jevity feeds we will add free water flushes 200 q.8, no apparent in the indication for fluid restriction. Appears euvolemic. Urine output adequate, some mild pitting edema in ankles, otherwise unchanged exam from prior. Otherwise continue primary team's management. 10/19/2024-plan for sedation vacation and CPAP trial NAD/SBT. Patient is off of Versed fentanyl. Also off Levophed. Vitals stable, maps more than 70 heart rate between 90 and 100. Not yet started CPAP trial. Currently on ventilated settings 18/5 100/30%/5.0. Patient appears comfortable has strong gag reflex and cough reflex. Urine output is adequate. We will continue trial today and continue IV antibiotics as per primary team plan. We are adding lactulose, no bowel movements. This has diminishes breath sounds right lower lung. -update : in PM , patient is becoming hypotensive bradycardic. We will start dopamine drip. If dopamine controlled heart rate more than 60 and still hypotensive we will use Levophed. EKG done. sepsis remains likely cause of shock, bradycardia will need exploring with possible echo tomorrow and/or cardiology eval, defer to primary team. 10/20/24: CPAP trail with NIF -8. off of pressors. PICC line consult, cpap trial in the AM 10/21/24: Status post extubation today, currently on Levophed at 1 microgram/min. Attempted to place NG tube x3, unsuccessful. 10/22/24: overnight hypokalemic at 2.9, repleted with repeat at 3.1, gave another 40meq. repleted magnesium. started TPN, pending swallow eval. 10/23/24: Patient seen and examined at bedside, improved from prior. On 3 L O2 via NC. Downgraded to ANTONELLA. With a voicemail for family independence case manager for meeting between decision makers on Sunday, called patient's sister Ms. Zavaleta, she expressed that she would like to attend the meeting on Sunday telephonically. 10/24/2024: Patient seen and examined at bedside, overnight low-grade fevers. Overnight episode of agitation and anxiety, overall calmer than yesterday. Called family independence case manager Jas Lemon again and left a voicemail, awaiting callback. Spoke with replacement family independence case manager Ms. Tabatha Perez, she said decision makers we will be the ethics committee from [facility], and that she will forward an email about meeting on Sunday at 1:00 p.m.. Objective vital signs Vital Sign Date Time Temp Pulse Resp B/P (MAP) Pulse Ox O2 Delivery O2 Flow Rate FiO2 10/24/24 10:00 92 29 158/130 (139) 95 10/24/24 09:47 Nasal Cannula* 4 36 10/24/24 08:00 99.9 99.9 Total Intake and Output 10/23/24 10/23/24 10/24/24 15:00 23:00 07:00 Intake Total 599 ml 323 ml 46 ml Output Total 1500 ml 1600 ml Balance 599 ml -1177 ml -1554 ml medications Current Medications Medications Dose Ordered Sig/David Route Start Time Stop Time Status Last Admin Dose Admin Vancomycin HCl 0 ml @ 0 mls/hr UD IV 10/14/24 18:30 Pantoprazole Sodium 40 mg DAILY IV 10/15/24 10:00 10/24/24 08:37 40 MG Levalbuterol HCl 1.25 mg Q6HR NEB 10/15/24 12:00 10/24/24 07:15 1.25 MG Ipratropium [place] 0.5 mg Q6HPRN PRN NEB 10/15/24 10:30 10/24/24 07:15 0.5 MG Mupirocin 1 applic BID EACHNOSTRI 10/15/24 22:00 10/20/24 21:59 UNV Meropenem 50 ml @ 17 mls/hr Q8HR IV 10/15/24 22:00 10/24/24 05:36 17 MLS/HR Purified Water 200 ml Q8HR GT 10/18/24 14:00 Hold 10/21/24 05:23 200 ML Lactulose 30 ml DAILY PO 10/20/24 10:00 10/20/24 08:46 30 ML Sodium Chloride 10 ml QSHIFT@10,22 IV 10/21/24 22:00 10/24/24 08:14 10 ML Vancomycin HCl 200 ml @ 160 mls/hr Q12H IV 10/22/24 03:00 10/24/24 03:56 160 MLS/HR Valproate Sodium 500 mg/Sodium Chloride 105 ml @ 105 mls/hr TID IV 10/22/24 00:00 10/24/24 05:37 105 MLS/HR Acetaminophen 650 mg Q6HP PRN MN 10/22/24 13:15 10/23/24 18:32 650 MG Amino Acids 0 ml @ 0 mls/hr PER PHARMACY IV 10/22/24 14:15 Morphine Sulfate 1 mg Q4HP PRN IV 10/22/24 14:15 10/23/24 19:07 1 MG Haloperidol Lactate 2.5 mg Q8HP PRN IM 10/22/24 14:15 Diagnostic Test (Pha) 1 strip Q6HR 10/23/24 00:00 10/24/24 10:46 1 STRIP Insulin Human Regular FOLLOW SLIDING SCALE Q6HR SC 10/23/24 00:00 Dextrose 50 ml UD IV 10/22/24 22:00 Fat Emulsion Intravenous 50 ml/ Potassium Acetate 60 meq/Potassium Phosphate 10 meq/ Calcium Gluconate 2.3 meq/Magnesium Sulfate 16 meq/ Multivitamins 10 ml/Chromium/ Copper/Manganese/ Zinc 1 ml/Amino Acids/Dextrose/ Purified Water 1,102.2189 ml @ 46 mls/hr [id number] IV 10/23/24 22:00 10/24/24 21:59 10/23/24 21:29 46 MLS/HR Fat Emulsion Intravenous 100 ml/Potassium Acetate 40 meq/ Potassium Phosphate 40 meq/ Calcium Gluconate 3 meq/Magnesium Sulfate 24 meq/ Multivitamins 10 ml/Chromium/ Copper/Manganese/ Zinc 1 ml/Amino Acids/Dextrose 1,252.5425 ml @ 52 mls/hr Q24H6M IV 10/24/24 22:00 10/25/24 21:59 Examination General Appearance: Sedated and intubated, pupils 3 mm minimally reactive Neck Exam: Normal inspection. Non-tender. Normal alignment Pulmonary/Respiratory: Chest non-tender. Coarse bilateral breath sounds Cardiovascular/Chest: Regular rate and rhythm. No murmurs. No JVD. Peripheral Pulses: 2+ Radial (R). 2+ Radial (L). 2+ Pedal (R). 2+ Pedal (L) Abdominal Exam: Normal bowel sounds. Soft. normal abdomen, no visible veins, Nontender. No hepatospenomegaly. No masses Ankle Exam: Negative ankle edema Lower extremities: Right ankle and heel wound noted. Left heel blanchable redness. L buttock maceration laboratory and microbiology Laboratory Tests 10/24/24 03:20 Test 10/24/24 03:20 Range/Units Serum Glucose 108 H 74-106 mg/dL Microbiology Date/Time Source Procedure Growth Status 10/21/24 14:10 Catheter Site Wound Culture - Preliminary Resulted 10/19/24 11:01 Bronchial Washings Gram Stain - Final Complete 10/19/24 11:01 Respiratory Culture - Final Methicillin Resistant S.aureus Klebsiella pneumoniae - ESBL Complete 10/14/24 18:35 Voided Urine Urine Culture - Final Complete 10/14/24 18:32 Blood Blood Culture - Final NO GROWTH AFTER 5 DAYS OF INCUBATION. Complete Labs and/or images reviewed: Labs reviewed by me, Image(s) reviewed by me Problem List/Assessment/Plan Problem List/Assessment/Plan Neurology # acute on chronic metabolic encephalopathy # dementia, unspecified type # schizophrenia # normal pressure hydrocephalus - head CT: No significant interval change. Unchanged hydrocephalus, further clinical correlation is suggested. If clinically indicated, MRI may be beneficial in further evaluation. - resumed home medication depakote - IM haldol 2.5mg q8 prn - pain control with IV morphine 1mg q4prn Cardiovascular # septic shock due to pneumonia vs UTI # coronary artery disease # paroxysmal AFib, CHADS-VASc 5 # hypercoagulable state secondary to above # essential hypertension - off Levophed 10/22/24 - IV vancomycin, IV meropenem - Holding lovenox as hematuria noted 10/22/24 Respiratory # Ventilator - intubated 10/14/2024 - extubated 10/21/24 # Acute hypoxic respiratory failure # aspiration pneumonia, culture growing MRSA and Klebsiella - CXR: Bronchovascular crowding due to low lung volumes with possible mild pulmonary vascular congestion. Underlying infectious process can not be excluded. - IV vancomycin, IV meropenem GI # transaminitis # Peptic ulcer prophylaxis - Pantoprazole 40 mg IV daily - monitor /Nephrology # acute complicated UTI # hyperkalemia, now resolved # hypokalemia, repleted # Hsu catheter 10/14/24 - IV meropenem - monitor Infectious disease # aspiration pneumonia, culture growing MRSA and Klebsiella # acute complicated UTI # sepsis due to above - IV vancomycin, IV meropenem - Hsu placed on 10/14/2024 - strict aspiration precautions Hem/onc # anemia likely of chronic disease # initial leukopenia - monitor Endocrine # protein calorie malnutrition Nutrition - TPN Lines - right IJ placed on 10/14/2024 - left 20 gauge placed on 10/14/2024 S/p extubation 10/21/24, requested swallow evaluation. Downgraded to SHEA you on 10/23/2024 Critical care time 83 minutes excluding procedure. Full CODE STATUS. Called patient's sister Ms. Zavaleta to set up a meeting amongst decision makers on Sunday, left a voicemail for patient's family independence case manager Ms. Lemon for the meeting to be arranged on Sunday, we will reach out again tomorrow. Plan discussed with Dr. Shipman Plan discussed with: Other (RN, patient's sister Ms. Zavaleta, board and care harvest manager Ms. Luna, [facility] family independence case manager Ms. Mays) Dietary Evaluation Review Comments: 1) TF Jevity 1.2Cal @ 70ml/hr. Start @ 20ml/hr, increase 10ml/hr Q4H until goal is reached. TF at goal volum provides 100% energy & protein needs (2016 kcal, 93gm protein, 1356ml free water) 2) Water flush 110ml Q4H if allowed, adjust PRN 3) TPN if NPO > 7 days Expected Outcomes/Goals: To meet at least 75% estimated needs within 7 days FU 2-3 days ELAINE ALFREDO RESIDENT Oct 24, 2024 11:27
[2024-10-24] MEDS: POTASSIUM PHOSP 22MEQ(15MMOLE) in NS 100 ML IV ONE (12:00)
[2024-10-24] MEDS: LEVALBUTEROL HCL 1.25 MG/3 ML NEB NEB SCH (14:49)
[2024-10-24] MEDS: ACETYLCYSTEINE 10 %(100MG/ML) SOL 4ML NEB SCH (14:50)
[2024-10-24] MEDS: TPN PER PHARMACY IV NR (21:51)
[2024-10-25] VITALS (31 sets, daily range): BP systolic 98–157; BP diastolic 66–96; PULSE 87–114; RESP 13–45; TEMP 98.3–101.8; O2SAT 86–100
[2024-10-25 03:28] LABS: Hematocrit 27.5 % (41.0-53.0); Hemoglobin 9.2 g/dL (13.5-17.5); Mean Corpuscular Hemoglobin 30.1 pg (28.0-32.0); Mean Corpuscular Volume 89.7 fL (80.0-100.0); Nucleated Red Blood Cells % 0.0 %
[2024-10-25 03:45] LABS: Alanine Aminotransferase 15 U/L (7-40); Anion Gap 7 (5-15); BUN/Creatinine Ratio 23.1 (10.0-20.0); Blood Urea Nitrogen 9 mg/dL (9-23); Carbon Dioxide 27 mmol/L (20-31); Magnesium 1.9 mg/dL (1.6-2.6); Potassium 3.7 mmol/L (3.5-5.1); Sodium 141 mmol/L (136-145); Total Protein 5.7 g/dL (5.7-8.2)
[2024-10-25 03:46] LABS: Bilirubin, Total 0.5 mg/dL (0.2-1.0)
[2024-10-25 03:53] LABS: Albumin 2.6 g/dL (3.2-4.8); Alkaline Phosphatase 41 U/L (46-116); Calcium 8.6 mg/dL (8.7-10.4); Chloride 107 mmol/L (98-107); Glucose 106 mg/dL (74-106)
[2024-10-25] MEDS: IPRATROPIUM BROM 0.5 MG/2.5ML INH SOL NEB PRN (07:37)
--- NOTE | 2024-10-25 13:20 | DVHPN2 ---
Progress Note - Dictate Date Seen: Oct 25, 2024 Medical Necessity Reason Pt with a Central, PICC or Fol: Yes The following are medically ne: Central Line, Hsu Catheter vital signs Vital Sign Date Time Temp Pulse Resp B/P (MAP) Pulse Ox O2 Delivery O2 Flow Rate FiO2 10/25/24 11:25 100 24 100 10/25/24 08:00 Nasal Cannula* 4 36 10/25/24 07:00 99.5 140/77 (98) 99.5 Total Intake and Output 10/24/24 10/24/24 10/25/24 15:00 23:00 07:00 Intake Total 878 ml 593 ml 646 ml Output Total 950 ml 800 ml Balance 878 ml -357 ml -154 ml medications Current Medications Medications Dose Ordered Sig/David Route Start Time Stop Time Status Last Admin Dose Admin Vancomycin HCl 0 ml @ 0 mls/hr UD IV 10/14/24 18:30 Pantoprazole Sodium 40 mg DAILY IV 10/15/24 10:00 10/25/24 09:29 40 MG Mupirocin 1 applic BID EACHNOSTRI 10/15/24 22:00 10/20/24 21:59 UNV Meropenem 50 ml @ 17 mls/hr Q8HR IV 10/15/24 22:00 10/25/24 06:00 17 MLS/HR Purified Water 200 ml Q8HR GT 10/18/24 14:00 Hold 10/21/24 05:23 200 ML Lactulose 30 ml DAILY PO 10/20/24 10:00 10/20/24 08:46 30 ML Sodium Chloride 10 ml QSHIFT@10,22 IV 10/21/24 22:00 10/25/24 09:29 10 ML Vancomycin HCl 200 ml @ 160 mls/hr Q12H IV 10/22/24 03:00 10/25/24 03:00 160 MLS/HR Valproate Sodium 500 mg/Sodium Chloride 105 ml @ 105 mls/hr TID IV 10/22/24 00:00 10/25/24 05:42 105 MLS/HR Acetaminophen 650 mg Q6HP PRN [place] 10/22/24 13:15 10/25/24 03:04 650 MG Amino Acids 0 ml @ 0 mls/hr PER PHARMACY IV 10/22/24 14:15 Morphine Sulfate 1 mg Q4HP PRN IV 10/22/24 14:15 10/24/24 12:07 1 MG Haloperidol Lactate 2.5 mg Q8HP PRN IM 10/22/24 14:15 Diagnostic Test (Pha) 1 strip Q6HR 10/23/24 00:00 10/25/24 06:00 1 STRIP Insulin Human Regular FOLLOW SLIDING SCALE Q6HR SC 10/23/24 00:00 Dextrose 50 ml UD IV 10/22/24 22:00 Fat Emulsion Intravenous 100 ml/Potassium Acetate 40 meq/ Potassium Phosphate 40 meq/ Calcium Gluconate 3 meq/Magnesium Sulfate 24 meq/ Multivitamins 10 ml/Chromium/ Copper/Manganese/ Zinc 1 ml/Amino Acids/Dextrose 1,252.5425 ml @ 52 mls/hr Q24H6M IV 10/24/24 22:00 10/25/24 21:59 10/24/24 21:51 52 MLS/HR Acetylcysteine 100 mg Q4HR NEB 10/24/24 14:00 10/25/24 11:35 100 MG Ipratropium [place] 0.5 mg Q4HPRN PRN NEB 10/24/24 14:00 10/25/24 11:35 0.5 MG Levalbuterol HCl 0.625 mg Q4HR NEB 10/24/24 14:00 10/25/24 11:35 0.625 MG Fat Emulsion Intravenous 150 ml/Potassium Acetate 50 meq/ Potassium Phosphate 50 meq/ Calcium Gluconate 2.3 meq/Magnesium Sulfate 28 meq/ Multivitamins 10 ml/Chromium/ Copper/Manganese/ Zinc 1 ml/Amino Acids/Dextrose 1,509.3098 ml @ 63 mls/hr [id number] IV 10/25/24 22:00 10/26/24 21:59 laboratory and microbiology Laboratory Tests 10/25/24 02:30 Test 10/25/24 02:30 Range/Units Serum Glucose 106 74-106 mg/dL Assessment/Plan 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 Impression Acute hypoxemic respiratory failure Aspiration pneumonia Atelectasis Congestion Patient seen and examined in ICU Events S/p extubation Low oxygen requirements On 4 liters nasal cannula Continues to improve Sputum culture growing Klebsiella pneumoniae - ESBL Labs and imaging reviewed ABG reviewed Management Supplemental oxygen Titrate to maintain sats 90% or above Incentive spirometry Aspiration precautions Continue antibiotics F/u cultures Bronchodilators Monitor renal function Monitor electrolytes Supplement as needed Nutritional support Started on TPN Follow up with case management Okay to downgrade from pulmonary standpoint DVT prophylaxis Critical care time 35 minutes Dietary Evaluation Review Comments: 1) TF Jevity 1.2Cal @ 70ml/hr. Start @ 20ml/hr, increase 10ml/hr Q4H until goal is reached. TF at goal volum provides 100% energy & protein needs (2016 kcal, 93gm protein, 1356ml free water) 2) Water flush 110ml Q4H if allowed, adjust PRN 3) TPN if NPO > 7 days Expected Outcomes/Goals: To meet at least 75% estimated needs within 7 days FU 2-3 days Plan discussed with: Patient ARAM BAE MD Oct 25, 2024 13:20
--- NOTE | 2024-10-25 15:37 | DVHPN2 ---
Subjective in bed confused Reviewed: H&P, Labs Changes from previous H/P or p: No Changes General: Per HPI Objective Vitals Vital Signs Date Time Temp Pulse Resp B/P (MAP) Pulse Ox O2 Delivery O2 Flow Rate FiO2 10/25/24 14:00 98 19 157/87 (110) 93 10/25/24 14:00 Nasal Cannula* 4 36 10/25/24 12:00 99.7 99.7 Intake/Output Intake and Output 10/25/24 07:00 Intake Total 2117 ml Output Total 1750 ml Balance 367 ml IV Total 2117 ml Output Urine Total 1750 ml General Appearance: Other (confused) HEENT: Atraumatic Cardiovascular: Regular rate, Normal S1, Normal S2 Abdomen: Normal bowel sounds Medications Current Medications Medications Dose Ordered Sig/David Route Start Time Stop Time Status Last Admin Dose Admin Vancomycin HCl 0 ml @ 0 mls/hr UD IV 10/14/24 18:30 Pantoprazole Sodium 40 mg DAILY IV 10/15/24 10:00 10/25/24 09:29 40 MG Mupirocin 1 applic BID EACHNOSTRI 10/15/24 22:00 10/20/24 21:59 UNV Meropenem 50 ml @ 17 mls/hr Q8HR IV 10/15/24 22:00 10/25/24 15:05 17 MLS/HR Purified Water 200 ml Q8HR GT 10/18/24 14:00 Hold 10/21/24 05:23 200 ML Lactulose 30 ml DAILY PO 10/20/24 10:00 10/20/24 08:46 30 ML Sodium Chloride 10 ml QSHIFT@10,22 IV 10/21/24 22:00 10/25/24 09:29 10 ML Vancomycin HCl 200 ml @ 160 mls/hr Q12H IV 10/22/24 03:00 10/25/24 15:06 160 MLS/HR Valproate Sodium 500 mg/Sodium Chloride 105 ml @ 105 mls/hr TID IV 10/22/24 00:00 10/25/24 15:05 105 MLS/HR Acetaminophen 650 mg Q6HP PRN [place] 10/22/24 13:15 10/25/24 03:04 650 MG Amino Acids 0 ml @ 0 mls/hr PER PHARMACY IV 10/22/24 14:15 Morphine Sulfate 1 mg Q4HP PRN IV 10/22/24 14:15 10/24/24 12:07 1 MG Haloperidol Lactate 2.5 mg Q8HP PRN IM 10/22/24 14:15 Diagnostic Test (Pha) 1 strip Q6HR 10/23/24 00:00 10/25/24 12:00 1 STRIP Insulin Human Regular FOLLOW SLIDING SCALE Q6HR SC 10/23/24 00:00 Dextrose 50 ml UD IV 10/22/24 22:00 Fat Emulsion Intravenous 100 ml/Potassium Acetate 40 meq/ Potassium Phosphate 40 meq/ Calcium Gluconate 3 meq/Magnesium Sulfate 24 meq/ Multivitamins 10 ml/Chromium/ Copper/Manganese/ Zinc 1 ml/Amino Acids/Dextrose 1,252.5425 ml @ 52 mls/hr Q24H6M IV 10/24/24 22:00 10/25/24 21:59 10/24/24 21:51 52 MLS/HR Acetylcysteine 100 mg Q4HR NEB 10/24/24 14:00 10/25/24 14:24 100 MG Ipratropium [place] 0.5 mg Q4HPRN PRN NEB 10/24/24 14:00 10/25/24 14:24 0.5 MG Levalbuterol HCl 0.625 mg Q4HR NEB 10/24/24 14:00 10/25/24 14:24 0.625 MG Fat Emulsion Intravenous 150 ml/Potassium Acetate 50 meq/ Potassium Phosphate 50 meq/ Calcium Gluconate 2.3 meq/Magnesium Sulfate 28 meq/ Multivitamins 10 ml/Chromium/ Copper/Manganese/ Zinc 1 ml/Amino Acids/Dextrose 1,509.3098 ml @ 63 mls/hr [id number] IV 10/25/24 22:00 10/26/24 21:59 Laboratory Results Laboratory Tests 10/25/24 02:30 Chemistry Test 10/25/24 02:30 Albumin 2.6 g/dL (3.2-4.8) L Calcium Level 8.6 mg/dL (8.7-10.4) L Magnesium Level 1.9 mg/dL (1.6-2.6) Phosphorus Level 2.8 mg/dL (2.4-5.1) Total Protein 5.7 g/dL (5.7-8.2) LFT Test 10/25/24 02:30 Alanine Aminotransferase (ALT) 15 U/L (7-40) Alkaline Phosphatase 41 U/L (46-116) L Aspartate Amino Transferase (AST) 22 U/L (13-40) Total Bilirubin 0.5 mg/dL (0.2-1.0) Urinalysis Test 10/14/24 18:35 Urine Color Yellow (Yellow) Urine Clarity Ex.turbid (Clear) Urine pH 5.5 (5.0-9.0) Urine Specific [place] 1.026 (1.001-1.035) Urine Protein Trace (Negative) H Urine Ketones Negative (Negative) Urine Blood 2+ /uL (Negative) H Urine Nitrite Negative (Negative) Urine Bilirubin Negative (Negative) Urine Urobilinogen 6 mg/dL (Negative) Urine Leukocyte Esterase Negative /uL (Negative) Urine RBC 480 /hpf (0 - 3) Urine WBC Clumps Present /hpf (None Seen) Urine Microscopic WBC 89 /HPF (0-3) H Urine Squamous Epithelial Cells None seen /hpf (<5) Urine Bacteria None seen /hpf (None Seen) Urine Mucus Few (None Seen) Urine Glucose Normal mg/dL (Normal) Microbiology Microbiology Date/Time Source Procedure Growth Status 10/21/24 14:10 Catheter Site Gram Stain - Final Complete 10/21/24 14:10 Catheter Site Wound Culture - Final Complete 10/19/24 11:01 Bronchial Washings Gram Stain - Final Complete 10/19/24 11:01 Respiratory Culture - Final Methicillin Resistant S.aureus Klebsiella pneumoniae - ESBL Complete 10/14/24 18:35 Voided Urine Urine Culture - Final Complete 10/14/24 18:32 Blood Blood Culture - Final NO GROWTH AFTER 5 DAYS OF INCUBATION. Complete Assessment/Plan Assessment/Plan Neurology # acute on chronic metabolic encephalopathy # dementia, unspecified type # schizophrenia # normal pressure hydrocephalus - head CT: No significant interval change. Unchanged hydrocephalus, further clinical correlation is suggested. If clinically indicated, MRI may be beneficial in further evaluation. - resumed home medication depakote - IM haldol 2.5mg q8 prn - pain control with IV morphine 1mg q4prn Cardiovascular # septic shock due to pneumonia vs UTI # coronary artery disease # paroxysmal AFib, CHADS-VASc 5 # hypercoagulable state secondary to above # essential hypertension - off Levophed 10/22/24 - IV vancomycin, IV meropenem - Holding lovenox as hematuria noted 10/22/24 Respiratory # Ventilator - intubated 10/14/2024 - extubated 10/21/24 # Acute hypoxic respiratory failure # aspiration pneumonia, culture growing MRSA and Klebsiella - CXR: Bronchovascular crowding due to low lung volumes with possible mild pulmonary vascular congestion. Underlying infectious process can not be excluded. - IV vancomycin, IV meropenem GI # transaminitis # Peptic ulcer prophylaxis - Pantoprazole 40 mg IV daily - monitor /Nephrology # acute complicated UTI # hyperkalemia, now resolved # hypokalemia, repleted # Hsu catheter 10/14/24 - IV meropenem - monitor Infectious disease # aspiration pneumonia, culture growing MRSA and Klebsiella # acute complicated UTI # sepsis due to above - IV vancomycin, IV meropenem - Hsu placed on 10/14/2024 - strict aspiration precautions Hem/onc # anemia likely of chronic disease # initial leukopenia - monitor Endocrine # protein calorie malnutrition Nutrition - TPN Lines - right IJ placed on 10/14/2024 - left 20 gauge placed on 10/14/2024 S/p extubation 10/21/24, requested swallow evaluation. Downgraded to SHEA you on 10/23/2024 Critical care time 83 minutes excluding procedure. Plan discussed with: Other (nurse) Date of Service: Oct 25, 2024 Billing Provider: ZARA NICHOLS MD Common Visit Codes: [id number] CARE 30-74 MIN ZARA NICHOLS MD Oct 25, 2024 15:37
[2024-10-25] MEDS: FAT EMULSION IV NR (21:33)
[2024-10-25] MEDS: POTASSIUM PHOSPHATE IV NR (21:33)
[2024-10-25] MEDS: POTASSIUM ACETATE IV NR (21:33)
[2024-10-25] MEDS: [UNRECOGNIZED DRUG - OTHER] IV NR (21:33)
[2024-10-26] VITALS (49 sets, daily range): BP systolic 91–163; BP diastolic 40–122; PULSE 68–113; RESP 11–33; TEMP 99–99.7; O2SAT 88–100
[2024-10-26 09:45] LABS: Anion Gap 6 (5-15)
[2024-10-26 09:51] LABS: BUN/Creatinine Ratio 31.7 (10.0-20.0)
[2024-10-26 09:53] LABS: Carbon Dioxide 29 mmol/L (20-31); Chloride 106 mmol/L (98-107); Glucose 101 mg/dL (74-106); Potassium 3.8 mmol/L (3.5-5.1); Sodium 141 mmol/L (136-145)
[2024-10-26 09:54] LABS: Alanine Aminotransferase 15 U/L (7-40); Albumin 2.5 g/dL (3.2-4.8); Alkaline Phosphatase 34 U/L (46-116); Bilirubin, Total 0.5 mg/dL (0.2-1.0); Blood Urea Nitrogen 13 mg/dL (9-23); Calcium 8.3 mg/dL (8.7-10.4); Magnesium 2.0 mg/dL (1.6-2.6); Total Protein 5.7 g/dL (5.7-8.2)
--- NOTE | 2024-10-26 14:09 | DVHPN2 ---
Progress Note - Dictate Date Seen: Oct 26, 2024 Medical Necessity Reason Pt with a Central, PICC or Fol: Yes The following are medically ne: Central Line, Hsu Catheter vital signs Vital Sign Date Time Temp Pulse Resp B/P (MAP) Pulse Ox O2 Delivery O2 Flow Rate FiO2 10/26/24 13:49 75 24 96 10/26/24 13:43 Nasal Cannula* 4 36 10/26/24 11:00 119/60 (79) 10/26/24 08:00 99.7 99.7 Total Intake and Output 10/25/24 10/25/24 10/26/24 15:00 23:00 07:00 Intake Total 450 ml 754 ml 938 ml Output Total 1350 ml 950 ml Balance 450 ml -596 ml -12 ml medications Current Medications Medications Dose Ordered Sig/David Route Start Time Stop Time Status Last Admin Dose Admin Pantoprazole Sodium 40 mg DAILY IV 10/15/24 10:00 10/26/24 10:00 40 MG Mupirocin 1 applic BID EACHNOSTRI 10/15/24 22:00 10/20/24 21:59 UNV Meropenem 50 ml @ 17 mls/hr Q8HR IV 10/15/24 22:00 10/26/24 00:40 17 MLS/HR Purified Water 200 ml Q8HR GT 10/18/24 14:00 Hold 10/21/24 05:23 200 ML Lactulose 30 ml DAILY PO 10/20/24 10:00 10/20/24 08:46 30 ML Sodium Chloride 10 ml QSHIFT@10,22 IV 10/21/24 22:00 10/26/24 10:00 10 ML Vancomycin HCl 200 ml @ 160 mls/hr Q12H IV 10/22/24 03:00 10/26/24 03:07 160 MLS/HR Valproate Sodium 500 mg/Sodium Chloride 105 ml @ 105 mls/hr TID IV 10/22/24 00:00 10/26/24 05:44 105 MLS/HR Acetaminophen 650 mg Q6HP PRN [place] 10/22/24 13:15 10/25/24 18:24 650 MG Amino Acids 0 ml @ 0 mls/hr PER PHARMACY IV 10/22/24 14:15 Morphine Sulfate 1 mg Q4HP PRN IV 10/22/24 14:15 10/24/24 12:07 1 MG Haloperidol Lactate 2.5 mg Q8HP PRN IM 10/22/24 14:15 Diagnostic Test (Pha) 1 strip Q6HR 10/23/24 00:00 10/26/24 11:35 1 STRIP Insulin Human Regular FOLLOW SLIDING SCALE Q6HR SC 10/23/24 00:00 Dextrose 50 ml UD IV 10/22/24 22:00 Acetylcysteine 100 mg Q4HR NEB 10/24/24 14:00 10/26/24 13:43 100 MG Ipratropium [place] 0.5 mg Q4HPRN PRN NEB 10/24/24 14:00 10/26/24 01:44 0.5 MG Levalbuterol HCl 0.625 mg Q4HR NEB 10/24/24 14:00 10/26/24 13:43 0.625 MG Fat Emulsion Intravenous 150 ml/Potassium Acetate 50 meq/ Potassium Phosphate 50 meq/ Calcium Gluconate 2.3 meq/Magnesium Sulfate 28 meq/ Multivitamins 10 ml/Chromium/ Copper/Manganese/ Zinc 1 ml/Amino Acids/Dextrose 1,509.3098 ml @ 63 mls/hr [id number] IV 10/25/24 22:00 10/26/24 21:59 10/25/24 21:33 63 MLS/HR Fat Emulsion Intravenous 200 ml/Potassium Chloride 20 meq/ Potassium Acetate 30 meq/Potassium Phosphate 50 meq/ Calcium Gluconate 2.3 meq/Magnesium Sulfate 28 meq/ Multivitamins 10 ml/Chromium/ Copper/Manganese/ Zinc 1 ml/Amino Acids/Dextrose 1,659.3098 ml @ 69 mls/hr Q24H3M IV 10/26/24 22:00 10/27/24 21:59 laboratory and microbiology Laboratory Tests 10/26/24 08:46 10/25/24 02:30 Test 10/26/24 08:46 Range/Units Serum Glucose 101 74-106 mg/dL Assessment/Plan 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 Acute hypoxemic respiratory failure Aspiration pneumonia Atelectasis Congestion Patient seen and examined in ICU Events S/p extubation Low oxygen requirements On 4 liters nasal cannula Concern raised for aspiration Sputum culture growing Klebsiella pneumoniae - ESBL Labs and imaging reviewed ABG reviewed Management Supplemental oxygen Titrate to maintain sats 90% or above Incentive spirometry Aspiration precautions Continue antibiotics F/u cultures Bronchodilators Monitor renal function Monitor electrolytes Supplement as needed Nutritional support Started on TPN Follow up with case management Recommend family discussion regarding goals of care Okay to downgrade from pulmonary standpoint DVT prophylaxis Critical care time 35 minutes Dietary Evaluation Review Comments: 1) TF Jevity 1.2Cal @ 70ml/hr. Start @ 20ml/hr, increase 10ml/hr Q4H until goal is reached. TF at goal volum provides 100% energy & protein needs (2016 kcal, 93gm protein, 1356ml free water) 2) Water flush 110ml Q4H if allowed, adjust PRN 3) TPN if NPO > 7 days Expected Outcomes/Goals: To meet at least 75% estimated needs within 7 days FU 2-3 days Plan discussed with: Other (Rn) ARAM BAE MD Oct 26, 2024 14:09
--- NOTE | 2024-10-26 15:02 | DVHPN2 ---
Subjective in bed confused Reviewed: H&P, Labs Changes from previous H/P or p: No Changes General: Per HPI Objective Vitals Vital Signs Date Time Temp Pulse Resp B/P (MAP) Pulse Ox O2 Delivery O2 Flow Rate FiO2 10/26/24 13:49 75 24 96 10/26/24 13:43 Nasal Cannula* 4 36 10/26/24 11:00 119/60 (79) 10/26/24 08:00 99.7 99.7 Intake/Output Intake and Output 10/26/24 07:00 Intake Total 2142 ml Output Total 2300 ml Balance -158 ml Intake Oral 0 ml IV Total 2142 ml Output Urine Total 2300 ml General Appearance: Other (confused) HEENT: Atraumatic Cardiovascular: Regular rate, Normal S1, Normal S2 Abdomen: Normal bowel sounds Medications Current Medications Medications Dose Ordered Sig/David Route Start Time Stop Time Status Last Admin Dose Admin Pantoprazole Sodium 40 mg DAILY IV 10/15/24 10:00 10/26/24 10:00 40 MG Mupirocin 1 applic BID EACHNOSTRI 10/15/24 22:00 10/20/24 21:59 UNV Meropenem 50 ml @ 17 mls/hr Q8HR IV 10/15/24 22:00 10/26/24 14:15 17 MLS/HR Purified Water 200 ml Q8HR GT 10/18/24 14:00 Hold 10/21/24 05:23 200 ML Lactulose 30 ml DAILY PO 10/20/24 10:00 10/20/24 08:46 30 ML Sodium Chloride 10 ml QSHIFT@10,22 IV 10/21/24 22:00 10/26/24 10:00 10 ML Vancomycin HCl 200 ml @ 160 mls/hr Q12H IV 10/22/24 03:00 10/26/24 03:07 160 MLS/HR Valproate Sodium 500 mg/Sodium Chloride 105 ml @ 105 mls/hr TID IV 10/22/24 00:00 10/26/24 14:15 105 MLS/HR Acetaminophen 650 mg Q6HP PRN [place] 10/22/24 13:15 10/25/24 18:24 650 MG Amino Acids 0 ml @ 0 mls/hr PER PHARMACY IV 10/22/24 14:15 Morphine Sulfate 1 mg Q4HP PRN IV 10/22/24 14:15 10/24/24 12:07 1 MG Haloperidol Lactate 2.5 mg Q8HP PRN IM 10/22/24 14:15 Diagnostic Test (Pha) 1 strip Q6HR 10/23/24 00:00 10/26/24 11:35 1 STRIP Insulin Human Regular FOLLOW SLIDING SCALE Q6HR SC 10/23/24 00:00 Dextrose 50 ml UD IV 10/22/24 22:00 Acetylcysteine 100 mg Q4HR NEB 10/24/24 14:00 10/26/24 13:43 100 MG Ipratropium [place] 0.5 mg Q4HPRN PRN NEB 10/24/24 14:00 10/26/24 01:44 0.5 MG Levalbuterol HCl 0.625 mg Q4HR NEB 10/24/24 14:00 10/26/24 13:43 0.625 MG Fat Emulsion Intravenous 150 ml/Potassium Acetate 50 meq/ Potassium Phosphate 50 meq/ Calcium Gluconate 2.3 meq/Magnesium Sulfate 28 meq/ Multivitamins 10 ml/Chromium/ Copper/Manganese/ Zinc 1 ml/Amino Acids/Dextrose 1,509.3098 ml @ 63 mls/hr [id number] IV 10/25/24 22:00 10/26/24 21:59 10/25/24 21:33 63 MLS/HR Fat Emulsion Intravenous 200 ml/Potassium Chloride 20 meq/ Potassium Acetate 30 meq/Potassium Phosphate 50 meq/ Calcium Gluconate 2.3 meq/Magnesium Sulfate 28 meq/ Multivitamins 10 ml/Chromium/ Copper/Manganese/ Zinc 1 ml/Amino Acids/Dextrose 1,659.3098 ml @ 69 mls/hr Q24H3M IV 10/26/24 22:00 10/27/24 21:59 Laboratory Results Laboratory Tests 10/25/24 02:30 10/26/24 08:46 Chemistry Test 10/26/24 08:46 Albumin 2.5 g/dL (3.2-4.8) L Calcium Level 8.3 mg/dL (8.7-10.4) L Magnesium Level 2.0 mg/dL (1.6-2.6) Phosphorus Level 3.0 mg/dL (2.4-5.1) Total Protein 5.7 g/dL (5.7-8.2) LFT Test 10/26/24 08:46 Alanine Aminotransferase (ALT) 15 U/L (7-40) Alkaline Phosphatase 34 U/L (46-116) L Aspartate Amino Transferase (AST) 24 U/L (13-40) Total Bilirubin 0.5 mg/dL (0.2-1.0) Urinalysis Test 10/14/24 18:35 Urine Color Yellow (Yellow) Urine Clarity Ex.turbid (Clear) Urine pH 5.5 (5.0-9.0) Urine Specific [place] 1.026 (1.001-1.035) Urine Protein Trace (Negative) H Urine Ketones Negative (Negative) Urine Blood 2+ /uL (Negative) H Urine Nitrite Negative (Negative) Urine Bilirubin Negative (Negative) Urine Urobilinogen 6 mg/dL (Negative) Urine Leukocyte Esterase Negative /uL (Negative) Urine RBC 480 /hpf (0 - 3) Urine WBC Clumps Present /hpf (None Seen) Urine Microscopic WBC 89 /HPF (0-3) H Urine Squamous Epithelial Cells None seen /hpf (<5) Urine Bacteria None seen /hpf (None Seen) Urine Mucus Few (None Seen) Urine Glucose Normal mg/dL (Normal) Microbiology Microbiology Date/Time Source Procedure Growth Status 10/21/24 14:10 Catheter Site Gram Stain - Final Complete 10/21/24 14:10 Catheter Site Wound Culture - Final Complete 10/19/24 11:01 Bronchial Washings Gram Stain - Final Complete 10/19/24 11:01 Respiratory Culture - Final Methicillin Resistant S.aureus Klebsiella pneumoniae - ESBL Complete 10/14/24 18:35 Voided Urine Urine Culture - Final Complete 10/14/24 18:32 Blood Blood Culture - Final NO GROWTH AFTER 5 DAYS OF INCUBATION. Complete Assessment/Plan Assessment/Plan Neurology # acute on chronic metabolic encephalopathy # dementia, unspecified type # schizophrenia # normal pressure hydrocephalus - head CT: No significant interval change. Unchanged hydrocephalus, further clinical correlation is suggested. If clinically indicated, MRI may be beneficial in further evaluation. - resumed home medication depakote - IM haldol 2.5mg q8 prn - pain control with IV morphine 1mg q4prn Cardiovascular # septic shock due to pneumonia vs UTI # coronary artery disease # paroxysmal AFib, CHADS-VASc 5 # hypercoagulable state secondary to above # essential hypertension - off Levophed 10/22/24 - IV vancomycin, IV meropenem - Holding lovenox as hematuria noted 10/22/24 Respiratory # Ventilator - intubated 10/14/2024 - extubated 10/21/24 # Acute hypoxic respiratory failure # aspiration pneumonia, culture growing MRSA and Klebsiella - CXR: Bronchovascular crowding due to low lung volumes with possible mild pulmonary vascular congestion. Underlying infectious process can not be excluded. - IV vancomycin, IV meropenem GI # transaminitis # Peptic ulcer prophylaxis - Pantoprazole 40 mg IV daily - monitor /Nephrology # acute complicated UTI # hyperkalemia, now resolved # hypokalemia, repleted # Hsu catheter 10/14/24 - IV meropenem - monitor Infectious disease # aspiration pneumonia, culture growing MRSA and Klebsiella # acute complicated UTI # sepsis due to above - IV vancomycin, IV meropenem - Hsu placed on 10/14/2024 - strict aspiration precautions Hem/onc # anemia likely of chronic disease # initial leukopenia - monitor Endocrine # protein calorie malnutrition Nutrition - TPN Lines - right IJ placed on 10/14/2024 - left 20 gauge placed on 10/14/2024 S/p extubation 10/21/24, requested swallow evaluation. Downgraded to SHEA you on 10/23/2024 Critical care time 83 minutes excluding procedure. Plan discussed with: Patient Date of Service: Oct 26, 2024 Billing Provider: ZARA NICHOLS MD Common Visit Codes: [id number] CARE 30-74 MIN ZARA NICHOLS MD Oct 26, 2024 15:02
[2024-10-26] MEDS ORDERED: VANCOMYCIN PER PHARMACY 0 MG IV SCH (15:45)
[2024-10-26] MEDS: HALOPERIDOL LACTATE 5 MG/ML INJ VIAL IM PRN (16:10)
[2024-10-26] MEDS: VANCOMYCIN 1GM/200ML PM 200 ML IV SCH (16:16)
[2024-10-26] MEDS: TPN PER PHARMACY IV NR (21:46)
[2024-10-27] VITALS (42 sets, daily range): BP systolic 117–162; BP diastolic 48–111; PULSE 65–113; RESP 14–36; TEMP 98.6–99.4; O2SAT 89–100
[2024-10-27 07:20] LABS: Alanine Aminotransferase 21 U/L (7-40); Anion Gap 7 (5-15); BUN/Creatinine Ratio 31.7 (10.0-20.0); Blood Urea Nitrogen 13 mg/dL (9-23); Calcium 8.7 mg/dL (8.7-10.4); Carbon Dioxide 29 mmol/L (20-31); Chloride 106 mmol/L (98-107); Glucose 88 mg/dL (74-106); Magnesium 2.1 mg/dL (1.6-2.6); Potassium 4.0 mmol/L (3.5-5.1); Sodium 142 mmol/L (136-145); Total Protein 6.1 g/dL (5.7-8.2)
[2024-10-27 07:21] LABS: Bilirubin, Total 0.5 mg/dL (0.2-1.0)
[2024-10-27 07:22] LABS: Albumin 2.7 g/dL (3.2-4.8); Alkaline Phosphatase 35 U/L (46-116)
--- NOTE | 2024-10-27 20:53 | DVHPNRES ---
Progress Note Date Seen: Oct 27, 2024 Resident Creating Document: ELAINE ALFREDO RESIDENT Medical Necessity Reason Pt with a Central, PICC or Fol: Yes The following are medically ne: Central Line, Hsu Catheter Subjective Review of Systems Patient is a 64-year-old male with past medical history of CAD, paroxysmal AFib on Eliquis, hypertension, developmental delay, schizophrenia, baseline dementia, normal pressure hydrocephalus, history of CVA, history of seizures, dyslipidemia, who comes in due to shortness of breath. Per pt's contact at the [facility], he spat out his medications and was noted to have cyanotic fingertips, spo02 was noted to be in the 30's% which is what prompted this visit to the hospital, was also noted to have a fever of 99.3 earlier on 10/14/24. According to the ER and admitting notes, patient was brought to the hospital due to increasing shortness of breath with a respiratory rate in the 40s associated with pallor. Patient was noted to have an oxygen saturation of 82% with a fever of 101 and was being bagged on arrival. Patient was subsequently intubated and put on a mechanical ventilator. Past Hospitalization: Discharged from the [facility] on 08/28/2024 after being treated for altered level of consciousness Patient seen and examined at bedside. Review of systems could not be completed as patient is sedated and mechanically ventilated. 10/16/2024: Patient seen and examined at bedside. Detailed discussions were held with patient's [facility] administrator Ms. Luna, patient's sister Ms. Zavaleta ([phone]), voicemail was also left for patient's current social service worker Ms. Mattie Lemon at [phone]. Increased tube feedings to 40 cc/hour. Discontinued IV fluids. 10/17/2024: Patient seen and examined at bedside. On 2 mcg of Levophed, 50 of fentanyl and 5 of Versed. Chest x-ray showed no significant interval change. Call social service worker Ms. Mattie Lemon again at [phone], left a message with duty crop supervisor to have her call me back as she is not in the office until 3:00 p.m.. 10/18/24--64-year-old male history of hypertension AFib CVA,. Here from [facility] was found to be hypoxic cyanotic. Patient was intubated. Here for UTI, aspiration pneumonia. On broad-spectrum antibiotics vancomycin meropenem.. Currently on Versed 5 Levophed to fentanyl 50. Vitals stable. Ventilated a.c. 20/500/80%/5.0.. Getting Jevity feeds we will add free water flushes 200 q.8, no apparent in the indication for fluid restriction. Appears euvolemic. Urine output adequate, some mild pitting edema in ankles, otherwise unchanged exam from prior. Otherwise continue primary team's management. 10/19/2024-plan for sedation vacation and CPAP trial NAD/SBT. Patient is off of Versed fentanyl. Also off Levophed. Vitals stable, maps more than 70 heart rate between 90 and 100. Not yet started CPAP trial. Currently on ventilated settings 18/5 100/30%/5.0. Patient appears comfortable has strong gag reflex and cough reflex. Urine output is adequate. We will continue trial today and continue IV antibiotics as per primary team plan. We are adding lactulose, no bowel movements. This has diminishes breath sounds right lower lung. -update : in PM , patient is becoming hypotensive bradycardic. We will start dopamine drip. If dopamine controlled heart rate more than 60 and still hypotensive we will use Levophed. EKG done. sepsis remains likely cause of shock, bradycardia will need exploring with possible echo tomorrow and/or cardiology eval, defer to primary team. 10/20/24: CPAP trail with NIF -8. off of pressors. PICC line consult, cpap trial in the AM 10/21/24: Status post extubation today, currently on Levophed at 1 microgram/min. Attempted to place NG tube x3, unsuccessful. 10/22/24: overnight hypokalemic at 2.9, repleted with repeat at 3.1, gave another 40meq. repleted magnesium. started TPN, pending swallow eval. 10/23/24: Patient seen and examined at bedside, improved from prior. On 3 L O2 via NC. Downgraded to ANTONELLA. With a voicemail for pillowcase cutter for meeting between decision makers on Sunday, called patient's sister Ms. Zavaleta, she expressed that she would like to attend the meeting on Sunday telephonically. 10/24/2024: Patient seen and examined at bedside, overnight low-grade fevers. Overnight episode of agitation and anxiety, overall calmer than yesterday. Called pillowcase cutter Jas Lemon again and left a voicemail, awaiting callback. Spoke with replacement pillowcase cutter Tabatha Ana, she said decision makers we will be the ethics committee from [facility], and that she will forward an email about meeting on Sunday at 1:00 p.m.. 10/27/24: Patient more verbal and alert today, however still AOx1. Objective vital signs Vital Sign Date Time Temp Pulse Resp B/P (MAP) Pulse Ox O2 Delivery O2 Flow Rate FiO2 10/27/24 20:00 Nasal Cannula* 2 28 10/27/24 20:00 20 10/27/24 18:39 93 10/27/24 18:39 90 10/27/24 18:02 157/89 10/27/24 18:00 98.6 98.6 Total Intake and Output 10/26/24 10/26/24 10/27/24 15:00 23:00 07:00 Intake Total 626 ml 460.5 ml 746 ml Output Total 1775 ml 1900 ml Balance 626 ml -1314.5 ml -1154 ml medications Current Medications Medications Dose Ordered Sig/David Route Start Time Stop Time Status Last Admin Dose Admin Pantoprazole Sodium 40 mg DAILY IV 10/15/24 10:00 10/27/24 08:50 40 MG Mupirocin 1 applic BID EACHNOSTRI 10/15/24 22:00 10/20/24 21:59 UNV Lactulose 30 ml DAILY PO 10/20/24 10:00 10/20/24 08:46 30 ML Sodium Chloride 10 ml QSHIFT@10,22 IV 10/21/24 22:00 10/27/24 08:50 10 ML Valproate Sodium 500 mg/Sodium Chloride 105 ml @ 105 mls/hr TID IV 10/22/24 00:00 10/27/24 13:45 105 MLS/HR Acetaminophen 650 mg Q6HP PRN ID 10/22/24 13:15 10/25/24 18:24 650 MG Amino Acids 0 ml @ 0 mls/hr PER PHARMACY IV 10/22/24 14:15 Morphine Sulfate 1 mg Q4HP PRN IV 10/22/24 14:15 10/27/24 17:32 1 MG Haloperidol Lactate 2.5 mg Q8HP PRN IM 10/22/24 14:15 10/26/24 16:10 2.5 MG Diagnostic Test (Pha) 1 strip Q6HR 10/23/24 00:00 10/27/24 17:53 1 STRIP Insulin Human Regular FOLLOW SLIDING SCALE Q6HR SC 10/23/24 00:00 Dextrose 50 ml UD IV 10/22/24 22:00 Acetylcysteine 100 mg Q4HR NEB 10/24/24 14:00 10/27/24 18:39 100 MG Ipratropium [place] 0.5 mg Q4HPRN PRN NEB 10/24/24 14:00 10/27/24 18:39 0.5 MG Levalbuterol HCl 0.625 mg Q4HR NEB 10/24/24 14:00 10/27/24 18:39 0.625 MG Fat Emulsion Intravenous 200 ml/Potassium Chloride 20 meq/ Potassium Acetate 30 meq/Potassium Phosphate 50 meq/ Calcium Gluconate 2.3 meq/Magnesium Sulfate 28 meq/ Multivitamins 10 ml/Chromium/ Copper/Manganese/ Zinc 1 ml/Amino Acids/Dextrose 1,659.3098 ml @ 69 mls/hr Q24H3M IV 10/26/24 22:00 10/27/24 21:59 10/26/24 21:46 69 MLS/HR Vancomycin HCl 200 ml @ 160 mls/hr Q10H IV 10/26/24 16:00 10/27/24 11:57 160 MLS/HR Vancomycin HCl 0 ml @ 0 mls/hr UD IV 10/26/24 15:45 Fat Emulsion Intravenous 200 ml/Potassium Chloride 20 meq/ Potassium Acetate 20 meq/Potassium Phosphate 40 meq/ Magnesium Sulfate 26 meq/ Multivitamins 10 ml/Chromium/ Copper/Manganese/ Zinc 1 ml/Amino Acids/Dextrose 1,696.5909 ml @ 70 mls/hr [id number] IV 10/27/24 22:00 10/28/24 21:59 Cancel Fat Emulsion Intravenous 200 ml/Potassium Chloride 20 meq/ Potassium Acetate 20 meq/Potassium Phosphate 40 meq/ Magnesium Sulfate 26 meq/ Multivitamins 10 ml/Chromium/ Copper/Manganese/ Zinc 1 ml/Amino Acids/Dextrose/ Purified Water 1,796.5909 ml @ 74 mls/hr [id number] IV 10/27/24 22:00 10/28/24 21:59 Examination Neck Exam: Normal inspection. Non-tender. Normal alignment Pulmonary/Respiratory: Chest non-tender. Coarse bilateral breath sounds Cardiovascular/Chest: Regular rate and rhythm. No murmurs. No JVD. Peripheral Pulses: 2+ Radial (R). 2+ Radial (L). 2+ Pedal (R). 2+ Pedal (L) Abdominal Exam: Normal bowel sounds. Soft. normal abdomen, no visible veins, Nontender. No hepatospenomegaly. No masses Ankle Exam: Negative ankle edema Lower extremities: Right ankle and heel wound noted. Left heel blanchable redness. L buttock maceration laboratory and microbiology Laboratory Tests 10/27/24 05:05 10/25/24 02:30 Test 10/27/24 05:05 Range/Units Serum Glucose 88 74-106 mg/dL Microbiology Date/Time Source Procedure Growth Status 10/21/24 14:10 Catheter Site Gram Stain - Final Complete 10/21/24 14:10 Catheter Site Wound Culture - Final Complete 10/19/24 11:01 Bronchial Washings Gram Stain - Final Complete 10/19/24 11:01 Respiratory Culture - Final Methicillin Resistant S.aureus Klebsiella pneumoniae - ESBL Complete 10/14/24 18:35 Voided Urine Urine Culture - Final Complete 10/14/24 18:32 Blood Blood Culture - Final NO GROWTH AFTER 5 DAYS OF INCUBATION. Complete Problem List/Assessment/Plan Problem List/Assessment/Plan Neurology # acute on chronic metabolic encephalopathy # dementia, unspecified type # schizophrenia # normal pressure hydrocephalus - head CT: No significant interval change. Unchanged hydrocephalus, further clinical correlation is suggested. If clinically indicated, MRI may be beneficial in further evaluation. - resumed home medication depakote - IM haldol 2.5mg q8 prn - pain control with IV morphine 1mg q4prn Cardiovascular # septic shock due to pneumonia vs UTI # coronary artery disease # paroxysmal AFib, CHADS-VASc 5 # hypercoagulable state secondary to above # essential hypertension - off Levophed 10/22/24 - IV vancomycin, IV meropenem - Holding lovenox as hematuria noted 10/22/24 Respiratory # Ventilator - intubated 10/14/2024 - extubated 10/21/24 # Acute hypoxic respiratory failure # aspiration pneumonia, culture growing MRSA and Klebsiella - CXR: Bronchovascular crowding due to low lung volumes with possible mild pulmonary vascular congestion. Underlying infectious process can not be excluded. - IV vancomycin, IV meropenem GI # transaminitis # Peptic ulcer prophylaxis - Pantoprazole 40 mg IV daily - monitor /Nephrology # acute complicated UTI # hyperkalemia, now resolved # hypokalemia, repleted # Hsu catheter 10/14/24 - IV meropenem - monitor Infectious disease # aspiration pneumonia, culture growing MRSA and Klebsiella # acute complicated UTI # sepsis due to above - IV vancomycin, IV meropenem - Hsu placed on 10/14/2024 - strict aspiration precautions Hem/onc # anemia likely of chronic disease # initial leukopenia - monitor Endocrine # protein calorie malnutrition Nutrition Cleared swallow evaluation, pureed diet Lines R PICC line S/p extubation 10/21/24, requested swallow evaluation. Downgraded to ANTONELLA on 10/23/2024 Critical care time 83 minutes excluding procedure. Full CODE STATUS. Called patient's sister Ms. Zavaleta to set up a meeting amongst decision makers on Sunday, left a voicemail for patient's pillowcase cutter Ms. Lemon for the meeting to be arranged on Sunday, we will reach out again tomorrow. Plan discussed with Dr. Burton Plan discussed with: Other (RN) My Orders My Orders Orders - ELAINE ALFREDO RESIDENT Procedure Category Date Status Time * Swallow Request ST 10/27/24 Transmitted 17:05 Chest Portable XY 10/28/24 Logged 04:00 Complete Blood Count LAB 10/28/24 Verified 04:00 Pureed DIET 10/27/24 Transmitted Dinner Dietary Evaluation Review Comments: 1) TF Jevity 1.2Cal @ 70ml/hr. Start @ 20ml/hr, increase 10ml/hr Q4H until goal is reached. TF at goal volum provides 100% energy & protein needs (2016 kcal, 93gm protein, 1356ml free water) 2) Water flush 110ml Q4H if allowed, adjust PRN 3) TPN if NPO > 7 days Expected Outcomes/Goals: To meet at least 75% estimated needs within 7 days FU 2-3 days Date of Service: Oct 27, 2024 Billing Provider: MIHAI BURTON MD Common Visit Codes: 59222-FKHCEHLJ CARE 30-74 MIN, [id number] CARE-EACH +30MIN ELAINE ALFREDO RESIDENT Oct 27, 2024 20:53 MIHAI BURTON MD Oct 28, 2024 17:01
[2024-10-27] MEDS: TPN PER PHARMACY IV NR (22:00)
[2024-10-27] MEDS ORDERED: TPN PER PHARMACY IV NR (22:00)
[2024-10-28] VITALS (61 sets, daily range): BP systolic 127–173; BP diastolic 62–101; PULSE 75–104; RESP 11–32; TEMP 97.5–100.5; O2SAT 92–100
--- NOTE | 2024-10-28 04:54 | DVH ---
CHEST RADIOGRAPH Indication: pna Technique: Single frontal view of the chest was obtained COMPARISON: XY CHEST PORTABLE on DOS: 10/22/24, XY CHEST PORTABLE on DOS: 10/21/24, XY CHEST PORTABLE o n DOS: 10/20/24, XY CHEST PORTABLE on DOS: 10/19/24, XY CHEST PORTABLE on DOS: 10/18/24 FINDINGS: Lines and Tubes: Right peripherally inserted central catheter unchanged in position. Lungs: Slight interval improvement in multifocal bilateral pulmonary airspace disease with decreased left lung base consolidation. Pleura: No effusion. No pneumothorax. Cardiomediastinal contours: Unremarkable Bones: Unremarkable IMPRESSION: 1. Interval improvement in multifocal bilateral pulmonary airspace disease with decreasing consolidat ion of the left lower lung zone. 2. Right PICC.
[2024-10-28 06:07] LABS: Hematocrit 27.1 % (41.0-53.0); Hemoglobin 9.3 g/dL (13.5-17.5); Mean Corpuscular Hemoglobin 30.7 pg (28.0-32.0); Mean Corpuscular Volume 89.3 fL (80.0-100.0); Nucleated Red Blood Cells % 0.0 %
[2024-10-28 06:26] LABS: Alanine Aminotransferase 19 U/L (7-40); Anion Gap 5 (5-15); BUN/Creatinine Ratio 29.8 (10.0-20.0); Blood Urea Nitrogen 14 mg/dL (9-23); Carbon Dioxide 27 mmol/L (20-31); Chloride 107 mmol/L (98-107); Magnesium 2.1 mg/dL (1.6-2.6); Potassium 4.1 mmol/L (3.5-5.1); Sodium 139 mmol/L (136-145); Total Protein 6.1 g/dL (5.7-8.2)
[2024-10-28 06:27] LABS: Albumin 2.6 g/dL (3.2-4.8); Alkaline Phosphatase 37 U/L (46-116); Bilirubin, Total 0.5 mg/dL (0.2-1.0); Calcium 8.0 mg/dL (8.7-10.4); Glucose 106 mg/dL (74-106)
[2024-10-28] MEDS: VANCOMYCIN 1GM/200ML PM 200 ML IV SCH (18:04)
--- NOTE | 2024-10-28 18:14 | DVHPNRES ---
Progress Note Date Seen: Oct 28, 2024 Resident Creating Document: ELAINE ALFREDO RESIDENT Medical Necessity Reason Pt with a Central, PICC or Fol: Yes The following are medically ne: Central Line, Hsu Catheter Subjective Review of Systems Patient is a 64-year-old male with past medical history of CAD, paroxysmal AFib on Eliquis, hypertension, developmental delay, schizophrenia, baseline dementia, normal pressure hydrocephalus, history of CVA, history of seizures, dyslipidemia, who comes in due to shortness of breath. Per pt's contact at the [facility], he spat out his medications and was noted to have cyanotic fingertips, spo02 was noted to be in the 30's% which is what prompted this visit to the hospital, was also noted to have a fever of 99.3 earlier on 10/14/24. According to the ER and admitting notes, patient was brought to the hospital due to increasing shortness of breath with a respiratory rate in the 40s associated with pallor. Patient was noted to have an oxygen saturation of 82% with a fever of 101 and was being bagged on arrival. Patient was subsequently intubated and put on a mechanical ventilator. Past Hospitalization: Discharged from the [facility] on 08/28/2024 after being treated for altered level of consciousness Patient seen and examined at bedside. Review of systems could not be completed as patient is sedated and mechanically ventilated. 10/16/2024: Patient seen and examined at bedside. Detailed discussions were held with patient's [facility] administrator Ms. Luna, patient's sister Ms. Zavaleta ([phone]), voicemail was also left for patient's current social worker psychiatric Ms. Mattie Lemon at [phone]. Increased tube feedings to 40 cc/hour. Discontinued IV fluids. 10/17/2024: Patient seen and examined at bedside. On 2 mcg of Levophed, 50 of fentanyl and 5 of Versed. Chest x-ray showed no significant interval change. Call social worker psychiatric Ms. Mattie Lemon again at [phone], left a message with duty clothing supervisor to have her call me back as she is not in the office until 3:00 p.m.. 10/18/24--64-year-old male history of hypertension AFib CVA,. Here from snf was found to be hypoxic cyanotic. Patient was intubated. Here for UTI, aspiration pneumonia. On broad-spectrum antibiotics vancomycin meropenem.. Currently on Versed 5 Levophed to fentanyl 50. Vitals stable. Ventilated a.c. 20/500/80%/5.0.. Getting Jevity feeds we will add free water flushes 200 q.8, no apparent in the indication for fluid restriction. Appears euvolemic. Urine output adequate, some mild pitting edema in ankles, otherwise unchanged exam from prior. Otherwise continue primary team's management. 10/19/2024-plan for sedation vacation and CPAP trial NAD/SBT. Patient is off of Versed fentanyl. Also off Levophed. Vitals stable, maps more than 70 heart rate between 90 and 100. Not yet started CPAP trial. Currently on ventilated settings 18/5 100/30%/5.0. Patient appears comfortable has strong gag reflex and cough reflex. Urine output is adequate. We will continue trial today and continue IV antibiotics as per primary team plan. We are adding lactulose, no bowel movements. This has diminishes breath sounds right lower lung. -update : in PM , patient is becoming hypotensive bradycardic. We will start dopamine drip. If dopamine controlled heart rate more than 60 and still hypotensive we will use Levophed. EKG done. sepsis remains likely cause of shock, bradycardia will need exploring with possible echo tomorrow and/or cardiology eval, defer to primary team. 10/20/24: CPAP trail with NIF -8. off of pressors. PICC line consult, cpap trial in the AM 10/21/24: Status post extubation today, currently on Levophed at 1 microgram/min. Attempted to place NG tube x3, unsuccessful. 10/22/24: overnight hypokalemic at 2.9, repleted with repeat at 3.1, gave another 40meq. repleted magnesium. started TPN, pending swallow eval. 10/23/24: Patient seen and examined at bedside, improved from prior. On 3 L O2 via NC. Downgraded to ANTONELLA. With a voicemail for spring encaser for meeting between decision makers on Sunday, called patient's sister Ms. Zavaleta, she expressed that she would like to attend the meeting on Sunday telephonically. 10/24/2024: Patient seen and examined at bedside, overnight low-grade fevers. Overnight episode of agitation and anxiety, overall calmer than yesterday. Called spring encaser Ms. Lemon again and left a voicemail, awaiting callback. Spoke with replacement spring encaser Ms. Tabatha Perez, she said decision makers we will be the ethics committee from [facility], and that she will forward an email about meeting on Sunday at 1:00 p.m.. 10/27/24: Patient more verbal and alert today, however still AOx1. 10/28/2024: A meeting between decision makers/caretakers was held, attended by patient's sister Ms. Zavaleta via telephone (lives in [place]), patient's covering imaging technician from [facility] Ms. Mays via telephone ( Mattie Lemon on vacation), [facility] and [facility] senior storage administrator in person Jas Kunal Luna and patient's caregiver/WATCH BAND ASSEMBLER from the [facility] and care facility via telephone. Details about clinical course, past hospitalizations, active clinical issues were discussed. A decision was made by patient's sister Ms. Zavaleta for DNR in alignment with comfort focused care and to discharge patient to [facility] on hospice. Objective vital signs Vital Sign Date Time Temp Pulse Resp B/P (MAP) Pulse Ox O2 Delivery O2 Flow Rate FiO2 10/28/24 17:00 90 21 148/73 (98) 96 10/28/24 16:00 98.8 98.8 10/28/24 16:00 Nasal Cannula* 2 28 Total Intake and Output 10/27/24 10/27/24 10/28/24 14:59 22:59 06:59 Intake Total 704 ml 441 ml 947 ml Output Total 2000 ml 1900 ml Balance 704 ml -1559 ml -953 ml medications Current Medications Medications Dose Ordered Sig/David Route Start Time Stop Time Status Last Admin Dose Admin Pantoprazole Sodium 40 mg DAILY IV 10/15/24 10:00 10/28/24 09:02 40 MG Mupirocin 1 applic BID EACHNOSTRI 10/15/24 22:00 10/20/24 21:59 UNV Lactulose 30 ml DAILY PO 10/20/24 10:00 10/28/24 09:02 30 ML Sodium Chloride 10 ml QSHIFT@10,22 IV 10/21/24 22:00 10/28/24 09:02 10 ML Valproate Sodium 500 mg/Sodium Chloride 105 ml @ 105 mls/hr TID IV 10/22/24 00:00 10/28/24 14:48 105 MLS/HR Acetaminophen 650 mg Q6HP PRN MN 10/22/24 13:15 10/25/24 18:24 650 MG Morphine Sulfate 1 mg Q4HP PRN IV 10/22/24 14:15 10/27/24 23:01 1 MG Haloperidol Lactate 2.5 mg Q8HP PRN IM 10/22/24 14:15 10/26/24 16:10 2.5 MG Diagnostic Test (Pha) 1 strip Q6HR 10/23/24 00:00 10/28/24 21:59 10/28/24 18:04 1 STRIP Insulin Human Regular FOLLOW SLIDING SCALE Q6HR SC 10/23/24 00:00 10/28/24 21:59 Dextrose 50 ml UD IV 10/22/24 22:00 10/28/24 21:59 Acetylcysteine 100 mg Q4HR NEB 10/24/24 14:00 10/28/24 15:01 100 MG Ipratropium [place] 0.5 mg Q4HPRN PRN NEB 10/24/24 14:00 10/28/24 15:01 0.5 MG Levalbuterol HCl 0.625 mg Q4HR NEB 10/24/24 14:00 10/28/24 15:01 0.625 MG Vancomycin HCl 0 ml @ 0 mls/hr UD IV 10/26/24 15:45 Fat Emulsion Intravenous 200 ml/Potassium Chloride 20 meq/ Potassium Acetate 20 meq/Potassium Phosphate 40 meq/ Magnesium Sulfate 26 meq/ Multivitamins 10 ml/Chromium/ Copper/Manganese/ Zinc 1 ml/Amino Acids/Dextrose 1,696.5909 ml @ 70 mls/hr [id number] IV 10/27/24 22:00 10/28/24 21:59 Cancel Fat Emulsion Intravenous 200 ml/Potassium Chloride 20 meq/ Potassium Acetate 20 meq/Potassium Phosphate 40 meq/ Magnesium Sulfate 26 meq/ Multivitamins 10 ml/Chromium/ Copper/Manganese/ Zinc 1 ml/Amino Acids/Dextrose/ Purified Water 1,796.5909 ml @ 74 mls/hr [id number] IV 10/27/24 22:00 10/28/24 21:59 10/27/24 22:00 74 MLS/HR Vancomycin HCl 200 ml @ 160 mls/hr Q10H IV 10/28/24 18:00 10/28/24 18:04 160 MLS/HR Potassium Chloride 20 meq/ Potassium Acetate 20 meq/Potassium Phosphate 40 meq/ Magnesium Sulfate 26 meq/ Multivitamins 10 ml/Chromium/ Copper/Manganese/ Zinc 1 ml/Amino Acids/Dextrose/ Purified Water 1,596.5909 ml @ 74 mls/hr [id number] IV 10/28/24 22:00 10/29/24 21:59 Cancel Patient Own Medication 12.5 mg DAILY PO 10/29/24 10:00 Cancel Metoprolol Succinate 12.5 mg DAILY PO 10/29/24 10:00 Future Hold Examination Neck Exam: Normal inspection. Non-tender. Normal alignment Pulmonary/Respiratory: Chest non-tender. Coarse bilateral breath sounds Cardiovascular/Chest: Regular rate and rhythm. No murmurs. No JVD. Peripheral Pulses: 2+ Radial (R). 2+ Radial (L). 2+ Pedal (R). 2+ Pedal (L) Abdominal Exam: Normal bowel sounds. Soft. normal abdomen, no visible veins, Nontender. No hepatospenomegaly. No masses Ankle Exam: Negative ankle edema Lower extremities: Right ankle and heel wound noted. Left heel blanchable redness. L buttock maceration laboratory and microbiology Laboratory Tests 10/28/24 04:40 Test 10/28/24 04:40 Range/Units Serum Glucose 106 74-106 mg/dL Microbiology Date/Time Source Procedure Growth Status 10/21/24 14:10 Catheter Site Gram Stain - Final Complete 10/21/24 14:10 Catheter Site Wound Culture - Final Complete 10/19/24 11:01 Bronchial Washings Gram Stain - Final Complete 10/19/24 11:01 Respiratory Culture - Final Methicillin Resistant S.aureus Klebsiella pneumoniae - ESBL Complete 10/14/24 18:35 Voided Urine Urine Culture - Final Complete 10/14/24 18:32 Blood Blood Culture - Final NO GROWTH AFTER 5 DAYS OF INCUBATION. Complete Labs and/or images reviewed: Labs reviewed by me, Image(s) reviewed by me Problem List/Assessment/Plan Problem List/Assessment/Plan Neurology # acute on chronic metabolic encephalopathy # dementia, unspecified type # schizophrenia # normal pressure hydrocephalus - head CT: No significant interval change. Unchanged hydrocephalus, further clinical correlation is suggested. If clinically indicated, MRI may be beneficial in further evaluation. - resumed home medication depakote - IM haldol 2.5mg q8 prn - pain control with IV morphine 1mg q4prn Cardiovascular # septic shock due to pneumonia vs UTI # coronary artery disease # paroxysmal AFib, CHADS-VASc 5 # hypercoagulable state secondary to above # essential hypertension - off Levophed 10/22/24 - IV vancomycin, IV meropenem - Holding lovenox as hematuria noted 10/22/24 Respiratory # Ventilator - intubated 10/14/2024 - extubated 10/21/24 # Acute hypoxic respiratory failure # aspiration pneumonia, culture growing MRSA and Klebsiella - CXR: Bronchovascular crowding due to low lung volumes with possible mild pulmonary vascular congestion. Underlying infectious process can not be excluded. - IV vancomycin, IV meropenem GI # transaminitis # Peptic ulcer prophylaxis - Pantoprazole 40 mg IV daily - monitor /Nephrology # acute complicated UTI # hyperkalemia, now resolved # hypokalemia, repleted # Hsu catheter 10/14/24 - IV meropenem - monitor Infectious disease # aspiration pneumonia, culture growing MRSA and Klebsiella # acute complicated UTI # sepsis due to above - IV vancomycin, IV meropenem - Hsu placed on 10/14/2024 - strict aspiration precautions Hem/onc # anemia likely of chronic disease # initial leukopenia - monitor Endocrine # protein calorie malnutrition Nutrition Cleared swallow evaluation, pureed diet Lines R PICC line S/p extubation 10/21/24, requested swallow evaluation. Downgraded to ANTONELLA on 10/23/2024 A meeting between decision makers/caretakers was held, attended by patient's sister Ms. Zavaleta via telephone (lives in [place]), patient's covering imaging technician from [facility] Ms. Mays via telephone (Ms. Mattie Lemon on vacation), [facility] in person Jas Kunal Luna and patient's caregiver/WATCH BAND ASSEMBLER from the [facility] and care facility via telephone. Details about clinical course, past hospitalizations, active clinical issues were discussed. A decision was made by patient's sister Ms. Zavaleta for DNR in alignment with comfort focused care and to discharge patient to [facility] on hospice. critical care time 81 mins Plan discussed with Dr. Burton Plan discussed with: Other (RN, spring encaser, telecommunications administrator, sister) My Orders My Orders Orders - ELAINE ALFREDO Procedure Category Date Status Time Tpn Per Pharmacy KELSEA 10/28/24 In Process 22:00 Metoprolol Xl PHA 10/29/24 In Process Succinate (Toprol Xl) 10:00 * Electronic Installer CONS 10/28/24 Transmitted Consult Transfer Orders XFER 10/28/24 Transmitted 17:15 Dietary Evaluation Review Comments: 1) TF Jevity 1.2Cal @ 70ml/hr. Start @ 20ml/hr, increase 10ml/hr Q4H until goal is reached. TF at goal volum provides 100% energy & protein needs (2016 kcal, 93gm protein, 1356ml free water) 2) Water flush 110ml Q4H if allowed, adjust PRN 3) TPN if NPO > 7 days Expected Outcomes/Goals: To meet at least 75% estimated needs within 7 days FU 2-3 days Date of Service: Oct 28, 2024 Billing Provider: MIHAI BURTON MD Common Visit Codes: 30182-ETVUKXXJ CARE 30-74 MIN, 56674-[id number] CARE-EACH +30MIN ELAINE ALFREDO Oct 28, 2024 18:14 MIHAI BURTON MD Oct 29, 2024 13:50
[2024-10-28] MEDS ORDERED: POTASSIUM CHLORIDE IV NR (22:00)
[2024-10-28] MEDS ORDERED: TPN PER PHARMACY IV NR (22:00)
[2024-10-28] MEDS ORDERED: POTASSIUM PHOSPHATE IV NR (22:00)
[2024-10-28] MEDS ORDERED: [UNRECOGNIZED DRUG - OTHER] IV NR (22:00)
[2024-10-28] MEDS ORDERED: POTASSIUM ACETATE IV NR (22:00)
[2024-10-29] VITALS (14 sets, daily range): BP systolic 154–159; BP diastolic 69–90; PULSE 75–96; RESP 14–20; TEMP 98; O2SAT 93–100
[2024-10-29 06:39] LABS: Hematocrit 30.6 % (41.0-53.0); Hemoglobin 10.4 g/dL (13.5-17.5); Mean Corpuscular Hemoglobin 30.2 pg (28.0-32.0); Mean Corpuscular Volume 88.6 fL (80.0-100.0); Nucleated Red Blood Cells % 0.2 %
[2024-10-29 06:52] LABS: Anion Gap 8 (5-15); Calcium 8.9 mg/dL (8.7-10.4); Carbon Dioxide 25 mmol/L (20-31); Chloride 106 mmol/L (98-107); Potassium 4.0 mmol/L (3.5-5.1); Sodium 139 mmol/L (136-145)
[2024-10-29 06:58] LABS: BUN/Creatinine Ratio 30.4 (10.0-20.0); Blood Urea Nitrogen 17 mg/dL (9-23); Glucose 86 mg/dL (74-106)
[2024-10-29] MEDS ORDERED: AUG875T PO (08:07)
--- NOTE | 2024-10-29 08:18 | DVHDSRES ---
Discharge Summary Date of Admission Resident Creating Document: ELAINE ALFREDO RESIDENT Oct 14, 2024 at 22:23 Date of Discharge: Oct 29, 2024 Admitting Diagnosis acute hypoxic respiratory failure Wounds: Right ankle and heel wound noted. Left heel blanchable redness. L buttock maceration Labs/Diagnostic Data: Laboratory Results Test 10/29/24 06:03 10/28/24 18:07 10/28/24 04:40 10/27/24 21:38 White Blood Count 8.4 10^3/uL (4.4-10.8) Red Blood Count 3.45 10^6/uL (4.5-5.90) Hemoglobin 10.4 g/dL (13.5-17.5) Hematocrit 30.6 % (41.0-53.0) Mean Corpuscular Volume 88.6 fL (80.0-100.0) Mean Corpuscular Hemoglobin 30.2 pg (28.0-32.0) Mean Corpuscular Hemoglobin Concent 34.0 g/dL (32.0-36.0) Red Cell Distribution Width 14.8 % (11.8-14.3) Platelet Count 486 10^3/uL (140-450) Mean Platelet Volume 6.8 fL (6.9-10.8) Neutrophils (%) (Auto) 54.1 % (37.0-80.0) Lymphocytes (%) (Auto) 33.1 % (10.0-50.0) Monocytes (%) (Auto) 8.8 % (0.0-12.0) Eosinophils (%) (Auto) 2.8 % (0.0-7.0) Basophils (%) (Auto) 1.2 % (0.0-2.0) Neutrophils # (Auto) 4.5 10 ^3/uL (1.6-8.6) Lymphocytes # (Auto) 2.8 10 ^3/uL (0.4-5.4) Monocytes # (Auto) 0.7 10 ^3/uL (0-1.3) Eosinophils # (Auto) 0.2 10 ^3/uL (0-0.8) Basophils # (Auto) 0.1 10 ^3/uL (0-0.2) Nucleated Red Blood Cells 0.2 % Sodium Level 139 mmol/L (136-145) Potassium Level 4.0 mmol/L (3.5-5.1) Chloride Level 106 mmol/L (98-107) Carbon Dioxide Level 25 mmol/L (20-31) Anion Gap 8 (5-15) Blood Urea Nitrogen 17 mg/dL (9-23) Creatinine 0.56 mg/dL (0.700-1.30) Glomerular Filtration Rate Calc 109 mL/min (>90) BUN/Creatinine Ratio 30.4 (10.0-20.0) Serum Glucose 86 mg/dL (74-106) Calcium Level 8.9 mg/dL (8.7-10.4) POC Glucose 104 mg/dl (70-106) Phosphorus Level 3.7 mg/dL (2.4-5.1) Magnesium Level 2.1 mg/dL (1.6-2.6) Total Bilirubin 0.5 mg/dL (0.2-1.0) Aspartate Amino Transferase (AST) 25 U/L (13-40) Alanine Aminotransferase (ALT) 19 U/L (7-40) Alkaline Phosphatase 37 U/L (46-116) Total Protein 6.1 g/dL (5.7-8.2) Albumin 2.6 g/dL (3.2-4.8) Vancomycin Level Trough 14.5 ug/mL (5-10) Test 10/23/24 01:50 10/21/24 10:14 10/21/24 06:23 10/21/24 02:54 Triglycerides Level 83 mg/dL (< 150) Blood Gas Specimen Type Arterial Blood Gas Sample Site Left radial Blood Gas Patient Temperature 37.0 Arterial Blood Date Drawn [id number] Arterial Blood pH 7.509 (7.350-7.450) Arterial Blood Partial Pressure CO2 32.1 mmHg (35.0-48.0) Arterial Blood Partial Pressure O2 101.8 mmHg (83.0-108.0) Arterial Blood HCO3 25.0 mmol/L (21.0-28.0) Arterial Blood Oxygen Saturation 97.3 % (94.0-98.0) Arterial Blood Base Excess 2.4 mmol/L (-2.0-3.0) Arterial Blood Oxyhemoglobin 96.6 % (94.0-98.0) Arterial Blood Carboxyhemoglobin 0.3 % (0.5-1.5) Arterial Blood Methemoglobin 0.4 % (0.0-1.5) Brady Test Modified Blood Gas Total Hemoglobin 11.70 g/dL (13.5-17.5) Blood Gas Modality Vent - cpap FiO2 % 30.0 Blood Gas Pressure Support 8 Blood Gas PEEP or CPAP 5.0 Blood Gas Comments Cpap: peep 5, ps 8 Blood Gas Set Respiration Rate 18.0 Blood Gas Tidal Volume 500.0 Specimen Drawn By Amira long Prothrombin Time 11.2 sec (9.3-11.8) Prothrombin Time INR 1.06 (0.9-1.15) Test 10/20/24 15:27 10/20/24 03:00 10/18/24 03:29 10/15/24 14:14 Ammonia < 10 umol/L (11-32) Valproic Acid Level 5.5 ug/mL (50-100) Thyroid Stimulating Hormone (TSH) 5.33 uIU/mL (0.55-4.78) Differential Total Cells Counted 100.0 (100) Neutrophils % (Manual) 67 (37.0-80.0) Band Neutrophils % (Manual) 3 Lymphocytes % (Manual) 20 (10.0-50.0) Monocytes % (Manual) 8 (0-12) Eosinophils % (Manual) 2 (0-7) Basophils % (Manual) 0 (0.0-2.0) Metamyelocytes % (manual) 0 Myelocytes % (Manual) 0 Promyelocytes % (Manual) 0 Blast Cells % (Manual) 0 Reactive Lymphocytes 0 Platelet Estimate Adequate Influenza Type A Antigen Negative (Negative) Influenza Type B Antigen Negative (Negative) SARS-CoV-2 Antigen (Rapid) Negative (NEGATIVE) Test 10/14/24 20:07 10/14/24 18:35 Lactic Acid Level 1.8 mmol/L (0.4-2.0) Urine Color Yellow (Yellow) Urine Clarity Ex.turbid (Clear) Urine pH 5.5 (5.0-9.0) Urine Specific [place] 1.026 (1.001-1.035) Urine Protein Trace (Negative) Urine Ketones Negative (Negative) Urine Blood 2+ /uL (Negative) Urine Nitrite Negative (Negative) Urine Bilirubin Negative (Negative) Urine Urobilinogen 6 mg/dL (Negative) Urine Leukocyte Esterase Negative /uL (Negative) Urine RBC 480 /hpf (0 - 3) Urine WBC Clumps Present /hpf (None Seen) Urine Microscopic WBC 89 /HPF (0-3) Urine Squamous Epithelial Cells None seen /hpf (<5) Urine Bacteria None seen /hpf (None Seen) Urine Mucus Few (None Seen) Urine Glucose Normal mg/dL (Normal) Other Laboratory Tests 10/29/24 06:03 Brief Hx & Hospital Course: Discharge Summary This is a 64-year-old male with a complex medical history including coronary artery disease, paroxysmal atrial fibrillation on Eliquis, hypertension, schizophrenia, developmental delay, baseline dementia, normal pressure hydrocephalus, prior cerebrovascular accident, seizure disorder, and dyslipidemia. He was brought in from his [facility] facility due to acute hypoxic respiratory failure. He was noted to have cyanotic fingertips and an SpO2 in the 30s. On arrival, he was febrile (101F), tachypneic (RR 40s), and hypoxic (SpO2 82%). He was emergently intubated and admitted to the ICU. During hospitalization, he was diagnosed with aspiration pneumonia (cultures positive for MRSA and Klebsiella) and a complicated urinary tract infection, both contributing to septic shock. He required mechanical ventilation and vasopressor support (Levophed, dopamine). He was treated with IV vancomycin and meropenem. Hsu catheter was placed on admission. Neurologically, he was noted to have acute on chronic metabolic encephalopathy. A head CT showed unchanged hydrocephalus. He was managed with Depakote and PRN Haldol for agitation. Pain was controlled with IV morphine. He was extubated on 10/21/24 and gradually weaned to 3L O2 via nasal cannula and then to room air. Nutrition was supported with Jevity tube feeds and later TPN due to swallowing concerns. Electrolyte imbalances including hypokalemia and hypomagnesemia were corrected. Transaminitis was monitored, and pantoprazole was given for ulcer prophylaxis. A multidisciplinary meeting was held on 10/28/24 with the patients sister, [facility] and care staff, and [facility]. The decision was made to transition to DNR status and comfort-focused care. He was discharged to [facility] on hospice. Medications on Discharge: Follow-Up: Hospice team to assume care. No further hospital follow-up planned. discharge planning time 43 mins Operations or Procedures Procedure - Procedure- Bronchoscopy and bronchial washings Indication- Mucus Procedure in detail Emergency consent with two physicians was obtained and the patient was placed on 100% FiO2. Olympus bronchoscope was used and passed through the endotracheal tube, tracheobronchial tree was examined. There were nonpurulent secretions in the airways bilaterally that were loosened up with approximately 50 cc of normal saline and thoroughly suctioned into a separate specimen container. There were no endobronchial lesions however, mucosa appeared inflamed and easily friable. After the procedure, the scope was removed. Patient tolerated the procedure well. Condition at Discharge: Fair Final Diagnosis/Problems List # acute on chronic metabolic encephalopathy # dementia, unspecified type # schizophrenia # normal pressure hydrocephalus # septic shock due to pneumonia - aspiration vs UTI # coronary artery disease # paroxysmal AFib, CHADS-VASc 5 # hypercoagulable state secondary to above # essential hypertension # ventilator # Acute hypoxic respiratory failure # aspiration pneumonia, culture growing MRSA and Klebsiella # transaminitis # Peptic ulcer prophylaxis # acute complicated UTI # hyperkalemia, now resolved # hypokalemia, repleted # aspiration pneumonia, culture growing MRSA and Klebsiella # acute complicated UTI # sepsis due to above # anemia likely of chronic disease # initial leukopenia # protein calorie malnutrition Discharge Disposition: Assisted Living Facility Discharge Instruct/Medications Diet: See Comment Diet comment: pureed Activity: No Restrictions, As Tolerated Follow Up/Referral: pls follow up with pcp 1-2 weeks Medications: Augmentin 875mg po bid for 6 days continue home medications Scheduled Apixaban Base (Eliquis), 5 MG PO BID Aripiprazole (Abilify), 15 MG PO DAILY, (Reported) Atorvastatin Calcium (Lipitor), 1 TAB PO DAILY, (Reported) Benztropine Mesylate (Benztropine Mesylate), 1 TAB PO BID, (Reported) Divalproex Sodium (Divalproex Sodium), 500 MG PO TID, (Reported) Donepezil Hydrochloride (Donepezil Hcl), 10 MG PO HS, (Reported) Ergocalciferol (Vitamin D 27253 Unit), 50,000 UNIT PO weekly Losartan Potassium (Losartan Potassium), 1 TAB PO DAILY, (Reported) Metoprolol Succinate (Metoprolol Succinate Er), 12.5 MG PO DAILY, (Reported) Zdsos-0-Evbw Ethyl Esters (Sugus-3-Axaj Ethyl Esters), 2 CAP PO BID, (Reported) Omeprazole (Omeprazole Dr), 1 CAP PO DAILY, (Reported) Miscellaneous Medications Docusate Sodium (Colace), 1 CAP PO, (Reported) Discharge Statement: "Patient was advised to return to the ER or call 911 if any headaches, dizziness, shortness of breath, chest pain, abdominal pain, bleeding, fevers, or worsening of medical condition. Patient was counseled about treatment plan, medications, possible side effects, patientverbalized understanding. All questions were answered to the best of my ability. This discharge took greater then 30 minutes in planning, reviewing documentation, counseling the patient, and discussing with other team members." ASSESSMENT ASSESSMENT Assessment # acute on chronic metabolic encephalopathy # dementia, unspecified type # schizophrenia # normal pressure hydrocephalus # septic shock due to pneumonia vs UTI # coronary artery disease # paroxysmal AFib, CHADS-VASc 5 # hypercoagulable state secondary to above # essential hypertension # ventilator # Acute hypoxic respiratory failure # aspiration pneumonia, culture growing MRSA and Klebsiella # transaminitis # Peptic ulcer prophylaxis # acute complicated UTI # hyperkalemia, now resolved # hypokalemia, repleted # aspiration pneumonia, culture growing MRSA and Klebsiella # acute complicated UTI # sepsis due to above # anemia likely of chronic disease # initial leukopenia # protein calorie malnutrition Date of Service: Oct 29, 2024 Billing Provider: MIHAI BARROS MD Common Visit Codes: [id number] DISCH DAY >30min ELAINE ALFREDO Oct 29, 2024 08:18 MIHAI BARROS MD Nov 01, 2024 12:38
[2024-10-29] MEDS ORDERED: METOPROLOL SUCCINATE XL 50 MG TAB PO SCH (10:00)
[2024-10-29] MEDS ORDERED: PATIENTS OWN MEDICATION (Metoprolol Succinate (Metoprolol Succinate Er) 12.5 MG) PO SCH (10:00)
== END 2024-10-29 15:35 | disposition hospice, inpatient (51) | DRG 870 ==
LOC: EDBD 18:12 → ER 18:21 → OVERFLOW 22:23 → ICU WEST 23:35 → DOU IN ICU 10-25 18:33 → TELE-CENTR 10-29 02:27
PROVIDERS: ADMIT Internal Medicine; ATTEND Internal Medicine
PROC: 0BH17EZ Insertion of Endotracheal Airway into Trachea, Via Natural or Artificial Opening (ICD-10-PCS; principal; 2024-10-14)
PROC: 05HM33Z Insertion of Infusion Device into Right Internal Jugular Vein, Percutaneous Approach (ICD-10-PCS; 2024-10-14)
PROC: 5A1955Z Respiratory Ventilation, Greater than 96 Consecutive Hours (ICD-10-PCS; 2024-10-14)
PROC: 0B978ZZ Drainage of Left Main Bronchus, Via Natural or Artificial Opening Endoscopic (ICD-10-PCS; 2024-10-19)
PROC: 0B938ZZ Drainage of Right Main Bronchus, Via Natural or Artificial Opening Endoscopic (ICD-10-PCS; 2024-10-19)
PROC: 02HV33Z Insertion of Infusion Device into Superior Vena Cava, Percutaneous Approach (ICD-10-PCS; 2024-10-21)
PROC: B548ZZA Ultrasonography of Superior Vena Cava, Guidance (ICD-10-PCS; 2024-10-21)
DX: A41.02 Sepsis due to Methicillin resistant Staphylococcus aureus (principal); R65.21 Severe sepsis with septic shock; J96.01 Acute respiratory failure with hypoxia; G93.41 Metabolic encephalopathy; J69.0 Pneumonitis due to inhalation of food and vomit; E46 Unspecified protein-calorie malnutrition; N39.0 Urinary tract infection, site not specified; G91.2 (Idiopathic) normal pressure hydrocephalus; D68.69 Other thrombophilia; J98.11 Atelectasis; Z20.822 Contact with and (suspected) exposure to COVID-19; D63.8 Anemia in other chronic diseases classified elsewhere; E87.5 Hyperkalemia; F20.9 Schizophrenia, unspecified; I10 Essential (primary) hypertension; G40.909 Epilepsy, unspecified, not intractable, without status epilepticus; F03.90 Unspecified dementia, unspecified severity, without behavioral disturbance, psychotic disturbance, mood disturbance, and anxiety; E11.9 Type 2 diabetes mellitus without complications; R74.01 Elevation of levels of liver transaminase levels; E87.6 Hypokalemia; I48.0 Paroxysmal atrial fibrillation; I25.10 Atherosclerotic heart disease of native coronary artery without angina pectoris; E78.5 Hyperlipidemia, unspecified; B96.1 Klebsiella pneumoniae [K. pneumoniae] as the cause of diseases classified elsewhere; I25.2 Old myocardial infarction; Z68.24 Body mass index [BMI] 24.0-24.9, adult
CPT/HCPCS: 31500; 36415; 36556; 36569; 36600; 70450; 71045; 76937; 80048; 80053; 80164; 80202; 81001; 82140; 82565; 82805; 82962; 83605; 83735; 84100; 84132; 84443; 84478; 85007; 85025; 85027; 85610; 87040; 87070; 87077; 87081; 87086; 87186; 87205; 87426; 87804; 92610; 93005; 94002; 94003; 94640; 96361; 96365; 99291; 99292; G0378; J0330; J1815; J2185; J2470; J2543; J3480